=== PATIENT | male | born 1965 | race Caucasian/White ===

== ENCOUNTER 2017-06-08 11:56 | Outpatient (CLI) | payer MEDICARE, MEDICAID ==
--- OUTSIDE RECORDS SUMMARY | 2017-06-08 11:58 | XMS ---
:1965 Author Organization [facility] Care Team Providers Name Role Phone NADINE MALAGON Unavailable Unavailable Encounters Encounter Providers Location Date Indications Data Source(s) Outpatient Attender: NADINE 08/30/2014 FERNANDO MALAGON MD 10:52:00 AM HAM PUMPER - 08/31/2014 01:44:00 PM HAM PUMPER Outpatient Attender: NADINE 08/29/2014 FERNANDO MALAGON MD 09:05:00 AM HAM PUMPER - 08/29/2014 09:05:00 AM HAM PUMPER Insurance Providers Payer name Policy type / Policy ID Covered Covered libertarian's Policy Plan Coverage type libertarian ID relationship to Kiser Information kiser Medicare NOT_[id number] Medicare NOT_[id number] Problems, Conditions, and Diagnoses Code Display Name Description Effective Dates Data Source(s) 414.01 CORONARY ATHEROSCLEROSIS CRNRY ATHRSCL [facility] [place] CORONARY ARTERY VSSL 493.90 ASTHMA UNSPECIFIED ASTHMA NOS SDH 401.9 UNSPECIFIED ESSENTIAL HYPERTENSION NOS SDH HYPERTENSION 296.80 BIPOLAR DISORDER BIPOLAR DISORDER NOS SDH UNSPECIFIED 427.31 ATRIAL FIBRILLATION ATRIAL FIBRILLATION SDH V64.1 SURGICAL OR OTHER NO SDH PROCEDURE NOT CARRIED OUT PROC/CONTRAINDICATION BECAUSE OF CONTRAINDICATION 427.31 ATRIAL FIBRILLATION ATRIAL FIBRILLATION SDH Surgeries/Procedures Procedure Date Indications Data Source(s) CARDIAC MAPPING 08/30/2014 12:00:00 AM [facility] INTRACARDIAC ECHOCARDIO 08/30/2014 12:00:00 AM [facility] SDH EXC/JAMEL HRT LES, ENDOVASC 08/30/2014 12:00:00 AM [facility] CATH BASE INVASV EP TEST 08/30/2014 12:00:00 AM [facility]
[2017-06-08 13:39] LABS: #Lymphocytes 1.4 thou/uL (1.20-3.40); #Monocytes 0.7 thou/uL (0.11-0.59); #Neutrophils 7.8 thou/uL (1.40-6.50); %Basophils 0.3 % (0.0-1.0); %Eosinophils 0.2 % (0.0-10.0); %Lymphocytes 14.2 % (21.0-51.0); %Monocytes 7.2 % (0.0-10.0); Hematocrit 40.9 % (42.0-52.0); Mean Platelet Volume 6.8 fL (7.4-10.4); Red Blood Cell (RBC) Count 4.31 mill/uL (4.70-6.10); White Blood Cell (WBC) Count 9.9 thou/uL (4.8-10.8)
[2017-06-08 13:44] LABS: Prothrombin Time 13.5 SEC (12.0-14.7)
[2017-06-08 13:45] LABS: PTT 30.6 SEC (22.9-36.1)
[2017-06-08 14:12] LABS: Anion Gap 12 mmol/L (10-20); BUN (Urea Nitrogen) 8 mg/dL (8.9-20.6); Calc. Creatinine Clearance 0 mL/min (70-130); Calcium 9.5 mg/dL (7.8-10.44); Carbon Dioxide 29 mmol/L (22-29); Chloride 97 mmol/L (98-107); Estimated GFR-MDRD Greater than 90
--- NOTE | 2017-06-09 09:06 | EKG ---
Test Reason : PREOP Blood Pressure : / mmHG Vent. Rate : 060 BPM Atrial Rate : 060 BPM P-R Int : 180 ms QRS Dur : 090 ms QT Int : 378 ms P-R-T Axes : 067 050 033 degrees QTc Int : 378 ms Normal sinus rhythm Minimal voltage criteria for LVH, may be normal variant Borderline ECG When compared with ECG of 13-DEC-2016 11:25, (Unconfirmed) Left posterior fascicular block is no longer Present Confirmed by LENORA ACE ([id number]) on 06/09/2017 9:06:07 AM Referred By: SOCORRO Confirmed By:LENORA ACE
== END 2017-06-08 11:57 | disposition home or self-care (01) ==
LOC: LABBT 11:56
PROVIDERS: ATTEND Surgery
DX: Z01.812 Encounter for preprocedural laboratory examination (principal); K40.90 Unilateral inguinal hernia, without obstruction or gangrene, not specified as recurrent
CPT/HCPCS: 80048; 85025; 85610; 85730; 93005; 93010

== ENCOUNTER 2017-06-16 09:00 | Day surgery (SDC) | payer MEDICARE, MEDICAID ==
[2017-06-08 12:34] VITALS: BMI 24.0
--- OUTSIDE RECORDS SUMMARY | 2017-06-16 09:03 | XMS ---
:1965 Author Organization [facility] Care Team Providers Name Role Phone NADINE MALAGON Unavailable Unavailable Encounters Encounter Providers Location Date Indications Data Source(s) Outpatient Attender: NADINE 08/30/2014 FERNANDO MALAGON MD 10:52:00 AM PHYSICIAN EXECUTIVE - 08/31/2014 01:44:00 PM PHYSICIAN EXECUTIVE Outpatient Attender: NADINE 08/29/2014 FERNANDO MALAGON MD 09:05:00 AM PHYSICIAN EXECUTIVE - 08/29/2014 09:05:00 AM PHYSICIAN EXECUTIVE Insurance Providers Payer name Policy type / Policy ID Covered Covered green party's Policy Plan Coverage type green party ID relationship to Kiser Information kiser Medicare NOT_[id number] Medicare NOT_VALID_[id number] Problems, Conditions, and Diagnoses Code Display Name Description Effective Dates Data Source(s) 414.01 CORONARY ATHEROSCLEROSIS CRNRY ATHRSCL [facility] [place] CORONARY ARTERY VSSL 493.90 ASTHMA UNSPECIFIED ASTHMA NOS SDH 401.9 UNSPECIFIED ESSENTIAL HYPERTENSION NOS SDH HYPERTENSION 296.80 BIPOLAR DISORDER BIPOLAR DISORDER NOS SDH UNSPECIFIED 427.31 ATRIAL FIBRILLATION ATRIAL FIBRILLATION SDH V64.1 SURGICAL OR OTHER NO SDH PROCEDURE NOT CARRIED OUT PROC/CONTRAINDICATION BECAUSE OF CONTRAINDICATION 427.31 ATRIAL FIBRILLATION ATRIAL FIBRILLATION SDH Surgeries/Procedures Procedure Date Indications Data Source(s) CARDIAC MAPPING 08/30/2014 12:00:00 AM [facility] INTRACARDIAC ECHOCARDIO 08/30/2014 12:00:00 AM [facility] SDH EXC/JAMEL HRT LES, ENDOVASC 08/30/2014 12:00:00 AM [facility] CATH BASE INVASV EP TEST 08/30/2014 12:00:00 AM [facility]
[2017-06-16] MEDS ORDERED: Midazolam HCl 2 mg/2 ml Vial ONE ×2 (10:27→11:21)
[2017-06-16] MEDS ORDERED: Bupivacaine HCl 0.5%/Epinephrine 1:200,000/PF 30 ml Vial ONE ×2 (11:15→11:33)
[2017-06-16] MEDS ORDERED: Bupivacaine PF 0.5% 30 ML VIAL ONE ×2 (11:17→11:19)
[2017-06-16] MEDS ORDERED: Fentanyl 100 MCG/2 ML VIAL ONE ×2 (11:21→13:16)
[2017-06-16] MEDS ORDERED: Levofloxacin 500 mg/D5W 100 ml Premix Bag ONE (11:21)
[2017-06-16] MEDS ORDERED: Lidocaine 2% PF 10 ML AMP (For Epidural Use) ONE (11:51)
[2017-06-16] MEDS ORDERED: Propofol 200 MG/20 ML VIAL ONE (11:51)
[2017-06-16] MEDS ORDERED: Ondansetron HCl/PF 4 MG/2 ML Vial IVP PRN (13:43)
[2017-06-16] MEDS ORDERED: Promethazine HCl 25 MG/ML VIAL IM/IV PRN (13:43)
--- NOTE | 2017-06-16 15:09 | OP ---
DATE OF PROCEDURE: 06/16/2017. PREOPERATIVE DIAGNOSIS: Right inguinal hernia. POSTOPERATIVE DIAGNOSIS: Right inguinal hernia. PROCEDURE: Right inguinal hernia repair with mesh, PHS extended. SURGEON: Martín Vieira M.D. ANESTHESIA: General. ESTIMATED BLOOD LOSS: Minimal. COMPLICATIONS: None. SPECIMEN: None. FINDINGS: Indirect right inguinal hernia. TECHNIQUE: The patient was taken to the operating room and placed supine on the table. After gener al anesthetic was obtained, the abdomen and groins were shaved, prepped and draped in a sterile critical access hospital ion. Oblique incision made above the pubic tubercle in the right lower quadrant. Cautery dissected down through Josephine's to expose the external oblique. External oblique fibers were opened along th e course of the external ring. Contents of the inguinal canal were dissected from backside of the e xternal oblique. The ilioinguinal nerve was segmentally removed high to prevent postoperative pain. Dissection superior medially on the cord showed there to be an indirect hernia sac. High ligation was performed using silk suture. This was inverted back into the preperitoneal space. The preperi toneal space was bluntly dissected through this defect. The PHS extended mesh brought into the ster ile field. The underlay was placed in the preperitoneal space, its fibers laid out flat against the posterior abdominal wall. The overlay was laid in the floor of the inguinal canal. The overlay wa s cut laterally to incorporate the internal ring. The overlay was sewn distally to the pubic tuberc le, medially to the transverse arch, laterally to the shelving edge of inguinal ligament using perma nent braided suture. The two ends of cut mesh were reapproximated at the shelving edge of inguinal ligament to reform the internal ring. The extra mesh was tucked back under the external oblique pro ximally. The wound was irrigated. Local anesthetic was applied. Tunneled catheter for postop pain is threaded from above the incision and left on top of the mesh. External oblique and Josephine's wer e closed using 3-0 Vicryl. Skin was closed using running 4-0 Monocryl and Dermabond. The patient w as en route to recovery in stable condition. All instrument counts, needle counts, and lap counts w ere correct.
--- NOTE | 2017-06-16 15:30 | RAD ---
ABDOMEN 1 VIEW: HISTORY: OR needle count off. COMPARISON: None. FINDINGS: No radiopaque foreign object is seen projecting over the pelvis. Catheter projects over the right h emiabdomen. IMPRESSION: No radiopaque surgical needle is appreciated. POS: [facility]
== END 2017-06-16 14:36 | disposition home or self-care (01) ==
LOC: SDC 09:00
PROVIDERS: ATTEND Surgery
PROC: 0YU50JZ Supplement Right Inguinal Region with Synthetic Substitute, Open Approach (ICD-10-PCS; principal; 2017-06-16)
DX: K40.90 Unilateral inguinal hernia, without obstruction or gangrene, not specified as recurrent (principal); F31.9 Bipolar disorder, unspecified; I10 Essential (primary) hypertension; I48.91 Unspecified atrial fibrillation; K85.20 Alcohol induced acute pancreatitis without necrosis or infection; K52.9 Noninfective gastroenteritis and colitis, unspecified; F14.10 Cocaine abuse, uncomplicated; F17.210 Nicotine dependence, cigarettes, uncomplicated; F20.9 Schizophrenia, unspecified; F10.10 Alcohol abuse, uncomplicated; Z79.82 Long term (current) use of aspirin; Z79.899 Other long term (current) drug therapy; Z88.5 Allergy status to narcotic agent; Z88.0 Allergy status to penicillin; Z91.041 Radiographic dye allergy status
CPT/HCPCS: 74000; 96374; A4306; C1781; J0670; J1956; J2001; J2250; J2704; J3010; S0020

== ENCOUNTER 2017-06-17 19:18 | Emergency (ER) | payer MEDICARE, MEDICAID ==
[2017-06-17 20:34] LABS: #Eosinphils 0.1 thou/uL (0.0-0.7); #Monocytes 0.7 thou/uL (0.11-0.59); #Neutrophils 5.5 thou/uL (1.40-6.50); %Basophils 0.5 % (0.0-1.0); %Eosinophils 1.6 % (0.0-10.0); %Lymphocytes 23.9 % (21.0-51.0); %Monocytes 8.1 % (0.0-10.0); Hematocrit 36.8 % (42.0-52.0); Red Blood Cell (RBC) Count 3.91 mill/uL (4.70-6.10); White Blood Cell (WBC) Count 8.4 thou/uL (4.8-10.8)
[2017-06-17 20:40] LABS: PTT 30.5 SEC (22.9-36.1); Prothrombin Time 13.5 SEC (12.0-14.7)
[2017-06-17 21:01] LABS: ALT (SGPT) 20 U/L (8-55); AST (SGOT) 16 U/L (5-34); Alkaline Phosphatase 79 U/L (40-150); Anion Gap 11 mmol/L (10-20); BUN (Urea Nitrogen) 10 mg/dL (8.9-20.6); Bilirubin, Total 0.4 mg/dL (0.2-1.2); Calc. Creatinine Clearance 0 mL/min (70-130); Calcium 8.8 mg/dL (7.8-10.44); Carbon Dioxide 25 mmol/L (22-29); Chloride 97 mmol/L (98-107); Estimated GFR-MDRD Greater than 90; Globulin 2.9 g/dL (2.4-3.5); Lipase 14 U/L (8-78); Protein, Total 6.7 g/dL (6.0-8.3)
--- NOTE | 2017-06-17 21:06 | ULT ---
ULTRASOUND SOFT TISSUE ABDOMINAL WALL 06/17/17 HISTORY: Postsurgical swelling, evaluate for hematoma. FINDINGS/IMPRESSION: There is a 3.8 x 0.6 x 0.7 cm fluid collection in the abdominal wall at the surgical site. The possi bility of infection cannot be excluded on this exam. POS: [facility]
== END 2017-06-17 22:22 | disposition home or self-care (01) ==
LOC: ERS 19:18
DX: G89.18 Other acute postprocedural pain (principal); R10.30 Lower abdominal pain, unspecified; I48.91 Unspecified atrial fibrillation; I10 Essential (primary) hypertension; F31.9 Bipolar disorder, unspecified; F17.210 Nicotine dependence, cigarettes, uncomplicated
CPT/HCPCS: 36415; 76705; 80053; 83690; 85025; 85610; 85730

== ENCOUNTER 2017-10-03 19:42 | Emergency (ER) | payer MEDICARE, MEDICAID ==
[2017-10-03 20:44] LABS: Bilirubin Negative (Negative); Blood, Urine Negative (Negative); Clarity CLEAR (Clear); Glucose, Urine (Dipstick) Negative (Negative); Leukocyte Negative (Negative); Nitrite Negative (Negative); Protein, Urine (Dipstick) Negative (Neg-Trace); Specific Gravity, Urine 1.007 (1.002-1.036); Urobilinogen 0.2 mg/dL (0.2-1.0)
[2017-10-03 20:52] LABS: #Basophils 0.1 thou/uL (0.0-0.2); #Lymphocytes 1.2 thou/uL (1.20-3.40); #Monocytes 0.8 thou/uL (0.11-0.59); #Neutrophils 12.3 thou/uL (1.40-6.50); %Basophils 0.4 % (0.0-1.0); %Eosinophils 0.1 % (0.0-10.0); %Lymphocytes 8.5 % (21.0-51.0); %Monocytes 5.2 % (0.0-10.0); %Neutrophils 85.8 % (42.0-75.0); Hemoglobin 14.1 g/dL (14.0-18.0); Mean Corpuscular HGB CONC 33.8 g/dL (32.0-36.0); Mean Corpuscular Hemoglobin 31.3 pg (27.0-31.0); Mean Corpuscular Volume 92.8 fl (80.0-94.0); Mean Platelet Volume 6.6 fL (7.4-10.4); Platelet Count 303 thou/uL (130-400); RBC Distribution Width 10.6 % (11.5-14.5); White Blood Cell (WBC) Count 14.3 thou/uL (4.8-10.8)
[2017-10-03 20:53] LABS: Amphetamine Not Detected (NotDetected); Benzodiazepine Screen Detected (NotDetected); Cocaine Metabolite Screen Detected (NotDetected); Medtox Reader # READER 4; Methadone Not Detected (NotDetected); Methamphetamine Not Detected (NotDetected); Opiate Screen Detected (NotDetected); Phencyclidine (PCP) Not Detected (NotDetected); THC/Cannabinoid Screen Not Detected (NotDetected); Tricyclic Screen Not Detected (NotDetected)
[2017-10-03 20:54] LABS: Barbiturates Screen Not Detected (NotDetected); Medtox Control Line Valid? VALID (VALID); Oxycodone Screen Not Detected (NotDetected)
[2017-10-03 21:13] LABS: ALT (SGPT) 32 U/L (8-55); AST (SGOT) 28 U/L (5-34); Acetaminophen Less than 6.0 mcg/mL (10.0-30.0); Albumin 4.6 g/dL (3.5-5.0); Alcohol Less than 10 mg/dL (Less than 10); Alkaline Phosphatase 86 U/L (40-150); Anion Gap 13 mmol/L (10-20); BUN (Urea Nitrogen) 7 mg/dL (8.9-20.6); Bilirubin, Total 0.3 mg/dL (0.2-1.2); CK (CPK) 566 U/L (30-200); Calc. Creatinine Clearance 0 mL/min (70-130); Calcium 9.3 mg/dL (7.8-10.44); Carbon Dioxide 26 mmol/L (22-29); Chloride 97 mmol/L (98-107); Estimated GFR-MDRD 76; Glucose 94 mg/dL (70-105); Potassium 4.2 mmol/L (3.5-5.1); Protein, Total 7.6 g/dL (6.0-8.3); Salicylate Less than 8.0 mg/dL (15.0-30.0); Sodium 132 mmol/L (136-145)
[2017-10-03 21:23] LABS: CKMB 2.3 ng/mL (0-6.6); Troponin I 0.013 ng/mL (< 0.028)
[2017-10-04] MEDS ORDERED: diphenhydrAMINE 50 MG/ML VIAL ONE (01:11)
[2017-10-04] MEDS ORDERED: Famotidine/PF 20 mg/2ml Vial ONE (01:11)
[2017-10-04] MEDS ORDERED: methylPREDNISolone Sod Succ/PF 125 MG/2 ML VIAL ONE (01:11)
--- NOTE | 2017-10-04 09:38 | CT ---
PRELIMINARY REPORT/[facility]/EMERGENCY AFTER HOURS PROCEDURE: EXAM: CT Angiography Neck With Intravenous Contrast CLINICAL HISTORY: 52 years old, male; Injury or trauma; Injury Attempted hanging; Initial encounter; Asphyxiation TECHNIQUE: Axial computed tomographic angiography images of the neck with intravenous contrast using CT angiogra phy protocol. CONTRAST: 100 mL of ISOVUE administered intravenously. COMPARISON: No relevant prior studies available. FINDINGS: VASCULATURE: Right common carotid artery: Unremarkable. No significant stenosis. No dissection or occlusion. Right internal carotid artery: Unremarkable. Extracranial segment is patent with no significant steno sis. No dissection or occlusion. Right external carotid artery: Unremarkable. No occlusion. Right vertebral artery: Unremarkable. No significant stenosis. No dissection or occlusion. Left common carotid artery: Unremarkable. No significant stenosis. No dissection or occlusion. Left internal carotid artery: Unremarkable. Extracranial segment is patent with no significant stenos is. No dissection or occlusion. Left external carotid artery: Unremarkable. No occlusion. Left vertebral artery: Unremarkable. No significant stenosis. No dissection or occlusion. NECK: Bones/joints: No acute fracture. No dislocation. Soft tissues: Unremarkable as visualized. No mass. CAROTID STENOSIS REFERENCE USING NASCET CRITERIA: % ICA stenosis = (1 - narrowest ICA diameter/diameter of distal cervical ICA) x 100. Mild - <50% stenosis. Moderate - 50-69% stenosis. Severe - 70-94% stenosis. Near occlusion - 95-99% stenosis. Occluded - 100% stenosis. IMPRESSION: No definite hemodynamically significant stenosis or arterial dissection Thank you for allowing us to participate in the care of your patient. Dictated and Authenticated by: Brad Osei MD 10/04/2017 2:24 AM Central Time ([place] & [place]) FINAL REPORT CT ANGIOGRAM NECK: Date: 10/04/17 HISTORY: Post-traumatic pain. Suicide attempt, while in half-way. COMPARISON: None. TECHNIQUE: CT angiogram of the neck is performed in the axial plane. Sagittal and coronal three-dimensional refo rmatted images are submitted for interpretation. FINDINGS: This report is in agreement with the preliminary report by Zita. No evidence of carotid stenosis or d issection. Cervical vertebral bodies are patent. POS: [facility]
[2017-10-04] MEDS ORDERED: ISOVUE-370 76%-LOCM 1 ML ONE (13:51)
== END 2017-10-04 03:45 ==
LOC: ERS 19:42
DX: T14.91XA Suicide attempt, initial encounter (principal); F31.9 Bipolar disorder, unspecified; I48.91 Unspecified atrial fibrillation; I10 Essential (primary) hypertension; I49.9 Cardiac arrhythmia, unspecified; F17.210 Nicotine dependence, cigarettes, uncomplicated; Z71.6 Tobacco abuse counseling; Z79.899 Other long term (current) drug therapy
CPT/HCPCS: 36415; 70498; 80053; 80306; 80307; 81003; 82550; 82553; 84443; 84484; 85025; 93005; 96374; 96375; 99406; J1200; J2930; S0028

== ENCOUNTER 2017-10-29 09:08 | Inpatient (IN) | payer MEDICARE, MEDICAID ==
[2017-10-29 10:01] LABS: #Basophils 0.1 thou/uL (0.0-0.2); #Monocytes 0.8 thou/uL (0.11-0.59); #Neutrophils 6.2 thou/uL (1.40-6.50); %Basophils 1.6 % (0.0-1.0); %Eosinophils 0.1 % (0.0-10.0); %Monocytes 9.8 % (0.0-10.0); %Neutrophils 76.6 % (42.0-75.0); Hemoglobin 13.9 g/dL (14.0-18.0); Mean Corpuscular HGB CONC 36.3 g/dL (32.0-36.0); Mean Corpuscular Hemoglobin 31.9 pg (27.0-31.0); Mean Corpuscular Volume 87.9 fl (80.0-94.0); Mean Platelet Volume 6.1 fL (7.4-10.4); Platelet Count 340 thou/uL (130-400); RBC Distribution Width 11.2 % (11.5-14.5); Red Blood Cell (RBC) Count 4.36 mill/uL (4.70-6.10); White Blood Cell (WBC) Count 8.1 thou/uL (4.8-10.8)
--- NOTE | 2017-10-29 10:01 | RAD ---
AP VIEW OF THE CHEST: INDICATION: Chest pain. COMPARISON: Prior study dated 07/19/17. FINDINGS: No focal consolidation is evident. Cardiomediastinal silhouette is within normal limits. No acute o sseous abnormality is demonstrated. IMPRESSION: No acute cardiopulmonary abnormality. POS: [facility]
[2017-10-29] MEDS ORDERED: Lorazepam 2 MG/ML VIAL ONE ×2 (10:04→12:05)
[2017-10-29] MEDS ORDERED: Ketorolac Tromethamine 30 MG/ML VIAL ONE (10:05)
[2017-10-29 10:23] LABS: ALT (SGPT) 21 U/L (8-55); AST (SGOT) 27 U/L (5-34); Acetaminophen Less than 6.0 mcg/mL (10.0-30.0); Albumin 4.2 g/dL (3.5-5.0); Alcohol Less than 10 mg/dL (Less than 10); Alkaline Phosphatase 90 U/L (40-150); Anion Gap 14 mmol/L (10-20); BUN (Urea Nitrogen) 4 mg/dL (8.9-20.6); Bilirubin, Total 1.1 mg/dL (0.2-1.2); CK (CPK) 457 U/L (30-200); Calc. Creatinine Clearance 0 mL/min (70-130); Carbon Dioxide 19 mmol/L (22-29); Chloride 83 mmol/L (98-107); Estimated GFR-MDRD Greater than 90; Globulin 2.5 g/dL (2.4-3.5); Glucose 100 mg/dL (70-105); Lipase 27 U/L (8-78); Potassium 3.6 mmol/L (3.5-5.1); Protein, Total 6.7 g/dL (6.0-8.3); Salicylate Less than 8.0 mg/dL (15.0-30.0)
[2017-10-29 10:25] LABS: Troponin I Less than 0.010 ng/mL (< 0.028)
[2017-10-29 10:27] LABS: Sodium 112 mmol/L (136-145)
[2017-10-29 10:31] LABS: CKMB 11.1 ng/mL (0-6.6)
[2017-10-29 10:35] LABS: Amphetamine Not Detected (NotDetected); Barbiturates Screen Not Detected (NotDetected); Benzodiazepine Screen Not Detected (NotDetected); Cocaine Metabolite Screen Not Detected (NotDetected); Medtox Control Line Valid? VALID (VALID); Medtox Reader # READER 4; Methadone Not Detected (NotDetected); Methamphetamine Not Detected (NotDetected); Opiate Screen Not Detected (NotDetected); Oxycodone Screen Not Detected (NotDetected); Phencyclidine (PCP) Not Detected (NotDetected); THC/Cannabinoid Screen Not Detected (NotDetected); Tricyclic Screen Not Detected (NotDetected)
[2017-10-29] MEDS ORDERED: HYDROcodone/Acetaminophen 5/325 mg Tablet ONE (11:33)
[2017-10-29 12:38] LABS: Anion Gap 13 mmol/L (10-20); BUN (Urea Nitrogen) 4 mg/dL (8.9-20.6); Calc. Creatinine Clearance 0 mL/min (70-130); Calcium 9.1 mg/dL (7.8-10.44); Carbon Dioxide 21 mmol/L (22-29); Chloride 83 mmol/L (98-107); Estimated GFR-MDRD Greater than 90; Glucose 93 mg/dL (70-105); Magnesium 1.5 mg/dL (1.6-2.6); Potassium 3.4 mmol/L (3.5-5.1)
[2017-10-29 12:42] LABS: Sodium 114 mmol/L (136-145)
[2017-10-29 12:48] LABS: Osmolality, Serum 233 mOsm/kg (280-295)
--- NOTE | 2017-10-29 12:49 | CON ---
DATE OF CONSULTATION: 10/29/2017 REASON FOR CONSULTATION: Hypernatremia. HISTORY OF PRESENT ILLNESS: This is a 52-year-old gentleman with a history of alcohol and drug abuse and bipolar disorder who presented to the hospital with chest pain. The patient was noted to have a sodium of 112, I was consulted. The patient is tremulous and has a history of alcohol use. The pat ient denies no headache, nausea, vomiting, or chest pain. PAST MEDICAL HISTORY: Significant for hypertension, history of alcohol abuse, history of AFib with a blation, history of arrhythmia, history of pancreatitis, hypertension and history of drug use. SOCIAL AND FAMILY HISTORY: As noted above, drug and tobacco as well as alcohol. ALLERGIES: Reviewed. HOME MEDICATIONS: List reviewed. HOSPITAL MEDICATIONS: List reviewed. ALLERGIES: Reviewed. REVIEW OF SYSTEMS: Fifteen-point review of systems was performed and was negative except for positiv es noted above. GENERAL: Weakness-. HEAD: Headache-. NECK: No swelling or lumps. NOSE: No epistaxis or discharge. EYES: No diplopia or pain. RESPIRATORY: Dyspnea-. CARDIOVASCULAR: Chest pain- GASTROINTESTINAL: Nausea-. /COMMISSARY STEWARD: Hematuria-. MUSCULOSKELETAL: No joint pain. NEUROPSYCHIATIC SYSTEMS: No suicidal ideation. No ideation. SKIN: Denies any rash or ulcer. CONSTITUTIONAL: No fever or chills. PHYSICAL EXAMINATION: GENERAL: The patient is awake and alert. VITAL SIGNS: Afebrile, pulse 70, breathing at 16 and blood pressure 150/70. HEAD/NECK: Normocephalic. Atraumatic. EYES: EOMI. No deformity. EARS: Clear. No ulcers. NOSE: Intact. No lesions. MOUTH: Clear. No discharge. THROAT: Clear. No exudate. LUNGS: Clear. No crackles. CARDIAC: S1, S2. No rub. ABDOMEN: Benign. BS+. GENITALIA/RECTUM: Roach absent. BACK/EXTREMITIES: Edema 0+. Ulcer-. NEUROLOGICAL: Alert and motor intact. SKIN: Rash-. Bruise-. LYMPHATICS: Edema-. Ulcer-21:59. LABORATORY DATA: Shows a sodium of 112. Serum osmolality is pending. Urine osmolality was 131. ASSESSMENT AND RECOMMENDATIONS: Hypernatremia, most likely because of syndrome of inappropriate anti diuretic hormone secretion. We would recommend 3% saline bolus and hypertonic saline at 30 mL per ho ur. We would recommend checking sodium every 2 hours. We would also recommend checking a magnesium level. Overall, prognosis is extremely poor. The above findings were discussed with the patient and all questions were answered.
[2017-10-29] MEDS ORDERED: Acetaminophen 325 MG TAB PO PRN (13:00)
[2017-10-29] MEDS ORDERED: Temazepam 15 MG CAP PO PRN (13:00)
[2017-10-29] MEDS ORDERED: hydrALAZINE 20 MG/ML VIAL SLOW IVP PRN (13:00)
[2017-10-29] MEDS ORDERED: Loperamide HCl 2 MG CAP PO PRN (13:00)
[2017-10-29] MEDS ORDERED: Chloraseptic Spray 180 ml Bottle PO PRN (13:00)
[2017-10-29] MEDS ORDERED: Mag-Al 1200 mg/1200 mg/30 ML UDCUP PO PRN (13:00)
[2017-10-29] MEDS ORDERED: Diabetic Tussin 200 MG/10 ML UDCUP PO PRN (13:00)
[2017-10-29] MEDS ORDERED: Nitroglycerin 0.4 MG TAB (25 Tab Bottle) SL PRN (13:00)
[2017-10-29] MEDS ORDERED: Labetalol HCl 100 MG/20 ML VIAL SLOW IVP PRN (13:00)
[2017-10-29] MEDS ORDERED: Loratadine 10 MG TAB PO PRN (13:00)
[2017-10-29] MEDS ORDERED: Sodium Chloride 0.65% Nasal 44 ML BOT EA NARE PRN (13:00)
[2017-10-29] MEDS ORDERED: Eucerin (Mineral Oil/Petrolatum,White) 30 gm Jar TOP PRN (13:00)
[2017-10-29] MEDS ORDERED: Ondansetron HCl/PF 4 MG/2 ML Vial IVP PRN (13:00)
[2017-10-29] MEDS ORDERED: Ondansetron ODT 4 MG TAB PO PRN (13:00)
[2017-10-29] MEDS ORDERED: Senokot 8.6 MG TAB PO PRN (13:00)
[2017-10-29] MEDS ORDERED: Artificial Tears 18 DROP/0.9 ML EA EYE PRN (13:00)
[2017-10-29] MEDS ORDERED: cloNIDine 0.1 MG TAB PO PRN (13:00)
[2017-10-29] MEDS ORDERED: Milk Of Magnesia 30 ML UDCUP PO PRN (13:00)
[2017-10-29] MEDS ORDERED: Lorazepam 2 MG/ML VIAL SLOW IVP PRN (13:00)
[2017-10-29] MEDS ORDERED: Magnesium Sulfate 3 GM in Sodium Chloride 0.9% 250 ML 250 ML IVPB SCH (13:15)
--- NOTE | 2017-10-29 13:24 | HP ---
PRIMARY CARE PHYSICIAN: Karishma Hernandez, Nurse Practitioner. REASON FOR ADMISSION: Severe hyponatremia and chest pain. HISTORY OF PRESENT ILLNESS: A 52-year-old male who has a history of underlying anxiety, depression a nd bipolar disorder as well as hypertension who came to the emergency room for complaint of chest isidro n. He describes chest pain on the left side started last night, which is constant, dull aching in na ture, associated with nausea and cough. He also has a left-sided point tenderness and he also report s that whenever he moves his chest, left or right, it hurts, particularly on the left side of the [address]. He denies any fever. He denies any hemoptysis. He denies any shortness of breath. He denies a ny dizziness or syncope. He denies any relation of chest pain with food or activity. His pain inten sity is about 7/10. There was no relief with the pain medication. This patient denies any UTI symptoms. He denies any constipation, but he does report no vomiting, an d diarrhea started 4 days ago, which is on and off, but last night, he had 10 times vomiting and he a lso had diarrhea about 4 times. He denies any unusual food ingestion. He denies any other family me mbers sick with this similar problem. The patient reports that he did not drink alcohol for the last several months. He denies any drinkin g excessive water. He denies any unusual medication. Today in the emergency room, routine blood test showed hyponatremia with sodium of 111. Nephrology w as consulted in the emergency room and they are going to start on hypertonic saline. The patient als o found with rhabdomyolysis. ALLERGIES: PENICILLIN, IODINE and CODEINE SULFATE. CURRENT HOME MEDICATIONS: Aspirin 81 mg p.o. daily, Tegretol 200 mg p.o. t.i.d., Klonopin 1 mg p.o. b.i.d., Dexilant 60 mg p.o. daily, Cardizem-CD 180 mg p.o. daily, Bystolic 5 mg p.o. daily, Zyprexa 2 0 mg p.o. at bedtime, Zoloft 100 mg p.o. daily and Restoril 30 mg p.o. at bedtime. REVIEW OF SYSTEMS: Constitutional: Weight loss or gain, ability to conduct usual activities. Skin: Rash, itching. Eyes: Double vision, pain. ENT/Mouth: Nose bleeding, neck stiffness, pain, tenderness. Cardiovascular: Palpitations, dyspnea on exertion, orthopnea. Respiratory: Shortness of breath, wheezing, cough, hemoptysis, fever or night sweats. Gastrointestinal: Poor appetite, abdominal pain, heartburn, nausea, vomiting, constipation, or diarr hea. Genitourinary: Urgency, frequency, dysuria, nocturia. Musculoskeletal: Pain, swelling. Neurologic/Psychiatric: Anxiety, depression. Allergy/Immunologic: Skin rash, bleeding tendency. Please see my HPI for pertinent positive and negative. All other review of systems reviewed and nega tive except as mentioned in the HPI. PAST MEDICAL HISTORY: Paroxysmal atrial fibrillation, history of pancreatitis, history of hypertensi on, gastroesophageal reflux disease, medication noncompliance, history of polysubstance abuse and tob acco abuse disorder. PAST PSYCHIATRIC HISTORY: Anxiety, depression, schizophrenia and bipolar disorder. PAST SURGICAL HISTORY: Ablation for atrial fibrillation, upper endoscopy, electroconvulsive therapy and hernia repair. SOCIAL HISTORY: The patient is . He smokes about 4 cigarettes on a daily basis. He drinks a lcohol occasionally, but he reports that he did not drink alcohol for the last several months. He constantino s previous history of polysubstance abuse including alcohol, tobacco and other drug abuse. FAMILY HISTORY: There is no significant family history of premature coronary artery disease, stroke or cancer. EMERGENCY ROOM COURSE: The patient is given Ativan 0.5 mg IV, [place] 5 mg, Toradol 30 mg and aspirin 324 mg. PHYSICAL EXAMINATION: VITAL SIGNS: On arrival, blood pressure 172/96, pulse 85, temperature 98.0, saturation 98% on room a ir, respiratory rate 22 and weight 72.5 kilograms. GENERAL: The patient is currently alert and awake, in no obvious acute distress, though patient appe ars anxious, apprehensive, tremulous and hypertensive. HEENT: Head; normocephalic and atraumatic. Eyes: Pupils are round and reactive to light. Extraocu lar muscles intact. Dry mucous membranes. No oral lesions, no pharyngeal erythema, no exudate. NECK: Supple. No JVD, no thyromegaly, no carotid bruit, no jugular venous distention. LUNGS: Clear to auscultation without any rhonchi or rales. CARDIAC: S1 and S2 regular, tachycardia. No murmur, no gallop, no rub. ABDOMEN: Soft, bowel sounds present, nontender and nondistended. No organomegaly, no mass, no supra pubic tenderness. BACK: Unremarkable. No CVA tenderness. EXTREMITIES: Upper extremity; passive movement of all joints are normal. Lower extremities; no ramirez a. Good peripheral pulsation. SKIN: No skin rash, no cellulitis. HEMATOLOGICAL SYSTEM: No lymphadenopathy. PSYCHIATRIC: Anxious affect. NEUROLOGIC: The patient is alert and oriented x3. Cranial nerves II-XII intact. Motor and sensatio n within normal limits. Reflexes symmetrical. Plantar bilateral flexor. The patient is tremulous a nd apprehensive. SIGNIFICANT LABS AND IMAGING DATA: EKG showing normal sinus rhythm without any ischemic changes. Ch est x-ray based on my review, no acute cardiopulmonary process. CBC: WBC 8.1, hemoglobin 13.9 and platelets 340. BMP: Sodium 112, potassium 3.6, chloride 83, carbon dioxide 19, anion gap 14, BUN 4, creatinine 0.67 , glucose 100, calcium 9.0. LFT: AST 27, ALT 21, alkaline phosphatase 90, albumin 4.2, lipase 27, CK 457, CK-MB 11.1, troponin I less than 0.010. Urinalysis: Urine osmolality 138. Urine drug screen negative. Serum drug screen, alcohol level les s than 10. ASSESSMENT, PLAN AND IMPRESSION: 1. Severe hyponatremia. We will check TSH, random cortisol, serum osmolality as a part of hyponatre jasmine workup. Nephrology consulted in the emergency room and Nephrology planning to give him hypertoni c saline. We will monitor BMP frequently. 2. Rhabdomyolysis. The patient will be given IV fluid and will repeat total CK tomorrow. 3. Dehydration. The patient will be given IV fluid and we will monitor labs. 4. Anxiety, depression, bipolar disorder and schizophrenia. We will continue Tegretol, Klonopin, Zo loft and Restoril as per home dosage. 5. Paroxysmal atrial fibrillation. We will continue Cardizem CD 180 mg p.o. daily and aspirin 81 mg p.o. daily. 6. Hypertension. We will continue Bystolic 5 mg p.o. daily. 7. Gastroesophageal reflux disease. We will continue Protonix 40 mg p.o. daily. 8. Chest pain. The patient's chest pain description is completely non-anginal, noncardiac and most likely reproducible pain and that is why I am suspecting costochondritis. We will give him pain medi cation for pain. This patient already had a stress test done last year it was completely normal, so no need of further testing. His CK-MB is elevated, which is a part of total CK. 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 9. Deep venous thrombosis prophylaxis. Lovenox 40 mg subcu daily. 10. Gastrointestinal prophylaxis. The patient is already on Protonix therapy. 11. CODE STATUS: The patient is FULL CODE. The patient's is the surrogate decision maker. Disposition plan based on clinical course. We are expecting patient's stay in hospital more than 2 m idnights. Plan of care discussed with the patient in detail.
[2017-10-29 14:05] LABS: Bacteria/HPF None Seen HPF (None Seen); Hyaline Casts/LPF 0-3 HYALINE CAST LPF (0-3 Hyaline); RBC/HPF 0-3 HPF (0-3); Squamous Epithelial None Seen HPF (0-3); WBC/HPF None Seen HPF (0-3)
[2017-10-29 14:09] LABS: Bilirubin Negative (Negative); Blood, Urine Trace (Negative); Glucose, Urine (Dipstick) Negative (Negative); Leukocyte Negative (Negative); Nitrite Negative (Negative); Protein, Urine (Dipstick) Negative (Neg-Trace); Urobilinogen 0.2 mg/dL (0.2-1.0)
[2017-10-29 14:15] LABS: Clarity CLEAR (Clear)
[2017-10-29] MEDS ORDERED: IN SODIUM CHLORIDE FS SCH (15:00)
[2017-10-29] MEDS ORDERED: ADMIXTURE FEE FS SCH (15:00)
[2017-10-29] MEDS ORDERED: clonazePAM 1 MG TAB ONE (15:08)
[2017-10-29] MEDS ORDERED: clonazePAM 1 MG TAB PO SCH (15:15)
[2017-10-29] MEDS ORDERED: Sodium Chloride 0.9% 1,000 ML IV SCH (16:00)
[2017-10-29 16:04] LABS: CKMB 11.3 ng/mL (0-6.6)
[2017-10-29 16:23] LABS: Sodium 117 mmol/L (136-145)
[2017-10-29] MEDS ORDERED: carBAMazepine 200 MG TAB PO SCH (17:00)
[2017-10-29] MEDS: ADMIXTURE FEE FS SCH ×2 (17:52→17:53)
[2017-10-29] MEDS: IN SODIUM CHLORIDE FS SCH ×2 (17:52→17:53)
[2017-10-29 18:48] LABS: Troponin I Less than 0.010 ng/mL (< 0.028)
[2017-10-29 18:55] LABS: CKMB 11.2 ng/mL (0-6.6); Critical Call CKMBM RESULT DECREASING
[2017-10-29] MEDS: clonazePAM 1 MG TAB PO SCH (19:35)
[2017-10-29 20:34] LABS: Anion Gap 11 mmol/L (10-20); BUN (Urea Nitrogen) 6 mg/dL (8.9-20.6); Calc. Creatinine Clearance 121 mL/min (70-130); Calcium 8.9 mg/dL (7.8-10.44); Carbon Dioxide 23 mmol/L (22-29); Chloride 94 mmol/L (98-107); Estimated GFR-MDRD Greater than 90; Glucose 112 mg/dL (70-105); Potassium 3.7 mmol/L (3.5-5.1); Sodium 124 mmol/L (136-145)
[2017-10-29] MEDS: Mirtazapine 15 MG TAB PO SCH (20:57)
[2017-10-29] MEDS: Zolpidem Tartrate 5 MG TAB PO PRN (20:57)
[2017-10-29] MEDS ORDERED: FLU VACC QS2017-18 36 mo. & older 0.5 ML SYRINGE IM ONE (21:00)
[2017-10-29] MEDS: Dextrose 5% in Water 1,000 ML IV SCH (21:04)
[2017-10-29 23:27] LABS: Anion Gap 11 mmol/L (10-20); BUN (Urea Nitrogen) 7 mg/dL (8.9-20.6); Calc. Creatinine Clearance 115 mL/min (70-130); Calcium 8.9 mg/dL (7.8-10.44); Carbon Dioxide 25 mmol/L (22-29); Chloride 96 mmol/L (98-107); Estimated GFR-MDRD Greater than 90; Glucose 143 mg/dL (70-105); Potassium 3.2 mmol/L (3.5-5.1); Sodium 129 mmol/L (136-145)
[2017-10-29] MEDS ORDERED: Dextrose 5% in Water 250 ML IV SCH (23:59)
[2017-10-30 02:45] LABS: ALT (SGPT) 23 U/L (8-55); AST (SGOT) 29 U/L (5-34); Albumin 4.2 g/dL (3.5-5.0); Alkaline Phosphatase 83 U/L (40-150); Anion Gap 11 mmol/L (10-20); BUN (Urea Nitrogen) 6 mg/dL (8.9-20.6); Bilirubin, Total 0.5 mg/dL (0.2-1.2); CK (CPK) 586 U/L (30-200); Calc. Creatinine Clearance 120 mL/min (70-130); Carbon Dioxide 23 mmol/L (22-29); Cardiac Risk 3.8 (Less than 4.5); Chloride 101 mmol/L (98-107); Cholesterol 166 mg/dl (< 200 Desired); Estimated GFR-MDRD Greater than 90; Globulin 2.4 g/dL (2.4-3.5); Glucose 111 mg/dL (70-105); HDL Cholesterol 44 mg/dL (>60 Neg Risk); LDL Cholesterol, Calculated 110 mg/dL; Potassium 3.6 mmol/L (3.5-5.1); Protein, Total 6.6 g/dL (6.0-8.3); Sodium 131 mmol/L (136-145); Triglycerides 60 mg/dL (Less than 150)
[2017-10-30 02:50] LABS: Lymphocytes 23 % (21-51); MDiff Complete? YES; Mean Corpuscular HGB CONC 35.8 g/dL (32.0-36.0); Mean Corpuscular Hemoglobin 31.8 pg (27.0-31.0); Mean Corpuscular Volume 88.7 fl (80.0-94.0); Monocytes 15 % (0-10); Neutrophil 61 % (42-75); Platelet Count 292 thou/uL (130-400); RBC Distribution Width 11.4 % (11.5-14.5); Reactive Lymphocytes 1 % (0-10); White Blood Cell (WBC) Count 6.3 thou/uL (4.8-10.8)
[2017-10-30] MEDS: Dextrose 5% in Water 1,000 ML IV SCH ×3 (03:22→17:25)
[2017-10-30] MEDS: Enoxaparin Sodium 40 MG/0.4 ML SYRINGE SC SCH (07:52)
[2017-10-30] MEDS: Cyanocobalamin (Vitamin B-12) 1,000 MCG TAB PO SCH (07:52)
[2017-10-30] MEDS: Multivitamin W/ Minerals 1 TAB PO SCH (07:53)
[2017-10-30 07:54] LABS: Sodium 125 mmol/L (136-145)
[2017-10-30] MEDS: clonazePAM 1 MG TAB PO SCH ×2 (07:54→20:54)
[2017-10-30] MEDS: Folic Acid 1 MG TAB PO SCH (07:54)
[2017-10-30] MEDS: Nebivolol HCl 5 MG TAB PO SCH (07:54)
[2017-10-30] MEDS: carBAMazepine 100 mg Chewable Tablet PO SCH ×3 (08:41→20:54)
[2017-10-30] MEDS ORDERED: BREXPIPRAZOLE PO SCH (09:00)
[2017-10-30] MEDS ORDERED: Non-Formulary Item 1 EACH (Nebivolol Hcl [Bystolic] 10 MG) PO SCH (09:00)
[2017-10-30] MEDS ORDERED: carBAMazepine 200 MG TAB PO SCH (09:00)
[2017-10-30] MEDS ORDERED: Nebivolol HCl 5 MG TAB PO SCH (09:00)
--- NOTE | 2017-10-30 09:47 | PDOC.PN ---
- Subjective Encounter Start Date: 10/30/17 Encounter Start Time: 09:00 -: old records requested/rev Patient seen and examined. No new complaints. No overnight events - Objective Resuscitation Status: Resuscitation Status FULL:Full Resuscitation MAR Reviewed: Yes Vital Signs & Weight: Vital Signs (12 hours) Temp Pulse Resp BP Pulse Ox 10/30/17 08:00 97.8 F 90 16 138/80 97 10/30/17 04:00 99.2 F 78 16 105/69 97 10/30/17 00:00 98.2 F 101 H 16 119/71 96 Weight Weight 165 lb I&O: 10/29/17 10/30/17 10/31/17 06:59 06:59 06:59 Intake Total 2620 360 Balance 2620 360 Result Diagrams: 10/30/17 02:06 10/30/17 07:21 Phys Exam - Physical Examination Constitutional: NAD HEENT: PERRLA, moist MMs, sclera anicteric Neck: no JVD, supple Respiratory: no wheezing, no rales, no rhonchi Cardiovascular: RRR, no significant murmur, no rub Gastrointestinal: soft, non-tender, no distention, positive bowel sounds Musculoskeletal: no edema, pulses present Neurological: non-focal, normal sensation, moves all 4 limbs Lymphatic: no nodes Psychiatric: normal affect, A&O x 3 Skin: no rash, normal turgor Dx/Plan (1) Chest pain Code(s): R07.9 - CHEST PAIN, UNSPECIFIED Status: Acute Comment: musculoskeletal pain based on exam (2) Hyponatremia Code(s): E87.1 - HYPO-OSMOLALITY AND HYPONATREMIA Status: Acute Comment: improving (3) Rhabdomyolysis Code(s): M62.82 - RHABDOMYOLYSIS Status: Acute (4) Alcohol abuse Code(s): F10.10 - ALCOHOL ABUSE, UNCOMPLICATED Status: Chronic Comment: now quit (5) Anxiety and depression Code(s): F41.8 - OTHER SPECIFIED ANXIETY DISORDERS Status: Chronic (6) Asthma Code(s): J45.909 - UNSPECIFIED ASTHMA, UNCOMPLICATED Status: Chronic (7) Hypertension Code(s): I10 - ESSENTIAL (PRIMARY) HYPERTENSION Status: Chronic (8) Schizophrenia Code(s): F20.9 - SCHIZOPHRENIA, UNSPECIFIED Status: Chronic - Plan cont current plan of care * hyponatremia managed by nephrology * medication reviewed as below * symptomatic treatment * home medication reconciled * expecting discharge by tomorrow Review of Systems - Review of Systems Constitutional: negative: fever, chills, sweats, weakness, malaise, other ENT: negative: Ear Pain, Ear Discharge, Nose Pain, Nose Discharge, Nose Congestion, Mouth Pain, Mouth Swelling, Throat Pain, Throat Swelling, Other Respiratory: negative: Cough, Dry, Shortness of Breath, Hemoptysis, SOB with Excertion, Pleuritic Pain, Sputum, Wheezing Cardiovascular: negative: chest pain, palpitations, orthopnea, paroxysmal nocturnal dyspnea, edema, light headedness, other Gastrointestinal: negative: Nausea, Vomiting, Abdominal Pain, Diarrhea, Constipation, Melena, Hematochezia, Other Genitourinary: negative: Dysuria, Frequency, Incontinence, Hematuria, Retention , Other Musculoskeletal: negative: Neck Pain, Shoulder Pain, Arm Pain, Back Pain, Hand Pain, Leg Pain, Foot Pain, Other Skin: negative: Rash, Lesions, Jeremy, Bruising, Other - Medications/Allergies Allergies/Adverse Reactions: Allergies Allergy/AdvReac Type Severity Reaction Status Date / Time codeine Allergy Unknown Verified 06/08/17 12:34 iodine Allergy Unknown Verified 06/08/17 12:34 Penicillins Allergy Unknown Verified 06/08/17 12:34 Medications: Current Medications Acetaminophen (Tylenol) 650 mg PO Q4H PRN PRN Reason: Headache/Fever or Pain Al Hydroxide/Mg Hydroxide (Maalox) 30 ml PO Q6H PRN PRN Reason: Heartburn or Indigestion Artificial Tears (Tears Naturale) 0 drop EA EYE PRN PRN PRN Reason: Dry Eyes Aspirin (Aspirin Chewable) 81 mg PO DAILY [facility] Last Admin: 10/30/17 07:53 Dose: 81 mg Carbamazepine (Tegretol) 100 mg PO TID [facility] Last Admin: 10/30/17 08:41 Dose: 100 mg Clonazepam (Klonopin) 1 mg PO BID [facility] Last Admin: 10/30/17 07:54 Dose: 1 mg Clonidine (Catapres) 0.1 mg PO Q4H PRN PRN Reason: Systolic BP > 180 Cyanocobalamin (Vitamin B-12) 1,000 mcg PO DAILY [facility] Last Admin: 10/30/17 07:52 Dose: 1,000 mcg Diltiazem HCl (Cardizem Cd) 180 mg PO DAILY [facility] Last Admin: 10/30/17 07:54 Dose: 180 mg Enoxaparin Sodium (Lovenox) 40 mg SC 0900 [facility] Last Admin: 10/30/17 07:52 Dose: 40 mg Folic Acid (Folvite) 1 mg PO DAILY [facility] Last Admin: 10/30/17 07:54 Dose: 1 mg Guaifenesin (Robitussin Sf) 200 mg PO Q4H PRN PRN Reason: Cough Hydralazine HCl (Apresoline) 10 mg SLOW IVP Q4H PRN PRN Reason: Systolic BP > 180 Dextrose/Water (D5w) 1,000 mls @ 250 mls/hr IV .Q4H [facility] Last Admin: 10/30/17 07:54 Dose: 1,000 mls Iron/Minerals/Multivitamins (Theragran M) 1 tab PO DAILY [facility] Last Admin: 10/30/17 07:53 Dose: 1 tab Labetalol HCl (Normodyne) 20 mg SLOW IVP Q4H PRN PRN Reason: Systolic BP > 180 Loperamide HCl (Imodium) 2 mg PO PRN PRN PRN Reason: Diarrhea/Loose Stools Loratadine (Claritin) 10 mg PO DAILYPRN PRN PRN Reason: Sinus Symptoms Lorazepam (Ativan) 1 mg SLOW IVP Q4H PRN PRN Reason: Anxiety/Agitation Last Admin: 10/29/17 18:01 Dose: 1 mg Magnesium Hydroxide (Milk Of Magnesium) 30 ml PO DAILYPRN PRN PRN Reason: Constipation Mineral Oil/White Petrolatum (Eucerin Cream) 0 gm TOP BIDPRN PRN PRN Reason: Dry Skin Mirtazapine (Remeron) 15 mg PO HS [facility] Last Admin: 10/29/17 20:57 Dose: 15 mg Nebivolol (Bystolic) 10 mg PO DAILY [facility] Last Admin: 10/30/17 07:54 Dose: 10 mg Nitroglycerin (Nitrostat) 0.4 mg SL Q5MIN PRN PRN Reason: Chest Pain Olanzapine (Zyprexa) 20 mg PO HS [facility] Ondansetron HCl (Zofran Odt) 4 mg PO Q6H PRN PRN Reason: Nausea/Vomiting Ondansetron HCl (Zofran) 4 mg IVP Q6H PRN PRN Reason: Nausea/Vomiting Pantoprazole Sodium (Protonix) 40 mg PO DAILY [facility] Last Admin: 10/30/17 07:52 Dose: 40 mg [Rexulti] 2 Tab 0 each PO DAILY [facility] Phenol (Chloraseptic [place] 180 Ml Bot) 0 ml PO PRN PRN PRN Reason: Sore Throat Quetiapine Fumarate (Seroquel) 100 mg PO TID [facility] Last Admin: 10/30/17 07:53 Dose: 100 mg Senna (Senokot) 2 tab PO HSPRN PRN PRN Reason: Constipation Sertraline HCl (Zoloft) 100 mg PO DAILY [facility] Last Admin: 10/30/17 07:53 Dose: 100 mg Sodium Chloride ([place] Nasal [place] 0.65%) 0 ml EA NARE QIDPRN PRN PRN Reason: Nasal Congestion Zolpidem Tartrate (Ambien) 10 mg PO HSPRN PRN PRN Reason: .SLEEP Last Admin: 10/29/17 20:57 Dose: 10 mg
[2017-10-30 10:52] LABS: Anion Gap 13 mmol/L (10-20); BUN (Urea Nitrogen) 5 mg/dL (8.9-20.6); Calc. Creatinine Clearance 118 mL/min (70-130); Calcium 8.8 mg/dL (7.8-10.44); Carbon Dioxide 21 mmol/L (22-29); Chloride 91 mmol/L (98-107); Estimated GFR-MDRD Greater than 90; Glucose 125 mg/dL (70-105); Potassium 3.5 mmol/L (3.5-5.1); Sodium 121 mmol/L (136-145)
--- NOTE | 2017-10-30 15:02 | PRG ---
DATE OF SERVICE: 10/30/2017 SUBJECTIVE: This is a 52-year-old gentleman being seen for hyponatremia. Overnight, the patient was given 3% hypertonic saline for 1 hours with improvement in sodium, but was started on normal saline by another physician and his normal saline was stopped around 9:00 p.m. The patient's sodium at that time had increased to 124, repeat was 129. The patient was started on D5W to lower his sodium to less than 10 mEq for 24 hours. The patient says he feels much better, more energy. Denies any nausea, vomiting or chest pain. PHYSICAL EXAMINATION: GENERAL: Patient is awake, alert. VITAL SIGNS: Afebrile, pulse 90, breathing 16, blood pressure 132/80. GENERAL APPEARANCE AND MENTAL STATUS: Fair. HEAD/NECK: Normocephalic, atraumatic. EYES: EOMI. No deformity. EARS: Clear. No ulcers. NOSE: Intact. No lesions. MOUTH: Clear. No discharge. THROAT: Clear. No exudate. LUNGS: Clear. No crackles. CARDIAC: S1, S2. No rub. ABDOMEN: Benign. BS+. GENITALIA/RECTUM: Roach absent. BACK/EXTREMITIES: Edema 0+ Ulcer-. NEUROLOGICAL: Alert and motor intact. SKIN: Rash- Bruise- LYMPHATICS: Edema- Ulcer-. LABORATORY DATA: This morning shows sodium of 125. ASSESSMENT AND RECOMMENDATIONS: Hyponatremia. The patient's sodium correction had been reversed. We will follow the sodium closely. He has acute hyponatremia and 24 hour change was 10 as he had alerted mentation to begin with. [facility]
[2017-10-30 16:56] LABS: Anion Gap 13 mmol/L (10-20); BUN (Urea Nitrogen) 6 mg/dL (8.9-20.6); Calc. Creatinine Clearance 110 mL/min (70-130); Calcium 9.2 mg/dL (7.8-10.44); Carbon Dioxide 23 mmol/L (22-29); Chloride 93 mmol/L (98-107); Estimated GFR-MDRD Greater than 90; Glucose 106 mg/dL (70-105); Potassium 3.6 mmol/L (3.5-5.1); Sodium 125 mmol/L (136-145)
[2017-10-30] MEDS: Mirtazapine 15 MG TAB PO SCH (20:54)
[2017-10-30] MEDS ORDERED: OLANZAPINE 20 MG PO SCH (21:00)
[2017-10-30] MEDS ORDERED: OLANZapine 5 MG TAB PO SCH (21:00)
[2017-10-30 21:35] LABS: Anion Gap 14 mmol/L (10-20); BUN (Urea Nitrogen) 5 mg/dL (8.9-20.6); Calc. Creatinine Clearance 102 mL/min (70-130); Calcium 9.6 mg/dL (7.8-10.44); Carbon Dioxide 25 mmol/L (22-29); Chloride 95 mmol/L (98-107); Estimated GFR-MDRD 87; Glucose 102 mg/dL (70-105); Potassium 3.5 mmol/L (3.5-5.1); Sodium 130 mmol/L (136-145)
[2017-10-30] MEDS: Zolpidem Tartrate 5 MG TAB PO PRN (21:45)
[2017-10-31] MEDS: Dextrose 5% in Water 1,000 ML IV SCH ×2 (04:24→11:05)
[2017-10-31 06:32] LABS: Anion Gap 12 mmol/L (10-20); BUN (Urea Nitrogen) 4 mg/dL (8.9-20.6); CK (CPK) 412 U/L (30-200); Calc. Creatinine Clearance 102 mL/min (70-130); Calcium 9.3 mg/dL (7.8-10.44); Carbon Dioxide 26 mmol/L (22-29); Chloride 99 mmol/L (98-107); Estimated GFR-MDRD 87; Glucose 113 mg/dL (70-105); Potassium 3.5 mmol/L (3.5-5.1); Sodium 133 mmol/L (136-145)
[2017-10-31] MEDS: clonazePAM 1 MG TAB PO SCH (08:36)
[2017-10-31] MEDS: Cyanocobalamin (Vitamin B-12) 1,000 MCG TAB PO SCH (08:37)
[2017-10-31] MEDS: Multivitamin W/ Minerals 1 TAB PO SCH (08:37)
[2017-10-31] MEDS: carBAMazepine 100 mg Chewable Tablet PO SCH (08:37)
[2017-10-31] MEDS: Enoxaparin Sodium 40 MG/0.4 ML SYRINGE SC SCH (08:38)
[2017-10-31] MEDS: Folic Acid 1 MG TAB PO SCH (08:38)
--- NOTE | 2017-10-31 10:46 | PDOC.PN ---
- Subjective Encounter Start Date: 10/31/17 Encounter Start Time: 08:30 Patient seen and examined. No new complaints. No overnight events - Objective Resuscitation Status: Resuscitation Status FULL:Full Resuscitation MAR Reviewed: Yes Vital Signs & Weight: Vital Signs (12 hours) Temp Pulse Resp BP Pulse Ox 10/31/17 07:45 98.4 F 86 16 100/61 96 10/31/17 07:26 97.6 F 87 22 H 96 Weight Weight 165 lb 13.66 oz I&O: 10/30/17 10/31/17 11/01/17 06:59 06:59 06:59 Intake Total 2620 2430 Balance 2620 2430 Result Diagrams: 10/30/17 02:06 10/31/17 04:36 Phys Exam - Physical Examination Constitutional: NAD HEENT: PERRLA, moist MMs, sclera anicteric Neck: no JVD, supple Respiratory: no wheezing, no rales, no rhonchi Cardiovascular: RRR, no significant murmur, no rub Gastrointestinal: soft, non-tender, no distention, positive bowel sounds Musculoskeletal: no edema, pulses present Neurological: non-focal, normal sensation Psychiatric: normal affect, A&O x 3 Skin: no rash, normal turgor Dx/Plan (1) Chest pain Code(s): R07.9 - CHEST PAIN, UNSPECIFIED Status: Acute Comment: musculoskeletal pain based on exam (2) Hyponatremia Code(s): E87.1 - HYPO-OSMOLALITY AND HYPONATREMIA Status: Acute Comment: improving (3) Rhabdomyolysis Code(s): M62.82 - RHABDOMYOLYSIS Status: Acute (4) Alcohol abuse Code(s): F10.10 - ALCOHOL ABUSE, UNCOMPLICATED Status: Chronic Comment: now quit (5) Anxiety and depression Code(s): F41.8 - OTHER SPECIFIED ANXIETY DISORDERS Status: Chronic (6) Asthma Code(s): J45.909 - UNSPECIFIED ASTHMA, UNCOMPLICATED Status: Chronic (7) Hypertension Code(s): I10 - ESSENTIAL (PRIMARY) HYPERTENSION Status: Chronic (8) Schizophrenia Code(s): F20.9 - SCHIZOPHRENIA, UNSPECIFIED Status: Chronic - Plan cont current plan of care * medication reviewed as below * symptomatic treatment * sodium improved * stable for discharge. Review of Systems - Review of Systems ENT: negative: Ear Pain, Ear Discharge, Nose Pain, Nose Discharge, Nose Congestion, Mouth Pain, Mouth Swelling, Throat Pain, Throat Swelling, Other Respiratory: negative: Cough, Dry, Shortness of Breath, Hemoptysis, SOB with Excertion, Pleuritic Pain, Sputum, Wheezing Cardiovascular: negative: chest pain, palpitations, orthopnea, paroxysmal nocturnal dyspnea, edema, light headedness, other Gastrointestinal: negative: Nausea, Vomiting, Abdominal Pain, Diarrhea, Constipation, Melena, Hematochezia, Other Genitourinary: negative: Dysuria, Frequency, Incontinence, Hematuria, Retention , Other Musculoskeletal: negative: Neck Pain, Shoulder Pain, Arm Pain, Back Pain, Hand Pain, Leg Pain, Foot Pain, Other - Medications/Allergies Allergies/Adverse Reactions: Allergies Allergy/AdvReac Type Severity Reaction Status Date / Time codeine Allergy Unknown Verified 06/08/17 12:34 iodine Allergy Unknown Verified 06/08/17 12:34 Penicillins Allergy Unknown Verified 06/08/17 12:34 Medications: Current Medications Acetaminophen (Tylenol) 650 mg PO Q4H PRN PRN Reason: Headache/Fever or Pain Al Hydroxide/Mg Hydroxide (Maalox) 30 ml PO Q6H PRN PRN Reason: Heartburn or Indigestion Artificial Tears (Tears Naturale) 0 drop EA EYE PRN PRN PRN Reason: Dry Eyes Aspirin (Aspirin Chewable) 81 mg PO DAILY [facility] Last Admin: 10/31/17 08:38 Dose: 81 mg Carbamazepine (Tegretol) 100 mg PO TID [facility] Last Admin: 10/31/17 08:37 Dose: 100 mg Clonazepam (Klonopin) 1 mg PO BID [facility] Last Admin: 10/31/17 08:36 Dose: 1 mg Clonidine (Catapres) 0.1 mg PO Q4H PRN PRN Reason: Systolic BP > 180 Cyanocobalamin (Vitamin B-12) 1,000 mcg PO DAILY [facility] Last Admin: 10/31/17 08:37 Dose: 1,000 mcg Diltiazem HCl (Cardizem Cd) 180 mg PO DAILY [facility] Last Admin: 10/31/17 08:38 Dose: 180 mg Enoxaparin Sodium (Lovenox) 40 mg SC 0900 [facility] Last Admin: 10/31/17 08:38 Dose: 40 mg Folic Acid (Folvite) 1 mg PO DAILY [facility] Last Admin: 10/31/17 08:38 Dose: 1 mg Guaifenesin (Robitussin Sf) 200 mg PO Q4H PRN PRN Reason: Cough Hydralazine HCl (Apresoline) 10 mg SLOW IVP Q4H PRN PRN Reason: Systolic BP > 180 Dextrose/Water (D5w) 1,000 mls @ 150 mls/hr IV .Q6H40M [facility] Last Admin: 10/31/17 04:24 Dose: 1,000 mls Iron/Minerals/Multivitamins (Theragran M) 1 tab PO DAILY [facility] Last Admin: 10/31/17 08:37 Dose: 1 tab Labetalol HCl (Normodyne) 20 mg SLOW IVP Q4H PRN PRN Reason: Systolic BP > 180 Loperamide HCl (Imodium) 2 mg PO PRN PRN PRN Reason: Diarrhea/Loose Stools Loratadine (Claritin) 10 mg PO DAILYPRN PRN PRN Reason: Sinus Symptoms Lorazepam (Ativan) 1 mg SLOW IVP Q4H PRN PRN Reason: Anxiety/Agitation Last Admin: 10/29/17 18:01 Dose: 1 mg Magnesium Hydroxide (Milk Of Magnesium) 30 ml PO DAILYPRN PRN PRN Reason: Constipation Mineral Oil/White Petrolatum (Eucerin Cream) 0 gm TOP BIDPRN PRN PRN Reason: Dry Skin Mirtazapine (Remeron) 15 mg PO [facility] Last Admin: 10/30/17 20:54 Dose: 15 mg Nebivolol (Bystolic) 10 mg PO DAILY [facility] Last Admin: 10/30/17 07:54 Dose: 10 mg Nitroglycerin (Nitrostat) 0.4 mg SL Q5MIN PRN PRN Reason: Chest Pain Olanzapine (Zyprexa) 20 mg PO [facility] Last Admin: 10/30/17 20:54 Dose: 20 mg Ondansetron HCl (Zofran Odt) 4 mg PO Q6H PRN PRN Reason: Nausea/Vomiting Ondansetron HCl (Zofran) 4 mg IVP Q6H PRN PRN Reason: Nausea/Vomiting Pantoprazole Sodium (Protonix) 40 mg PO DAILY [facility] Last Admin: 10/31/17 08:37 Dose: 40 mg [Rexulti] 2 Tab 0 each PO DAILY [facility] Phenol (Chloraseptic [place] 180 Ml Bot) 0 ml PO PRN PRN PRN Reason: Sore Throat Quetiapine Fumarate (Seroquel) 100 mg PO TID [facility] Last Admin: 10/31/17 08:37 Dose: 100 mg Senna (Senokot) 2 tab PO HSPRN PRN PRN Reason: Constipation Sertraline HCl (Zoloft) 100 mg PO DAILY [facility] Last Admin: 10/31/17 08:37 Dose: 100 mg Sodium Chloride ([place] Nasal [place] 0.65%) 0 ml EA NARE QIDPRN PRN PRN Reason: Nasal Congestion Zolpidem Tartrate (Ambien) 10 mg PO HSPRN PRN PRN Reason: .SLEEP Last Admin: 10/30/17 21:45 Dose: 10 mg
[2017-10-31] MEDS: Nebivolol HCl 5 MG TAB PO SCH (11:05)
--- NOTE | 2017-10-31 12:32 | DIS ---
DATE OF ADMISSION: 10/29/2017 DATE OF DISCHARGE: 10/31/2017 PRIMARY CARE PHYSICIAN: JULIANNE Trimble. DISCHARGE DISPOSITION: Home. PRIMARY DISCHARGE DIAGNOSES: 1. Chest pain due to musculoskeletal etiology. 2. Hyponatremia. 3. Rhabdomyolysis. SECONDARY DISCHARGE DIAGNOSES: Schizophrenia, hypertension, asthma, anxiety, depression, and alcohol abuse. PRIMARY PROCEDURE/OPERATION: None. RADIOLOGICAL INVESTIGATION: Chest x-ray normal. SIGNIFICANT LABORATORIES: WBC 6.3, hemoglobin 14.0, platelets 292. Sodium 133, potassium 3.5, BUN 4 , creatinine 0.92, calcium 9.3, CK 412. Urinalysis unremarkable. Urine osmolality 138. Urine drug screen negative. Serum drug screen negative. Stool parasite negative. DISCHARGE MEDICATIONS: The patient will continue all his previous home medications. Aspirin 81 mg p .o. daily, Rexulti 2 tablets p.o. daily, Tegretol 100 mg p.o. t.i.d., Bentyl 20 mg t.i.d. p.r.n., Car dizem-CD 180 mg p.o. daily, Nexium 40 mg p.o. daily, lisinopril 10 mg p.o. daily, Remeron 15 mg p.o. at bedtime, Bystolic 10 mg p.o. daily, Zyprexa 20 mg p.o. at bedtime, Zofran 4 mg q.8 hourly p.r.n., Seroquel 100 mg t.i.d., Zoloft 100 mg p.o. daily, Restoril 30 mg p.o. at bedtime, Ambien 10 mg p.o. a t bedtime p.r.n. CONTRAINDICATIONS: None. CODE STATUS: FULL CODE. INPATIENT CONSULTANTS: Dr. Henao was following while in hospital. TEST RESULTS PENDING ON DISCHARGE: None. ALLERGIES: CODEINE, IODINE, AND PENICILLIN. DISCHARGE PLAN: Post hospital, the patient will follow up with primary care physician. HOSPITAL COURSE: A 52-year-old male, who was admitted by me. Please see my HPI for further details. Patient came to emergency room for chest pain and his chest pain description was musculoskeletal. He was also feeling anxiety and he was found with severe hyponatremia with sodium 111. Dr. Henao was consulted and he started on hypertonic saline. After that the patient had rapid correction of sodium without any complication, but the patient required dextrose solution to reduce rapid and now patient is appropriately corrected his sodium and his anxiety and shakiness completely resolved. He is afeb rile while in hospital. He already has all psychiatric medication prescription from his psychiatrist . At this point, patient is medically stable for discharge. The patient was seen and examined at [facility]. Please see my progress note from today for further details.
[2017-10-31 13:20] VITALS: BMI 25.2
[2017-10-31 13:21] VITALS: BP 113/68; TEMP 98.1
--- NOTE | 2017-10-31 17:53 | PRG ---
DATE OF SERVICE: 10/31/2017 SUBJECTIVE: Patient was seen and examined at bedside and overnight events noted. Patient denies any shortness of breath or chest pain or palpitation. No history of nausea or vomiting or diarrhea or f ever or chills or cramps. OBJECTIVE: GENERAL: This is a well-built male in no apparent distress. VITAL SIGNS: Temperature 98.1, pulse 79, respiratory rate 16 and blood pressure 129/60. HEENT: Atraumatic, normocephalic. Oral mucosa is moist. NECK: Supple. CARDIOVASCULAR: S1, S2 heard. Rate and rhythm regular. RESPIRATORY: Clear to auscultation. GASTROINTESTINAL: Abdomen is soft. MUSCULOSKELETAL: No tenderness. No edema. DERMATOLOGIC: No skin rash. NEUROLOGIC: Alert and awake and oriented x3. No focal neurologic deficits. Moving all the extremiti es. PSYCHIATRIC: Mood and affect normal. LABORATORY DATA: Sodium is 133. ASSESSMENT AND PLAN: 1. Hyponatremia, corrected. 2. Edema, controlled. 3. Hypertension, stable. 4. Sodium level is better.
--- NOTE | 2017-11-04 13:16 | PQF ---
FARIBA CERVANTES JR, SALIM NOORJIBHAI MD [id number] CLINICAL DOCUMENTATION CLARIFICATION FORM: POST DISCHARGE Addendum to original discharge summary date: 10/31/2017 DATE: 11/04/17 ATTN: Dr. Blair Please exercise your independent, professional judgment in responding to the clarification form. Clinical indicators are provided on the bottom of this form for your review Please check appropriate box(s): [ ] Hyponatremia please specify etiology, if known [ x ] Hyponatremia due to SIADH (Syndrome of Inappropriate Secretion of Antidiuretic Hormone) [ ] Other diagnosis (please specify) [ ] Unable to determine In addition, please specify: Present on Admission (POA): [x ] Yes [ ] No [ ] Unable to determine CLINICAL INDICATORS - SIGNS / SYMPTOMS / LABS (Per H&P) Na level 111. Rhabdomyolysis Per nephrology consult: Most likely because of syndrome of inappropriate antidiuretic hormone secretion. RISK FACTORS (per H&P) Dehydration TREATMENTS: (per nephrology consult) IV fluids--Hypertonic saline at 30 mL per hour. Series of electrolyte labs. (This form is maintained as a part of the permanent medical record) 2014 [employer] All Rights Reserved Delia [email or web address] [phone] [email or web address]
--- NOTE | 2017-11-19 18:19 | EKG ---
Test Reason : Blood Pressure : / mmHG Vent. Rate : 087 BPM Atrial Rate : 087 BPM P-R Int : 158 ms QRS Dur : 092 ms QT Int : 374 ms P-R-T Axes : 053 041 067 degrees QTc Int : 450 ms Normal sinus rhythm Normal ECG Confirmed by NAT PATRICK ([id number]), commissioning editor GARY MARTINEZ ([id number]) on 11/19/2017 6:18:34 PM Referred By: Confirmed By:NAT PATRICK
== END 2017-10-31 13:54 | disposition home or self-care (01) | DRG 644 ==
LOC: ERS 09:08 → ERHOLD 12:40 → T4-B 17:43
PROVIDERS: ADMIT Internal Medicine; ATTEND Internal Medicine
DX: E22.2 Syndrome of inappropriate secretion of antidiuretic hormone (principal); M62.82 Rhabdomyolysis; F20.9 Schizophrenia, unspecified; I48.0 Paroxysmal atrial fibrillation; E86.0 Dehydration; F17.210 Nicotine dependence, cigarettes, uncomplicated; F41.9 Anxiety disorder, unspecified; I10 Essential (primary) hypertension; K21.9 Gastro-esophageal reflux disease without esophagitis; F31.9 Bipolar disorder, unspecified; R07.89 Other chest pain; Z88.5 Allergy status to narcotic agent; Z88.0 Allergy status to penicillin; Z88.8 Allergy status to other drugs, medicaments and biological substances; Z79.82 Long term (current) use of aspirin; Z79.899 Other long term (current) drug therapy
CPT/HCPCS: 36415; 71045; 80048; 80053; 80061; 80306; 80307; 81001; 82533; 82550; 82553; 83690; 83735; 83930; 83935; 84443; 84484; 85025; 87328; 87329; 93005; 94760; 96361; 96365; 96366; 96375; 96376; 99214; G0463; J1650; J1885; J2060; J3475; J7050; J7131

== ENCOUNTER 2017-12-25 20:30 | Emergency (ER) | payer MEDICARE, MEDICAID ==
[2017-12-25 21:59] LABS: #Basophils 0.1 thou/uL (0.0-0.2); #Eosinphils 0.1 thou/uL (0.0-0.7); #Monocytes 0.8 thou/uL (0.11-0.59); #Neutrophils 4.3 thou/uL (1.40-6.50); %Basophils 0.9 % (0.0-1.0); %Eosinophils 1.8 % (0.0-10.0); %Lymphocytes 27.2 % (21.0-51.0); %Monocytes 10.7 % (0.0-10.0); %Neutrophils 59.4 % (42.0-75.0); Mean Corpuscular HGB CONC 34.2 g/dL (32.0-36.0); Mean Corpuscular Hemoglobin 30.6 pg (27.0-31.0); Mean Corpuscular Volume 89.6 fl (80.0-94.0); Mean Platelet Volume 5.8 fL (7.4-10.4); Platelet Count 325 thou/uL (130-400); RBC Distribution Width 11.3 % (11.5-14.5); Red Blood Cell (RBC) Count 4.89 mill/uL (4.70-6.10); White Blood Cell (WBC) Count 7.2 thou/uL (4.8-10.8)
[2017-12-25 22:14] LABS: Bilirubin Negative (Negative); Blood, Urine Negative (Negative); Clarity CLEAR (Clear); Glucose, Urine (Dipstick) Negative (Negative); Leukocyte Negative (Negative); Nitrite Negative (Negative); Protein, Urine (Dipstick) Negative (Neg-Trace); Specific Gravity, Urine 1.008 (1.002-1.036); Urobilinogen 0.2 mg/dL (0.2-1.0); pH, Urine 7.5 (5.0-9.0)
[2017-12-25 22:20] LABS: ALT (SGPT) 32 U/L (8-55); AST (SGOT) 21 U/L (5-34); Albumin 4.6 g/dL (3.5-5.0); Alkaline Phosphatase 83 U/L (40-150); Anion Gap 13 mmol/L (10-20); BUN (Urea Nitrogen) 10 mg/dL (8.9-20.6); Bilirubin, Total 0.3 mg/dL (0.2-1.2); Calc. Creatinine Clearance 0 mL/min (70-130); Calcium 9.9 mg/dL (7.8-10.44); Carbon Dioxide 27 mmol/L (22-29); Chloride 99 mmol/L (98-107); Estimated GFR-MDRD 85; Globulin 3.1 g/dL (2.4-3.5); Glucose 93 mg/dL (70-105); Lipase 14 U/L (8-78); Protein, Total 7.7 g/dL (6.0-8.3); Sodium 135 mmol/L (136-145)
[2017-12-26] MEDS ORDERED: methylPREDNISolone Sod Succ/PF 125 MG/2 ML VIAL ONE (00:50)
[2017-12-26] MEDS ORDERED: Promethazine HCl 25 MG/ML VIAL ONE (00:50)
[2017-12-26] MEDS ORDERED: Famotidine 20 MG TAB ONE (00:50)
[2017-12-26] MEDS ORDERED: diphenhydrAMINE 50 MG/ML VIAL ONE (00:50)
[2017-12-26] MEDS ORDERED: Fentanyl 100 MCG/2 ML VIAL ONE (00:50)
[2017-12-26] MEDS ORDERED: Water For Inject, Bacteriostat 30 ML ONE (00:51)
--- NOTE | 2017-12-26 09:05 | CT ---
PRELIMINARY REPORT/[facility]/EMERGENTY AFTER-HOURS PROCEDURE EXAM: CT Abdomen and Pelvis With Intravenous Contrast EXAM DATE/TIME: 12/26/2017 1:30 AM CLINICAL HISTORY: 52 years old, male; Pain; Abdominal pain; Generalized TECHNIQUE: Axial computed tomography images of the abdomen and pelvis with intravenous contrast. Coronal reforma tted images were created and reviewed. CONTRAST: 100 mL of ISOVUE administered intravenously. COMPARISON: No relevant prior studies available. FINDINGS: Lung bases: Unremarkable. No mass. No consolidation. ABDOMEN: Liver: Unremarkable. No mass. Gallbladder and bile ducts: Unremarkable. No calcified stones. No ductal dilation. Pancreas: Unremarkable. No mass. No ductal dilation. Spleen: Unremarkable. No splenomegaly. Adrenals: Unremarkable. No mass. Kidneys and ureters: Unremarkable. No solid mass. No hydronephrosis. Stomach and bowel: No evidence of bowel obstruction. No mucosal thickening. Appendix: Visualized portions of appendix appear normal. PELVIS: Bladder: Unremarkable. No mass. Reproductive: Prostate appears within normal limits. ABDOMEN and PELVIS: Intraperitoneal space: Unremarkable. No free air. No significant fluid collection. Bones/joints: Bilateral pars defects at L5. No acute fracture. No dislocation. Soft tissues: Unremarkable. Vasculature: Unremarkable. No abdominal aortic aneurysm. Lymph nodes: Unremarkable. No enlarged lymph nodes. IMPRESSION: 1. No evidence of bowel obstruction. 2. Bilateral pars defects at L5. Thank you for allowing us to participate in the care of your patient. Dictated and Authenticated by: Tierra Jarquin MD 12/26/2017 2:00 AM Central Time ([place] & [place]) FINAL REPORT CT ABDOMEN AND PELVIS WITH IV CONTRAST: DATE: 12/26/17. TIME: Performed on an emergency basis at 0134 hours. HISTORY: Abdominal pain. FINDINGS: Findings agree with the preliminary report from [facility]. No acute abnormalities are demons trated. Lack of oral contrast limits evaluation of the bowel. POS: OFF
[2017-12-26] MEDS ORDERED: ISOVUE-370 76%-LOCM 1 ML ONE (15:48)
== END 2017-12-26 02:50 | disposition home or self-care (01) ==
LOC: ERS 20:30
DX: R10.31 Right lower quadrant pain (principal); I48.91 Unspecified atrial fibrillation; I10 Essential (primary) hypertension; I49.9 Cardiac arrhythmia, unspecified; F17.210 Nicotine dependence, cigarettes, uncomplicated; F31.9 Bipolar disorder, unspecified; Z71.6 Tobacco abuse counseling
CPT/HCPCS: 36415; 74177; 80053; 81003; 82274; 83690; 85025; 96361; 96374; 96375; 99406; J1200; J2550; J2930; J3010

== ENCOUNTER 2018-01-20 20:58 | Emergency (ER) | payer MEDICARE, MEDICAID ==
[2018-01-20 21:31] LABS: Bilirubin Negative (Negative); Blood, Urine Negative (Negative); Clarity CLEAR (Clear); Glucose, Urine (Dipstick) Negative (Negative); Leukocyte Negative (Negative); Nitrite Negative (Negative); Protein, Urine (Dipstick) Negative (Neg-Trace); Specific Gravity, Urine 1.016 (1.002-1.036); Urobilinogen 0.2 mg/dL (0.2-1.0); pH, Urine 6.5 (5.0-9.0)
[2018-01-20 21:34] LABS: #Eosinphils 0.1 thou/uL (0.0-0.7); #Lymphocytes 1.9 thou/uL (1.20-3.40); #Monocytes 1.1 thou/uL (0.11-0.59); #Neutrophils 9.1 thou/uL (1.40-6.50); %Basophils 0.3 % (0.0-1.0); %Eosinophils 1.1 % (0.0-10.0); %Lymphocytes 15.7 % (21.0-51.0); %Monocytes 8.7 % (0.0-10.0); %Neutrophils 74.3 % (42.0-75.0); Hemoglobin 13.4 g/dL (14.0-18.0); Mean Corpuscular HGB CONC 34.4 g/dL (32.0-36.0); Mean Corpuscular Hemoglobin 30.7 pg (27.0-31.0); Mean Corpuscular Volume 89.2 fl (80.0-94.0); Mean Platelet Volume 5.7 fL (7.4-10.4); Platelet Count 349 thou/uL (130-400); RBC Distribution Width 12.1 % (11.5-14.5); Red Blood Cell (RBC) Count 4.36 mill/uL (4.70-6.10); White Blood Cell (WBC) Count 12.2 thou/uL (4.8-10.8)
[2018-01-20 21:56] LABS: ALT (SGPT) 30 U/L (8-55); AST (SGOT) 21 U/L (5-34); Alkaline Phosphatase 68 U/L (40-150); Anion Gap 11 mmol/L (10-20); BUN (Urea Nitrogen) 10 mg/dL (8.9-20.6); Bilirubin, Total 0.5 mg/dL (0.2-1.2); Calc. Creatinine Clearance 0 mL/min (70-130); Calcium 8.8 mg/dL (7.8-10.44); Carbon Dioxide 25 mmol/L (22-29); Chloride 94 mmol/L (98-107); Estimated GFR-MDRD 88; Globulin 2.7 g/dL (2.4-3.5); Glucose 88 mg/dL (70-105); Lipase 15 U/L (8-78); Protein, Total 6.7 g/dL (6.0-8.3); Sodium 126 mmol/L (136-145)
[2018-01-20] MEDS ORDERED: Sucralfate 1 GM/10 ML UDCUP ONE (22:29)
[2018-01-21] MEDS ORDERED: Morphine 4 MG/ML VIAL ONE ×2 (00:13→01:03)
[2018-01-21] MEDS ORDERED: Ketorolac Tromethamine 30 MG/ML VIAL ONE (01:31)
--- NOTE | 2018-01-21 08:41 | CT ---
PRELIMINARY REPORT/[facility]/EMERGENTY AFTER-HOURS PROCEDURE CT Abdomen and Pelvis With Intravenous Contrast CLINICAL HISTORY: 52 years old, male; Pain; Abdominal pain; Generalized; Patient HX: [id number] reports to ed C/O abdomin al pain. Pt reports abdominal pain x4 days. Pt reports the pain radiates to the back sometimes but mo stly in the front. Pt reports vomiting x3 today. Pt reports red blood in stool x3 days. Pt reports taking aspirin 81 mg for blood thinner. Pt see edilma tanner. TECHNIQUE: Axial computed tomography images of the abdomen and pelvis with intravenous contrast. All CT scans at this facility use one or more dose reduction techniques, viz.: automated exposure control; ma/kV adj ustment per patient size (including targeted exams where dose is matched to indication; i.e. head); o r iterative reconstruction technique. Coronal reformatted images were created and reviewed. COMPARISON: CT Abdomen Pelvis W Con 2017-12-26 01:30 FINDINGS: Lung bases: Normal. No mass. No consolidation. Mediastinum: Small-sized hiatal hernia. ABDOMEN: Liver: Normal. Gallbladder and bile ducts: Normal. Pancreas: Normal. Spleen: Normal. Adrenals: Normal. Kidneys and ureters: Normal. Stomach and bowel: Normal. PELVIS: Appendix: The appendix is normal. Bladder: Normal. Reproductive: Normal as visualized. ABDOMEN and PELVIS: Intraperitoneal space: Normal. No free air. No significant fluid collection. Bones/joints: Bilateral L5 pars defects. No acute fracture. No dislocation. Soft tissues: Normal. Vasculature: Normal. No abdominal aortic aneurysm. Lymph nodes: Phleboliths within the pelvis. Several small lymph nodes in the retroperitoneum, likely reactive IMPRESSION: 1. No acute findings. 2. Non-acute findings are described above. Thank you for allowing us to participate in the care of your patient. Dictated and Authenticated by: Geo Meek MD 01/21/2018 1:09 AM Central Time ([place] & [place]) FINAL REPORT ABDOMEN CT WITHOUT CONTRAST PELVIC CT WITHOUT CONTRAST: HISTORY: Four days of abdominal pain. COMPARISON: 12/26/17. FINDINGS: This report is in agreement with the preliminary report by [facility]. No acute abnormality in the abdomen or pelvis. No significant interval change. Normal caliber appendix is identified. No evidence of o bstructive uropathy. POS: [facility]
== END 2018-01-21 01:55 | disposition home or self-care (01) ==
LOC: ERS 20:58
DX: E87.1 Hypo-osmolality and hyponatremia (principal); I48.91 Unspecified atrial fibrillation; I10 Essential (primary) hypertension; F31.9 Bipolar disorder, unspecified; F17.210 Nicotine dependence, cigarettes, uncomplicated; Z79.899 Other long term (current) drug therapy
CPT/HCPCS: 36415; 74177; 82274; 83605; 83690; 86850; 86900; 86901; 93005; 96361; 96374; 96375; 96376; J1885; J2270

== ENCOUNTER 2018-02-14 13:57 | Outpatient (CLI) | payer MEDICARE, MEDICAID | END 2018-02-14 13:58 | disposition home or self-care (01) | LOC: BICRAD 13:57 | PROVIDERS: ATTEND Internal Medicine Gastroenterology | DX: R10.13 Epigastric pain (principal); R14.0 Abdominal distension (gaseous) | CPT/HCPCS: 74022 ==

== ENCOUNTER 2018-02-16 15:58 | Emergency (ER) | payer MEDICARE, MEDICAID ==
[2018-02-16 16:33] LABS: #Basophils 0.1 thou/uL (0.0-0.2); #Eosinphils 0.1 thou/uL (0.0-0.7); #Lymphocytes 1.5 thou/uL (1.20-3.40); #Monocytes 0.9 thou/uL (0.11-0.59); %Basophils 0.7 % (0.0-1.0); %Eosinophils 1.2 % (0.0-10.0); %Lymphocytes 15.5 % (21.0-51.0); %Monocytes 9.4 % (0.0-10.0); %Neutrophils 73.2 % (42.0-75.0); Hemoglobin 14.6 g/dL (14.0-18.0); Mean Corpuscular HGB CONC 33.6 g/dL (32.0-36.0); Mean Corpuscular Hemoglobin 30.8 pg (27.0-31.0); Mean Corpuscular Volume 91.7 fl (80.0-94.0); Mean Platelet Volume 6.1 fL (7.4-10.4); Platelet Count 353 thou/uL (130-400); RBC Distribution Width 12.4 % (11.5-14.5); Red Blood Cell (RBC) Count 4.74 mill/uL (4.70-6.10); White Blood Cell (WBC) Count 9.6 thou/uL (4.8-10.8)
[2018-02-16 16:50] LABS: ALT (SGPT) 39 U/L (8-55); AST (SGOT) 30 U/L (5-34); Albumin 4.1 g/dL (3.5-5.0); Alkaline Phosphatase 86 U/L (40-150); Anion Gap 15 mmol/L (10-20); BUN (Urea Nitrogen) 13 mg/dL (8.9-20.6); Bilirubin, Total 0.3 mg/dL (0.2-1.2); Calc. Creatinine Clearance 0 mL/min (70-130); Calcium 9.7 mg/dL (7.8-10.44); Carbon Dioxide 21 mmol/L (22-29); Chloride 99 mmol/L (98-107); Estimated GFR-MDRD Greater than 90; Globulin 3.5 g/dL (2.4-3.5); Glucose 103 mg/dL (70-105); Lipase 25 U/L (8-78); Potassium 4.8 mmol/L (3.5-5.1); Protein, Total 7.6 g/dL (6.0-8.3); Sodium 130 mmol/L (136-145)
[2018-02-16 17:29] LABS: Bilirubin Negative (Negative); Blood, Urine Negative (Negative); Clarity CLEAR (Clear); Glucose, Urine (Dipstick) Negative (Negative); Leukocyte Negative (Negative); Nitrite Negative (Negative); Protein, Urine (Dipstick) Negative (Neg-Trace); Specific Gravity, Urine 1.009 (1.002-1.036); Urobilinogen 0.2 mg/dL (0.2-1.0)
[2018-02-16] MEDS ORDERED: Glycopyrrolate 0.2 MG/ML 5 ML SYRINGE SLOW IVP SCH (17:45)
--- NOTE | 2018-02-16 18:46 | CT ---
ABDOMEN CT WITHOUT CONTRAST PELVIC CT WITHOUT CONTRAST 02/16/18 HISTORY: Epigastric abdominal pain. COMPARISON: 01/21/18. TECHNIQUE: Abdomen and pelvic CT are performed without contrast. Coronal reformatted images are submitted for in terpretation. FINDINGS: ABDOMEN CT: The lung bases are clear. Calcified granuloma in the left lower lobe. Normal cardiac silhouette. No s ignificant pericardial fluid. The descending thoracic aorta and abdominal aorta have a normal caliber . No periaortic fat stranding. Limited evaluation of the solid organs due to lack of IV contrast. Grossly, the solid organs have bulmaro ropriate attenuation. Contracted gallbladder. No gastrohepatic, retrocrural or periportal lymphadenopathy. No mesenteric mass, lymphadenopathy, free air or free fluid. Bilaterally, no hydronephrosis, nephroli thiasis or perinephric fat stranding. Bilateral ureters are unremarkable. Limited evaluation of the alimentary canal due to lack of oral contrast. No evidence of small bowel o bstruction. Ileocecal junction is normal. Normal caliber appendix. Fecal material in a nondistended, nondilated colon. Diverticulosis, without evidence of diverticulitis. PELVIC CT: No mass, lymphadenopathy, free air or free fluid. Mild mucosal prominence of the urinary bladder is n onspecific. Correlate clinically for cystitis. No lytic or blastic lesion in the osseous structures. IMPRESSION: 1. No evidence of obstructive uropathy. 2. Normal caliber appendix. 3. No acute abnormality in the abdomen or pelvis. 4. No significant interval change. POS: [facility]
== END 2018-02-16 18:58 | disposition home or self-care (01) ==
LOC: ERS 15:58
DX: R10.13 Epigastric pain (principal); I48.91 Unspecified atrial fibrillation; F17.210 Nicotine dependence, cigarettes, uncomplicated; I10 Essential (primary) hypertension; Z79.82 Long term (current) use of aspirin; Z79.899 Other long term (current) drug therapy; Z71.6 Tobacco abuse counseling
CPT/HCPCS: 36415; 74176; 80053; 81003; 82550; 83690; 85025; 96374; 96375; 99406; J2270

== ENCOUNTER 2018-06-09 08:45 | Inpatient (IN) | payer MEDICARE, MEDICAID ==
[2018-06-09 09:28] VITALS: BMI 26.9
[2018-06-12] MEDS ORDERED: Thrombin 5000 UNITS/5 ML VIAL ONE (06:24)
[2018-06-12] MEDS ORDERED: Sodium Chloride 0.9% 10 ML ONE (06:24)
[2018-06-12] MEDS ORDERED: Levofloxacin 500 mg/D5W 100 ml Premix Bag ONE (06:27)
[2018-06-12] MEDS ORDERED: Clindamycin/D5W 900 mg/50 ml Premix Bag ONE (06:27)
[2018-06-12] MEDS ORDERED: Fentanyl 100 MCG/2 ML VIAL ONE ×2 (07:28→09:51)
[2018-06-12] MEDS ORDERED: Midazolam HCl 2 mg/2 ml Vial ONE (07:28)
[2018-06-12 07:29] LABS: Anion Gap 11 mmol/L (10-20); BUN (Urea Nitrogen) 19 mg/dL (8.9-20.6); Calc. Creatinine Clearance 83 mL/min (70-130); Calcium 9.1 mg/dL (7.8-10.44); Carbon Dioxide 26 mmol/L (22-29); Chloride 102 mmol/L (98-107); Estimated GFR-MDRD 66; Glucose 116 mg/dL (70-105); Potassium 3.9 mmol/L (3.5-5.1); Sodium 135 mmol/L (136-145)
--- NOTE | 2018-06-12 08:42 | OP ---
DATE OF PROCEDURE: 06/12/2018 SURGEON: Celestino Meyer M.D. SHUTTLE OPERATOR: Florin Lemons PA-C PROCEDURE: L5-S1 laminectomy, posterolateral arthrodesis, pedicle screw instrumentation L5-S1 bilate rally. Demineralized bone matrix, local morselized autograft. PROCEDURE IN DETAIL: The patient was brought into the operating room, intubated. He was rolled in t he prone position on gel-filled chest rolls. Incision made exposing L5 and S1 bilaterally and our le etelvina was confirmed by x-ray. We performed modest bilateral L5 laminectomies. We then placed pedicle screws at L5 and S1 bilaterally using lateral fluoroscopic guidance. A derick was secured between the s crews, connected by nuts which were final tightened. The wound was extensively irrigated, immaculate hemostasis was secured. A combination of demineralized bone matrix, local morselized autograft, lat er laminar posterolateral surfaces for arthrodesis. Vancomycin powder was applied and the wound was then closed in anatomic layers.
[2018-06-12] MEDS ORDERED: HYDROmorphone 2 MG/ML VIAL ONE (09:02)
[2018-06-12] MEDS ORDERED: Ondansetron HCl/PF 4 MG/2 ML Vial ONE (12:20)
[2018-06-12] MEDS ORDERED: PROPOFOL 200 MG/20 ML VIAL ONE (12:20)
[2018-06-12] MEDS ORDERED: Glycopyrrolate 0.2 MG/ML 5 ML SYRINGE ONE (12:20)
[2018-06-12] MEDS ORDERED: Ketorolac Tromethamine 30 MG/ML VIAL ONE (12:20)
[2018-06-12] MEDS ORDERED: ePHEDrine/0.9% NaCl/PF SYRINGE 50 mg/10 ml ONE (12:20)
[2018-06-12] MEDS ORDERED: Lidocaine 1% PF 5 ML VIAL ONE (12:20)
--- NOTE | 2018-06-13 10:57 | DIS ---
HOSPITAL COURSE: The patient is a 52-year-old male status post L5-S1 decompression and fus ion. Following his surgery the patient's pain was well controlled with p.o. medications, he was tole rating regular diet, and voiding appropriately. He was ambulatory easily throughout day stay. I dis cussed home care precautions and will plan to follow up with the patient in approximately 2 weeks. H e was provided with scripts for hydrocodone, muscle relaxer an antibiotic. Please reach out to Neuro surgery for additional questions or concerns.
== END 2018-06-12 11:05 | disposition home or self-care (01) | DRG 460 ==
LOC: SURG A 06-12 06:00
PROVIDERS: ADMIT Neurological Surgery; ATTEND Neurological Surgery
PROC: 0SG3071 Fusion of Lumbosacral Joint with Autologous Tissue Substitute, Posterior Approach, Posterior Column, Open Approach (ICD-10-PCS; principal; 2018-06-12)
DX: M43.17 Spondylolisthesis, lumbosacral region (principal); F31.9 Bipolar disorder, unspecified; I10 Essential (primary) hypertension; I48.91 Unspecified atrial fibrillation; J45.909 Unspecified asthma, uncomplicated; F17.210 Nicotine dependence, cigarettes, uncomplicated; Z88.0 Allergy status to penicillin
CPT/HCPCS: 36415; 76001; 80048; 85027; 93005; 93010; 96374; A4216; C1713; C1768; J1170; J1885; J1956; J2001; J2250; J2405; J2704; J3010; J3370; J3490

== ENCOUNTER 2018-06-09 08:51 | Outpatient (CLI) | payer MEDICARE, MEDICAID ==
[2018-06-09 11:56] LABS: Hemoglobin 14.7 g/dL (14.0-18.0); Mean Corpuscular HGB CONC 33.9 g/dL (32.0-36.0); Mean Corpuscular Hemoglobin 29.9 pg (27.0-31.0); Mean Corpuscular Volume 88.2 fL (78.0-98.0); Mean Platelet Volume 6.9 fL (7.4-10.4); Platelet Count 309 thou/uL (130-400); Red Blood Cell (RBC) Count 4.91 mill/uL (4.70-6.10); White Blood Cell (WBC) Count 4.8 thou/uL (4.8-10.8)
[2018-06-09 12:21] LABS: Anion Gap 12 mmol/L (10-20); BUN (Urea Nitrogen) 9 mg/dL (8.9-20.6); Calc. Creatinine Clearance 0 mL/min (70-130); Carbon Dioxide 26 mmol/L (22-29); Chloride 90 mmol/L (98-107); Estimated GFR-MDRD Greater than 90; Glucose 97 mg/dL (70-105); Potassium 4.4 mmol/L (3.5-5.1); Sodium 124 mmol/L (136-145)
--- NOTE | 2018-06-09 15:30 | EKG ---
Test Reason : Blood Pressure : / mmHG Vent. Rate : 067 BPM Atrial Rate : 067 BPM P-R Int : 182 ms QRS Dur : 090 ms QT Int : 372 ms P-R-T Axes : 073 070 061 degrees QTc Int : 393 ms Normal sinus rhythm RSR' or QR pattern in V1 suggests right ventricular conduction delay ST elevation, consider early repolarization Borderline ECG When compared with ECG of 20-JAN-2018 22:57, No significant change was found Confirmed by PEDRITO KINGSLEY, STorie ([id number]) on 06/09/2018 3:30:03 PM Referred By: SAV Confirmed By:DR. Farshad MAJOR MD
== END 2018-06-09 08:52 | disposition home or self-care (01) ==
LOC: LABBT 08:51
PROVIDERS: ATTEND Neurological Surgery
DX: Z01.818 Encounter for other preprocedural examination (principal); M43.16 Spondylolisthesis, lumbar region
CPT/HCPCS: 80048; 85027; 93005; 93010

== ENCOUNTER 2018-06-27 15:22 | Outpatient (CLI) | payer MEDICARE, MEDICAID ==
--- NOTE | 2018-06-27 16:49 | RAD ---
TWO VIEWS CHEST: DATE: 06/27/2018. PROVIDED CLINICAL HISTORY: Followup surgery. FINDINGS: Comparison 05/31/2018. Interval placement of bilateral pedicle screws and vertical interconnecting ro ds spanning L5-S1. No evidence for hardware loosening or migration. Lumbar alignment is unchanged. Vertebral body heights appear preserved. Intervertebral disk space heights appear preserved. Pedic les appear intact. IMPRESSION: Interval postoperative change. POS: [facility]
== END 2018-06-27 15:23 | disposition home or self-care (01) ==
LOC: TBSIIMAG 15:22
PROVIDERS: ATTEND Neurological Surgery
DX: M54.9 Dorsalgia, unspecified (principal); Z98.890 Other specified postprocedural states
CPT/HCPCS: 36415; 72100; 80069; 80076; 81003; 82533; 82570; 83930; 83935; 84156; 84443; 85027; 85652

== ENCOUNTER 2018-08-08 14:04 | Outpatient (CLI) | payer MEDICARE, MEDICAID ==
--- NOTE | 2018-08-08 18:28 | RAD ---
LUMBAR SPINE 3 VIEWS: Date: 08/08/18 HISTORY: M54.5, low back pain. COMPARISON: Radiograph dated 06/27/18. FINDINGS: Similar appearance to posterior spinal fusion hardware at L5-S1. No progressive listhesis. No hardwar e fracture. No new acute superimposed fracture or malalignment. Mild degenerative disc space height loss at L4-5 with 1.0 mm retrolisthesis. IMPRESSION: Unchanged postoperative appearance. POS: [facility]
== END 2018-08-08 14:05 | disposition home or self-care (01) ==
LOC: TBSIIMAG 14:04
PROVIDERS: ATTEND Neurological Surgery
DX: M54.5 Low back pain (principal); Z98.1 Arthrodesis status
CPT/HCPCS: 72100

== ENCOUNTER 2018-11-09 12:38 | Outpatient (CLI) | payer MEDICARE, MEDICAID ==
--- NOTE | 2018-11-09 13:48 | RAD ---
CERVICAL SPINE 4 VIEWS: Date: 11/09/18 INDICATION: Spondylosis. FINDINGS: The cervicothoracic junction is not well seen on the direct lateral projections. No definite abnormal translational motion is noted. The cervicothoracic junction appears within normal limits on the swim val's lateral projection. There is mild disc degenerative disease at C4-5, C5-6, and C6-7 with mild m ultilevel facet osteoarthritic change. Prevertebral soft tissues are within normal limits. IMPRESSION: No abnormal translational motion. Mild cervical spondylosis. POS: [facility]
--- NOTE | 2018-11-09 14:53 | MRI ---
MRI CERVICAL SPINE WITHOUT CONTRAST: History: Left shoulder and neck pain for about one month. Technique: Multiplanar, multisequence noncontrast enhanced MRI images of the cervical spine obtained. FINDINGS: The spinal cord is unremarkable with no evidence of masses or lesions. C1-2, C2-3, C3-4: Unremarkable. C4-5: There is a moderate sized central disc protrusion measuring 8 x 4 mm compressing the thecal sac and mildly deforming the anterior aspect of the spinal cord at C4-5. Neural foramen are patent. C5-6: Unremarkable. C6-7: Unremarkable. C7-T1: Unremarkable. IMPRESSION: Moderate central C4-5 disc protrusion compressing the thecal sac and deforming the anterior aspect of the C4-5 spinal cord. POS: [facility]
== END 2018-11-09 12:39 | disposition home or self-care (01) ==
LOC: TBSIIMAG 12:38
PROVIDERS: ATTEND Neurological Surgery
DX: M47.12 Other spondylosis with myelopathy, cervical region (principal); M50.221 Other cervical disc displacement at C4-C5 level
CPT/HCPCS: 72040; 72141

== ENCOUNTER 2018-12-06 04:42 | Outpatient (CLI) | payer MEDICARE, MEDICAID ==
[2018-12-06 11:44] LABS: Hemoglobin 13.5 g/dL (14.0-18.0); Mean Corpuscular HGB CONC 33.7 g/dL (32.0-36.0); Platelet Count 216 thou/uL (130-400); RBC Distribution Width 11.4 % (11.5-14.5); Red Blood Cell (RBC) Count 4.51 mill/uL (4.70-6.10); White Blood Cell (WBC) Count 8.5 thou/uL (4.8-10.8)
[2018-12-06 12:06] LABS: Anion Gap 15 mmol/L (10-20); BUN (Urea Nitrogen) 15 mg/dL (8.4-25.7); Calc. Creatinine Clearance 0 mL/min (70-130); Calcium 9.2 mg/dL (7.8-10.44); Carbon Dioxide 22 mmol/L (22-29); Chloride 107 mmol/L (98-107); Estimated GFR-MDRD 66; Glucose 125 mg/dL (70-105); Potassium 3.9 mmol/L (3.5-5.1); Sodium 140 mmol/L (136-145)
== END 2018-12-06 04:43 | disposition home or self-care (01) ==
LOC: LABBT 04:42
PROVIDERS: ATTEND Neurological Surgery
DX: Z01.818 Encounter for other preprocedural examination (principal); M47.12 Other spondylosis with myelopathy, cervical region
CPT/HCPCS: 80048; 85027; 93005; 93010

== ENCOUNTER 2018-12-11 07:44 | Day surgery (SDC) | payer MEDICARE, MEDICAID ==
[2018-12-06 10:05] VITALS: BMI 28.0
[2018-12-11] MEDS ORDERED: Levofloxacin 500 mg/D5W 100 ml Premix Bag ONE (09:19)
[2018-12-11] MEDS ORDERED: Clindamycin/D5W 900 mg/50 ml Premix Bag ONE (09:19)
[2018-12-11] MEDS ORDERED: Sodium Chloride 0.9% 10 ML ONE (11:20)
[2018-12-11] MEDS ORDERED: Ketamine 50 MG/ML (10ML VIAL) ONE (11:57)
[2018-12-11] MEDS ORDERED: Fentanyl 100 MCG/2 ML VIAL ONE ×3 (11:57→13:45)
[2018-12-11] MEDS ORDERED: Morphine 10 MG/ML VIAL ONE (12:28)
[2018-12-11] MEDS ORDERED: SUGAMMADEX SODIUM 500 MG/5 ML VIAL ONE (12:59)
--- NOTE | 2018-12-11 13:06 | OP ---
DATE OF PROCEDURE: 12/11/2018 RECORD SYSTEMS ANALYST: Frank Lemons PA-C PROCEDURES PERFORMED: Anterior cervical diskectomy C4-C5, interbody arthrodesis, intervertebral biomechanical device, local morselized autograft, demineralized bone matrix, anterior titanium instrumentation C4-C5. DESCRIPTION OF PROCEDURE: The patient was brought to the operating room and intubated. He was positioned supine with head in modest extension on a gel-filled donut. An incision was made in the right precervical area and dissected medial to the sternocleidomastoid muscle and identified the anterior cervical spinal and the level was confirmed by x-ray. We debrided the anterior osteophytes. We placed distraction across the disk space and dissected beneath the posterior longitudinal ligament, identifying the herniated disk that was removed and a complete decompression at the level of the dura was achieved. The bony endplates were then decorticated for the purpose of arthrodesis and an appropriate-sized intervertebral biomechanical PEEK device was brought in the field. It was filled with demineralized bone matrix and local morselized autograft and tapped in placed securely at C4-C5. Next, an anterior plate was brought into the field and secured to C4 and C5 using two 14-mm screws at each level. The wound was then extensively irrigated and maximum hemostasis was secured and the wound was closed in anatomic layers. Job ID: [id number]
[2018-12-11] MEDS ORDERED: HYDROmorphone 2 MG/ML VIAL ONE (14:03)
== END 2018-12-11 15:21 | disposition home or self-care (01) ==
LOC: SDC 07:44
PROVIDERS: ATTEND Neurological Surgery
PROC: 0RG10A0 Fusion of Cervical Vertebral Joint with Interbody Fusion Device, Anterior Approach, Anterior Column, Open Approach (ICD-10-PCS; principal; 2018-12-11)
PROC: 0RT30ZZ Resection of Cervical Vertebral Disc, Open Approach (ICD-10-PCS; 2018-12-11)
DX: M50.021 Cervical disc disorder at C4-C5 level with myelopathy (principal); M48.02 Spinal stenosis, cervical region; I10 Essential (primary) hypertension; I48.91 Unspecified atrial fibrillation; F10.10 Alcohol abuse, uncomplicated; F17.210 Nicotine dependence, cigarettes, uncomplicated; F31.9 Bipolar disorder, unspecified; Z79.899 Other long term (current) drug therapy; Z88.0 Allergy status to penicillin; Z88.5 Allergy status to narcotic agent; Z91.041 Radiographic dye allergy status; Z98.1 Arthrodesis status
CPT/HCPCS: 76000; C1713; C1776; J0131; J1170; J1956; J2270; J3010; J3490

== ENCOUNTER 2018-12-26 09:46 | Outpatient (CLI) | payer MEDICARE, MEDICAID ==
--- NOTE | 2018-12-26 11:21 | RAD ---
CERVICAL SPINE SERIES THREE VIEWS: History: Neck pain. Patient status post-surgery December 11, 2018. Comparison: 11-09-18 FINDINGS: Since that prior exam the patient has undergone an anterior cervical fusion with placement of a plate and screws at the C4-5 level. Markers of the disc implant are within the confines of the disc level. There is disc narrowing at C5-6. There is still some mild prevertebral soft tissue swelling which co uld still be related to the fairly recent surgery. IMPRESSION: Post-operative changes of the spine as described above. POS: [facility]
== END 2018-12-26 09:47 | disposition home or self-care (01) ==
LOC: TBSIIMAG 09:46
PROVIDERS: ATTEND Neurological Surgery
DX: M47.12 Other spondylosis with myelopathy, cervical region (principal); Z98.890 Other specified postprocedural states
CPT/HCPCS: 72040

== ENCOUNTER 2019-12-01 04:44 | Emergency (ER) | payer MEDICARE, MEDICAID ==
[2019-12-01 05:18] LABS: #Basophils 0.1 thou/uL (0.0-0.2); #Eosinphils 0.2 thou/uL (0.0-0.7); #Lymphocytes 2.1 thou/uL (1.20-3.40); #Monocytes 0.7 thou/uL (0.11-0.59); #Neutrophils 4.2 thou/uL (1.40-6.50); %Basophils 1.2 % (0.0-1.0); %Eosinophils 2.7 % (0.0-10.0); %Lymphocytes 29.2 % (21.0-51.0); %Monocytes 10.1 % (0.0-10.0); %Neutrophils 56.9 % (42.0-75.0); Hemoglobin 15.4 g/dL (14.0-18.0); Mean Corpuscular HGB CONC 33.7 g/dL (32.0-36.0); Mean Corpuscular Hemoglobin 30.6 pg (27.0-31.0); Mean Platelet Volume 7.5 fL (7.4-10.4); Platelet Count 233 thou/uL (130-400); RBC Distribution Width 11.4 % (11.5-14.5); Red Blood Cell (RBC) Count 5.03 mill/uL (4.70-6.10); White Blood Cell (WBC) Count 7.3 thou/uL (4.8-10.8)
[2019-12-01] MEDS ORDERED: Aspirin Chewable 81 MG TAB ONE (05:31)
[2019-12-01 05:41] LABS: ALT (SGPT) 32 U/L (8-55); AST (SGOT) 41 U/L (5-34); Albumin 4.6 g/dL (3.5-5.0); Alkaline Phosphatase 70 U/L (40-110); Anion Gap 14 mmol/L (10-20); BUN (Urea Nitrogen) 14 mg/dL (8.4-25.7); Bilirubin, Total 1.1 mg/dL (0.2-1.2); CK (CPK) 168 U/L (30-200); Calc. Creatinine Clearance 0 mL/min (70-130); Calcium 9.2 mg/dL (7.8-10.44); Carbon Dioxide 24 mmol/L (22-29); Chloride 106 mmol/L (98-107); Estimated GFR-MDRD 80; Globulin 2.9 g/dL (2.4-3.5); Glucose 96 mg/dL (70-105); Lipase 42 U/L (8-78); Potassium 3.8 mmol/L (3.5-5.1); Protein, Total 7.5 g/dL (6.0-8.3); Sodium 140 mmol/L (136-145)
--- NOTE | 2019-12-01 08:07 | RAD ---
Exam: Chest one view HISTORY:Chest pain. Left arm and leg numbness. Comparison: 10/29/2017 FINDINGS: Cardiac silhouette: Normal Aorta: Unremarkable Pulmonary vessels: Normal Costophrenic angles: Clear LUNGS: No masses or consolidation. Pneumothorax: None Osseous abnormalities: None IMPRESSION: No acute cardiopulmonary process.
[2019-12-01] MEDS ORDERED: Mag-Al 1200 mg/1200 mg/30 ML UDCUP ONE (08:11)
[2019-12-01] MEDS ORDERED: Lidocaine Viscous Sol 2% 15 ml UD Cup ONE (08:11)
== END 2019-12-01 08:45 | disposition home or self-care (01) ==
LOC: ERS 04:44
DX: R07.89 Other chest pain (principal); I48.91 Unspecified atrial fibrillation; I10 Essential (primary) hypertension; F31.9 Bipolar disorder, unspecified; F17.210 Nicotine dependence, cigarettes, uncomplicated; Z79.899 Other long term (current) drug therapy
CPT/HCPCS: 36415; 71045; 80053; 82550; 83690; 84484; 85025; 93005

== ENCOUNTER 2019-12-26 12:30 | Emergency (ER) | payer MEDICARE, MEDICAID ==
[2019-12-26 13:14] LABS: Bilirubin Negative (Negative); Blood, Urine Negative (Negative); Clarity Clear (Clear); Glucose, Urine (Dipstick) Normal (Negative); Leukocyte Negative Leu/uL (Negative); Nitrite Negative (Negative); Protein, Urine (Dipstick) Negative (Neg-Trace); Urobilinogen Normal mg/dL (Less than 2)
[2019-12-26 13:26] LABS: #Monocytes 0.4 thou/uL (0.11-0.59); #Neutrophils 4.7 thou/uL (1.40-6.50); %Basophils 0.6 % (0.0-1.0); %Eosinophils 0.5 % (0.0-10.0); %Lymphocytes 15.6 % (21.0-51.0); %Monocytes 6.7 % (0.0-10.0); %Neutrophils 76.5 % (42.0-75.0); Hemoglobin 15.1 g/dL (14.0-18.0); Mean Corpuscular HGB CONC 35.2 g/dL (32.0-36.0); Mean Corpuscular Hemoglobin 32.3 pg (27.0-31.0); Mean Platelet Volume 6.8 fL (7.4-10.4); Platelet Count 203 thou/uL (130-400); RBC Distribution Width 11.5 % (11.5-14.5); Red Blood Cell (RBC) Count 4.66 mill/uL (4.70-6.10); White Blood Cell (WBC) Count 6.2 thou/uL (4.8-10.8)
[2019-12-26] MEDS ORDERED: Pantoprazole 40 MG VIAL ONE (13:32)
[2019-12-26] MEDS ORDERED: Morphine 4 MG/ML VIAL ONE (13:32)
[2019-12-26] MEDS ORDERED: Ondansetron PF 4 MG/2 ML Vial ONE (13:32)
[2019-12-26 13:55] LABS: ALT (SGPT) 118 U/L (8-55); AST (SGOT) 287 U/L (5-34); Albumin 3.7 g/dL (3.5-5.0); Alkaline Phosphatase 92 U/L (40-110); Anion Gap 15 mmol/L (10-20); BUN (Urea Nitrogen) 11 mg/dL (8.4-25.7); Bilirubin, Total 0.8 mg/dL (0.2-1.2); Calc. Creatinine Clearance 0 mL/min (70-130); Calcium 8.4 mg/dL (7.8-10.44); Carbon Dioxide 24 mmol/L (22-29); Chloride 104 mmol/L (98-107); Estimated GFR-MDRD 80; Globulin 3.9 g/dL (2.4-3.5); Glucose 85 mg/dL (70-105); Lipase 136 U/L (8-78); Potassium 4.4 mmol/L (3.5-5.1); Protein, Total 7.6 g/dL (6.0-8.3); Sodium 139 mmol/L (136-145)
--- NOTE | 2019-12-26 14:54 | CT ---
CT ABDOMEN AND PELVIS WITHOUT IV CONTRAST: DATE: 12/26/2019. PROVIDED CLINICAL HISTORY: Rectal bleeding. FINDINGS: The visualized lung bases are free of significant opacity. Calcified granuloma in the left lung base . Fatty infiltration of the liver is demonstrated. The solid abdominal organs are suboptimally evaluat ed in the absence of IV contrast material. There is subtle stranding of the fat about the uncinate p rocess of the pancreas. The solid abdominal organs demonstrate an otherwise unremarkable unenhanced CT appearance. There is no bowel dilatation, additional inflammatory fat stranding, free fluid or free air apparent. The osseous structures demonstrate no concerning lytic or blastic lesions. Postoperative changes are seen involving the lumbar spine. IMPRESSION: 1. Fat stranding changes about the uncinate process in the pancreas, which may reflect pancreatitis. 2. Fatty infiltration of the liver. POS: [facility]
== END 2019-12-26 15:05 | disposition home or self-care (01) ==
LOC: ERS 12:30
DX: K85.90 Acute pancreatitis without necrosis or infection, unspecified (principal); I48.91 Unspecified atrial fibrillation; I10 Essential (primary) hypertension; F17.210 Nicotine dependence, cigarettes, uncomplicated; Z79.899 Other long term (current) drug therapy
CPT/HCPCS: 74176; 80053; 81003; 82274; 83690; 85025; 96374; 96375; 99284; C9113; J2270; J2405

== ENCOUNTER 2020-01-16 17:30 | Inpatient (IN) | payer MEDICARE, MEDICAID ==
[~2020-01-16 17:30] MED LIST: Heparin 1,000 UNITS/ML VIAL ONE
[2020-01-16] MEDS ORDERED: Ondansetron PF 4 MG/2 ML Vial ONE (18:04)
[2020-01-16] MEDS ORDERED: Morphine 4 MG/ML VIAL ONE ×2 (18:04→19:09)
[2020-01-16 18:09] LABS: Hemoglobin 18.3 g/dL (14.0-18.0); Mean Corpuscular Hemoglobin 31.9 pg (27.0-31.0); Mean Corpuscular Volume 96.5 fL (78.0-98.0); Mean Platelet Volume 7.6 fL (7.4-10.4); Platelet Count 179 thou/uL (130-400); RBC Distribution Width 12.6 % (11.5-14.5); Red Blood Cell (RBC) Count 5.73 mill/uL (4.70-6.10); White Blood Cell (WBC) Count 15.5 thou/uL (4.8-10.8)
[2020-01-16 18:27] LABS: Band 31 % (5-11); Lymphocytes 2 % (21-51); MDiff Complete? YES; Metamyelocyte 4 % (0-0); Monocytes 4 % (0-10); Neutrophil 59 % (42-75); Platelet Morphology Comment Appears Adequate; RBC Morphology Normal
[2020-01-16 18:29] LABS: ALT (SGPT) 198 U/L (8-55); AST (SGOT) 521 U/L (5-34); Albumin 3.1 g/dL (3.5-5.0); Alkaline Phosphatase 117 U/L (40-110); Anion Gap 19 mmol/L (10-20); BUN (Urea Nitrogen) 19 mg/dL (8.4-25.7); Bilirubin, Total 3.9 mg/dL (0.2-1.2); Calc. Creatinine Clearance 0 mL/min (70-130); Calcium 6.9 mg/dL (7.8-10.44); Carbon Dioxide 18 mmol/L (22-29); Chloride 94 mmol/L (98-107); Estimated GFR-MDRD 35; Globulin 3.5 g/dL (2.4-3.5); Glucose 172 mg/dL (70-105); Potassium 4.2 mmol/L (3.5-5.1); Protein, Total 6.6 g/dL (6.0-8.3); Sodium 127 mmol/L (136-145)
[2020-01-16 18:42] LABS: Lipase 1575 U/L (8-78)
[2020-01-16 18:48] LABS: Bacteria/HPF None Seen HPF (None Seen); Bilirubin Negative (Negative); Blood, Urine Trace (Negative); Clarity Turbid (Clear); Glucose, Urine (Dipstick) Normal (Negative); Leukocyte Negative Leu/uL (Negative); Nitrite Negative (Negative); Protein, Urine (Dipstick) 50 mg/dL (Neg-Trace); RBC/HPF None Seen HPF (0-3); Squamous Epithelial 0-3 HPF (0-3); WBC/HPF None Seen HPF (0-3)
[2020-01-16 19:24] LABS: INR-International Normal Ratio 1.1; Prothrombin Time 13.9 sec (12.0-14.7)
--- NOTE | 2020-01-16 19:25 | CT ---
CT ABDOMEN AND PELVIS WITHOUT CONTRAST: 01/16/20 HISTORY: Diffuse abdominal pain. Vomiting. COMPARISON: CT abdomen and pelvis 12/26/2019. FINDINGS: There are calcified infrahilar lymph nodes bilaterally. No significant pericardial fluid. Diffuse hep atic steatosis. Extensive inflammatory stranding around the pancreatic head and uncinate process with inflammatory fluid throughout the anterior perirenal space extending into the omentum. There is fluid surrounding the spleen. Secondary inflammatory changes of the duodenum. The appendix is not well seen due to the extensive fluid within the pericolic gutter on the right. No hydroureteronephrosis. No acute osseous abnormality. Bilateral pars interarticularis defect at L5 with posterior spinal fusi on hardware at L5-S1. IMPRESSION: 1. Relatively high grade acute pancreatitis. Evaluation for necrosis is limited without intraven ous contrast. 2. Diffuse hepatic steatosis. 3. Small fat and fluid containing posterior diaphragmatic and paraesophageal hernia. POS: [facility]
[2020-01-16] MEDS ORDERED: Morphine 4 MG/ML VIAL SLOW IVP PRN (19:34)
[2020-01-16] MEDS ORDERED: Ondansetron ODT 4 MG TAB SL PRN (19:34)
[2020-01-16] MEDS ORDERED: Morphine 2 MG/ML SYRINGE SLOW IVP PRN (19:34)
[2020-01-16] MEDS ORDERED: Ondansetron PF 4 MG/2 ML Vial IVP PRN ×2 (19:34→21:04)
[2020-01-16] MEDS ORDERED: Acetaminophen 325 MG TAB PO PRN (19:34)
--- NOTE | 2020-01-16 19:35 | PDOC.HHP ---
Hospitalist HPI - History of Present Illness Abd pain History of Present Illness: Patient is a 54 year old male with PMH recurrent pancreatitis who presented to ED for abdominal pain, was recently discharged from here after being treated for pancreatitis, was doing well at home, however relapsed and reports he drank 2 beers last night, developed abdominal pain and presented to ED, reports nausea /vomiting, no blood or melena per mouth or anus. In ED, lab abnormalities noted , hyponatremia, leukocytosis, elevated LFTs, elevated lipase, amongst many others, sugar elevated. Vital signs significant for tachycardia. Lactic acid 4.2. Patient recieved IVF and pain medication with improvement in symptoms. Patient to be admitted for recurrent acute pancreatitis secondary to continued alcohol usage. ED Course: VITAL SIGNS TueJanuary 16, 2020 18:00 Oden RN, Daniel Pulse: 106 Resp: 22 Temp: 98 (Oral) Pain: 10 O2 sat: 95 on (Room Air) Time: 01/16/2020 18:00. Hospitalist ROS - Review of Systems Constitutional: denies: fever, chills, sweats, weakness, malaise, other Eyes: denies: pain, vision change, conjunctivae inflammation, eyelid inflammation, redness, other ENT: denies: ear pain, ear discharge, nose pain, nose discharge, nose congestion , mouth pain, mouth swelling, throat pain, throat swelling, other Respiratory: denies: cough, dry, shortness of breath, hemoptysis, SOB with excertion, pleuritic pain, sputum, wheezing, other Cardiovascular: denies: chest pain, palpitations, orthopnea, paroxysmal noc. dyspnea, edema, light headedness, other Gastrointestinal: reports: nausea, vomiting, abdominal pain. denies: diarrhea, constipation, melena, hematochezia, other Genitourinary: denies: dysuria, frequency, incontinence, hematuria, retention, other Musculoskeletal: denies: neck pain, shoulder pain, arm pain, back pain, hand pain, leg pain, foot pain, other Skin: denies: rash, lesions, chloé, bruising, other Neurological: denies: weakness, numbness, incoordination, change in speech, confusion, seizures, other All other systems reviewed; all pertinent +/- noted in HPI/Subj Hospitalist History - Past Medical History Other Medical History: afib pancreatitis HTN bipolar disorder - Past Surgical History Other Surgical History: hernia repair ablation back/neck spinal surgery - Family History Family History: reports: no pertinent history - Social History Smoking Status: Current every day smoker Alcohol: reports: None Drugs: reports: none Other Social History: previous cocaine use - Exam General Appearance: NAD, awake alert Eye: PERRL, anicteric sclera ENT: normocephalic atraumatic, no oropharyngeal lesions, moist mucosa Neck: supple, symmetric, no JVD, no thyromegaly, no lymphadenopathy, no carotid bruit Heart: RRR, no murmur, no gallops, no rubs, normal peripheral pulses Respiratory: CTAB, no wheezes, no rales, no ronchi, normal chest expansion, no tachypnea, normal percussion Gastrointestinal: soft, non-distended, normal bowel sounds, no palpable masses, no hepatomegaly, no splenomegaly, no bruit Gastrointestinal - other findings: diffuse tenderness to light palpation most over the epigastric area. Extremities: no cyanosis, no clubbing, no edema Skin: normal turgor, no lesions, no rashes Neurological: cranial nerve grossly intact, normal sensation to touch, no weakness, no focal deficits, no new deficit Musculoskeletal: normal tone, normal strength, no muscle wasting Psychiatric: normal affect, normal behavior, A&O x 3 Hospitalist Results - Labs Result Diagrams: 01/16/20 17:56 01/16/20 17:56 Lab results: WBC 15.5 thou/uL (4.8-10.8) H 01/16/20 17:56 Hgb 18.3 g/dL (14.0-18.0) H 01/16/20 17:56 Hct 55.3 % (42.0-52.0) H 01/16/20 17:56 MCV 96.5 fL (78.0-98.0) 01/16/20 17:56 Plt Count 179 thou/uL (130-400) 01/16/20 17:56 Band Neuts % (Manual) 31 % (5-11) H 01/16/20 17:56 Sodium 127 mmol/L (136-145) L 01/16/20 17:56 Potassium 4.2 mmol/L (3.5-5.1) 01/16/20 17:56 Chloride 94 mmol/L (98-107) L 01/16/20 17:56 Carbon Dioxide 18 mmol/L (22-29) L 01/16/20 17:56 BUN 19 mg/dL (8.4-25.7) 01/16/20 17:56 Creatinine 2.03 mg/dL (0.7-1.3) H 01/16/20 17:56 Glucose 172 mg/dL (70-105) H 01/16/20 17:56 Lactic Acid 4.2 mmol/L (0.5-2.2) H* 01/16/20 17:56 Calcium 6.9 mg/dL (7.8-10.44) L 01/16/20 17:56 Total Bilirubin 3.9 mg/dL (0.2-1.2) H 01/16/20 17:56 AST 521 U/L (5-34) H 01/16/20 17:56 ALT 198 U/L (8-55) H 01/16/20 17:56 Alkaline Phosphatase 117 U/L (40-110) H 01/16/20 17:56 Serum Total Protein 6.6 g/dL (6.0-8.3) 01/16/20 17:56 Albumin 3.1 g/dL (3.5-5.0) L 01/16/20 17:56 Lipase 1575 U/L (8-78) H 01/16/20 17:56 Urine Ketones 10 mg/dL (Negative) A 01/16/20 18:26 Urine Blood Trace (Negative) A 01/16/20 18:26 Urine Nitrite Negative (Negative) 01/16/20 18:26 Ur Leukocyte Esterase Negative Jed/uL (Negative) 01/16/20 18:26 Urine RBC None Seen HPF (0-3) 01/16/20 18:26 Urine WBC None Seen HPF (0-3) 01/16/20 18:26 Ur Squamous Epith Cells 0-3 HPF (0-3) 01/16/20 18:26 Urine Bacteria None Seen HPF (None Seen) 01/16/20 18:26 Hospitalist H&P A/P - Plan Plan: Patient is a 54 year old male with PMH pancreatitis, alcohol abuse, afib admitted for: # recurrent alcoholic pancreatitis - admit to telemetry - npo - ivf - alcohol cessation counselling provided 7 minutes - PRN pain and nausea medications - monitor for withdrawal symptoms # bipolar disorder - resume home meds # history of afib - monitor on telemetry # elevated lactic acid secondary to pancreatitis # hyponatremia # metabolic acidosis # ROHAN # elevated LFTs # hypocalcemia - presume all above electrolyte/chemistry abnormalities due to pancreatitis, aggressive hydration and trend labs in AM # hyperglycemia - A1C, SSI
[2020-01-16] MEDS: Sodium Chloride 0.9% 1,000 ML IV SCH ×2 (20:56→23:45)
[2020-01-16] MEDS ORDERED: Promethazine HCl 12.5 MG in Sodium Chloride 0.9% 50 ML IVPB PRN (21:04)
[2020-01-16] MEDS ORDERED: Labetalol HCl 100 MG/20 ML VIAL SLOW IVP PRN (21:04)
[2020-01-16] MEDS ORDERED: hydrALAZINE 20 MG/ML VIAL SLOW IVP PRN (21:04)
[2020-01-16] MEDS ORDERED: cloNIDine 0.1 MG TAB PO PRN (21:04)
[2020-01-16] MEDS ORDERED: Bisacodyl 5 MG TAB PO PRN (21:05)
[2020-01-16] MEDS ORDERED: HumaLOG 300 UNITS/3 ML VIAL SC PRN (21:18)
[2020-01-16] MEDS ORDERED: Dextrose 50% Abboject 50 ML SYRINGE SLOW IVP PRN (21:18)
[2020-01-16] MEDS ORDERED: Dextrose 5% in Water 1,000 ML IV PRN (21:18)
[2020-01-16] MEDS: Morphine 2 MG/ML SYRINGE SLOW IVP PRN (22:57)
[2020-01-17] MEDS: Sodium Chloride 0.9% 1,000 ML IV SCH ×6 (02:47→22:58)
[2020-01-17] MEDS: Morphine 2 MG/ML SYRINGE SLOW IVP PRN ×6 (02:48→22:44)
[2020-01-17 06:05] LABS: Hemoglobin A1c 4.7 % (4.0-6.0)
[2020-01-17 06:23] LABS: ALT (SGPT) 123 U/L (8-55); AST (SGOT) 325 U/L (5-34); Albumin 2.4 g/dL (3.5-5.0); Alkaline Phosphatase 78 U/L (40-110); Anion Gap 10 mmol/L (10-20); BUN (Urea Nitrogen) 13 mg/dL (8.4-25.7); Bilirubin, Direct 1.9 mg/dL (0.1-0.3); Calc. Creatinine Clearance 118 mL/min (70-130); Calcium 5.5 mg/dL (7.8-10.44); Carbon Dioxide 20 mmol/L (22-29); Chloride 105 mmol/L (98-107); Estimated GFR-MDRD Greater than 90; Glucose 111 mg/dL (70-105); Magnesium 1.3 mg/dL (1.6-2.6); Potassium 4.1 mmol/L (3.5-5.1); Sodium 131 mmol/L (136-145)
[2020-01-17 06:24] LABS: Band 40 % (5-11); Hemoglobin 14.2 g/dL (14.0-18.0); Lymphocytes 7 % (21-51); MDiff Complete? YES; Mean Corpuscular HGB CONC 32.6 g/dL (32.0-36.0); Mean Corpuscular Hemoglobin 31.7 pg (27.0-31.0); Mean Corpuscular Volume 97.5 fL (78.0-98.0); Monocytes 4 % (0-10); Neutrophil 49 % (42-75); Platelet Count 119 thou/uL (130-400); Platelet Morphology Comment Appears Decreased; RBC Distribution Width 12.6 % (11.5-14.5); Red Blood Cell (RBC) Count 4.47 mill/uL (4.70-6.10)
[2020-01-17 06:59] LABS: Anion Gap 9 mmol/L (10-20); BUN (Urea Nitrogen) 12 mg/dL (8.4-25.7); Calc. Creatinine Clearance 127 mL/min (70-130); Carbon Dioxide 19 mmol/L (22-29); Chloride 106 mmol/L (98-107); Estimated GFR-MDRD Greater than 90; Glucose 104 mg/dL (70-105); Potassium 4.1 mmol/L (3.5-5.1); Sodium 130 mmol/L (136-145)
[2020-01-17 07:06] LABS: Calcium 5.4 mg/dL (7.8-10.44)
[2020-01-17] MEDS ORDERED: Calcium Gluc 4.6 MEQ/10 ML (100 MG/ML) SLOW IVP SCH (08:30)
[2020-01-17] MEDS: Enoxaparin Sodium 40 MG/0.4 ML SYRINGE SC SCH (09:40)
[2020-01-17] MEDS: Senokot S 8.6-50 MG TAB PO PRN (10:06)
[2020-01-17] MEDS ORDERED: Magnesium 2 GM/50 ML 3 GM in Premix Bag 1 BAG IVPB SCH (10:15)
[2020-01-17] MEDS ORDERED: Magnesium Sulfate 3 GM, Admixture Fee 1 EACH in Sodium Chloride 0.9% 100 ML IVPB SCH (10:30)
[2020-01-17 12:36] LABS: ALT (SGPT) 115 U/L (8-55); AST (SGOT) 297 U/L (5-34); Albumin 2.4 g/dL (3.5-5.0); Alkaline Phosphatase 77 U/L (40-110); Anion Gap 10 mmol/L (10-20); BUN (Urea Nitrogen) 11 mg/dL (8.4-25.7); Bilirubin, Total 3.5 mg/dL (0.2-1.2); Calc. Creatinine Clearance 132 mL/min (70-130); Carbon Dioxide 20 mmol/L (22-29); Chloride 106 mmol/L (98-107); Estimated GFR-MDRD Greater than 90; Globulin 2.6 g/dL (2.4-3.5); Glucose 106 mg/dL (70-105); Potassium 3.9 mmol/L (3.5-5.1); Sodium 132 mmol/L (136-145)
[2020-01-17 12:40] LABS: Calcium 5.8 mg/dL (7.8-10.44)
--- NOTE | 2020-01-17 12:49 | PDOC.HOSPP ---
- Subjective Encounter Date: 01/17/20 Encounter Time: 10:50 Subjective: pt feels quite uncomfortble as abdomen gets distended shortly after voiding? no nusea, wants to eat. - Objective Vital Signs & Weight: Vital Signs (12 hours) Temp Pulse Resp BP Pulse Ox 01/17/20 11:55 99.1 F 99 18 117/81 95 01/17/20 08:30 98.6 F 100 18 123/82 91 L 01/17/20 08:00 94 L 01/17/20 04:31 98.4 F 95 20 122/81 92 L Weight Weight 181 lb I&O: 01/16/20 01/17/20 01/18/20 06:59 06:59 06:59 Intake Total 2250 Balance 2250 Result Diagrams: 01/17/20 05:25 01/17/20 11:57 Additional Labs: Accuchecks 01/17/20 01/17/20 12:01 00:32 POC Glucose 105 135 H Hospitalist ROS - Medication Medications: Active Medications Generic Name Dose Route Start Last Admin Trade Name Freq PRN Reason Stop Dose Admin Enoxaparin Sodium 40 mg 01/17/20 09:00 01/17/20 09:40 Lovenox SC 40 mg 0900 JOSETTE Administration Sodium Chloride 1,000 mls @ 250 mls/hr 01/16/20 19:45 01/17/20 09:41 Normal Saline 0.9% IV 1,000 mls .Q4H JOSETTE Administration Magnesium Sulfate 3 gm/ 106 mls @ 106 mls/hr 01/17/20 10:30 01/17/20 11:19 Miscellaneous Medication 1 IVPB 01/17/20 14:00 106 mls each/ Sodium Chloride NOW JOSETTE Administration Morphine Sulfate 3 mg 01/16/20 21:04 01/17/20 10:00 Morphine SLOW IVP 3 mg Q4H PRN Administration severe pain 4-10 Pantoprazole Sodium 40 mg 01/17/20 09:00 01/17/20 09:39 Protonix PO 40 mg DAILY JOSETTE Administration Senna/Docusate Sodium 2 tab 01/16/20 21:05 01/17/20 10:06 Senokot S PO 2 tab BID PRN Administration Constipation - Exam General Appearance: awake alert Eye: PERRL ENT: normocephalic atraumatic Neck: supple Heart: RRR, murmur present Respiratory: CTAB, normal chest expansion Gastrointestinal: soft, no guarding, tender to palpation, distended, diminished bowl sounds Neurological: no focal deficits Hosp A/P - Plan # recurrent alcoholic pancreatitis - admit to telemetry - npo - ivf - alcohol cessation counselling provided 7 minutes - PRN pain and nausea medications - monitor for withdrawal symptoms # bipolar disorder - resume home meds # history of afib - monitor on telemetry # elevated lactic acid secondary to pancreatitis # hyponatremia # metabolic acidosis # ROHAN transaminitis # hypocalcemia --replacing the lytes - with hypocalcemia, i am also concerned about more than inflammation in the pancreas - will get CT -stat -restart the home meds as appropriate can start CLD pm, as pt feels hungry and no nausea
[2020-01-17] MEDS: Calcium Carbonate 600 MG + Vit D TAB PO SCH (16:10)
[2020-01-17] MEDS ORDERED: Diazepam 5 MG TAB PO SCH ×2 (16:30→22:45)
[2020-01-17] MEDS ORDERED: predniSONE 50 MG TAB PO SCH (20:00)
[2020-01-17] MEDS: Methocarbamol 500 MG TAB PO SCH (20:49)
[2020-01-17] MEDS: predniSONE 50 MG TAB PO SCH (20:49)
[2020-01-17] MEDS ORDERED: OLANZapine ODT 5 MG TAB PO SCH (21:00)
[2020-01-17] MEDS ORDERED: Mirtazapine 15 MG Soltab PO SCH (21:00)
[2020-01-17] MEDS ORDERED: Lorazepam 2 MG/ML VIAL SLOW IVP PRN (22:04)
[2020-01-18] MEDS: predniSONE 50 MG TAB PO SCH ×2 (02:11→08:33)
[2020-01-18] MEDS: Morphine 2 MG/ML SYRINGE SLOW IVP PRN ×2 (02:11→10:58)
[2020-01-18] MEDS: Sodium Chloride 0.9% 1,000 ML IV SCH ×3 (03:03→14:40)
[2020-01-18 06:17] LABS: ALT (SGPT) 94 U/L (8-55); AST (SGOT) 251 U/L (5-34); Albumin 2.5 g/dL (3.5-5.0); Alkaline Phosphatase 62 U/L (40-110); Anion Gap 13 mmol/L (10-20); BUN (Urea Nitrogen) 11 mg/dL (8.4-25.7); Bilirubin, Direct 2.2 mg/dL (0.1-0.3); Bilirubin, Total 3.7 mg/dL (0.2-1.2); Calc. Creatinine Clearance 136 mL/min (70-130); Carbon Dioxide 19 mmol/L (22-29); Chloride 105 mmol/L (98-107); Estimated GFR-MDRD Greater than 90; Glucose 113 mg/dL (70-105); Lipase 375 U/L (8-78); Magnesium 1.8 mg/dL (1.6-2.6); Protein, Total 5.2 g/dL (6.0-8.3); Sodium 133 mmol/L (136-145)
[2020-01-18 06:22] LABS: Calcium 5.6 mg/dL (7.8-10.44)
[2020-01-18 07:09] LABS: Hemoglobin 11.2 g/dL (14.0-18.0); Mean Corpuscular Hemoglobin 32.6 pg (27.0-31.0); Mean Corpuscular Volume 98.8 fL (78.0-98.0); Mean Platelet Volume 8.3 fL (7.4-10.4); Platelet Count 93 thou/uL (130-400); RBC Distribution Width 12.8 % (11.5-14.5); Red Blood Cell (RBC) Count 3.43 mill/uL (4.70-6.10); White Blood Cell (WBC) Count 6.6 thou/uL (4.8-10.8)
[2020-01-18] MEDS ORDERED: Calcium Gluc 4.6 MEQ/10 ML (100 MG/ML) SLOW IVP SCH ×2 (07:30→16:00)
[2020-01-18] MEDS ORDERED: diphenhydrAMINE 50 MG CAP PO SCH (08:00)
[2020-01-18] MEDS: Enoxaparin Sodium 40 MG/0.4 ML SYRINGE SC SCH (08:33)
[2020-01-18] MEDS: Calcium Carbonate 600 MG + Vit D TAB PO SCH (08:33)
[2020-01-18] MEDS: Methocarbamol 500 MG TAB PO SCH (08:34)
[2020-01-18] MEDS ORDERED: Nebivolol HCl 5 MG TAB PO SCH (09:00)
[2020-01-18] MEDS ORDERED: Magnesium Oxide 400 MG TAB PO SCH (09:00)
[2020-01-18] MEDS ORDERED: Diazepam 5 MG TAB PO SCH ×2 (09:00→15:00)
[2020-01-18 09:23] LABS: Band 57 % (5-11); Lymphocytes 2 % (21-51); MDiff Complete? YES; Metamyelocyte 1 % (0-0); Monocytes 3 % (0-10); Neutrophil 36 % (42-75); Platelet Morphology Comment Appears Decreased; Polychromasia SLIGHT = 2-3 cells (100X) (0-2/hpf); Reactive Lymphocytes 1 % (0-10)
[2020-01-18] MEDS ORDERED: Iopamidol-370 76% 500 ML 1 ML ONE (09:42)
--- NOTE | 2020-01-18 10:04 | CT ---
CT ABDOMEN WITH AND WITHOUT IV CONTRAST 01/18/2020 CLINICAL INFORMATION: Alcoholic pancreatitis. COMPARISON: 01/16/2020 Technique: Multiple contiguous axial CT images are obtained through the abdomen and pelvis with IV contrast. Cor onal reformatted images are provided. FINDINGS: Lower Chest: Interval increase in bilateral pleural effusions with small to moderate-sized bilateral pleural effusions with associated bibasilar areas of consolidation likely related to passive atelectasis. Calcified left infrahilar lymph nodes are seen. Small fat and fluid containing posterior diaphragmatic and paraesophageal hernia is again seen. Vessels: Abdominal aorta is normal in caliber without evidence of an aortic dissection. No pseudoaneu rysm is visualized. Abdomen: Portal vein:Patent Gallbladder: Within normal limits for CT imaging. Liver: Diminished attenuation likely attributable to diffuse fatty infiltration. Spleen: within normal limits. Pancreas: Again noted is extensive inflammatory stranding and fluid in a peripancreatic location with fluid seen in each paracolic gutter and adjacent to the stomach. While fluid adjacent to the stomach is more loculated, a defined wall is not present. The pancreas does demonstrate overall homog eneous enhancement without definite area of abnormal enhancement seen. Fluid also is seen in the visualized upper pelvis. Adrenals: within normal limits. Kidneys: A subcentimeter too small to characterize hypodense lesion is seen in the superior pole left kidney with a much smaller subcentimeter too small to characterize hypodense lesion in the superior pole right kidney. Bowel: There are dilated loops of small bowel greatest in the left aspect of the abdomen. A definite transition point is not visualized on provided images. These findings may be secondary to ileus related to the adjacent inflammatory changes. Appendix: Not well seen. Peritoneum/retroperitoneum: As noted above, there is extensive peripancreatic inflammatory stranding and fluid with fluid in each paracolic gutter and extending into the pelvis. Abdominal Wall: Small fat-containing umbilical hernia is present. Subcutaneous edema is seen about th e abdomen predominantly laterally. Bones: Mild degenerative changes are seen in the spine. Postoperative changes related to posterior fu yaz at the L5-S1 level is seen. Slight retrolisthesis of L4 on L5 is noted with trace anterolisthesis of L5 on S1. IMPRESSION: 1. High-grade pancreatitis with extensive peripancreatic inflammatory changes and fluid in the abdome n. Nonencapsulated peripancreatic fluid collection is seen with this collection extending along the inferior aspect greater curvature of the stomach and inferiorly. 2. Diffuse fatty infiltration liver. 3. Increase in bilateral pleural effusions with small to moderate-sized bilateral pleural effusions a nd associated bibasilar areas of consolidation likely attributable to passive atelectasis. 4. Dilated loops of small bowel with fluid and gas which is probably attributable to ileus.
[2020-01-18] MEDS ORDERED: Lorazepam 1 MG TAB PO PRN (11:25)
[2020-01-18] MEDS ORDERED: Labetalol HCl 100 MG/20 ML VIAL SLOW IVP PRN (11:25)
[2020-01-18] MEDS ORDERED: BEER 1 CAN PO SCH (12:00)
--- NOTE | 2020-01-18 13:01 | PDOC.HOSPP ---
- Subjective Encounter Date: 01/18/20 Encounter Time: 10:40 Subjective: pt agitated but oriented, talked to his . Ct reviewed, ileus, abd distended , tight, poss. pancreatic pseudocyst. GIc /s placed. pt actively going through withdrawl. - Objective Vital Signs & Weight: Vital Signs (12 hours) Temp Pulse Resp BP BP Pulse Ox 01/18/20 08:32 117 H 118/81 01/18/20 07:52 99.1 F 117 H 18 118/81 90 L 01/18/20 04:54 124 H 24 H 92 L Weight Admit Weight 181 lb Weight 181 lb I&O: 01/17/20 01/18/20 01/19/20 06:59 06:59 06:59 Intake Total 2250 3000 Balance 2250 3000 Result Diagrams: 01/18/20 05:37 01/18/20 05:37 Additional Labs: Accuchecks 01/18/20 01/18/20 01/17/20 11:17 03:58 20:02 POC Glucose 105 112 H 127 H 01/17/20 15:28 POC Glucose 135 H Hospitalist ROS - Medication Medications: Active Medications Generic Name Dose Route Start Last Admin Trade Name Freq PRN Reason Stop Dose Admin Albuterol/Ipratropium 3 ml 01/16/20 21:04 01/18/20 04:54 Duoneb NEB 3 ml [id number] PRN Administration SOB &/or Wheezing Calcium/Vitamin D 1 tab 01/17/20 17:00 01/18/20 08:33 Caltrate 600 + Vit D PO 1 tab BID-WM JOSETTE Administration Diltiazem HCl 120 mg 01/18/20 09:00 01/18/20 08:32 Cardizem Cd PO 120 mg QAM JOSETTE Administration Enoxaparin Sodium 40 mg 01/17/20 09:00 01/18/20 08:33 Lovenox SC 40 mg 0900 JOSETTE Administration Sodium Chloride 1,000 mls @ 250 mls/hr 01/16/20 19:45 01/18/20 11:46 Normal Saline 0.9% IV 1,000 mls .Q4H JOSETTE Administration Lorazepam 2 mg 01/18/20 11:25 01/18/20 11:45 Ativan PO 2 mg Q3H PRN Administration Anx/Agitation/Hallucinations Magnesium Oxide 400 mg 01/18/20 09:00 01/18/20 08:30 Magnesium Oxide PO 400 mg DAILY JOSETTE Administration Methocarbamol 750 mg 01/17/20 21:00 01/18/20 08:34 Robaxin PO 750 mg BID JOSETTE Administration Mirtazapine 15 mg 01/17/20 21:00 01/17/20 20:48 Remeron Soltab PO 15 mg HS JOSETTE Administration Morphine Sulfate 3 mg 01/16/20 21:04 01/18/20 10:58 Morphine SLOW IVP 3 mg Q4H PRN Administration severe pain 4-10 Nebivolol 20 mg 01/18/20 09:00 01/18/20 08:30 Bystolic PO 20 mg DAILY JOSETTE Administration Olanzapine 15 mg 01/17/20 21:00 01/17/20 20:46 Zyprexa Zydis PO 15 mg HS JOSETTE Administration Pantoprazole Sodium 40 mg 01/17/20 09:00 01/18/20 08:31 Protonix PO Not Given DAILY JOSETTE Pantoprazole Sodium 40 mg 01/18/20 09:00 01/18/20 08:31 Protonix PO 40 mg QAM JOSETTE Administration Senna/Docusate Sodium 2 tab 01/16/20 21:05 01/17/20 10:06 Senokot S PO 2 tab BID PRN Administration Constipation - Exam General Appearance: NAD, awake alert Eye: PERRL ENT: normocephalic atraumatic Neck: supple Heart: RRR Respiratory: CTAB, normal chest expansion Gastrointestinal: soft, normal bowel sounds, no palpable masses, no splenomegaly Neurological: no focal deficits Psychiatric: A&O x 3 Hosp A/P - Plan # recurrent alcoholic pancreatitis - admit to telemetry - npo - ivf - alcohol cessation counselling provided 7 minutes - PRN pain and nausea medications - monitor for withdrawal symptoms # bipolar disorder - resume home meds # history of afib # elevated lactic acid secondary to pancreatitis # hyponatremia # metabolic acidosis # ROHAN transaminitis # hypocalcemia --replacing the lytes - with hypocalcemia, i am also concerned about more than inflammation in the pancreas - will get CT -stat------> may be pseudocyst - GI cs placed. Ilues c/w exam and Ct finding -attempt to place NGT done but pt pulled off. -restart the home meds as appropriate Alcohol abuse Alcohol withdrawl, - on CIWA and scheduled valium can start CLD pm, as pt feels hungry and no nausea
[2020-01-18] MEDS ORDERED: Propofol 1,000 MG/100 ML VIAL IV ONE (14:21)
[2020-01-18] MEDS ORDERED: Rocuronium Bromide 10 MG/ML (10ML VIAL) ONE (14:35)
[2020-01-18] MEDS ORDERED: Ventilator Sedation Protocol 1 EACH FS ONE (15:22)
[2020-01-18] MEDS ORDERED: CCU Electrolyte Replacement 1 EACH FS ONE (15:22)
[2020-01-18 15:28] LABS: Base Excess (BEa) -5.2 mEq/L (-2.0 to +3.0); CO2 Tension 43.5 mmHg (35.0-45.0); Calcium, Ionized 0.93 mmol/L (1.12-1.30); Carboxyhemoglobin (COHb) 2.2 gm% (0.0-3.0); Hemoglobin (Hb) 10.9 g/dL (14.0-18.0); O2 Tension (PaO2), arterial 70.6 mmHg (80.0-100.0); Potassium - ABG Lab 4.08 mmol/L (3.70-5.30)
[2020-01-18 15:33] LABS: ALV-art Gradient 231.525 (0-20); Puncture Site LR
[2020-01-18] MEDS ORDERED: Potassium Phosphate 12 MMOL in Sodium Chloride 0.9% 250 ML 250 ML IV PRN (15:53)
[2020-01-18] MEDS ORDERED: Potassium Chloride 20 MEQ TAB PO PRN (15:53)
[2020-01-18] MEDS ORDERED: Magnesium 2 GM/50 ML 2 GM in Premix Bag 1 BAG IVPB PRN (15:53)
[2020-01-18] MEDS ORDERED: Potassium Phosphate 15 MMOL in Sodium Chloride 0.9% 250 ML 250 ML IV PRN (15:53)
[2020-01-18] MEDS ORDERED: PHOS-NAK 1 PKT PACK PO PRN ×2 (15:53)
[2020-01-18] MEDS ORDERED: CCU ELECTROLYTE REPLACEMENT PROTOCOL FS PRN (15:53)
[2020-01-18] MEDS ORDERED: Potassium Chloride 40 MEQ in Sodium Chloride 0.9% 250 ML 250 ML IVPB PRN (15:53)
[2020-01-18] MEDS ORDERED: Magnesium Oxide 400 MG TAB PO PRN ×2 (15:53)
[2020-01-18] MEDS ORDERED: Fentanyl BOLUS 250 ML IVPB PRN (15:54)
[2020-01-18] MEDS ORDERED: Propofol BOLUS 1,000 MG/100 ML VIAL IV PRN (15:54)
[2020-01-18] MEDS ORDERED: DISCONTINUE PREVIOUS NARCOTIC PAIN MEDICATIONS AND BENZODIAZEPINES FS SCH (15:54)
[2020-01-18] MEDS ORDERED: fentaNYL Citrate/PF 2,000 MCG in Sodium Chloride 0.9% 60 ML IV SCH (15:54)
[2020-01-18] MEDS ORDERED: Succinylcholine Chloride 200 MG/10 ML VIAL IVP SCH (16:00)
--- NOTE | 2020-01-18 16:22 | RAD ---
PORTABLE CHEST: 01/18/20 PROVIDED CLINICAL HISTORY: Respiratory insufficiency. FINDINGS: Comparison is made with the study dated 12/01/19. Cardiac and mediastinal silhouette is within normal limits. Endotracheal tube is noted, the tip of wh ich projects just caudal to the thoracic inlet. Enteric catheter is present, the tip of which overlie s the left upper quadrant. Right subclavian central line is demonstrated, tip of which projects over the caudal aspects of right atrium. Multiple wires overlie the left upper chest, limiting evaluation. No definite evidence for pneumothorax. Consolidation is seen in the left perihilar and left upper camila ng zone regions. There is no evidence for pleural fluid. The supine mature of the examination limits sensitivity for defection of pleural fluid or pneumothorax. IMPRESSION: 1. Support apparatus as described. 2. Left lung opacities may reflect pneumonia. Follow-up is recommended. POS: KATRIN
[2020-01-18] MEDS: Meropenem 2 GM in Sodium Chloride 0.9% 100 ML IVPB SCH (16:41)
[2020-01-18] MEDS: Rocuronium Bromide 10 MG/ML (10ML VIAL) IVP PRN ×2 (17:04→20:20)
[2020-01-18] MEDS: Lorazepam 2 MG/ML VIAL SLOW IVP PRN ×2 (17:04→20:20)
[2020-01-18] MEDS: Multivitamins, Adult 10 ML, Folic Acid 1 MG, Thiamine HCl 100 MG in Dextrose 5 %-0.45 %... IV SCH (17:18)
--- NOTE | 2020-01-18 17:26 | OP ---
DATE OF PROCEDURE: 01/18/2020 PROCEDURE: Central line placement. PREOPERATIVE DIAGNOSIS: Poor IV access. POSTOPERATIVE DIAGNOSIS: Successful right subclavian central line placement. ANESTHESIA: 1% lidocaine without epinephrine. DESCRIPTION OF PROCEDURE: Thi was done on an emergent basis. The patient had poor IV access and needed deep IV sedation for DTs. The patient was first placed in Trendelenburg position. The right subclavian area was cleansed with chlorhexidine and draped sterilely. Local anesthetic was applied to the entry site. Using modified Seldinger technique, a triple-lumen catheter was placed in the right subclavian vein on the first attempt. Three ports flushed venous blood. X-ray confirmed proper placement. Job ID: [id number]
--- NOTE | 2020-01-18 17:32 | CON ---
DATE OF CONSULTATION: 01/18/2020 CONSULTING PHYSICIAN: Maddy Tierney. REASON FOR CONSULTATION: DTs. HISTORY OF PRESENT ILLNESS: This is a 54-year-old who was admitted to the hospital by the hospitalist group on 01/16/2020 with complaint of abdominal pain that is thought secondary to pancreatitis. He is an alcoholic, who has been binge drinking at home. He was initially admitted to the medical floor. Today, he was noted to have DT activity, which was not manageable with routine medications and he was transferred to the ICU for further therapy. I had to intubate him and place him on mechanical ventilation because of combativeness. PAST MEDICAL HISTORY: 1. Alcohol abuse. 2. Pancreatitis. 3. Atrial fibrillation. 4. Hypertension. 5. Bipolar disorder. PAST SURGICAL HISTORY: 1. Hernia repair. 2. Cardiac ablation. 3. Back and neck surgery. FAMILY MEDICAL HISTORY: Unremarkable. SOCIAL HISTORY: Apparently smokes. He abuse crystal meth in the past. He abused crack cocaine in the past. Drinks copious amounts of alcohol every day. REVIEW OF SYSTEMS: Cannot be obtained as the patient is currently on mechanical ventilation. PHYSICAL EXAMINATION: VITAL SIGNS: Heart rate 115, O2 saturation in the low 90s, respiratory rate 16, and blood pressure 128/86. GENERAL: This is an obese male, who is 5 feet and 6 inches and weighs well over 200 pounds. HEENT: He has poor dentition, particularly on the lower mandibular region. His sclera show icteric changes. Pupils are reactive. NECK: No adenopathy or JVD. LUNGS: Coarse breath sounds. CARDIOVASCULAR: S1 and S2. Tachycardic. ABDOMEN: Distended, tympanic. EXTREMITIES: No clubbing, cyanosis, or edema. LABORATORY DATA: Sodium 133, potassium 4, chloride 105, CO2 of 19, BUN 11, creatinine 0.7, glucose 111, calcium 5.6, total bilirubin 3.7, AST 251, ALT 94, albumin 2.5, and lipase 375. White blood cell count 6.6, hematocrit 33.9, and platelet count 93. INR is 1.1. IMAGING DATA: His chest x-ray shows a right upper lobe infiltrate. Central line in good position. ET tube in good position. An abdominal CT obtained earlier today showed high-grade pancreatitis with extensive inflammatory changes, fatty liver, bilateral pleural effusions, dilated loops of small bowel that were likely secondary to an ileus. ASSESSMENT: 1. Delirium tremens/severe alcohol withdrawal symptoms, not manageable by routine medications. 2. Pancreatitis. 3. Alcoholic hepatitis. 4. Possible aspiration pneumonitis. 5. Protein-calorie malnutrition. 6. Ileus. PLAN: 1. I have intubated the patient and placed on mechanical ventilation. The purpose of intubation was so that we give the patient deep sedation that it would not be manageable without an airway. 2. Start empiric antibiotics for pancreatitis and possible aspiration pneumonia. 3. Manage DTs with propofol. 4. Central line has been placed because of lack of adequate IV access in the right subclavian - see separate operative report. 5. I spoke with the patient's and mother on the phone and updated them on the patient's hospital situation and they understand. Job ID: [id number]
[2020-01-18] MEDS: Propofol 1,000 MG/100 ML VIAL IV PRN (22:04)
--- NOTE | 2020-01-18 23:57 | CON ---
DATE OF CONSULTATION: REASON FOR CONSULTATION: Pancreatitis. HISTORY OF PRESENT ILLNESS: Mr. Haq is a 54-year-old who came to the emergency room on 01/15 with abdominal pain for 2 days' duration with vomiting. He was found to have pancreatitis. Apparently been seen recently, he was still drinking some beers, he drank a couple before coming in. Initially, he was tachycardic with a pulse of 101. He had no fever. He had multiple electrolyte abnormalities. He had a CAT scan that revealed significant pancreatitis, though initial CT scan had no IV contrast, so there could be no comment made on necrosis. He had quite a bit of intraperitoneal fat edema and anasarca. White count of 15, hemoglobin of 18 on admission, platelets 179. He had 31% bands. With hydration, his hemoglobin came down to 14 on the and 11 today. His platelets have dropped to 93,000. He has 57% bands now. He did have cultures drawn, was empirically started on antibiotics. Ultimately, today he developed DTs and combativeness and with large pleural effusions, respiratory embarrassment, was intubated and placed on propofol. He had a pH of 7.3 this afternoon at 1500. Other significant labs notable for calcium level of 5.5, 5.8 at 05:07 yesterday, 5.6 today. Phosphorus has not been checked. AST and ALT were 300 and 120, bilirubin was 3, albumin was 2.4, protein was 5. Here, he has been started on banana bag and antibiotics, IV fluids. PAST MEDICAL HISTORY: Alcoholism, bipolar disorder, prior pancreatitis, hypertension, reflux, depression, anxiety. PAST SURGICAL HISTORY: Ablation for atrial fibrillation, previous upper endoscopies, ECT therapy, recent anterior cervical disk fusion. In 2015, he had a bleeding Dieulafoy lesion in the distal esophagus, this was cauterized and right inguinal hernia repair in 06/2017, L5-S1 laminectomy as well. FAMILY HISTORY: Unremarkable. SOCIAL HISTORY: Drinks copious amounts of alcohol. Currently smokes. Has history of meth and cocaine use in the past. No drug screen was obtained this admission. REVIEW OF SYSTEMS: Unable to be obtained as he is mechanically ventilated and sedated. ALLERGIES: CODEINE, IODINE, PENICILLIN, ONION. MEDICATIONS: DuoNeb, bisacodyl, replacement protocol, electrolytes, Lovenox, fentanyl p.r.n., Humalog sliding scale, Ativan p.r.n., meropenem 2 g q.8 hours, banana bag daily. PHYSICAL EXAMINATION: VITAL SIGNS: Pulse 100, respirations 22, O2 saturation 99, blood pressure 107/72, temperature 100. GENERAL: He is intubated and sedated. LUNGS: Clear. HEART: Tachycardia to sinus rhythm. ABDOMEN: Protuberant. There is no umbilical excoriation or ulceration or bruising. There is no flank bruising. Bowel sounds are scant, but positive. Inguinal area reveals no evidence of hernias. EXTREMITIES: Reveal no clubbing, cyanosis, or edema. Pulses are palpable in the dorsalis pedis and femoral areas. LABORATORY DATA: Lipase today is 375, it was 1575 on the and on 12/25, it was 136. Tox screen on admission, not done. Alcohol on admission, not done. Urinalysis, ketones positive on admission. INR on 01/15 was 1.1. Previous hepatitis A, B, and C negative in 2017. Review of his CAT scan done today shows perfusion of the pancreas. No overt necrosis. There is severe pancreatitis. There is no evidence of pseudocyst. There is just a large phlegmon present, quite a bit of inflammatory stranding and fluid in the peripancreatic location as well as the pericolic gutters bilaterally and adjacent to the stomach. There is homogeneous enhancement without evidence of abnormal enhancement to suggest necrosis. Diffuse fatty liver as well. Some mild ileus present with dilated loops of small bowel, fluid, gas. ASSESSMENT: 1. Severe pancreatitis, likely related to alcohol. 2. Fatty liver, likely a component of alcoholic hepatitis. No signs of biliary obstruction. 3. DTs and respiratory failure requiring intubation and sedation with propofol. 4. Multiple nutritional abnormalities, including low magnesium and phosphorus has not been checked, will need to be. 5. No signs of pancreatic necrosis or abscess. 6. Hypocalcemia, likely related to saponification of fat, an indicator of severe pancreatitis. 7. Evidence for adequate resuscitation with good urine output. Creatinine has dropped from 2 on admission to 0.7 now and hemoglobin has moved from 18 down to 11.2. RECOMMENDATIONS: 1. Continue ulcer prophylaxis. The patient will need to be started on TPN in a couple of days. Right now, we can hold off. We need to check his electrolytes and replace it every day. Once he become more stable, we can move towards TPN. 2. We could try tube feeding in a few days, but that is probably not going to work in light of the ileus and the severe pancreatitis. 3. There is no role for antibiotics at this time unless cultures become positive for blood or other source. As he has no signs of pancreatic necrosis or abscess, there has been no role for antibiotics in acute severe pancreatitis and in fact there is a contraindication flaked out for infection later dates with fungal infections and resistant organisms. We would go ahead and stop the antibiotics unless we are treating a specific infection. 4. Watch for any signs of compartment syndrome. We will follow along with you. Job ID: [id number]
[2020-01-19] MEDS: Meropenem 2 GM in Sodium Chloride 0.9% 100 ML IVPB SCH ×4 (00:35→23:47)
[2020-01-19] MEDS: Propofol 1,000 MG/100 ML VIAL IV PRN ×5 (01:04→22:16)
[2020-01-19] MEDS: Sodium Chloride 0.9% 1,000 ML IV SCH ×3 (01:04→11:08)
[2020-01-19] MEDS: Rocuronium Bromide 10 MG/ML (10ML VIAL) IVP PRN ×4 (02:07→22:55)
[2020-01-19] MEDS: Lorazepam 2 MG/ML VIAL SLOW IVP PRN ×4 (02:08→22:19)
[2020-01-19 04:22] LABS: #Lymphocytes 0.8 thou/uL (1.20-3.40); #Monocytes 0.8 thou/uL (0.11-0.59); #Neutrophils 4.6 thou/uL (1.40-6.50); %Basophils 0.3 % (0.0-1.0); %Eosinophils 0.1 % (0.0-10.0); %Lymphocytes 12.5 % (21.0-51.0); %Monocytes 12.4 % (0.0-10.0); %Neutrophils 74.7 % (42.0-75.0); Hemoglobin 9.1 g/dL (14.0-18.0); Mean Corpuscular HGB CONC 33.2 g/dL (32.0-36.0); Mean Corpuscular Hemoglobin 32.8 pg (27.0-31.0); Mean Corpuscular Volume 98.9 fL (78.0-98.0); Mean Platelet Volume 8.1 fL (7.4-10.4); Platelet Count 93 thou/uL (130-400); Red Blood Cell (RBC) Count 2.79 mill/uL (4.70-6.10); White Blood Cell (WBC) Count 6.2 thou/uL (4.8-10.8)
[2020-01-19 04:23] LABS: INR-International Normal Ratio 1.1; PTT 32.5 SEC (22.9-36.1); Prothrombin Time 14.6 sec (12.0-14.7)
[2020-01-19 04:47] LABS: Phosphorus Less than 1.0 mg/dL (2.3-4.7)
[2020-01-19 04:49] LABS: ALT (SGPT) 80 U/L (8-55); AST (SGOT) 218 U/L (5-34); Albumin 2.2 g/dL (3.5-5.0); Alkaline Phosphatase 52 U/L (40-110); Anion Gap 10 mmol/L (10-20); BUN (Urea Nitrogen) 8 mg/dL (8.4-25.7); Bilirubin, Direct 3.3 mg/dL (0.1-0.3); Bilirubin, Total 4.6 mg/dL (0.2-1.2); Calc. Creatinine Clearance 166 mL/min (70-130); Calcium 6.5 mg/dL (7.8-10.44); Carbon Dioxide 24 mmol/L (22-29); Chloride 103 mmol/L (98-107); Estimated GFR-MDRD Greater than 90; Glucose 107 mg/dL (70-105); Lipase 127 U/L (8-78); Magnesium 2.2 mg/dL (1.6-2.6); Potassium 3.6 mmol/L (3.5-5.1); Protein, Total 4.8 g/dL (6.0-8.3); Sodium 133 mmol/L (136-145)
[2020-01-19 06:57] LABS: Actual Bicarbonate (HCO3a) 21.6 mEq/L (22-28); Base Excess (BEa) 0.1 mEq/L (-2.0 to +3.0); Calcium, Ionized 0.96 mmol/L (1.12-1.30); Carboxyhemoglobin (COHb) 1.9 gm% (0.0-3.0); Hemoglobin (Hb) 9.5 g/dL (14.0-18.0); O2 Tension (PaO2), arterial 86.2 mmHg (80.0-100.0); Potassium - ABG Lab 3.63 mmol/L (3.70-5.30)
[2020-01-19 07:31] LABS: Puncture Site RRAD; pH, Arterial 7.56 (7.35-7.45)
--- NOTE | 2020-01-19 08:12 | RAD ---
EXAM: Portable chest PROVIDED CLINICAL HISTORY: Respiratory insufficiency COMPARISON: 01/18/2020 FINDINGS: Interval improvement in left upper lung zone parenchymal opacity. Additional significant interval juanis nge with respect to the prior examination is not apparent. IMPRESSION: As above.
[2020-01-19] MEDS ORDERED: Potassium Phosphate 20 MMOL in Sodium Chloride 0.9% 250 ML 250 ML IV SCH (08:15)
[2020-01-19] MEDS: Pantoprazole 40 MG VIAL IVP SCH (08:30)
[2020-01-19] MEDS: Enoxaparin Sodium 40 MG/0.4 ML SYRINGE SC SCH (08:31)
--- NOTE | 2020-01-19 09:48 | PRG ---
DATE OF SERVICE: 01/19/2020 TIME SPENT: 35 minutes of critical care time. SUBJECTIVE: The patient remains intubated, on mechanical ventilation. He is requiring high amounts of sedatives for his alcohol withdrawal. OBJECTIVE: VITAL SIGNS: His temperature is 100.1, pulse 117, blood pressure 91/67, O2 saturation 97%. 24-hour intake is 2034, output 1650. HEENT: Unremarkable. NECK: No adenopathy or JVD. LUNGS: Coarse breath sounds. CARDIAC: S1 and S2, regular. ABDOMEN: Soft and nontender. EXTREMITIES: Tremulous. LABORATORY DATA: PH 7.56, pCO2 of 25, pO2 of 86, on SIMV rate 22, tidal volume 500, PEEP 8, pressure support 10, FiO2 of 40%. White blood cell count 6.2, hematocrit 27.6, and platelet count 93. Sodium 133, potassium 3.6, chloride 103, CO2 of 24, BUN 8, creatinine 0.6, glucose 107, phosphorus was less than 1, magnesium 2.2, total bilirubin 4.6, AST 218, ALT 80, lipase 127. DIAGNOSTIC DATA: Chest x-ray shows ET tube in good position. Right upper lobe infiltrate versus density. ASSESSMENT: 1. Acute respiratory failure, requiring mechanical ventilation. 2. Delirium tremens. 3. Alcoholic hepatitis. 4. Pancreatitis. 5. Hypophosphatemia/alcoholic refeeding syndrome. 6. Protein-calorie malnutrition. 7. Ileus. 8. Right upper lobe density. PLAN: 1. The patient will remain on mechanical ventilation. Settings have been adjusted. 2. Add Versed for control of DTs. 3. Start tube feeds if okay with Dr. Larson. 4. Supplement electrolytes. 5. We will need a CT scan in the future to further workup the right upper lobe density. Job ID: [id number]
[2020-01-19] MEDS ORDERED: Calcium Gluconate 4.6 MEQ in Sodium Chloride 0.9% 100 ML IVPB SCH (10:27)
[2020-01-19] MEDS ORDERED: Ibuprofen 600 MG TAB PER TUBE PRN (10:42)
[2020-01-19] MEDS: SODIUM CHLORIDE IVPB SCH (11:19)
[2020-01-19] MEDS: MIDAZOLAM HCL IVPB SCH (11:19)
[2020-01-19] MEDS: ADMIXTURE FEE IVPB SCH (11:19)
[2020-01-19] MEDS: Ibuprofen 100 MG/5 ML UDCUP PER TUBE PRN ×2 (11:34→17:38)
[2020-01-19 14:20] LABS: Anion Gap 11 mmol/L (10-20); BUN (Urea Nitrogen) 8 mg/dL (8.4-25.7); Calc. Creatinine Clearance 154 mL/min (70-130); Calcium 6.9 mg/dL (7.8-10.44); Carbon Dioxide 23 mmol/L (22-29); Chloride 105 mmol/L (98-107); Estimated GFR-MDRD Greater than 90; Glucose 79 mg/dL (70-105); Magnesium 2.3 mg/dL (1.6-2.6); Phosphorus 1.4 mg/dL (2.3-4.7); Potassium 3.9 mmol/L (3.5-5.1); Sodium 135 mmol/L (136-145)
--- NOTE | 2020-01-19 14:47 | PDOC.HOSPP ---
- Subjective Subjective: The patient is intubated. He is agitated and thrashing around. He was started on versed drip this am by nursing staff - Objective Vital Signs & Weight: Vital Signs (12 hours) Temp Pulse Resp Pulse Ox 01/19/20 12:00 101.5 F H 01/19/20 11:00 102.7 F H 01/19/20 10:38 121 H 14 95 01/19/20 10:00 102.4 F H 12 01/19/20 08:00 101.4 F H 36 H 97 01/19/20 07:28 120 H 01/19/20 07:27 123 H 37 H 100 01/19/20 05:47 22 H 01/19/20 05:45 100.1 F H 01/19/20 04:00 22 H 01/19/20 03:06 110 H 22 H 99 01/19/20 03:04 108 H Weight Admit Weight 181 lb Weight 197 lb 8.547 oz Most Recent Monitor Data Heart Rate from ECG 107 NIBP 90/59 NIBP BP-Mean 69 Respiration from ECG 27 SpO2 98 I&O: 01/18/20 01/19/20 01/20/20 06:59 06:59 06:59 Intake Total 3000 2035.8 100 Output Total 1650 565 Balance 3000 385.8 -465 Result Diagrams: 01/19/20 03:30 01/19/20 13:41 Additional Labs: Accuchecks 01/19/20 01/18/20 01/18/20 10:12 22:27 15:33 POC Glucose 88 124 H 87 Hospitalist ROS - Review of Systems ROS unobtainable: due to mental status - Medication Medications: Active Medications Generic Name Dose Route Start Last Admin Trade Name Freq PRN Reason Stop Dose Admin Albuterol/Ipratropium 3 ml 01/18/20 18:30 01/19/20 10:38 Duoneb NEB 3 ml [id number] JOSETTE Administration Enoxaparin Sodium 40 mg 01/17/20 09:00 01/19/20 08:31 Lovenox SC 40 mg 0900 JOSETTE Administration Multivitamins 10 ml/ Folic 1,011.2 mls @ 100 mls/hr 01/18/20 16:00 01/18/20 17:18 Acid 1 mg/ Thiamine HCl 100 mg IV 1,011.2 mls / Dextrose/Sodium Chloride Q24HR JOSETTE Administration Sodium Chloride 1,000 mls @ 100 mls/hr 01/18/20 15:30 01/19/20 08:34 Normal Saline 0.9% IV 1,000 mls .Q10H JOSETTE Administration Meropenem 2 gm/ Sodium 100 mls @ 200 mls/hr 01/18/20 16:00 01/19/20 08:40 Chloride IVPB 100 mls 0800,1600,2359 JOSETTE Administration Midazolam HCl 100 mg/ 100 mls @ 0 mls/hr 01/19/20 09:15 01/19/20 11:19 Miscellaneous Medication 1 IVPB 100 mls each/ Sodium Chloride INF JOSETTE Administration Protocol Titrate Ibuprofen 400 mg 01/19/20 10:48 01/19/20 11:34 Motrin PER TUBE 400 mg Q6H PRN Administration TEMP > 101 Lorazepam 2 mg 01/18/20 15:54 01/19/20 08:27 Ativan SLOW IVP 02/17/20 15:54 2 mg Q1H PRN Administration Breakthrough agitation Miscellaneous Medication 2 pkt 01/18/20 15:53 01/19/20 05:07 Phos-Nak PO 2 pkt TIDPRN PRN Administration FOR PHOS LEVEL 0.5 - 1.0 Pantoprazole Sodium 40 mg 01/19/20 09:00 01/19/20 08:30 Protonix IVP 40 mg DAILY JOSETTE Administration Propofol 1,000 mg 01/18/20 15:54 01/19/20 12:30 Diprivan IV 02/17/20 15:54 1,000 mg INF PRN Administration TO ACHIEVE GOAL RASS Protocol Rocuronium [place] 70 mg 01/18/20 15:22 01/19/20 09:09 Zemuron IVP 70 mg Q30MIN PRN Administration Sedation Senna/Docusate Sodium 2 tab 01/16/20 21:05 01/17/20 10:06 Senokot S PO 2 tab BID PRN Administration Constipation - Exam General Appearance: NAD General - other findings: intubated, sedated but agitated Eye: PERRL, anicteric sclera ENT: normocephalic atraumatic, no oropharyngeal lesions Neck: no JVD Heart: RRR, no murmur, no gallops, no rubs Respiratory: CTAB, no wheezes, no rales, no ronchi Gastrointestinal: soft, distended Gastrointestinal - other findings: firm to palpation Extremities: no cyanosis, no clubbing, no edema Skin: normal turgor, no lesions, no rashes Hosp A/P - Plan Chest Xray 01/17: lung opacities may reflect pneumonia CT abdomen 01/15: high grade acute pancreatitis. Diffuse hepatic steatosis. Diaphragmatic and paraesophageal hernia CT abdomen 01/17: high grade pancreatitis with extensive peripancreatic inflammatory changes and fluid in the abdomen with nonencapsulated peripancreatic fluid collection extending along inferior aspect greater curvature of the stomach and inferiorly. Diffuse fatty liver. Increase in bilateral pleural effusions with small to moderate size bilateral pleural effusions and associated bibsilar areas of consolidatio. Dilated loops of small bowel with fluid and gas likely from ileus This is 54 year old male who presented with pancreatitis and was intubated overnight due to agitation #Severe alcohol withdrawal #Acute metabolic encephalopathy requiring intubation #Acute pancreatitis #Ileus #Fatty liver - CT abdomen on admission showing high grade pancreatitis. Repeat CT adomen 01/17 shows high grade pancreatitis with peripancreatic fluid collection. Continue meropenem - continue NPO status - switch fluids to D5NS - continue propofol for sedation, versed added today #Aspiration pneumonia - continue IV meropenem. Chest X ray 01/17 showed LLL infiltrate #Hyponatremia - sodium 135. Continue IV fluids #Hypophosphatemia - phosphate improved to 1.4. Continue electrolyte replacement as needed #Hypocalcemia - calcium corrected 7, given 1 gram calcium gluconate Code status: full code
[2020-01-19] MEDS: Potassium Phosphate 9 MMOL in Sodium Chloride 0.9% 100 ML IVPB PRN (15:07)
[2020-01-19] MEDS: Multivitamins, Adult 10 ML, Folic Acid 1 MG, Thiamine HCl 100 MG in Dextrose 5 %-0.45 %... IV SCH (17:33)
[2020-01-19] MEDS: Dextrose 5 % And 0.9 % NaCl 1,000 ML IV SCH (18:06)
[2020-01-20] MEDS: Lorazepam 2 MG/ML VIAL SLOW IVP PRN ×5 (00:49→19:52)
[2020-01-20] MEDS: Dextrose 5 % And 0.9 % NaCl 1,000 ML IV SCH ×2 (00:50→16:17)
[2020-01-20] MEDS: Morphine 2 MG/ML SYRINGE SLOW IVP PRN ×6 (01:06→23:43)
[2020-01-20] MEDS: Propofol 1,000 MG/100 ML VIAL IV PRN ×3 (02:26→21:00)
[2020-01-20] MEDS: Rocuronium Bromide 10 MG/ML (10ML VIAL) IVP PRN (03:01)
[2020-01-20 05:40] LABS: Magnesium 2.4 mg/dL (1.6-2.6)
[2020-01-20] MEDS: Ibuprofen 100 MG/5 ML UDCUP PER TUBE PRN ×2 (05:55→23:50)
[2020-01-20 06:06] LABS: Hemoglobin 9.7 g/dL (14.0-18.0); Mean Corpuscular HGB CONC 32.9 g/dL (32.0-36.0); Mean Corpuscular Hemoglobin 33.1 pg (27.0-31.0); Platelet Count 88 thou/uL (130-400); RBC Distribution Width 13.4 % (11.5-14.5); Red Blood Cell (RBC) Count 2.93 mill/uL (4.70-6.10); White Blood Cell (WBC) Count 5.1 thou/uL (4.8-10.8)
[2020-01-20 06:51] LABS: Band 37 % (5-11); Lymphocytes 8 % (21-51); MDiff Complete? YES; Metamyelocyte 3 % (0-0); Monocytes 11 % (0-10); Myelocyte 3 % (0-0); Neutrophil 38 % (42-75); Nucleated RBC 2 % (0); Platelet Morphology Comment Appears Decreased
[2020-01-20 07:16] LABS: Actual Bicarbonate (HCO3a) 23.4 mEq/L (22-28); Base Excess (BEa) 0.4 mEq/L (-2.0 to +3.0); CO2 Tension 31.9 mmHg (35.0-45.0); Calcium, Ionized 1.04 mmol/L (1.12-1.30); Carboxyhemoglobin (COHb) 1.6 gm% (0.0-3.0); O2 Tension (PaO2), arterial 118.3 mmHg (80.0-100.0); Potassium - ABG Lab 3.52 mmol/L (3.70-5.30); pH, Arterial 7.48 (7.35-7.45)
--- NOTE | 2020-01-20 07:33 | PRG ---
DATE OF SERVICE: 01/19/2020 SUBJECTIVE: Mr. Haq remains intubated and sedated. MEDICATIONS: Albuterol, bisacodyl, calcium gluconate, fentanyl p.r.n., Lovenox subcutaneously daily, insulin sliding scale as needed, ibuprofen p.r.n. per Pulmonary Critical Care, Ativan p.r.n., magnesium, electrolyte replacement protocol, IV meropenem, Ativan, morphine p.r.n., normal saline at 100, Protonix 40 IV daily, K-Phos p.r.n., Neutra-Phos p.r.n. for electrolyte replacement, propofol drip, Rocuronium. OBJECTIVE: VITAL SIGNS: Pulse 120, temperature 102.4, blood pressure 126/85. In's and out's; 2034 in, 1650 out. Urine output 1450 yesterday. Gastric drainage 500, coffee-ground like material. Weight 197, was 181 on admission. GENERAL: The patient is intubated and sedated. NG tube aspirate looks like coffee-ground material. There is not much. There is no evidence of acute blood there. He has OG tube in place. ET tube in place. LUNGS: Clear. ABDOMEN: Has actually scant bowel sounds. There is no rebound. There is no tenderness. Abdomen is somewhat protuberant and firm, but not rigid. There is no palpable hepatosplenomegaly. SKIN: Without erosions, bruising, or hematomas. EXTREMITIES: Revealed no clubbing, cyanosis, or edema. LABORATORY DATA: White count 6.2, hemoglobin 9.1, platelet count 93,000, 74% segs, bands not noted today, 57% yesterday. PH 7.56, bicarb 21, O2 of 86. Sodium 133, potassium 3.6, BUN and creatinine are 8 and 0.66, calcium 6.5 this has been replaced, bilirubin 4.6; up from 3.7, AST 218, down from 325 on admission; ALT 80, down from 198 on admission; alkaline phosphatase 52; phosphorus less than 1 and replaced; protein 4.8; direct bilirubin 3.3; albumin 2.2; lipase down to 127. ASSESSMENT: 1. Severe pancreatitis, alcohol related. Previous triglyceride levels normal, not replaced. 2. Alcoholic hepatitis, stable. 3. Delirium tremens. 4. Multiple electrolyte abnormalities with hypophosphatemia and hypocalcemia related to probably refeeding alcoholism, malnutrition, and pancreatitis. 5. Ileus. 6. Likely pulmonary aspiration. 7. Fever. PLAN: Agree with continuing antibiotics in light of development of fever and aspiration. The patient will remain on the ventilator. Dr. Alvarado has added Versed for help controlling his DTs in addition to the propofol. Would wait 1 more day before starting tube feeds. I am not sure he would tolerate those right now. The nurses noted with his DTs, he has been retching. Until we get that under a little bit better control, we probably do not need to restart tube feeds. If he does not tolerate tube feeds when we do, which hopefully will be tomorrow, then we would have to think about endoscopically placing a Dobhoff in the duodenum or starting TPN. Job ID: [id number]
[2020-01-20 07:35] LABS: ALV-art Gradient 127.025 (0-20); Puncture Site RRAD
[2020-01-20] MEDS: Meropenem 2 GM in Sodium Chloride 0.9% 100 ML IVPB SCH ×3 (08:23→23:43)
[2020-01-20 09:01] LABS: ALT (SGPT) 82 U/L (8-55); AST (SGOT) 198 U/L (5-34); Alkaline Phosphatase 51 U/L (40-110); Anion Gap 9 mmol/L (10-20); BUN (Urea Nitrogen) 7 mg/dL (8.4-25.7); Bilirubin, Total 4.3 mg/dL (0.2-1.2); Calc. Creatinine Clearance 174 mL/min (70-130); Carbon Dioxide 27 mmol/L (22-29); Chloride 105 mmol/L (98-107); Estimated GFR-MDRD Greater than 90; Globulin 2.8 g/dL (2.4-3.5); Glucose 120 mg/dL (70-105); Potassium 3.6 mmol/L (3.5-5.1); Protein, Total 4.8 g/dL (6.0-8.3); Sodium 137 mmol/L (136-145)
[2020-01-20] MEDS: Pantoprazole 40 MG VIAL IVP SCH (09:01)
[2020-01-20] MEDS: Enoxaparin Sodium 40 MG/0.4 ML SYRINGE SC SCH (09:01)
[2020-01-20 09:04] LABS: Phosphorus 1.3 mg/dL (2.3-4.7)
--- NOTE | 2020-01-20 09:12 | PRG ---
DATE OF SERVICE: 01/20/2020 TIME SPENT: 35 minutes critical care time. SUBJECTIVE: The patient remains intubated on mechanical ventilation. They did have to give him one dose of paralytics this morning. He is now on a Versed drip. OBJECTIVE: VITAL SIGNS: Temperature 98.7 with a T-max of 101.2, pulse 105, blood pressure 95/60. 24-hour intake 3210, output 2275. HEENT: Unremarkable. NECK: No adenopathy or JVD. LUNGS: Clear breath sounds. CARDIAC: S1, S2. Regular. ABDOMEN: Distended. Hypoactive bowel sounds. EXTREMITIES: No clubbing, cyanosis, or edema. LABORATORY DATA: Chemistry is pending. His lipase level is down to 117. PH 7.48, pCO2 of 31, pO2 of 118 on SIMV rate 12, tidal volume 500, PEEP of 8, pressure support 10, and FiO2 of 40%. White blood cell count 5.1, hematocrit 29.4, and platelet count 88. IMAGING STUDIES: Chest x-ray shows some improvement in the right upper lobe infiltrate. ASSESSMENT: 1. Acute respiratory failure requiring mechanical ventilation. 2. Delirium tremens. 3. Alcoholic hepatitis. 4. Pancreatitis. 5. Alcoholic refeeding syndrome. 6. Protein-calorie malnutrition. 7. Ileus. 8. Right upper lobe density, which is probably pneumonia. PLAN: 1. Continue antibiotics. 2. Not weanable at this time. 3. Starting low-dose tube feeds. 4. Monitor electrolytes. 5. We anticipate him being intubated for quite some time. Job ID: [id number]
--- NOTE | 2020-01-20 09:34 | RAD ---
PORTABLE CHEST: DATE: 01/20/2020. PROVIDED CLINICAL HISTORY: Pneumonia. FINDINGS: Comparison 01/19/2020. Significant interval change with respect to the prior examination is not appare nt. IMPRESSION: As above. POS: KATRIN
[2020-01-20] MEDS ORDERED: Potassium Phosphate 20 MMOL in Sodium Chloride 0.9% 250 ML 250 ML IVPB SCH (10:15)
[2020-01-20] MEDS: ADMIXTURE FEE IVPB SCH (14:23)
[2020-01-20] MEDS: SODIUM CHLORIDE IVPB SCH (14:23)
[2020-01-20] MEDS: MIDAZOLAM HCL IVPB SCH (14:23)
--- NOTE | 2020-01-20 15:00 | PDOC.HOSPP ---
- Subjective Encounter Date: 01/20/20 Encounter Time: 11:30 Subjective: THe patient appears to be more calm. He is on propofol and versed drip. He is being started on tube feeds today - Objective Vital Signs & Weight: Vital Signs (12 hours) Temp Pulse Resp BP Pulse Ox 01/20/20 14:57 103 H 01/20/20 14:00 20 01/20/20 12:00 17 01/20/20 11:00 99.5 F 01/20/20 10:45 104 H 01/20/20 10:44 103 H 20 99 01/20/20 10:00 33 H 01/20/20 09:11 94/64 01/20/20 08:00 98.7 F 24 H 01/20/20 07:36 104 H 01/20/20 07:34 100 18 97 01/20/20 06:00 24 H 01/20/20 04:00 101.2 F H 12 01/20/20 03:12 120 H 12 99 01/20/20 03:09 116 H Weight Admit Weight 181 lb Weight 197 lb 8.547 oz Most Recent Monitor Data Heart Rate from ECG 102 NIBP 96/63 NIBP BP-Mean 74 Respiration from ECG 20 SpO2 100 I&O: 01/19/20 01/20/20 01/21/20 06:59 06:59 06:59 Intake Total 2035.8 3210 Output Total 1650 2275 325 Balance 385.8 935 -325 Result Diagrams: 01/20/20 04:00 01/20/20 08:22 Additional Labs: Accuchecks 01/20/20 01/20/20 01/19/20 11:41 04:21 23:04 POC Glucose 122 H 122 H 111 H 01/19/20 16:13 POC Glucose 81 Hospitalist ROS - Review of Systems ROS unobtainable: due to mental status - Medication Medications: Active Medications Generic Name Dose Route Start Last Admin Trade Name Freq PRN Reason Stop Dose Admin Albuterol/Ipratropium 3 ml 01/18/20 18:30 01/20/20 10:44 Duoneb NEB 3 ml [id number] JOSETTE Administration Enoxaparin Sodium 40 mg 01/17/20 09:00 01/20/20 09:01 Lovenox SC 40 mg 0900 JOSETTE Administration Multivitamins 10 ml/ Folic 1,011.2 mls @ 100 mls/hr 01/18/20 16:00 01/19/20 17:33 Acid 1 mg/ Thiamine HCl 100 mg IV 1,011.2 mls / Dextrose/Sodium Chloride Q24HR JOSETTE Administration Meropenem 2 gm/ Sodium 100 mls @ 200 mls/hr 01/18/20 16:00 01/20/20 08:23 Chloride IVPB 100 mls 0800,1600,2359 JOSETTE Administration Potassium Phosphate 9 mmol/ 103 mls @ 25.75 mls/hr 01/18/20 15:53 01/19/20 15 :07 Sodium Chloride IVPB 103 mls ASDIR PRN Administration Phosphate 1.0-1.8 Midazolam HCl 100 mg/ 100 mls @ 0 mls/hr 01/19/20 09:15 01/20/20 14:23 Miscellaneous Medication 1 IVPB 100 mls each/ Sodium Chloride INF JOSETTE Administration Protocol Titrate Dextrose/Sodium Chloride 1,000 mls @ 100 mls/hr 01/19/20 15:00 01/20/20 00:50 D5 0.9% Ns IV 1,000 mls .Q10H JOSETTE Administration Potassium Phosphate 20 mmol/ 256.6667 mls @ 62.5 mls/hr 01/20/20 10:15 10:41 Sodium Chloride IVPB 01/20/20 15:00 256.6667 mls NOW JOSETTE Administration Ibuprofen 400 mg 01/19/20 10:48 01/20/20 05:55 Motrin PER TUBE 400 mg Q6H PRN Administration TEMP > 101 Lorazepam 2 mg 01/18/20 15:54 01/20/20 10:00 Ativan SLOW IVP 02/17/20 15:54 2 mg Q1H PRN Administration Breakthrough agitation Miscellaneous Medication 2 pkt 01/18/20 15:53 01/19/20 05:07 Phos-Nak PO 2 pkt TIDPRN PRN Administration FOR PHOS LEVEL 0.5 - 1.0 Morphine Sulfate 2 mg 01/18/20 15:54 01/20/20 12:28 Morphine SLOW IVP 02/17/20 15:54 2 mg Q1H PRN Administration BREAKTHROUGH PAIN/Agitation Pantoprazole Sodium 40 mg 01/19/20 09:00 01/20/20 09:01 Protonix IVP 40 mg DAILY JOSETTE Administration Propofol 1,000 mg 01/18/20 15:54 01/20/20 02:26 Diprivan IV 02/17/20 15:54 1,000 mg INF PRN Administration TO ACHIEVE GOAL RASS Protocol Senna/Docusate Sodium 2 tab 01/16/20 21:05 01/17/20 10:06 Senokot S PO 2 tab BID PRN Administration Constipation Sodium Chloride 10 ml 01/19/20 21:00 01/20/20 09:01 Flush - Normal Saline IVF 10 ml Q12HR JOSETTE Administration - Exam General Appearance: NAD, awake alert General - other findings: intubated Eye: PERRL, anicteric sclera ENT: normocephalic atraumatic, no oropharyngeal lesions Neck: no JVD Heart: RRR, no murmur, no gallops, no rubs Respiratory: CTAB, no wheezes, no rales, no ronchi Gastrointestinal: soft, normal bowel sounds Gastrointestinal - other findings: distended and firm to palpation. Extremities: no cyanosis, no clubbing, no edema Skin: normal turgor, no lesions, no rashes Neurological: cranial nerve grossly intact, normal sensation to touch, no focal deficits, no new deficit Musculoskeletal: normal tone, normal strength, no muscle wasting Hosp A/P - Plan Chest Xray 01/17: lung opacities may reflect pneumonia CT abdomen 01/15: high grade acute pancreatitis. Diffuse hepatic steatosis. Diaphragmatic and paraesophageal hernia CT abdomen 01/17: high grade pancreatitis with extensive peripancreatic inflammatory changes and fluid in the abdomen with nonencapsulated peripancreatic fluid collection extending along inferior aspect greater curvature of the stomach and inferiorly. Diffuse fatty liver. Increase in bilateral pleural effusions with small to moderate size bilateral pleural effusions and associated bibsilar areas of consolidatio. Dilated loops of small bowel with fluid and gas likely from ileus This is 54 year old male who presented with pancreatitis and was intubated overnight due to agitation #Severe alcohol withdrawal #Acute metabolic encephalopathy requiring intubation #Acute pancreatitis #Ileus #Fatty liver - CT abdomen on admission showing high grade pancreatitis. Repeat CT adomen 01/17 shows high grade pancreatitis with peripancreatic fluid collection. Continue meropenem -plan to start tube feeds today - continue D5NS - he is not weanable from the ventilator - will add IV thiamine and folic acid #Aspiration pneumonia - continue IV meropenem. Chest X ray 01/17 showed LLL infiltrate #Hypophosphatemia - phosphate 1.3. Will repeat phos in the afternoon #Hypocalcemia - calcium corrected 7, given 1 gram calcium gluconate #Hyponatremia - resolved Dispo: pending improvement from weaning of ventilator Code status: full code
[2020-01-20] MEDS: Multivitamins, Adult 10 ML, Folic Acid 1 MG, Thiamine HCl 100 MG in Dextrose 5 %-0.45 %... IV SCH (16:16)
[2020-01-20 19:01] LABS: Phosphorus 1.1 mg/dL (2.3-4.7)
[2020-01-20] MEDS: Senokot S 8.6-50 MG TAB PO PRN (19:52)
[2020-01-20] MEDS ORDERED: Potassium Phosphate 30 MMOL in Sodium Chloride 0.9% 500 ML IVPB SCH (20:45)
[2020-01-21] MEDS: Dextrose 5 % And 0.9 % NaCl 1,000 ML IV SCH (03:54)
[2020-01-21] MEDS: Propofol 1,000 MG/100 ML VIAL IV PRN ×2 (03:55→10:33)
[2020-01-21 04:45] LABS: ALT (SGPT) 70 U/L (8-55); AST (SGOT) 161 U/L (5-34); Albumin 1.9 g/dL (3.5-5.0); Alkaline Phosphatase 48 U/L (40-110); Anion Gap 9 mmol/L (10-20); BUN (Urea Nitrogen) 7 mg/dL (8.4-25.7); Bilirubin, Total 3.3 mg/dL (0.2-1.2); Calc. Creatinine Clearance 192 mL/min (70-130); Calcium 6.9 mg/dL (7.8-10.44); Carbon Dioxide 25 mmol/L (22-29); Chloride 105 mmol/L (98-107); Estimated GFR-MDRD Greater than 90; Globulin 2.6 g/dL (2.4-3.5); Glucose 108 mg/dL (70-105); Lipase 120 U/L (8-78); Phosphorus 1.9 mg/dL (2.3-4.7); Potassium 3.8 mmol/L (3.5-5.1); Protein, Total 4.5 g/dL (6.0-8.3); Sodium 135 mmol/L (136-145)
[2020-01-21 07:16] LABS: Actual Bicarbonate (HCO3a) 23.9 mEq/L (22-28); Base Excess (BEa) -0.1 mEq/L (-2.0 to +3.0); CO2 Tension 35.6 mmHg (35.0-45.0); Calcium, Ionized 1.07 mmol/L (1.12-1.30); Carboxyhemoglobin (COHb) 1.9 gm% (0.0-3.0); Hemoglobin (Hb) 8.5 g/dL (14.0-18.0); O2 Tension (PaO2), arterial 89.8 mmHg (80.0-100.0); Potassium - ABG Lab 3.68 mmol/L (3.70-5.30); Puncture Site LR; pH, Arterial 7.44 (7.35-7.45)
--- NOTE | 2020-01-21 07:52 | RAD ---
EXAM: CHEST ONE VIEW HISTORY: Pneumonia COMPARISON: 07/01/2020 FINDINGS: Endotracheal tube, nasogastric tube, and right subclavian central venous catheter are unchanged in po sition. Interstitial and patchy parenchymal opacities are seen within the perihilar locations and upper lung zones bilaterally with greater patchy opacity seen within the right upper lung zone. Findi ngs may be related to bilateral pneumonia versus asymmetric pulmonary edema. There is suggestion of a small left pleural effusion. Evidence of anterior cervical fusion is seen. No other interval change . IMPRESSION: 1. Bilateral interstitial and parenchymal airspace opacities within the perihilar regions and upper l [place] zones greater on the right which may be related to the bilateral pneumonia and possibly atypical pneumonia. Asymmetric pulmonary edema is a possibility. 2. Small left pleural effusion. 3. Lines and tubes stable in position.
--- NOTE | 2020-01-21 07:54 | PRG ---
DATE OF SERVICE: 01/20/2020 SUBJECTIVE: Mr. Haq remains intubated. His NG tube was replaced yesterday and he has not really thrown up around that anymore. OBJECTIVE: VITAL SIGNS: T-max 102.7. T-current 101.2 at 4:00 a.m., 97.7 at 10:00 a.m. Pulse is 104, blood pressure 91/73. In's and out's, 3210 in yesterday and 2275 out. Urine output was 1325 yesterday, 950 today. He has really had minimal to none out today thus far. GENERAL: He is intubated. LUNGS: Clear. HEART: Rate is diminished. ABDOMEN: Protuberant, but soft. There is no rebound or guarding. There is some bruising right by the umbilicus. It looks like he probably already got a Lovenox shot. There is no evidence of Mcguire Luu sign. EXTREMITIES: No clubbing, cyanosis, or edema. MEDICATIONS: Reviewed. LABORATORY STUDIES: White count 5.1, hemoglobin 9.7, MCV 101, platelet count 88,000, neutrophils 38, bands 37. Sodium 137; potassium 3.6; BUN and creatinine are 7 and 0.6; calcium 7, slowly improving; phosphorus 1.3, improved from yesterday, replaced. Bilirubin 4.3 down from 4.6; AST 198 down from 219; ALT 82, same; protein 4.8, albumin 2, lipase 117. ASSESSMENT: 1. Alcoholic pancreatitis, severe. Lipase is dropping. He has significant inflammation of the pancreas and has high risk for sequela such as pseudocyst formation or infection. There was no evidence of necrosis on his admission CAT scan, will have to see how that proceeds. 2. Alcoholic hepatitis. 3. Fever possibly from his pancreatitis or aspiration pneumonia as he has infiltrate on chest x-ray. 4. Respiratory failure. 5. DTs, improving. 6. Hypophosphatemia, replaced. 7. Malnutrition, high risk for refeeding syndrome. 8. Possible ileus, although NG output has gone down. PLAN: 1. Continue antibiotics. 2. Start low-dose tube feeds. 3. Monitor and replace electrolytes as needed. Job ID: [id number]
[2020-01-21] MEDS: Meropenem 2 GM in Sodium Chloride 0.9% 100 ML IVPB SCH ×3 (09:30→23:46)
[2020-01-21] MEDS: Enoxaparin Sodium 40 MG/0.4 ML SYRINGE SC SCH (09:33)
[2020-01-21] MEDS: Pantoprazole 40 MG VIAL IVP SCH (09:34)
[2020-01-21] MEDS: Morphine 2 MG/ML SYRINGE SLOW IVP PRN ×2 (09:37→10:37)
--- NOTE | 2020-01-21 09:51 | PRG ---
DATE OF SERVICE: 01/21/2020 TIME SPENT: 35 minutes of critical care time. SUBJECTIVE: Mr. Haq remains intubated on mechanical ventilation. When sedation is lightened, he becomes extremely agitated. PHYSICAL EXAMINATION: VITAL SIGNS: Temperature 99, pulse 97, blood pressure 99/67, and O2 saturation 100%. 24-hour intake 4047, output 1335. HEENT: Unremarkable. NECK: No adenopathy or JVD. LUNGS: Coarse breath sounds. CARDIAC: S1 and S2. Slightly tachycardic. ABDOMEN: Soft, slightly distended. EXTREMITIES: Generalized trace edema throughout. LABORATORY DATA: Sodium 135, potassium 3.8, chloride 105, CO2 of 25, BUN 7, creatinine 0.5, glucose 108, phosphorus 1.9, total bilirubin 3.3, AST 161, ALT 70, and lipase 120. PH of 7.44, pCO2 of 35, PO2 of 89 on SIMV rate of 8, tidal volume 500, PEEP 5, pressure support 10, and FiO2 of 40%. White blood cell count 5.1, hematocrit 29.4, and platelet count 88. IMAGING DATA: X-ray shows vascular congestion. ASSESSMENT: 1. Pancreatitis. 2. Alcoholic hepatitis. 3. Acute respiratory failure, requiring mechanical ventilation. 4. Delirium tremens. 5. Alcoholic refeeding syndrome. 6. Protein-calorie malnutrition. 7. Pneumonia. PLAN: The patient is not weanable yet. I will go ahead and add Precedex to his sedative medication. We will continue meropenem for antibiotic coverage. We need to start trying to limit his fluid intake because he is becoming overtly fluid overloaded. He is getting enough with the sedation, antibiotics etc. to cover his fluid requirements. We will follow. Job ID: [id number]
[2020-01-21] MEDS: THIAMINE HCL IVPB SCH (09:53)
[2020-01-21] MEDS: SODIUM CHLORIDE 0.9% IVPB SCH (09:53)
[2020-01-21] MEDS: FOLIC ACID IVPB SCH (09:53)
--- NOTE | 2020-01-21 12:40 | PRG ---
DATE OF SERVICE: 01/21/2020 SUBJECTIVE: Mr. Haq remains intubated and sedated. He has tube feeds held for residual 400. Pulse 106, T-max 102.1, and blood pressure 94/66. Medications, continues on DuoNebs, dexmedetomidine for DTs, Lovenox subcu, fentanyl, propofol, p.r.n. Motrin rectally, insulin sliding scale, Ativan p.r.n., electrolyte replacement protocol, meropenem, midazolam p.r.n., Protonix 40 IV daily, and banana bag daily. In's and out's 3210 and 2275. Urine output 1325. Gastric drainage 950. OBJECTIVE: GENERAL: He is intubated and sedated at rest. LUNGS: Clear. ABDOMEN: Protuberant, but soft. There is no bowel sounds. LABORATORY DATA: Sodium 135, potassium 3.8, BUN and creatinine of 7 and 0.75, phosphorus 1.9, calcium 6.9, bilirubin 3.3 down from 4.6 at the highest, AST 161, ALT 70 down from 500 and 190 on admission. Lipase 120. Microbiology, none. ASSESSMENT: 1. Severe pancreatitis, no evidence of necrosis on admission CT. 2. Alcoholic hepatitis and pancreatitis. 3. Acute respiratory failure requiring mechanical ventilation. 4. DTs. 5. Protein calorie malnutrition. 6. Pneumonia. RECOMMENDATION: 1. I agree with continuing antibiotics. 2. Noted Dr. Alvarado's decrease IV fluids. He is getting some fluid overload component. I think that is reasonable, his renal function is stable. 3. Acute pancreatitis seems to be improving. If he is not tolerating tube feeds, tomorrow we will set up for endoscopy with attempted placement of Dobbhoff tube into the duodenum. If it does not work, try to do that today. Job ID: [id number]
[2020-01-21] MEDS ORDERED: Metoclopramide HCl 10 MG/2 ML VIAL IVP SCH ×2 (13:00→14:45)
[2020-01-21] MEDS: SODIUM CHLORIDE IVPB SCH (13:11)
[2020-01-21] MEDS: ADMIXTURE FEE IVPB SCH (13:11)
[2020-01-21] MEDS: MIDAZOLAM HCL IVPB SCH (13:11)
--- NOTE | 2020-01-21 14:08 | PDOC.HOSPP ---
- Subjective Encounter Date: 01/21/20 Encounter Time: 11:30 Subjective: The patient is still intubated and sedated. IV fluids discontinued due to some pulmonary edema Tube feeds on hold due to residuals - Objective Vital Signs & Weight: Vital Signs (12 hours) Temp Pulse Resp BP 01/21/20 12:44 99 87/67 L 01/21/20 10:40 106 H 91/66 01/21/20 07:31 101 H 93/69 01/21/20 06:00 22 H 01/21/20 04:00 99 F 16 01/21/20 02:51 100 01/21/20 02:49 97 14 Weight Admit Weight 181 lb Weight 197 lb 8.547 oz Most Recent Monitor Data Heart Rate from ECG 104 NIBP 94/66 NIBP BP-Mean 75 Respiration from ECG 24 SpO2 100 I&O: 01/20/20 01/21/20 01/22/20 06:59 06:59 06:59 Intake Total 3210 4047.9 Output Total 2275 1335 Balance 935 2712.9 Result Diagrams: 01/20/20 04:00 01/21/20 04:05 Additional Labs: Accuchecks 01/21/20 01/21/20 01/20/20 13:43 04:05 22:20 POC Glucose 101 120 H 109 01/20/20 17:00 POC Glucose 111 H Hospitalist ROS - Review of Systems ROS unobtainable: due to endotracheal tube - Medication Medications: Active Medications Generic Name Dose Route Start Last Admin Trade Name Freq PRN Reason Stop Dose Admin Albuterol/Ipratropium 3 ml 01/18/20 18:30 01/21/20 10:36 Duoneb NEB 3 ml [id number] JOSETTE Administration Enoxaparin Sodium 40 mg 01/17/20 09:00 01/21/20 09:33 Lovenox SC 40 mg 0900 JOSETTE Administration Meropenem 2 gm/ Sodium 100 mls @ 200 mls/hr 01/18/20 16:00 01/21/20 09:30 Chloride IVPB 100 mls 0800,1600,2359 JOSETTE Administration Potassium Phosphate 9 mmol/ 103 mls @ 25.75 mls/hr 01/18/20 15:53 01/19/20 15 :07 Sodium Chloride IVPB 103 mls ASDIR PRN Administration Phosphate 1.0-1.8 Midazolam HCl 100 mg/ 100 mls @ 0 mls/hr 01/19/20 09:15 01/21/20 13:11 Miscellaneous Medication 1 IVPB 100 mls each/ Sodium Chloride INF JOSETTE Administration Protocol Titrate Thiamine HCl 100 mg/ Folic 51.08 mls @ 100.157 mls/hr 01/21/20 09:00 09:53 Acid 0.4 mg/ Sodium Chloride IVPB 51.08 mls DAILY JOSETTE Administration Dexmedetomidine HCl 200 mcg/ 50 mls @ 0 mls/hr 01/21/20 09:00 01/21/20 10:00 Sodium Chloride IVPB 50 mls INF JOSETTE Administration Protocol Per Protocol Ibuprofen 400 mg 01/19/20 10:48 01/20/20 23:50 Motrin PER TUBE 400 mg Q6H PRN Administration TEMP > 101 Lorazepam 2 mg 01/18/20 15:54 01/20/20 19:52 Ativan SLOW IVP 02/17/20 15:54 2 mg Q1H PRN Administration Breakthrough agitation Metoclopramide HCl 20 mg 01/21/20 13:00 01/21/20 13:52 Reglan IVP 01/21/20 15:00 20 mg NOW JOSETTE Administration Miscellaneous Medication 1 pkt 01/18/20 15:53 01/20/20 19:52 Phos-Nak PO 1 pkt TIDPRN PRN Administration FOR PHOS LEVEL 1.0 - 1.8 Miscellaneous Medication 2 pkt 01/18/20 15:53 01/19/20 05:07 Phos-Nak PO 2 pkt TIDPRN PRN Administration FOR PHOS LEVEL 0.5 - 1.0 Morphine Sulfate 2 mg 01/18/20 15:54 01/21/20 10:37 Morphine SLOW IVP 02/17/20 15:54 2 mg Q1H PRN Administration BREAKTHROUGH PAIN/Agitation Pantoprazole Sodium 40 mg 01/19/20 09:00 01/21/20 09:34 Protonix IVP 40 mg DAILY JOSETTE Administration Propofol 1,000 mg 01/18/20 15:54 01/21/20 10:33 Diprivan IV 02/17/20 15:54 1,000 mg INF PRN Administration TO ACHIEVE GOAL RASS Protocol Senna/Docusate Sodium 2 tab 01/16/20 21:05 01/20/20 19:52 Senokot S PO 2 tab BID PRN Administration Constipation Sodium Chloride 10 ml 01/19/20 21:00 01/21/20 09:53 Flush - Normal Saline IVF 10 ml Q12HR JOSETTE Administration - Exam General Appearance: NAD General - other findings: sedated. Intubated Eye: PERRL, anicteric sclera ENT: normocephalic atraumatic, no oropharyngeal lesions Neck: no JVD Heart: RRR, no murmur, no gallops, no rubs Respiratory: CTAB, no wheezes, no rales, no ronchi Gastrointestinal: soft, non-tender, normal bowel sounds Gastrointestinal - other findings: abdominal distension Extremities: no cyanosis, no clubbing, no edema Skin: normal turgor, no lesions, no rashes Neurological: cranial nerve grossly intact, normal sensation to touch, no focal deficits, no new deficit Musculoskeletal: normal tone, normal strength, no muscle wasting Hosp A/P - Plan Chest Xray 01/17: lung opacities may reflect pneumonia CT abdomen 01/15: high grade acute pancreatitis. Diffuse hepatic steatosis. Diaphragmatic and paraesophageal hernia CT abdomen 01/17: high grade pancreatitis with extensive peripancreatic inflammatory changes and fluid in the abdomen with nonencapsulated peripancreatic fluid collection extending along inferior aspect greater curvature of the stomach and inferiorly. Diffuse fatty liver. Increase in bilateral pleural effusions with small to moderate size bilateral pleural effusions and associated bibsilar areas of consolidation. Dilated loops of small bowel with fluid and gas likely from ileus Chest X ray 07/01: bilateral interstitial and parenchymal airspace opacity within perihilar and upper long zone on the right due to bilateral pneumonia and atypical pneumonia. Left pleural effusion This is 54 year old male who presented with pancreatitis and was intubated overnight due to agitation #Severe alcohol withdrawal #Acute metabolic encephalopathy requiring intubation #Acute pancreatitis #Ileus #Fatty liver - CT abdomen on admission showing high grade pancreatitis. Repeat CT adomen 01/17 shows high grade pancreatitis with peripancreatic fluid collection. Continue meropenem - Xray shows pneumonia vs edema. Consider adding vanc if febrile. IV fluids discontinued - tube feeds were held due to residuals. GI will consider endoscopy if does not tolerate tube feeds - he is not weanable from the ventilator -continue thiamine and folic acid #Aspiration pneumonia - continue IV meropenem. Chest X ray 01/17 showed LLL infiltrate #Hypophosphatemia - phos 1.9. Continue phos packet prn #Hypocalcemia - calcium corrected 7, given 1 gram calcium gluconate #Hyponatremia - resolved Dispo: pending improvement from weaning of ventilator Code status: full code
--- NOTE | 2020-01-21 14:16 | RAD ---
EXAM: XR Abdomen 1 View/KUB PROVIDED CLINICAL HISTORY: Dobbhoff feeding tube placement COMPARISON: None FINDINGS: Nasogastric tube is noted in place with tip overlying expected location of the proximal body of the s tomach. Dobbhoff feeding tube is also noted in place with tip overlying the expected location of the pylorus of the stomach. There is partial visualization of a central venous catheter overlying the region of the right atrium. Gaseous distention of loops of small and large bowel are present in the visualized upper abdomen. IMPRESSION: 1. Dobbhoff feeding tube noted in place with tip overlying the expected location of the pylorus of th e stomach. 2. Nasogastric tube noted in place with tip overlying expected location of proximal body of the stoma ch.
[2020-01-21] MEDS: Ibuprofen 100 MG/5 ML UDCUP PER TUBE PRN (19:55)
[2020-01-22 05:02] LABS: ALT (SGPT) 72 U/L (8-55); AST (SGOT) 131 U/L (5-34); Alkaline Phosphatase 62 U/L (40-110); Anion Gap 11 mmol/L (10-20); BUN (Urea Nitrogen) 10 mg/dL (8.4-25.7); Bilirubin, Total 3.5 mg/dL (0.2-1.2); Calc. Creatinine Clearance 203 mL/min (70-130); Calcium 7.6 mg/dL (7.8-10.44); Carbon Dioxide 25 mmol/L (22-29); Chloride 103 mmol/L (98-107); Estimated GFR-MDRD Greater than 90; Globulin 3.3 g/dL (2.4-3.5); Glucose 88 mg/dL (70-105); Lipase 90 U/L (8-78); Magnesium 2.2 mg/dL (1.6-2.6); Potassium 4.3 mmol/L (3.5-5.1); Protein, Total 5.3 g/dL (6.0-8.3); Sodium 135 mmol/L (136-145)
[2020-01-22 05:12] LABS: Phosphorus 1.9 mg/dL (2.3-4.7)
[2020-01-22 07:23] LABS: Actual Bicarbonate (HCO3a) 23.5 mEq/L (22-28); Base Excess (BEa) 0.3 mEq/L (-2.0 to +3.0); CO2 Tension 32.5 mmHg (35.0-45.0); Calcium, Ionized 1.11 mmol/L (1.12-1.30); Carboxyhemoglobin (COHb) 1.7 gm% (0.0-3.0); Hemoglobin (Hb) 9.1 g/dL (14.0-18.0); Potassium - ABG Lab 4.31 mmol/L (3.70-5.30); pH, Arterial 7.48 (7.35-7.45)
[2020-01-22 07:27] LABS: ALV-art Gradient 140.575 (0-20); Puncture Site RR
--- NOTE | 2020-01-22 08:04 | RAD ---
EXAM: CHEST ONE VIEW HISTORY: Pneumonia COMPARISON: 01/21/2020 FINDINGS: Endotracheal tube, nasogastric tube, right subclavian central venous catheter remain in place and unc hanged in position. There has been interval placement of a Dobbhoff feeding tube which courses into the upper abdomen. Cardiac silhouette is magnified by projection but stable in size. There has been i nterval improvement in the patchy parenchymal airspace opacity in the right upper lung zone. Persistent bilateral perihilar interstitial densities are again seen predominantly in each upper lobe . Blunting of the left lateral costophrenic angle is present which may represent small left pleural effusion. No other interval change. IMPRESSION: 1. Bilateral interstitial and mild patchy opacities in a perihilar location and predominantly in the upper lobes and medial left lung base. Findings again may be related to bilateral pneumonia. Atypical pneumonia is a possibility. There has been improvement in aeration in the region of the righ t lung apex/right upper lung zone. 2. Lines and tubes in position as described above. 3. Small left pleural effusion.
--- NOTE | 2020-01-22 08:10 | PRG ---
DATE OF SERVICE: 01/22/2020 TIME SPENT: 35 minutes of critical care time. SUBJECTIVE: The patient remains intubated on mechanical ventilation. Heavily sedated on Precedex and Versed. OBJECTIVE: VITAL SIGNS: His temperature is 99.8, he had a T-max of 102.7 yesterday, his pulse 103, blood pressure 113/69, 24-hour intake , weight 198 pounds. Admission weight 181 pounds. HEENT: Unremarkable. NECK: No adenopathy or JVD. LUNGS: Clear breath sounds anteriorly. CARDIAC: S1 and S2. Slightly tachycardic. ABDOMEN: Obese, soft, and tympanic. EXTREMITIES: Edematous. LABORATORY DATA: Sodium 135, potassium 4.3, chloride 103, CO2 of 25, BUN 10, creatinine 0.5, glucose 88, calcium 7.6, phosphorus 1.9, total bilirubin 3.5, lipase 90. PH of 7.48, pCO2 32, PO2 104 on SIMV rate of 8, tidal volume 500, PEEP 5, pressure support 10, FiO2 of 40%. His x-ray shows pulmonary edema, ET tube in good place, bilateral effusions. ASSESSMENT: 1. Pancreatitis with overt fluid overload compared to admission. 2. Fever, probably secondary to pancreatitis-of note, patient is on meropenem. 3. Alcoholic hepatitis. 4. Delirium tremens. 5. Alcoholic refeeding syndrome. 6. Protein-calorie malnutrition. 7. Aspiration pneumonia. PLAN: 1. I will go ahead and re-culture the patient since he had a high spiking fever last night. 2. Try to ease back on the Versed and use the Precedex for sedation. I would like to see him more awake and cooperative. 3. Start low-dose Lasix to see if we can get off some of the excess fluid weight. 4. We will follow. Job ID: [id number]
[2020-01-22] MEDS: Enoxaparin Sodium 40 MG/0.4 ML SYRINGE SC SCH (08:18)
[2020-01-22] MEDS: Furosemide 40 MG/4 ML VIAL SLOW IVP SCH (08:18)
[2020-01-22] MEDS: Pantoprazole 40 MG VIAL IVP SCH (08:19)
[2020-01-22] MEDS: Meropenem 2 GM in Sodium Chloride 0.9% 100 ML IVPB SCH ×2 (08:42→16:10)
--- NOTE | 2020-01-22 09:16 | PRG ---
DATE OF SERVICE: 01/22/2020 SUBJECTIVE: Mr. Haq remains on sedation, but it is being weaned down. He spiked a fever overnight to 102. He remains on meropenem. Tube feeds have been going in overnight through Dobbhoff tube at 15 mL/h, seems to be tolerating this well. No emesis. No return from the orogastric tube. No stool output. OBJECTIVE: VITAL SIGNS: Pulse 106, blood pressure 110/74, and 98% oxygen saturation on ventilator. GENERAL: Critically ill, sedated, and ventilated. HEART: Regular. Tachycardia. LUNGS: Bibasilar crackles. ABDOMEN: Moderate distention. Tympanitic to percussion. Bowel sounds are present, but hypoactive throughout. EXTREMITIES: 1+ bilateral lower extremity edema. LABORATORY STUDIES: WBC 5.1, hemoglobin 9.7, and platelets 88. INR 1.1. Sodium 137, potassium 3.6, BUN 10, creatinine 0.54, phosphorus 1.9, total bilirubin 3.5, alkaline phosphatase 62, AST stable at 131, ALT stable at 72, albumin 2.0, and lipase down to 90. ASSESSMENT AND PLAN: 1. Severe acute alcoholic pancreatitis. 2. Alcoholic hepatitis. Lipase is improving. The patient still has inflammatory type picture with spiking fevers. Agree with continuing antibiotics. The patient is currently on meropenem. He seems to be tolerating Dobbhoff tube feeds, but would continue these only at a low rate for now 15 mL/h. Orogastric tube is in, to check residuals. 3. Ileus. Abdomen remains distended with hypoactive bowel sounds. However, he is tolerating tube feeds. GI will continue to follow. Please call with questions or concerns. Job ID: [id number]
[2020-01-22] MEDS: MIDAZOLAM HCL IVPB SCH (09:59)
[2020-01-22] MEDS: ADMIXTURE FEE IVPB SCH (09:59)
[2020-01-22] MEDS: SODIUM CHLORIDE IVPB SCH (09:59)
[2020-01-22] MEDS: SODIUM CHLORIDE 0.9% IVPB SCH (10:21)
[2020-01-22] MEDS: FOLIC ACID IVPB SCH (10:21)
[2020-01-22] MEDS: THIAMINE HCL IVPB SCH (10:21)
--- NOTE | 2020-01-22 10:40 | PDOC.HOSPP ---
- Subjective Encounter Date: 01/22/20 Encounter Time: 13:30 Subjective: The patient is still intubated. He vomited his tube feeds this morning so tube feeds were held. Patient is still on versed drip, difficulty weaning from the ventilator Patient is spiking fevers He did get some lasix today - Objective Vital Signs & Weight: Vital Signs (12 hours) Temp Pulse Resp BP 01/22/20 07:27 106 H 113/69 01/22/20 06:00 31 H 01/22/20 04:00 99.8 F H 25 H 01/22/20 02:39 99 97/71 01/22/20 02:00 28 H 01/22/20 00:00 100.9 F H 27 H Weight Admit Weight 181 lb Weight 198 lb 12.8 oz Most Recent Monitor Data Heart Rate from ECG 114 NIBP 110/74 NIBP BP-Mean 86 Respiration from ECG 30 SpO2 98 I&O: 01/21/20 01/22/20 01/23/20 06:59 06:59 06:59 Intake Total 4047.9 908.1 Output Total 1335 1770 Balance 2712.9 -861.9 Result Diagrams: 01/20/20 04:00 01/22/20 03:55 Additional Labs: Accuchecks 01/22/20 01/21/20 01/21/20 00:24 18:13 13:43 POC Glucose 85 97 101 01/21/20 04:05 POC Glucose 120 H Hospitalist ROS - Review of Systems ROS unobtainable: due to mental status Constitutional: reports: fever - Medication Medications: Active Medications Generic Name Dose Route Start Last Admin Trade Name Alexa PRN Reason Stop Dose Admin Albuterol/Ipratropium 3 ml 01/18/20 18:30 01/22/20 07:29 Duoneb NEB 3 ml [id number] JOSETTE Administration Enoxaparin Sodium 40 mg 01/17/20 09:00 01/22/20 08:18 Lovenox SC 40 mg 0900 JOSETTE Administration Furosemide 40 mg 01/22/20 09:00 01/22/20 08:18 Lasix SLOW IVP 40 mg DAILY JOSETTE Administration Meropenem 2 gm/ Sodium 100 mls @ 200 mls/hr 01/18/20 16:00 01/22/20 08:42 Chloride IVPB 100 mls 0800,1600,2359 JOSETTE Administration Potassium Phosphate 9 mmol/ 103 mls @ 25.75 mls/hr 01/18/20 15:53 01/19/20 15 :07 Sodium Chloride IVPB 103 mls ASDIR PRN Administration Phosphate 1.0-1.8 Midazolam HCl 100 mg/ 100 mls @ 0 mls/hr 01/19/20 09:15 01/22/20 09:59 Miscellaneous Medication 1 IVPB 100 mls each/ Sodium Chloride INF JOSETTE Administration Protocol Titrate Thiamine HCl 100 mg/ Folic 51.08 mls @ 100.157 mls/hr 01/21/20 09:00 10:21 Acid 0.4 mg/ Sodium Chloride IVPB 51.08 mls DAILY JOSETTE Administration Ibuprofen 400 mg 01/19/20 10:48 01/21/20 19:55 Motrin PER TUBE 400 mg Q6H PRN Administration TEMP > 101 Lorazepam 2 mg 01/18/20 15:54 01/20/20 19:52 Ativan SLOW IVP 02/17/20 15:54 2 mg Q1H PRN Administration Breakthrough agitation Miscellaneous Medication 1 pkt 01/18/20 15:53 01/20/20 19:52 Phos-Nak PO 1 pkt TIDPRN PRN Administration FOR PHOS LEVEL 1.0 - 1.8 Miscellaneous Medication 2 pkt 01/18/20 15:53 01/19/20 05:07 Phos-Nak PO 2 pkt TIDPRN PRN Administration FOR PHOS LEVEL 0.5 - 1.0 Morphine Sulfate 2 mg 01/18/20 15:54 01/21/20 10:37 Morphine SLOW IVP 02/17/20 15:54 2 mg Q1H PRN Administration BREAKTHROUGH PAIN/Agitation Pantoprazole Sodium 40 mg 01/19/20 09:00 01/22/20 08:19 Protonix IVP 40 mg DAILY JOSETTE Administration Propofol 1,000 mg 01/18/20 15:54 01/21/20 10:33 Diprivan IV 02/17/20 15:54 1,000 mg INF PRN Administration TO ACHIEVE GOAL RASS Protocol Senna/Docusate Sodium 2 tab 01/16/20 21:05 01/20/20 19:52 Senokot S PO 2 tab BID PRN Administration Constipation Sodium Chloride 10 ml 01/19/20 21:00 01/22/20 09:52 Flush - Normal Saline IVF 10 ml Q12HR JOSETTE Administration - Exam General Appearance: NAD, awake alert General - other findings: sedated Eye: PERRL, anicteric sclera ENT: normocephalic atraumatic, no oropharyngeal lesions Neck: supple, no JVD Heart: RRR, no murmur, no gallops, no rubs Respiratory: CTAB, no wheezes, no rales, no ronchi Gastrointestinal: diminished bowl sounds Gastrointestinal - other findings: distended, firm to palpation. Extremities: 2+ LE edema Skin: normal turgor, no lesions, no rashes Hosp A/P - Plan Chest Xray 01/17: lung opacities may reflect pneumonia CT abdomen 01/15: high grade acute pancreatitis. Diffuse hepatic steatosis. Diaphragmatic and paraesophageal hernia CT abdomen 01/17: high grade pancreatitis with extensive peripancreatic inflammatory changes and fluid in the abdomen with nonencapsulated peripancreatic fluid collection extending along inferior aspect greater curvature of the stomach and inferiorly. Diffuse fatty liver. Increase in bilateral pleural effusions with small to moderate size bilateral pleural effusions and associated bibsilar areas of consolidation. Dilated loops of small bowel with fluid and gas likely from ileus Chest X ray 01/20: bilateral interstitial and parenchymal airspace opacity within perihilar and upper long zone on the right due to bilateral pneumonia and atypical pneumonia. Left pleural effusion Chest X ray 01/21: bilateral patchy infiltrates, possible pneumonia vs pleural effusion This is 54 year old male who presented with pancreatitis and was intubated overnight due to agitation #Severe alcohol withdrawal #Acute metabolic encephalopathy requiring intubation #Acute pancreatitis #Ileus #Fatty liver - CT abdomen on admission showing high grade pancreatitis. Repeat CT abdomen 01/17 shows high grade pancreatitis with peripancreatic fluid collection. Continue meropenem. Added vancomycin 01/21 due to persistent fever - started lasix 40 mg IV daily - tube feeds were held due to residuals. GI will consider endoscopy if does not tolerate tube feeds - he is not weanable from the ventilator -continue thiamine and folic acid #Aspiration pneumonia - continue IV meropenem. Chest X ray showing possible bilateral infiltrates - added vancomycin today #Hypophosphatemia - phos 1.9. Continue phos packet prn #Hypocalcemia - calcium supplementation prn #Hyponatremia - resolved Dispo: pending improvement from weaning of ventilator Code status: full code
[2020-01-22] MEDS ORDERED: PHARMACY TO DOSE VANCOMYCIN IVPB PRN (11:22)
[2020-01-22] MEDS: Vancomycin HCl 1.75 GM in Sodium Chloride 0.9% 500 ML IVPB SCH ×2 (12:24→22:00)
[2020-01-22] MEDS: Ibuprofen 100 MG/5 ML UDCUP PER TUBE PRN (16:20)
[2020-01-23] MEDS: Meropenem 2 GM in Sodium Chloride 0.9% 100 ML IVPB SCH ×4 (00:27→23:02)
[2020-01-23 04:18] LABS: #Lymphocytes 0.7 thou/uL (1.20-3.40); #Monocytes 1.3 thou/uL (0.11-0.59); #Neutrophils 13.3 thou/uL (1.40-6.50); %Basophils 0.1 % (0.0-1.0); %Eosinophils 0.3 % (0.0-10.0); %Lymphocytes 4.4 % (21.0-51.0); %Monocytes 8.2 % (0.0-10.0); Hemoglobin 8.2 g/dL (14.0-18.0); Mean Corpuscular HGB CONC 32.4 g/dL (32.0-36.0); Mean Corpuscular Hemoglobin 32.4 pg (27.0-31.0); Mean Platelet Volume 8.3 fL (7.4-10.4); Platelet Count 233 thou/uL (130-400); RBC Distribution Width 13.1 % (11.5-14.5); Red Blood Cell (RBC) Count 2.52 mill/uL (4.70-6.10); White Blood Cell (WBC) Count 15.3 thou/uL (4.8-10.8)
[2020-01-23 04:41] LABS: ALT (SGPT) 82 U/L (8-55); AST (SGOT) 172 U/L (5-34); Albumin 2.2 g/dL (3.5-5.0); Alkaline Phosphatase 70 U/L (40-110); Anion Gap 12 mmol/L (10-20); BUN (Urea Nitrogen) 15 mg/dL (8.4-25.7); Bilirubin, Total 3.7 mg/dL (0.2-1.2); Calc. Creatinine Clearance 199 mL/min (70-130); Calcium 8.1 mg/dL (7.8-10.44); Carbon Dioxide 25 mmol/L (22-29); Chloride 103 mmol/L (98-107); Estimated GFR-MDRD Greater than 90; Globulin 3.4 g/dL (2.4-3.5); Glucose 92 mg/dL (70-105); Lipase 77 U/L (8-78); Magnesium 2.3 mg/dL (1.6-2.6); Potassium 4.1 mmol/L (3.5-5.1); Protein, Total 5.6 g/dL (6.0-8.3); Sodium 136 mmol/L (136-145)
[2020-01-23 04:43] LABS: Phosphorus 1.9 mg/dL (2.3-4.7)
[2020-01-23 07:36] LABS: Actual Bicarbonate (HCO3a) 19.7 mEq/L (22-28); Base Excess (BEa) -2.9 mEq/L (-2.0 to +3.0); CO2 Tension 26.6 mmHg (35.0-45.0); Calcium, Ionized 1.12 mmol/L (1.12-1.30); Carboxyhemoglobin (COHb) 1.3 gm% (0.0-3.0); Hemoglobin (Hb) 9.3 g/dL (14.0-18.0); O2 Tension (PaO2), arterial 100.7 mmHg (80.0-100.0); Potassium - ABG Lab 4.13 mmol/L (3.70-5.30); pH, Arterial 7.49 (7.35-7.45)
[2020-01-23 07:37] LABS: Puncture Site LBA
--- NOTE | 2020-01-23 08:03 | RAD ---
EXAM: CHEST ONE VIEW HISTORY: Pneumonia COMPARISON: 01/22/2020 FINDINGS: Endotracheal tube, nasogastric tube, Dobbhoff feeding tube, and right subclavian central venous heather ter remain in place. Cardiac silhouette is magnified by projection and patient rotation. Greater increased density is present at the left lung base which may be related to increasing left pleural ef fusion and atelectasis. Artifact overlies the left upper lung zone, but interstitial densities within the lungs bilaterally predominantly seen in the upper lobes on prior studies do appear improve d. This exam is obtained in a shallow depth of inspiration accentuating the bronchovascular markings. No other interval change. IMPRESSION: 1. Increasing left pleural effusion and atelectasis. 2. Interstitial densities within the upper lung zones bilaterally do appear improved. Continued follo w-up is recommended.
--- NOTE | 2020-01-23 08:21 | PRG ---
DATE OF SERVICE: 01/23/2020 35 minutes critical care time. SUBJECTIVE: This patient remains intubated on mechanical ventilation. He is off the Versed drip, currently on Precedex, very poorly responsive. OBJECTIVE: VITAL SIGNS: Temperature 99.6, pulse 114, blood pressure 109/73, O2 saturation 99%. Intake for 24 hours 1949, output 3462. HEENT: Unremarkable. NECK: No JVD. LUNGS: Clear anteriorly. CARDIOVASCULAR: S1, S2. Slightly tachycardic. ABDOMEN: Distended, tympanic. EXTREMITIES: Trace edema. LABORATORY DATA: PH 7.49, pCO2 of 26, pO2 of 100, SIMV rate 8, tidal volume 500, PEEP 5, pressure support 10, FiO2 40%. Sodium 136, potassium 4.1, chloride 103, CO2 of 25, BUN 15, creatinine 0.5, glucose 92, phosphorus 1.9. Total bilirubin 3.7, AST 172, ALT 82, lipase 77. White blood cell count 15.3, hematocrit 25.2, and platelet count 233. ASSESSMENT: 1. Alcoholic pancreatitis. 2. Alcoholic hepatitis. 3. Acute respiratory failure requiring mechanical ventilation. 4. Ileus. 5. Improved thrombocytopenia. PLAN: We will hold Precedex and see if he will wake up until he may be getting an EGD today. He continues on antibiotics for fever, although at this point, we have not seen any positive culture results. In terms of encephalopathy, I think it will take some time for him to wake up as Versnikky can hang around the system for many days. His distended abdomen may end up being a return to weaning. We will just have to see about that. Job ID: [id number]
[2020-01-23] MEDS ORDERED: Rocuronium Bromide 50 MG/5 ML VIAL IVP SCH (10:15)
[2020-01-23] MEDS: Furosemide 40 MG/4 ML VIAL SLOW IVP SCH (10:57)
[2020-01-23] MEDS: Pantoprazole 40 MG VIAL IVP SCH (10:57)
[2020-01-23] MEDS: Enoxaparin Sodium 40 MG/0.4 ML SYRINGE SC SCH (10:57)
[2020-01-23] MEDS: THIAMINE HCL IVPB SCH (10:58)
[2020-01-23] MEDS: SODIUM CHLORIDE 0.9% IVPB SCH (10:58)
[2020-01-23] MEDS: FOLIC ACID IVPB SCH (10:58)
[2020-01-23] MEDS: Vancomycin HCl 1.75 GM in Sodium Chloride 0.9% 500 ML IVPB SCH (10:59)
--- NOTE | 2020-01-23 11:32 | OP ---
DATE OF PROCEDURE: 01/23/2020 PROCEDURE PERFORMED: Esophagogastroduodenoscopy with endoscopically assisted Dobhoff tube placement. INDICATIONS FOR PROCEDURE: Severe pancreatitis, moderate protein-calorie malnutrition with increased residual from prepyloric tube feeds. DESCRIPTION OF PROCEDURE: After the risks and benefits of the procedure were explained to the patient's surrogate including risks of bleeding, infection, perforation, reactions to anesthesia, aspiration and/or pain, informed consent was obtained. The patient was already in the ICU and intubated. Rocuronium was then used as a paralytic agent while the patient was on mechanical ventilator to prevent spontaneous movements during the procedure. Once the rocuronium was instilled, the bite block was then placed followed by introduction of the standard gastroscope, which was then introduced into the mouth with intubation of the esophagus, stomach, and the proximal small intestines with the findings listed below. The patient tolerated the procedure well with no immediate perioperative complications. Upon conclusion of the procedure, all equipment was removed from the patient except for a Dobhoff tube that was clipped to the lining of the small intestine within the 3rd to 4th portion of the duodenum. FINDINGS: Esophagus: Normal-appearing mucosa was seen in the proximal, mid, and distal esophagus. There was no evidence of erosions, ulcerations, mass lesions, or active/recent bleeding. Stomach: Multiple red spots were seen along the gastric body and greater curvature of the stomach, consistent with NG tube trauma. However, there were 2 areas of gastric mucosa, where 2 of these red spots had a small clot form as well as a 2-mm ulceration that was clean based without any high-risk stigmata of bleeding. Otherwise, the mucosa of the stomach was normal within the gastric cardia, fundus, antrum, and incisura. No intervention was taken on the clot and ulceration given the likelihood of it being NG tube trauma and no evidence of active bleeding. Duodenum: Normal-appearing mucosa was seen in both the duodenal bulb and 2nd portion, 3rd portion, and even to the 4th portion of the duodenum. There was no evidence of erosions, ulcerations, mass lesions, or active/recent bleeding. A Dobhoff tube was then advanced through the right naris and into the stomach, whereupon it was grasped using biopsy forceps and advanced into the 3rd to 4th portion of the duodenum. Once in adequate position, a hemoclip x1 was then used to clip the Dobhoff tube to the mucosa of the small intestine via a small silk loop that had been placed prior to introduction of the Dobhoff tube. The gastroscope was then carefully removed from the patient to prevent migration of the Dobhoff tube. IMPRESSION: 1. Multiple red spots and an area of clot/1- to 2-mm ulceration seen in the gastric body/greater curvature, consistent with nasogastric tube trauma. 2. Successful placement of a Dobhoff tube with hemoclip x1 to affix it to the lining of the 3rd/4th portion of the duodenum. RECOMMENDATIONS: 1. Can start tube feeds immediately given direct visualization of the Dobhoff tube within the small intestine. 2. Would refrain from replacing the NG-tube for residual calculation given the significant NG tube trauma seen today. 3. Continue antibiotics as you are doing given the elevated white blood cell count and severe pancreatitis. 4. Continue gentle IV fluid hydration until tube feeds are started. We will continue to follow. Please call with any questions. Job ID: [id number]
--- NOTE | 2020-01-23 14:13 | PDOC.HOSPP ---
- Subjective Encounter Date: 01/23/20 Encounter Time: 11:00 Subjective: THe patient is intubated. Attempted weaning from ventilator today. Had endoscopy done today which showed ulceration. T max 101.7 this morning. WBC up slightly - Objective Vital Signs & Weight: Vital Signs (12 hours) Temp Pulse Resp BP Pulse Ox 01/23/20 14:00 33 H 01/23/20 12:00 99.4 F 22 H 01/23/20 11:00 101.7 F H 01/23/20 10:53 131 H 119/85 01/23/20 10:52 127 H 19 100 01/23/20 10:00 29 H 01/23/20 08:00 98.4 F 24 H 99 01/23/20 07:18 117 H 108/74 01/23/20 07:16 115 H 13 100 01/23/20 06:00 23 H 01/23/20 04:00 99.6 F 21 H 01/23/20 03:04 109 H Weight Admit Weight 181 lb Weight 193 lb 12.581 oz Most Recent Monitor Data Heart Rate from ECG 128 NIBP 124/83 NIBP BP-Mean 96 Respiration from ECG 22 SpO2 100 I&O: 01/22/20 01/23/20 01/24/20 06:59 06:59 06:59 Intake Total 908.1 1949.8 785.4 Output Total 1770 3462 2024 Balance -861.9 -1512.2 -1239.6 Result Diagrams: 01/23/20 03:45 01/23/20 03:45 Additional Labs: Accuchecks 01/23/20 01/23/20 01/23/20 12:31 06:20 00:21 POC Glucose 114 H 101 96 01/22/20 18:11 POC Glucose 103 Hospitalist ROS - Review of Systems ROS unobtainable: due to endotracheal tube - Medication Medications: Active Medications Generic Name Dose Route Start Last Admin Trade Name Freq PRN Reason Stop Dose Admin Albuterol/Ipratropium 3 ml 01/18/20 18:30 01/23/20 10:52 Duoneb NEB 3 ml [id number] JOSETTE Administration Enoxaparin Sodium 40 mg 01/17/20 09:00 01/23/20 10:57 Lovenox SC 40 mg 0900 JOSETTE Administration Furosemide 40 mg 01/22/20 09:00 01/23/20 10:57 Lasix SLOW IVP 40 mg DAILY JOSETTE Administration Meropenem 2 gm/ Sodium 100 mls @ 200 mls/hr 01/18/20 16:00 01/23/20 11:24 Chloride IVPB 100 mls 0800,1600,2359 JOSETTE Administration Potassium Phosphate 9 mmol/ 103 mls @ 25.75 mls/hr 01/18/20 15:53 01/19/20 15 :07 Sodium Chloride IVPB 103 mls ASDIR PRN Administration Phosphate 1.0-1.8 Midazolam HCl 100 mg/ 100 mls @ 0 mls/hr 01/19/20 09:15 01/22/20 09:59 Miscellaneous Medication 1 IVPB 100 mls each/ Sodium Chloride INF JOSETTE Administration Protocol Titrate Thiamine HCl 100 mg/ Folic 51.08 mls @ 100.157 mls/hr 01/21/20 09:00 10:58 Acid 0.4 mg/ Sodium Chloride IVPB 51.08 mls DAILY JOSETTE Administration Dexmedetomidine HCl 400 mcg/ 100 mls @ 0 mls/hr 01/22/20 10:00 01/22/20 16:10 Sodium Chloride IVPB 100 mls INF JOSETTE Administration Protocol Per Protocol Vancomycin HCl 1.75 gm/ Sodium 500 mls @ 250 mls/hr 01/22/20 11:00 01/23/20 10:59 Chloride IVPB 500 mls 1100,2300 JOSETTE Administration Ibuprofen 400 mg 01/19/20 10:48 01/22/20 16:20 Motrin PER TUBE 400 mg Q6H PRN Administration TEMP > 101 Lorazepam 2 mg 01/18/20 15:54 01/20/20 19:52 Ativan SLOW IVP 02/17/20 15:54 2 mg Q1H PRN Administration Breakthrough agitation Miscellaneous Medication 1 pkt 01/18/20 15:53 01/20/20 19:52 Phos-Nak PO 1 pkt TIDPRN PRN Administration FOR PHOS LEVEL 1.0 - 1.8 Miscellaneous Medication 2 pkt 01/18/20 15:53 01/19/20 05:07 Phos-Nak PO 2 pkt TIDPRN PRN Administration FOR PHOS LEVEL 0.5 - 1.0 Morphine Sulfate 2 mg 01/18/20 15:54 01/21/20 10:37 Morphine SLOW IVP 02/17/20 15:54 2 mg Q1H PRN Administration BREAKTHROUGH PAIN/Agitation Pantoprazole Sodium 40 mg 01/19/20 09:00 01/23/20 10:57 Protonix IVP 40 mg DAILY JOSETTE Administration Propofol 1,000 mg 01/18/20 15:54 01/21/20 10:33 Diprivan IV 02/17/20 15:54 1,000 mg INF PRN Administration TO ACHIEVE GOAL RASS Protocol Rocuronium [place] 30 mg 01/23/20 10:15 01/23/20 10:59 Zemuron IVP 01/23/20 15:00 Not Given NOW JOSETTE Senna/Docusate Sodium 2 tab 01/16/20 21:05 01/20/20 19:52 Senokot S PO 2 tab BID PRN Administration Constipation Sodium Chloride 10 ml 01/19/20 21:00 01/23/20 10:58 Flush - Normal Saline IVF 10 ml Q12HR JOSETTE Administration - Exam General Appearance: NAD, awake alert Eye: PERRL, anicteric sclera ENT: normocephalic atraumatic, no oropharyngeal lesions Neck: no JVD Heart: RRR, no murmur, no gallops, no rubs Respiratory: CTAB, no wheezes, no rales, no ronchi Gastrointestinal: soft, non-tender, non-distended, normal bowel sounds Extremities: no cyanosis, no clubbing, no edema Skin: normal turgor, no lesions, no rashes Neurological: cranial nerve grossly intact, normal sensation to touch, no focal deficits, no new deficit Musculoskeletal: normal tone, normal strength, no muscle wasting Psychiatric: normal affect, normal behavior, A&O x 3 Hosp A/P - Plan Chest Xray 01/17: lung opacities may reflect pneumonia CT abdomen 01/15: high grade acute pancreatitis. Diffuse hepatic steatosis. Diaphragmatic and paraesophageal hernia CT abdomen 01/17: high grade pancreatitis with extensive peripancreatic inflammatory changes and fluid in the abdomen with nonencapsulated peripancreatic fluid collection extending along inferior aspect greater curvature of the stomach and inferiorly. Diffuse fatty liver. Increase in bilateral pleural effusions with small to moderate size bilateral pleural effusions and associated bibsilar areas of consolidation. Dilated loops of small bowel with fluid and gas likely from ileus Chest X ray 01/20: bilateral interstitial and parenchymal airspace opacity within perihilar and upper long zone on the right due to bilateral pneumonia and atypical pneumonia. Left pleural effusion Chest X ray 01/21: bilateral patchy infiltrates, possible pneumonia vs pleural effusion Endoscopy 01/22: 1-2 cm ulceration in the gastric body. Dobhoff tube placed in 3rd/4th portion of duodenum Chest X ray 01/22: improvement in airspace disease This is 54 year old male who presented with pancreatitis and was intubated due to severe withdrawal #Severe alcohol withdrawal #Acute metabolic encephalopathy requiring intubation #Acute pancreatitis #Ileus #Fatty liver - CT abdomen on admission showing high grade pancreatitis. Repeat CT abdomen 01/17 shows high grade pancreatitis with peripancreatic fluid collection. - Continue meropenem and vancomycin - tube feeds were held due to residuals. GI performed endoscopy 01/21 which showed ulceration in the gastric body. Dobhoff tube was placed -continue thiamine and folic acid - daily weaning trial #Acute hypoxic respiratory failure from pulmonary edema - continue IV lasix - repeat chest Xray tomorrow #Sepsis from Aspiration pneumonia - temp of 102, WBC up to 15 today. Continue IV meropenem and vancomycin (D1 01/21 ). Chest X ray showing possible bilateral infiltrates - blood culture and urine culture negative #Transaminitis - LFTS trending upward slightly. Will monitor #Hypophosphatemia - phos 1.9. Continue phos packet prn #Hypocalcemia - calcium supplementation prn #Hyponatremia - resolved Dispo: pending improvement from weaning of ventilator Code status: full code
[2020-01-23] MEDS: Morphine 2 MG/ML SYRINGE SLOW IVP PRN (15:29)
[2020-01-23] MEDS: Ibuprofen 100 MG/5 ML UDCUP PER TUBE PRN (15:39)
[2020-01-23 22:30] LABS: Vancomycin, Trough 10.2 ug/mL
[2020-01-23] MEDS: Vancomycin 1.5 GRAM/300 ML BAG 1.5 GM in Premix Bag 1 BAG IVPB SCH (23:02)
[2020-01-24] MEDS: Ibuprofen 100 MG/5 ML UDCUP PER TUBE PRN (00:02)
[2020-01-24] MEDS: Morphine 2 MG/ML SYRINGE SLOW IVP PRN (01:57)
[2020-01-24] MEDS: Lorazepam 2 MG/ML VIAL SLOW IVP PRN ×2 (02:06→10:46)
[2020-01-24] MEDS: Propofol 1,000 MG/100 ML VIAL IV PRN (02:19)
[2020-01-24 03:50] LABS: #Lymphocytes 0.7 thou/uL (1.20-3.40); #Monocytes 1.3 thou/uL (0.11-0.59); #Neutrophils 15.6 thou/uL (1.40-6.50); %Eosinophils 0.3 % (0.0-10.0); %Monocytes 7.4 % (0.0-10.0); %Neutrophils 88.3 % (42.0-75.0); Hemoglobin 7.3 g/dL (14.0-18.0); Mean Corpuscular Hemoglobin 33.1 pg (27.0-31.0); Mean Platelet Volume 8.1 fL (7.4-10.4); Platelet Count 282 thou/uL (130-400); RBC Distribution Width 13.3 % (11.5-14.5); White Blood Cell (WBC) Count 17.6 thou/uL (4.8-10.8)
[2020-01-24 04:10] LABS: ALT (SGPT) 79 U/L (8-55); AST (SGOT) 152 U/L (5-34); Albumin 2.1 g/dL (3.5-5.0); Alkaline Phosphatase 68 U/L (40-110); Anion Gap 12 mmol/L (10-20); BUN (Urea Nitrogen) 18 mg/dL (8.4-25.7); Bilirubin, Total 3.1 mg/dL (0.2-1.2); Calc. Creatinine Clearance 0 mL/min (70-130); Calcium 7.7 mg/dL (7.8-10.44); Carbon Dioxide 27 mmol/L (22-29); Chloride 104 mmol/L (98-107); Estimated GFR-MDRD Greater than 90; Globulin 3.4 g/dL (2.4-3.5); Glucose 110 mg/dL (70-105); Magnesium 2.3 mg/dL (1.6-2.6); Potassium 3.8 mmol/L (3.5-5.1); Protein, Total 5.5 g/dL (6.0-8.3); Sodium 139 mmol/L (136-145)
[2020-01-24 04:20] LABS: Phosphorus 2.3 mg/dL (2.3-4.7)
[2020-01-24] MEDS: Vancomycin 1.5 GRAM/300 ML BAG 1.5 GM in Premix Bag 1 BAG IVPB SCH ×2 (06:19→15:32)
[2020-01-24 06:46] LABS: Actual Bicarbonate (HCO3a) 22.8 mEq/L (22-28); Base Excess (BEa) -0.3 mEq/L (-2.0 to +3.0); CO2 Tension 30.9 mmHg (35.0-45.0); Calcium, Ionized 1.15 mmol/L (1.12-1.30); Carboxyhemoglobin (COHb) 1.4 gm% (0.0-3.0); Hemoglobin (Hb) 8.3 g/dL (14.0-18.0); O2 Tension (PaO2), arterial 71.1 mmHg (80.0-100.0); Potassium - ABG Lab 3.99 mmol/L (3.70-5.30); pH, Arterial 7.49 (7.35-7.45)
[2020-01-24 06:48] LABS: Puncture Site RBA
[2020-01-24 06:50] LABS: ALV-art Gradient 175.475 (0-20)
--- NOTE | 2020-01-24 07:51 | RAD ---
Chest one view HISTORY: Pneumonia. Follow-up. COMPARISON: 01/23/2020. FINDINGS: Cardiac silhouette is magnified by projection. Pulmonary vasculature remains engorged. Bilateral lower lobe infiltrates, left greater than right, and blunting of left lateral costophrenic angle are similar in appearance to the prior study. Mediastinum is now midline. Proximal sidehole of the nasogastric tube is at the level of the diaphrag m. Other lines and tubes are unchanged in position. No evidence of pneumothorax. IMPRESSION : Bilateral lower lobe infiltrates appear stable. Small left pleural effusion. Nasogastric tube should probably be advanced approximately 10 cm for better positioning.
[2020-01-24] MEDS: Meropenem 2 GM in Sodium Chloride 0.9% 100 ML IVPB SCH ×2 (08:15→15:31)
--- NOTE | 2020-01-24 09:20 | PRG ---
DATE OF SERVICE: 01/24/2020 TIME SPENT: 35 minutes of critical care time. SUBJECTIVE: The patient remains intubated on mechanical ventilation. He has had wide swings in his sedation status. He had to be put back on Diprivan last night because of tachypnea. OBJECTIVE: VITAL SIGNS: Temperature is 99.7, pulse 119, blood pressure 112/76. 24-hour intake 1485, output 3862. HEENT: Unremarkable. NECK: No JVD. LUNGS: Clear. CARDIAC: S1 and S2. Tachycardic. ABDOMEN: Soft. EXTREMITIES: No edema. LABORATORY DATA: White blood cell count 17.6, hematocrit 22.1, and platelet count 282. PH 7.49, pCO2 of 30, pO2 of 71 on SIMV rate of 8, tidal volume 500, PEEP 5, pressure support 10, FiO2 of 40%. Sodium 139, potassium 3.8, chloride 104, CO2 of 27, BUN 18, creatinine 0.5, and glucose 110. Chest x-ray shows infiltrative changes primarily on the left side. ASSESSMENT: 1. Acute respiratory failure, requiring mechanical ventilation. 2. Delirium tremens. 3. Alcoholic pancreatitis. 4. Alcoholic hepatitis. 5. Ileus with continued vomiting around his endotracheal tube. 6. Anemia. PLAN: 1. Dealing with his sedation has been a severe issue. I am going to ahead and put him on some Depakote and Geodon to see if that will help us to decrease the IV sedatives and hopefully, work towards extubation. 2. He is currently on some antibiotics for aspiration pneumonia coverage. 3. We will follow. Job ID: [id number]
[2020-01-24] MEDS: Enoxaparin Sodium 40 MG/0.4 ML SYRINGE SC SCH (09:27)
[2020-01-24] MEDS: SODIUM CHLORIDE 0.9% IVPB SCH (09:31)
[2020-01-24] MEDS: FOLIC ACID IVPB SCH (09:31)
[2020-01-24] MEDS: THIAMINE HCL IVPB SCH (09:31)
[2020-01-24] MEDS: Furosemide 40 MG/4 ML VIAL SLOW IVP SCH (09:52)
[2020-01-24] MEDS: Pantoprazole 40 MG VIAL IVP SCH (09:52)
[2020-01-24] MEDS: Ziprasidone 20 MG VIAL IM SCH ×2 (09:53→22:11)
[2020-01-24] MEDS: Valproate Sodium 250 mg/5 ml UD Cup PER TUBE SCH ×3 (09:53→22:27)
[2020-01-24] MEDS ORDERED: Acetaminophen 325 MG TAB PO PRN (14:49)
--- NOTE | 2020-01-24 15:07 | PDOC.HOSPP ---
- Subjective Encounter Date: 01/24/20 Encounter Time: 13:00 Subjective: The patient is still intubated. Attempted to wean off ventilator but got agitated again. HR up to 120. He did get ativan. Patient also vomited 500 cc of green bile. NG tube advanced 5 cm by nursing staff - Objective Vital Signs & Weight: Vital Signs (12 hours) Temp Pulse Resp BP Pulse Ox 01/24/20 14:12 127 H 32 H 100 01/24/20 14:08 131 H 110/68 01/24/20 14:00 32 H 01/24/20 12:00 102.5 F H 35 H 01/24/20 11:12 137 H 31 H 95 01/24/20 11:09 135 H 111/75 01/24/20 10:00 40 H 01/24/20 08:00 99.7 F H 31 H 96 01/24/20 06:36 112 H 114/83 01/24/20 06:35 97 01/24/20 06:00 36 H 01/24/20 04:00 98.4 F 30 H Weight Admit Weight 181 lb Weight 3.101 oz Most Recent Monitor Data Heart Rate from ECG 137 NIBP 111/69 NIBP BP-Mean 83 Respiration from ECG 37 SpO2 96 I&O: 01/23/20 01/24/20 01/25/20 06:59 06:59 06:59 Intake Total 1949.8 1485.0 230 Output Total 3462 3862 2430 Balance -1512.2 -2377.0 -2200 Result Diagrams: 01/24/20 03:40 01/24/20 03:30 Additional Labs: Accuchecks 01/24/20 01/24/20 01/23/20 06:22 00:18 17:09 POC Glucose 101 101 118 H Hospitalist ROS - Review of Systems ROS unobtainable: due to endotracheal tube - Medication Medications: Active Medications Generic Name Dose Route Start Last Admin Trade Name Freq PRN Reason Stop Dose Admin Albuterol/Ipratropium 3 ml 01/18/20 18:30 01/24/20 14:12 Duoneb NEB 3 ml [id number] JOSETTE Administration Enoxaparin Sodium 40 mg 01/17/20 09:00 01/24/20 09:27 Lovenox SC 40 mg 0900 JOSETTE Administration Furosemide 40 mg 01/22/20 09:00 01/24/20 09:52 Lasix SLOW IVP 40 mg DAILY JOSETTE Administration Meropenem 2 gm/ Sodium 100 mls @ 200 mls/hr 01/18/20 16:00 01/24/20 08:15 Chloride IVPB 100 mls 0800,1600,2359 JOSETTE Administration Potassium Phosphate 9 mmol/ 103 mls @ 25.75 mls/hr 01/18/20 15:53 01/19/20 15 :07 Sodium Chloride IVPB 103 mls ASDIR PRN Administration Phosphate 1.0-1.8 Midazolam HCl 100 mg/ 100 mls @ 0 mls/hr 01/19/20 09:15 01/22/20 09:59 Miscellaneous Medication 1 IVPB 100 mls each/ Sodium Chloride INF JOSETTE Administration Protocol Titrate Thiamine HCl 100 mg/ Folic 51.08 mls @ 100.157 mls/hr 01/21/20 09:00 09:31 Acid 0.4 mg/ Sodium Chloride IVPB 51.08 mls DAILY JOSETTE Administration Dexmedetomidine HCl 400 mcg/ 100 mls @ 0 mls/hr 01/22/20 10:00 01/24/20 07:50 Sodium Chloride IVPB 100 mls INF JOSETTE Administration Protocol Per Protocol Vancomycin HCl 1.5 gm/ Device 300 mls @ 200 mls/hr 01/23/20 23:00 01/24/20 06 :19 IVPB 300 mls 0700,1500,2300 JOSETTE Administration Ibuprofen 400 mg 01/19/20 10:48 01/24/20 00:02 Motrin PER TUBE 400 mg Q6H PRN Administration TEMP > 101 Lorazepam 2 mg 01/18/20 15:54 01/24/20 10:46 Ativan SLOW IVP 02/17/20 15:54 2 mg Q1H PRN Administration Breakthrough agitation Miscellaneous Medication 1 pkt 01/18/20 15:53 01/20/20 19:52 Phos-Nak PO 1 pkt TIDPRN PRN Administration FOR PHOS LEVEL 1.0 - 1.8 Miscellaneous Medication 2 pkt 01/18/20 15:53 01/19/20 05:07 Phos-Nak PO 2 pkt TIDPRN PRN Administration FOR PHOS LEVEL 0.5 - 1.0 Morphine Sulfate 2 mg 01/18/20 15:54 01/24/20 01:57 Morphine SLOW IVP 02/17/20 15:54 2 mg Q1H PRN Administration BREAKTHROUGH PAIN/Agitation Pantoprazole Sodium 40 mg 01/19/20 09:00 01/24/20 09:52 Protonix IVP 40 mg DAILY JOSETTE Administration Propofol 1,000 mg 01/18/20 15:54 01/24/20 02:19 Diprivan IV 02/17/20 15:54 1,000 mg INF PRN Administration TO ACHIEVE GOAL RASS Protocol Senna/Docusate Sodium 2 tab 01/16/20 21:05 01/20/20 19:52 Senokot S PO 2 tab BID PRN Administration Constipation Sodium Chloride 10 ml 01/19/20 21:00 01/24/20 09:57 Flush - Normal Saline IVF 10 ml Q12HR JOSETTE Administration Valproic Acid 500 mg 01/24/20 09:00 01/24/20 09:53 Depakene Liquid PER TUBE 500 mg TID JOSETTE Administration Ziprasidone 20 mg 01/24/20 09:00 01/24/20 09:53 Geodon IM 20 mg BID JOSETTE Administration - Exam General Appearance: NAD, awake alert Eye: PERRL, anicteric sclera ENT: normocephalic atraumatic, no oropharyngeal lesions Neck: no JVD Heart: RRR, no murmur, no gallops, no rubs Respiratory: CTAB, no wheezes, no rales, no ronchi Gastrointestinal: soft Gastrointestinal - other findings: distended, hypoactive bowel sounds Extremities: no cyanosis, no clubbing, 2+ LE edema Skin: normal turgor, no lesions, no rashes Neurological: cranial nerve grossly intact, normal sensation to touch Hosp A/P - Plan Chest Xray 01/17: lung opacities may reflect pneumonia CT abdomen 01/15: high grade acute pancreatitis. Diffuse hepatic steatosis. Diaphragmatic and paraesophageal hernia CT abdomen 01/17: high grade pancreatitis with extensive peripancreatic inflammatory changes and fluid in the abdomen with nonencapsulated peripancreatic fluid collection extending along inferior aspect greater curvature of the stomach and inferiorly. Diffuse fatty liver. Increase in bilateral pleural effusions with small to moderate size bilateral pleural effusions and associated bibsilar areas of consolidation. Dilated loops of small bowel with fluid and gas likely from ileus Chest X ray 01/20: bilateral interstitial and parenchymal airspace opacity within perihilar and upper long zone on the right due to bilateral pneumonia and atypical pneumonia. Left pleural effusion Chest X ray 01/21: bilateral patchy infiltrates, possible pneumonia vs pleural effusion Endoscopy 01/22: 1-2 cm ulceration in the gastric body. Dobhoff tube placed in 3rd/4th portion of duodenum Chest X ray 01/22: improvement in airspace disease Chest X ray 01/23: bilateral infiltrates. Small left pleural effusion This is 54 year old male who presented with pancreatitis and was intubated due to severe withdrawal #Severe alcohol withdrawal #Acute metabolic encephalopathy requiring intubation #Acute pancreatitis #Ileus #Fatty liver - CT abdomen on admission showing high grade pancreatitis. Repeat CT abdomen 01/17 shows high grade pancreatitis with peripancreatic fluid collection. - Continue meropenem and vancomycin - tube feeds on hold again due to vomiting. GI performed endoscopy 01/21 which showed ulceration in the gastric body. Dobhoff tube was placed 01/22 -continue thiamine and folic acid #Acute hypoxic respiratory failure from pulmonary edema and sepsis from aspiration pneumonia - continue IV lasix, vanc, meropenem - daily X rays #Sepsis from Aspiration pneumonia - temp of 102, WBC up to 17 today. On IV meropenem and vancomycin (D1 01/21). Chest X ray showing possible bilateral infiltrates - blood culture grew 1/2 MRSE. Will repeat blood cultures. URine culture normal - will obtain ID consult due to persistent fevers #Transaminitis - LFTS downtrending #Hypophosphatemia - phos 1.9. Continue phos packet prn #Hypocalcemia - calcium supplementation prn #Hyponatremia - resolved Dispo: pending improvement from weaning of ventilator Code status: full code
[2020-01-24] MEDS: Acetaminophen 650 MG Suppository PR PRN (15:33)
--- NOTE | 2020-01-24 15:54 | EKG ---
Test Reason : Blood Pressure : / mmHG Vent. Rate : 096 BPM Atrial Rate : 096 BPM P-R Int : 152 ms QRS Dur : 084 ms QT Int : 352 ms P-R-T Axes : 049 030 050 degrees QTc Int : 444 ms Normal sinus rhythm T wave abnormality, consider anterior ischemia Abnormal ECG Confirmed by JUAN KINGSLEY, SANGEETHA Pedraza ([id number]), legal editor GARY MARTINEZ ([id number]) on 01/24/2020 3:53:43 PM Referred By: Confirmed By:SANGEETHA MARTINEZ MD
--- NOTE | 2020-01-24 16:38 | RAD ---
SUPINE ABDOMEN: 01/24/20 INDICATIONS: NG tube placement. Correlation made to film earlier today at 1:58 p.m. FINDINGS/IMPRESSION: The Dobhoff feeding tube has been advanced and now appears to pass through the pyloric channel crossi ng the midline and now is located in the left mid abdomen probably near the ligament of Treitz. The NG tube is unchanged. Gas filled dilated loops of small bowel are again noted. POS: AGW
[2020-01-24] MEDS ORDERED: Valproate Sodium 500 MG in Sodium Chloride 0.9% 100 ML IVPB SCH (21:30)
--- NOTE | 2020-01-24 21:43 | PRG ---
DATE OF SERVICE: 01/24/2020 SUBJECTIVE: Mr. Haq is sedated on the vent. His Diprivan is weaned off. He is on Precedex. He had a Dobhoff tube placed endoscopically to the level of the ligament of Treitz yesterday. He started feeds; however, he started vomiting with those and he has developed abdominal distention today. PHYSICAL EXAMINATION: VITAL SIGNS: Temperature 100.9, maximum temperature today was 102.5; pulse 104; blood pressure 118/73. GENERAL: He is sedated on the vent. No acute distress. LUNGS: Clear to auscultation bilaterally. HEART: Tachycardic S1, S2. ABDOMEN: Distended. Bowel sounds are present, hypoactive. EXTREMITIES: No lower extremity edema. LABORATORY DATA: White blood cell count 17.6, hemoglobin 7.3, platelets 282, creatinine 0.54, bilirubin 3.1, AST 152, ALT 79. IMPRESSION: 1. Alcoholic pancreatitis, which is severe with acute kidney injury that has improved and respiratory failure. No pancreatic necrosis was identified by CT scan with contrast. 2. Alcoholic hepatitis. 3. Alcohol withdrawal. 4. Respiratory failure with sepsis and suspected aspiration pneumonia. RECOMMENDATIONS: 1. He is on broad-spectrum antimicrobials, including vancomycin and meropenem. 2. He remains on mechanical ventilation. 3. He is on Precedex. 4. We will continue to follow trend of his labs. Job ID: [id number]
--- NOTE | 2020-01-24 22:35 | CON ---
DATE OF CONSULTATION: 01/24/2020 REASON FOR CONSULTATION: Fever, pancreatitis. HISTORY OF PRESENT ILLNESS: A 54-year-old, history of alcoholism who has been admitted with a severe case of pancreatitis on January 15, initially presented with abdominal pain for 2 days before admission associated with vomiting. He did not have any documented fever before admission. No headaches. He did have some testicular pain, but no urinary symptoms otherwise. OBJECTIVE: VITAL SIGNS: Initial findings included BP 105/65, pulse 112, respirations 21, temperature 97.8, O2 saturations were 98. GENERAL: He was in moderate distress. ABDOMEN: The exam showed tender abdomen diffusely so with distention. LUNGS: Clear to auscultation and percussion. LABORATORY DATA: Initial findings also included white cell count 15,000, hemoglobin 18, MCV 96, platelets 179 with 31% bands. INR was 1.1 and pH was 7.3, pCO2 43, and pO2 70. Sodium 127, creatinine 2.03, calcium 6.9, AST 521, ALT 198, alkaline phosphatase 117. INITIAL IMAGING STUDIES: Included an abdomen pelvis CT, this was done on admission and was done without contrast that showed calcified lymph nodes infrahilar and diffuse hepatic steatosis and extensive stranding around the pancreatic head with inflammatory fluid throughout the anterior pararenal space extending into the omentum. Secondary inflammatory changes in the duodenum as well. The patient has been evaluated by Pulmonary, because of respiratory decompensation. He also had delirium tremens and it was not manageable with the medications, so he was transferred to the ICU for sedation. He was intubated, mostly combativeness was the reason for the sedation and intubation due to DTs. Dr. Larson has evaluated the patient and he continued ulcer prophylaxis. He was kept n.p.o. until he was intubated and TPN has been held. For the moment, meropenem was started on 01/17 , his temperature course has remained with temp elevation, which started on 01/17 and has been having intermittent temperature up to 102.7 since and the cultures have not been significant with only a contaminant noted in one set. Followup chest x- rays, the latest one shows bilateral lower lobe infiltrates, small pleural effusion. Dr. Batista has placed an NG tube beyond the pylorus to allow enteric feeding, because of increased residuals with NG tube feedings. Currently Mr. Haq is sedated. PAST MEDICAL HISTORY: Includes: 1. Alcoholism. 2. Bipolar disorder. 3. Pancreatitis. 4. Hypertension. 5. Depression. PAST SURGICAL HISTORY: 1. Ablation for atrial fibrillation. 2. Upper endoscopies. 3. ECT therapy. 4. Disk fusion. 5. Dieulafoy lesion with bleeding distal esophagus. FAMILY HISTORY: Noncontributory. SOCIAL HISTORY: Alcoholism, positive smoking, history of meth and cocaine use in the past. ALLERGIES: CODEINE, IODINE, NOT CLEAR WHAT TYPE OF ALLERGY TO PENICILLIN. MEDICATIONS: At the moment, he is receiving p.r.n. medications for: 1. Sedation. 2. Inhalers. 3. Fentanyl. 4. Insulin. 5. Meropenem. 6. Potassium. 7. Thiamine. 8. Vancomycin. PHYSICAL EXAMINATION: VITAL SIGNS: T-max 102.5 recently, pulse is 137, respirations 30, O2 saturation 94 with the current settings. He got a few tattoos in the appendicular structure skin, central line right subclavian and Roach catheter. I's and O's are negative for the past few days. HEENT: Constricted pupils. Sclerae white. Oral tracheal intubation. LUNGS: With basilar crackles. CARDIOVASCULAR: S1, S2. Regular rate without murmurs. ABDOMEN: Moderately distended. Bowel sounds are not audible at the moment. EXTREMITIES: There is trace edema in extremities. 1+ dorsalis pedis. He is hyporeflexic. LABORATORY DATA: The latest findings include sodium 139, creatinine 0.54, AST down to 152, ALT down to 79, alkaline phosphatase 68, bilirubin 3.1, albumin 2.1, white cell count is 15.3, hemoglobin 8.2, platelets 233 with 87% neutrophils. Urinalysis with no wbcs that is from 01/15. Urine culture, no growth at 48 hours from 2 days ago. Abdomen x-ray from 01/23, gas-filled dilated loops of small bowel noted. Chest x-ray from today with bilateral lower lobe infiltrates, small left pleural effusion, NG tube. ASSESSMENT: Alcoholism with pancreatitis. Other substance use in the past. Persistence of fever, pulmonary infiltrates. In general, fever is quite common in severe cases of pancreatitis and the etiology related usually to either pancreatitis per se and inflammatory changes associated with it or an extra pancreatic infection for example, cholangitis, urinary tract infection or pneumonia. Finally, pancreatic necrosis can become secondarily infected. Thus far we do not do not have any firm evidence to suggest bacterial or fungal infection. Cultures have been submitted. We may have to add antifungal therapy depending on progress. I believe, if blood cultures remain negative, we can discontinue vancomycin and maybe even meropenem. Repeat imaging study with contrast would be more effective in identifying the presence of necrosis. In general, empiric antimicrobial therapy is not recommended without sampling of the pancreatic bed or abscess, if this is identified on imaging studies. Thromboembolism is less likely. Superimposed bacterial pneumonia possible. Job ID: [id number] [facility]
[2020-01-24 23:06] LABS: Vancomycin, Trough 14.7 ug/mL
[2020-01-25] MEDS: Vancomycin 1.5 GRAM/300 ML BAG 1.5 GM in Premix Bag 1 BAG IVPB SCH ×4 (00:14→23:12)
[2020-01-25] MEDS: Meropenem 2 GM in Sodium Chloride 0.9% 100 ML IVPB SCH ×3 (01:57→16:15)
[2020-01-25 04:38] LABS: #Eosinphils 0.1 thou/uL (0.0-0.7); #Lymphocytes 0.8 thou/uL (1.20-3.40); #Monocytes 1.1 thou/uL (0.11-0.59); #Neutrophils 16.7 thou/uL (1.40-6.50); %Basophils 0.1 % (0.0-1.0); %Eosinophils 0.3 % (0.0-10.0); %Lymphocytes 4.2 % (21.0-51.0); %Monocytes 5.8 % (0.0-10.0); %Neutrophils 89.6 % (42.0-75.0); Hemoglobin 7.4 g/dL (14.0-18.0); Mean Corpuscular HGB CONC 31.8 g/dL (32.0-36.0); Mean Corpuscular Hemoglobin 32.1 pg (27.0-31.0); Mean Platelet Volume 8.1 fL (7.4-10.4); Platelet Count 354 thou/uL (130-400); RBC Distribution Width 13.6 % (11.5-14.5); White Blood Cell (WBC) Count 18.7 thou/uL (4.8-10.8)
[2020-01-25 05:00] LABS: ALT (SGPT) 83 U/L (8-55); AST (SGOT) 141 U/L (5-34); Albumin 2.2 g/dL (3.5-5.0); Alkaline Phosphatase 69 U/L (40-110); Anion Gap 12 mmol/L (10-20); BUN (Urea Nitrogen) 17 mg/dL (8.4-25.7); Bilirubin, Total 2.8 mg/dL (0.2-1.2); Calc. Creatinine Clearance 0 mL/min (70-130); Calcium 8.1 mg/dL (7.8-10.44); Carbon Dioxide 28 mmol/L (22-29); Chloride 104 mmol/L (98-107); Estimated GFR-MDRD Greater than 90; Globulin 3.5 g/dL (2.4-3.5); Glucose 86 mg/dL (70-105); Magnesium 2.3 mg/dL (1.6-2.6); Potassium 3.8 mmol/L (3.5-5.1); Protein, Total 5.7 g/dL (6.0-8.3); Sodium 140 mmol/L (136-145)
[2020-01-25 05:01] LABS: Phosphorus 1.8 mg/dL (2.3-4.7)
[2020-01-25] MEDS: Potassium Phosphate 9 MMOL in Sodium Chloride 0.9% 100 ML IVPB PRN (05:30)
[2020-01-25 07:02] LABS: Actual Bicarbonate (HCO3a) 27.3 mEq/L (22-28); Base Excess (BEa) 4.2 mEq/L (-2.0 to +3.0); CO2 Tension 34.2 mmHg (35.0-45.0); Calcium, Ionized 1.13 mmol/L (1.12-1.30); Carboxyhemoglobin (COHb) 2.8 gm% (0.0-3.0); O2 Tension (PaO2), arterial 98.4 mmHg (80.0-100.0); Potassium - ABG Lab 3.82 mmol/L (3.70-5.30); pH, Arterial 7.52 (7.35-7.45)
[2020-01-25 07:26] LABS: Puncture Site RBRACH
--- NOTE | 2020-01-25 07:57 | RAD ---
RADIOGRAPH CHEST 1 VIEW: DATE: 01/25/2020 TIME: 4:27 AM HISTORY: 54-year-old male with pneumonia COMPARISON: 01/24/2020 FINDINGS: No interval change in life support lines detected (portions inferior to the diaphragm not visualized well). Left pleural effusion and large airspace opacity involving left lower lobe. No pneumothorax. Right upper and mid lung zones relatively clear. No interval change overall. IMPRESSION: No interval change.
[2020-01-25] MEDS: Pantoprazole 40 MG VIAL IVP SCH (08:31)
[2020-01-25] MEDS: Furosemide 40 MG/4 ML VIAL SLOW IVP SCH (08:35)
[2020-01-25] MEDS: THIAMINE HCL IVPB SCH (08:36)
[2020-01-25] MEDS: SODIUM CHLORIDE 0.9% IVPB SCH (08:36)
[2020-01-25] MEDS: FOLIC ACID IVPB SCH (08:36)
[2020-01-25] MEDS: Valproate Sodium 500 MG in Sodium Chloride 0.9% 100 ML IVPB SCH ×3 (08:38→20:20)
[2020-01-25] MEDS: Enoxaparin Sodium 40 MG/0.4 ML SYRINGE SC SCH (08:40)
[2020-01-25] MEDS: Ziprasidone 20 MG VIAL IM SCH ×2 (08:50→20:20)
--- NOTE | 2020-01-25 09:20 | PRG ---
DATE OF SERVICE: 01/25/2020 SUBJECTIVE: Mr. Haq is better today. I got him to follow commands for me. He is only on low-dose Precedex . OBJECTIVE: VITAL SIGNS: His temperature is 97, pulse in the 90s to 100s, blood pressure 91/61, O2 saturation 99%. 24-hour intake 1470, output 4055. HEENT: Unremarkable. NECK: No JVD. LUNGS: Fairly clear anteriorly. CARDIAC: S1 and S2. Slightly tachycardic. ABDOMEN: Distended, but softer. EXTREMITIES: No edema. LABORATORY DATA: ABG; pH 7.52, pCO2 of 34, pO2 of 98. White blood cell count 18.7, hematocrit 23.2, and platelet count 354. Sodium 140, potassium 3.8, chloride 104, CO2 of 28, BUN 17, creatinine 0.5, glucose 86, phosphorus 1.8, AST 141, ALT 83. DIAGNOSTIC DATA: His x-ray shows some improvement. ASSESSMENT: 1. Acute respiratory failure requiring mechanical ventilation. 2. Delirium tremens which appear to be resolving. 3. Alcoholic pancreatitis. 4. Alcoholic hepatitis. 5. Ileus, which appears to be improved. PLAN: I think he is improved to the point where we can extubate him and see how he does. He may need to continue the Precedex drip for a while. We will leave his NG-tube and his Dobhoff tube in. He will continue on antibiotics through today and can probably be stopped tomorrow morning as he would have had 7 days. I am not sure the coag-negative staph coming out of the peripheral blood culture really means a lot. I would think it is probably a contaminant. We will follow. Job ID: [id number]
--- NOTE | 2020-01-25 16:15 | PDOC.HOSPP ---
- Subjective Encounter Date: 01/25/20 Encounter Time: 14:00 Subjective: The patient was extubated today. Per nursing he is following commands, however currently very groggy. Patient is able to squeeze fingers. He had mild temp to 100.6. He has good urine output with the lasix - Objective Vital Signs & Weight: Vital Signs (12 hours) Temp Pulse Resp Pulse Ox 01/25/20 14:31 128 H 38 H 97 01/25/20 12:00 100.4 F H 01/25/20 10:37 121 H 38 H 99 01/25/20 08:00 21 H 100 01/25/20 07:24 106 H 28 H 99 01/25/20 07:00 100.3 F H Weight Admit Weight 181 lb Weight 193 lb 12.581 oz Most Recent Monitor Data Heart Rate from ECG 121 NIBP 99/63 NIBP BP-Mean 75 Respiration from ECG 21 SpO2 96 I&O: 01/24/20 01/25/20 01/26/20 06:59 06:59 06:59 Intake Total 1485.0 1470 955 Output Total 3862 4055 2070 Balance -2377.0 -2585 -1115 Result Diagrams: 01/25/20 04:23 01/25/20 04:23 Additional Labs: Accuchecks 01/25/20 01/25/20 01/24/20 12:14 03:04 18:31 POC Glucose 84 92 89 01/24/20 14:56 POC Glucose 92 Hospitalist ROS - Review of Systems ROS unobtainable: due to mental status - Medication Medications: Active Medications Generic Name Dose Route Start Last Admin Trade Name Freq PRN Reason Stop Dose Admin Acetaminophen 650 mg 01/24/20 14:52 01/24/20 15:33 Tylenol [place] 650 mg Q6H PRN Administration FEVER > 101 Albuterol/Ipratropium 3 ml 01/18/20 18:30 01/25/20 14:31 Duoneb NEB 3 ml [id number] JOSETTE Administration Enoxaparin Sodium 40 mg 01/17/20 09:00 01/25/20 08:40 Lovenox SC 40 mg 0900 JOSETTE Administration Furosemide 40 mg 01/22/20 09:00 01/25/20 08:35 Lasix SLOW IVP 40 mg DAILY JOSETTE Administration Meropenem 2 gm/ Sodium 100 mls @ 200 mls/hr 01/18/20 16:00 01/25/20 10:30 Chloride IVPB 01/25/20 23:59 100 mls 0800,1600,2359 JOSETTE Administration Potassium Phosphate 9 mmol/ 103 mls @ 25.75 mls/hr 01/18/20 15:53 01/25/20 05 :30 Sodium Chloride IVPB 103 mls ASDIR PRN Administration Phosphate 1.0-1.8 Midazolam HCl 100 mg/ 100 mls @ 0 mls/hr 01/19/20 09:15 01/22/20 09:59 Miscellaneous Medication 1 IVPB 100 mls each/ Sodium Chloride INF JOSETTE Administration Protocol Titrate Thiamine HCl 100 mg/ Folic 51.08 mls @ 100.157 mls/hr 01/21/20 09:00 08:36 Acid 0.4 mg/ Sodium Chloride IVPB 51.08 mls DAILY JOSETTE Administration Dexmedetomidine HCl 400 mcg/ 100 mls @ 0 mls/hr 01/22/20 10:00 01/25/20 12:26 Sodium Chloride IVPB 100 mls INF JOSETTE Administration Protocol Per Protocol Vancomycin HCl 1.5 gm/ Device 300 mls @ 200 mls/hr 01/23/20 23:00 01/25/20 15 :02 IVPB 300 mls 0700,1500,2300 JOSETTE Administration Valproic Acid 500 mg/ Sodium 105 mls @ 105 mls/hr 01/25/20 09:00 01/25/20 15: 04 Chloride IVPB 105 mls TID JOSETTE Administration Ibuprofen 400 mg 01/19/20 10:48 01/24/20 00:02 Motrin PER TUBE 400 mg Q6H PRN Administration TEMP > 101 Lorazepam 2 mg 01/18/20 15:54 01/24/20 10:46 Ativan SLOW IVP 02/17/20 15:54 2 mg Q1H PRN Administration Breakthrough agitation Miscellaneous Medication 1 pkt 01/18/20 15:53 01/20/20 19:52 Phos-Nak PO 1 pkt TIDPRN PRN Administration FOR PHOS LEVEL 1.0 - 1.8 Miscellaneous Medication 2 pkt 01/18/20 15:53 01/19/20 05:07 Phos-Nak PO 2 pkt TIDPRN PRN Administration FOR PHOS LEVEL 0.5 - 1.0 Morphine Sulfate 2 mg 01/18/20 15:54 01/24/20 01:57 Morphine SLOW IVP 02/17/20 15:54 2 mg Q1H PRN Administration BREAKTHROUGH PAIN/Agitation Pantoprazole Sodium 40 mg 01/19/20 09:00 01/25/20 08:31 Protonix IVP 40 mg DAILY JOSETTE Administration Propofol 1,000 mg 01/18/20 15:54 01/24/20 02:19 Diprivan IV 02/17/20 15:54 1,000 mg INF PRN Administration TO ACHIEVE GOAL RASS Protocol Senna/Docusate Sodium 2 tab 01/16/20 21:05 01/20/20 19:52 Senokot S PO 2 tab BID PRN Administration Constipation Sodium Chloride 10 ml 01/19/20 21:00 01/25/20 08:50 Flush - Normal Saline IVF Not Given Q12HR JOSETTE Ziprasidone 20 mg 01/24/20 09:00 01/25/20 08:50 Geodon IM 20 mg BID JOSETTE Administration - Exam General Appearance: NAD General - other findings: lethargic Eye: PERRL, anicteric sclera ENT: normocephalic atraumatic, no oropharyngeal lesions ENT - other findings: NG tube in place with 50 output Neck: no JVD Heart: RRR, no murmur, no gallops, no rubs Respiratory: CTAB, no wheezes, no rales, no ronchi Gastrointestinal: soft Gastrointestinal - other findings: abdomen distended Extremities: no cyanosis, no clubbing, no edema Skin: normal turgor, no lesions, no rashes Neurological - other findings: able to squeeze fingers to command Musculoskeletal: normal tone, normal strength, no muscle wasting Psychiatric: lethargic Hosp A/P - Plan Chest Xray 01/17: lung opacities may reflect pneumonia CT abdomen 01/15: high grade acute pancreatitis. Diffuse hepatic steatosis. Diaphragmatic and paraesophageal hernia CT abdomen 01/17: high grade pancreatitis with extensive peripancreatic inflammatory changes and fluid in the abdomen with nonencapsulated peripancreatic fluid collection extending along inferior aspect greater curvature of the stomach and inferiorly. Diffuse fatty liver. Increase in bilateral pleural effusions with small to moderate size bilateral pleural effusions and associated bibsilar areas of consolidation. Dilated loops of small bowel with fluid and gas likely from ileus Chest X ray 01/20: bilateral interstitial and parenchymal airspace opacity within perihilar and upper long zone on the right due to bilateral pneumonia and atypical pneumonia. Left pleural effusion Chest X ray 01/21: bilateral patchy infiltrates, possible pneumonia vs pleural effusion Endoscopy 01/22: 1-2 cm ulceration in the gastric body. Dobhoff tube placed in 3rd/4th portion of duodenum Chest X ray 01/22: improvement in airspace disease Chest X ray 01/23: bilateral infiltrates. Small left pleural effusion Abd X ray: gas filled dilated loops of small bowel Chest X ray 01/24: left opacity and left pleural effusion This is 54 year old male who presented with pancreatitis and was intubated due to severe withdrawal #Severe alcohol withdrawal #Acute metabolic encephalopathy requiring intubation #Acute pancreatitis #Ileus #Fatty liver - CT abdomen on admission showing high grade pancreatitis. Repeat CT abdomen 01/17 shows high grade pancreatitis with peripancreatic fluid collection. -GI performed endoscopy 01/21 which showed ulceration in the gastric body. Dobhoff tube was placed 01/22. NG tube placed to low wall suction with 50 cc output - patient is being weaned off sedation #Acute hypoxic respiratory failure from pulmonary edema and sepsis from aspiration pneumonia - patient was extubated today 01/24 -continue IV lasix. Repeat chest Xray today shows left pleural effusion and left sided opacity - continue antibiotics, may be able to dc soon #Sepsis from Aspiration pneumonia vs pancreatitis - temp down to 102, WBC up to 18. On IV meropenem day 7 and vancomycin day 3. Chest X ray showing possible bilateral infiltrates initially but now just left sided pleural effusion and left sided opacity - still has some fevers, continue for now, could possibly be able to d/c vanc tomorrow since extubated. ID is following - consider repeat CT abdomen if persistent fevers - blood culture grew 1/2 MRSE. Repeat blood cultures normal. Urine culture normal #Transaminitis - LFTS downtrending #Hypophosphatemia - phos 1.9. Continue phos packet prn #Hypocalcemia - calcium supplementation prn #Hyponatremia - resolved Dispo: pending improvement from weaning of ventilator Code status: full code
--- NOTE | 2020-01-25 17:13 | PRG ---
DATE OF SERVICE: 01/25/2020 SUBJECTIVE: The patient has been extubated. He is able to understand my questions and will answer yes or no. He still has moderate abdominal pain and mild dyspnea. No other symptoms of significance reported at the moment. OBJECTIVE: VITAL SIGNS: He is still having temperature elevation, it was 102.5 yesterday at noon and now is 100.4, BP 99/63, heart rate 121, and O2 saturation 96% on nasal cannula O2 supplementation. SKIN: Subclavian line on the right side and indwelling Roach catheter. I's and O's are negative for the past many days, anywhere from 1500 to 2500. HEENT: Ocular movements are conjugate. Pupils are 2 mm and reactive. He has a Dobhoff tube. LUNGS: Symmetric air entry. Faint basilar crackles. HEART: S1 and S2. ABDOMEN: Distended abdomen, somewhat tight to palpation. Bowel sounds are diminished. He grimaces when the abdominal area is palpated. EXTREMITIES: Trace edema in the lower extremities. He is able to move all extremities. Perfusion is good. Cap refill is less than 3 seconds. NEUROLOGIC: Again, he is awake, but his ability to answer questions quite limited. He does follow commands, though with some insistence. LABORATORY DATA: White cell count was 5.1 and is up to 18.7; hemoglobin 7.4, he has quite a bit of decrease in hemoglobin since the ; platelets up to 354; and 89% neutrophils. Creatinine 0.55, sodium 140, potassium 3.8, phosphorus 1.8, calcium 8.1, AST is down to 141, ALT stable at 83, alkaline phosphatase normal, bilirubin is 2.86 which is a little bit better. Albumin 2.2. Two sets of blood cultures from the and no growth to date. Chest x-ray with no interval change with a left pleural effusion, airspace opacity involving left lower lobe, right side is relatively clear. MEDICATIONS: The patient currently on meropenem and vancomycin. ASSESSMENT AND DISCUSSION: 1. Alcoholism. 2. Acute pancreatitis. 3. Severe possible pancreatic necrosis. 4. Possible superimposed pancreatic bed infection. An alternate infectious process is possible, particularly the pneumonia, although the inflammatory process could be entirely due to the severity of pancreatitis. May need repeat imaging study of the pancreatic area with contrast if he continues to have persistence of inflammatory process with neutrophilia and fever. It does not look like the line is infected at the moment. Urinary tract is okay. Job ID: [id number]
--- NOTE | 2020-01-25 17:51 | PRG ---
DATE OF SERVICE: 01/25/2020 SUBJECTIVE: Mr. Haq was extubated. He appears to be breathing comfortably, but he is mentating slowly. He could tell me his first name, that is about it. OBJECTIVE: GENERAL: He is in no acute distress. He is not oriented. LUNGS: Clear to auscultation bilaterally. HEART: Tachycardic. S1 and S2. ABDOMEN: Distended with hypoactive bowel sounds. His NG tube is in place with bilious output. EXTREMITIES: No lower extremity edema. LABORATORY DATA: White blood cell count 18.7, hemoglobin 7.4, and platelets 354. Creatinine 0.55, bilirubin 2.8, AST 141, ALT 83, and albumin 2.2. IMPRESSION: 1. Severe alcoholic pancreatitis. Contrast CT from 01/17 did not show necrosis. He is being covered with broad-spectrum antibiotics. However, he does not have a clearly defined pancreatic source for his fever. However, the pancreatitis itself could be causing fever and elevated white count. The more likely explanation is the pneumonia. If he fails to improve over the next few days, then CT with contrast could be repeated to evaluate for pancreatic necrosis at risk for infection. 2. Alcoholic hepatitis. 3. Alcohol withdrawal. 4. Encephalopathy. RECOMMENDATIONS: 1. Continue supportive care. He has not tolerated tube feeds well with abdominal distention and increased output. He likely has an ileus secondary to the acute pancreatitis. 2. I will add an ammonia level with the morning labs currently. Job ID: [id number]
[2020-01-26] MEDS: Meropenem 2 GM in Sodium Chloride 0.9% 100 ML IVPB SCH (01:08)
[2020-01-26 04:45] LABS: #Lymphocytes 0.6 thou/uL (1.20-3.40); %Basophils 0.1 % (0.0-1.0); %Eosinophils 0.2 % (0.0-10.0); %Lymphocytes 4.1 % (21.0-51.0); %Monocytes 6.4 % (0.0-10.0); %Neutrophils 89.2 % (42.0-75.0); Hemoglobin 6.7 g/dL (14.0-18.0); Mean Corpuscular HGB CONC 31.8 g/dL (32.0-36.0); Mean Platelet Volume 8.1 fL (7.4-10.4); Platelet Count 412 thou/uL (130-400); RBC Distribution Width 13.6 % (11.5-14.5); White Blood Cell (WBC) Count 15.7 thou/uL (4.8-10.8)
[2020-01-26 05:00] LABS: ALT (SGPT) 89 U/L (8-55); AST (SGOT) 165 U/L (5-34); Albumin 2.3 g/dL (3.5-5.0); Alkaline Phosphatase 68 U/L (40-110); Anion Gap 14 mmol/L (10-20); BUN (Urea Nitrogen) 14 mg/dL (8.4-25.7); Bilirubin, Total 2.5 mg/dL (0.2-1.2); Calc. Creatinine Clearance 192 mL/min (70-130); Calcium 7.9 mg/dL (7.8-10.44); Carbon Dioxide 26 mmol/L (22-29); Chloride 106 mmol/L (98-107); Estimated GFR-MDRD Greater than 90; Globulin 3.3 g/dL (2.4-3.5); Glucose 78 mg/dL (70-105); Magnesium 2.2 mg/dL (1.6-2.6); Potassium 3.6 mmol/L (3.5-5.1); Protein, Total 5.6 g/dL (6.0-8.3); Sodium 142 mmol/L (136-145)
[2020-01-26 05:03] LABS: Phosphorus 1.8 mg/dL (2.3-4.7)
[2020-01-26] MEDS: Potassium Phosphate 9 MMOL in Sodium Chloride 0.9% 100 ML IVPB PRN (06:07)
[2020-01-26] MEDS: Vancomycin 1.5 GRAM/300 ML BAG 1.5 GM in Premix Bag 1 BAG IVPB SCH (06:11)
[2020-01-26] MEDS: Ziprasidone 20 MG VIAL IM SCH ×2 (08:02→22:18)
[2020-01-26] MEDS: Furosemide 40 MG/4 ML VIAL SLOW IVP SCH (08:05)
[2020-01-26] MEDS: Enoxaparin Sodium 40 MG/0.4 ML SYRINGE SC SCH (08:08)
[2020-01-26] MEDS: Pantoprazole 40 MG VIAL IVP SCH ×2 (08:09→22:18)
[2020-01-26] MEDS: Valproate Sodium 500 MG in Sodium Chloride 0.9% 100 ML IVPB SCH ×3 (08:11→22:17)
--- NOTE | 2020-01-26 08:26 | RAD ---
EXAM: CHEST ONE VIEW HISTORY: Pneumonia COMPARISON: 01/25/2020 FINDINGS: Right subclavian central venous catheter, nasogastric tube, and Dobbhoff feeding tubes remain in plac e and unchanged in position. The endotracheal tube appears to have been removed. Cardiac silhouette is magnified by projection. Large airspace opacity involving a large portion of the left lung is pres ent and does appear mildly increased from prior exam. Minimal patchy density is seen at the right lung base which may be related to volume loss. No other interval change. IMPRESSION: 1. Interval worsening of interstitial and airspace opacities in the left hemithorax which may be rela martina to worsening pneumonia. Probable small left pleural effusion. Continued follow-up to resolution is recommended. 2. Interval removal of the endotracheal tube; the remaining lines and tubes are stable in position.
[2020-01-26] MEDS: THIAMINE HCL IVPB SCH (09:10)
[2020-01-26] MEDS: SODIUM CHLORIDE 0.9% IVPB SCH (09:10)
[2020-01-26] MEDS: FOLIC ACID IVPB SCH (09:10)
[2020-01-26] MEDS ORDERED: Sodium Chloride 0.9% 500 ML IV SCH (12:45)
[2020-01-26] MEDS: Acetaminophen 650 MG Suppository PR PRN (12:55)
--- NOTE | 2020-01-26 14:47 | PRG ---
DATE OF SERVICE: 01/26/2020 HISTORY OF PRESENT ILLNESS: Mr. Haq is a 54-year-old gentleman with a longstanding history of alcoholism, who presents to the hospital with acute pancreatitis. He developed respiratory failure requiring mechanical ventilation and was extubated approximately 24 hours ago. He has had no evidence of DTs in the intervening 24 hours. He had blood cultures, which were remarkable for coag-negative staph, although this is likely a contaminant. PHYSICAL EXAMINATION: VITAL SIGNS: Blood pressure 105/70, heart rate is 80, pulse ox is 97% on supplemental nasal oxygen. GENERAL: He is a 54-year-old gentleman, who appears older than his stated age. He is awake, follows simple commands. He denies pain. HEENT: Shows no scleral icterus. He has no JVD. LUNGS: Show rhonchi, especially on the left. There is no wheezing. He is not having any impending respiratory distress. HEART: Regular rate and rhythm. ABDOMEN: Soft, distended without guarding or rebound. There is no palpable mass. I do not see any evidence of stigmata of chronic liver disease, but he has 1+ edema. LABORATORY DATA: White count 15,700, down from 18,700 yesterday; hemoglobin is 6.7, down from 9.7 on admission; hematocrit is 21. He has macrocytic indices and has thrombocytosis of 412,000. Chemistry panel today is remarkable for a creatinine of 0.6. His bilirubin is 2.5. Liver tests are mildly elevated including AST 165 and ALT of 89, both stable. Chest x-ray shows haziness in the left is suspicious for a mix of effusion and possible consolidation. IMPRESSION: 1. Pancreatitis, improving with normalization of lipase, which had been as high is 1575. 2. Status post respiratory failure, now extubated. He does still have some consolidation and/or effusion on the left. He does not appear to be significantly toxic. Unclear whether this is sympathetic due to his pancreatitis or a secondary and separate process. 3. History of alcohol abuse and delirium tremens, resolved. PLAN: We will continue current therapies. At this point, I would not do a thoracentesis, although if he has persistence of his leukocytosis, I would recommend that we do a CT scan for better delineation of the underlying lung pathology and based on that, thoracentesis or other intervention may be appropriate. Job ID: [id number]
--- NOTE | 2020-01-26 14:51 | PDOC.HOSPP ---
- Subjective Encounter Date: 01/26/20 Encounter Time: 11:15 Subjective: pt up in bed does not speak very much but is able to move all ext. - Objective Vital Signs & Weight: Vital Signs (12 hours) Temp Pulse Resp Pulse Ox 01/26/20 14:42 128 H 19 98 01/26/20 14:00 98.4 F 01/26/20 12:00 100.0 F H 01/26/20 11:08 123 H 37 H 100 01/26/20 08:00 99.0 F 95 01/26/20 07:14 124 H 35 H 97 01/26/20 04:00 98.5 F Weight Admit Weight 181 lb Weight 172 lb 13.478 oz Most Recent Monitor Data Heart Rate from ECG 120 NIBP 105/70 NIBP BP-Mean 81 Respiration from ECG 23 SpO2 97 I&O: 01/25/20 01/26/20 01/27/20 06:59 06:59 06:59 Intake Total 1470 1963.9 500 Output Total 4056 4276 9575 [facility] -2585 -2301.1 -1615 Result Diagrams: 01/26/20 04:15 01/26/20 04:15 Additional Labs: Accuchecks 01/26/20 01/25/20 01/25/20 04:23 22:21 18:40 POC Glucose 86 88 85 Hospitalist ROS - Review of Systems Other: unable to obtain - Medication Medications: Active Medications Generic Name Dose Route Start Last Admin Trade Name Freq PRN Reason Stop Dose Admin Acetaminophen 650 mg 01/24/20 14:52 01/26/20 12:55 Tylenol OR 650 mg Q6H PRN Administration FEVER > 101 Albuterol/Ipratropium 3 ml 01/18/20 18:30 01/26/20 14:42 Duoneb NEB 3 ml [id number] JOSETTE Administration Enoxaparin Sodium 40 mg 01/17/20 09:00 01/26/20 08:08 Lovenox SC 40 mg 0900 JOSETTE Administration Potassium Phosphate 9 mmol/ 103 mls @ 25.75 mls/hr 01/18/20 15:53 01/26/20 06 :07 Sodium Chloride IVPB 103 mls ASDIR PRN Administration Phosphate 1.0-1.8 Midazolam HCl 100 mg/ 100 mls @ 0 mls/hr 01/19/20 09:15 05//20 09:59 Miscellaneous Medication 1 IVPB 100 mls each/ Sodium Chloride INF JOSETTE Administration Protocol Titrate Thiamine HCl 100 mg/ Folic 51.08 mls @ 100.157 mls/hr 01/21/20 09:00 09:10 Acid 0.4 mg/ Sodium Chloride IVPB 51.08 mls DAILY JOSETTE Administration Dexmedetomidine HCl 400 mcg/ 100 mls @ 0 mls/hr 01/22/20 10:00 01/26/20 01:09 Sodium Chloride IVPB 100 mls INF JOSETTE Administration Protocol Per Protocol Valproic Acid 500 mg/ Sodium 105 mls @ 105 mls/hr 01/25/20 09:00 01/26/20 14: 47 Chloride IVPB 105 mls TID JOSETTE Administration Lorazepam 2 mg 01/18/20 15:54 01/24/20 10:46 Ativan SLOW IVP 02/17/20 15:54 2 mg Q1H PRN Administration Breakthrough agitation Miscellaneous Medication 1 pkt 01/18/20 15:53 01/20/20 19:52 Phos-Nak PO 1 pkt TIDPRN PRN Administration FOR PHOS LEVEL 1.0 - 1.8 Miscellaneous Medication 2 pkt 01/18/20 15:53 01/19/20 05:07 Phos-Nak PO 2 pkt TIDPRN PRN Administration FOR PHOS LEVEL 0.5 - 1.0 Morphine Sulfate 2 mg 01/18/20 15:54 01/24/20 01:57 Morphine SLOW IVP 02/17/20 15:54 2 mg Q1H PRN Administration BREAKTHROUGH PAIN/Agitation Pantoprazole Sodium 40 mg 01/19/20 09:00 01/26/20 08:09 Protonix IVP 40 mg DAILY JOSETTE Administration Propofol 1,000 mg 01/18/20 15:54 01/24/20 02:19 Diprivan IV 02/17/20 15:54 1,000 mg INF PRN Administration TO ACHIEVE GOAL RASS Protocol Senna/Docusate Sodium 2 tab 01/16/20 21:05 01/20/20 19:52 Senokot S PO 2 tab BID PRN Administration Constipation Sodium Chloride 10 ml 01/19/20 21:00 01/26/20 08:09 Flush - Normal Saline IVF 10 ml Q12HR JOSETTE Administration Ziprasidone 20 mg 01/24/20 09:00 01/26/20 08:02 John IM 20 mg BID JOSETTE Administration - Exam Neck: negative: supple, symmetric, no JVD, no thyromegaly, no lymphadenopathy, no carotid bruit, JVD Heart: negative: RRR, no murmur, no gallops, no rubs, normal peripheral pulses, irregular, diminshed peripheral pulses, murmur present, II/IV, III/IV Respiratory: negative: CTAB, no wheezes, no rales, no ronchi, normal chest expansion, no tachypnea, normal percussion, rales, rhonchi, tachypneic, wheezes Gastrointestinal: soft, normal bowel sounds Extremities: negative: no cyanosis, no clubbing, no edema, 1+ LE edema, 2+ LE edema, clubbing Hosp A/P - Plan #Severe alcohol withdrawal #Acute metabolic encephalopathy requiring intubation #Acute pancreatitis #Ileus #Fatty liver - CT abdomen on admission showing high grade pancreatitis. Repeat CT abdomen 01/17 shows high grade pancreatitis with peripancreatic fluid collection. -GI performed endoscopy 01/21 which showed ulceration in the gastric body. Dobhoff tube was placed 01/22. NG tube placed to low wall suction with 50 cc output - patient is being weaned off sedation #Acute hypoxic respiratory failure from pulmonary edema and sepsis from aspiration pneumonia - patient was extubated today 01/24 -continue IV lasix. Repeat chest Xray today shows left pleural effusion and left sided opacity - continue antibiotics, may be able to dc soon #Sepsis from Aspiration pneumonia vs pancreatitis - temp down to 102, WBC up to 18. On IV meropenem day 7 and vancomycin day 3. Chest X ray showing possible bilateral infiltrates initially but now just left sided pleural effusion and left sided opacity - still has some fevers, continue for now, could possibly be able to d/c vanc tomorrow since extubated. ID is following - consider repeat CT abdomen if persistent fevers - blood culture grew 1/2 MRSE. Repeat blood cultures normal. Urine culture normal 01/25 cxr LLL infiltrate, pt also has elevated wbc and is tachycardia which could be multifactoral but will change abx to clindamycin given his penicillin allergy. #Transaminitis - LFTS downtrending #Hypophosphatemia - phos 1.9. Continue phos packet prn #Hypocalcemia - calcium supplementation prn #Hyponatremia - resolved Anemia will transfuse one unit of blood. tachycardia sinus: will give a 500ml bolus will stop iv lasix for now. He is not at goal for his tube feeds. multifactoral reason. Dispo: pending improvement from weaning of ventilator Code status: full code
[2020-01-26] MEDS: Clindamycin/D5W 600 MG in Premix Bag 1 BAG IVPB SCH ×2 (14:53→22:17)
--- NOTE | 2020-01-26 17:46 | PRG ---
DATE OF SERVICE: 01/26/2020 SUBJECTIVE: Mr. Haq is oriented to his name today. He could tell the nurse earlier today his location and year. He continues to have significant output from his NG tube suction, which is bilious. He has not had no bowel movement today. OBJECTIVE: VITAL SIGNS: Temperature 98.4, blood pressure 106/82, pulse 90. LABORATORY DATA: White blood cell count 15.7, hemoglobin 6.7, platelets 412. Creatinine 0.56, bilirubin 2.5, AST 165, ALT 89, albumin 2.3. IMPRESSION: 1. Acute alcoholic pancreatitis. 2. Acute alcoholic hepatitis. 3. Alcohol withdrawal and encephalopathy. He is more oriented today, but still pretty out of it. 4. Ileus. He has an NG tube in place to suction and retrieving bilious material. He has not tolerated tube feeds through his Dobhoff tube as of yet. He still has no bowel sounds and his abdomen is a bit distended. RECOMMENDATIONS: If he has any further fevers or if his ileus fails to improve by tomorrow, then repeat CT scan of the abdomen and pelvis with IV contrast and oral contrast through the Dobhoff tube. Otherwise, we can try to restart feeds through the Dobhoff tube tomorrow. Job ID: [id number]
[2020-01-27 04:42] LABS: #Eosinphils 0.1 thou/uL (0.0-0.7); #Lymphocytes 0.7 thou/uL (1.20-3.40); #Monocytes 1.3 thou/uL (0.11-0.59); #Neutrophils 15.3 thou/uL (1.40-6.50); %Basophils 0.1 % (0.0-1.0); %Eosinophils 0.4 % (0.0-10.0); %Lymphocytes 4.3 % (21.0-51.0); %Monocytes 7.3 % (0.0-10.0); %Neutrophils 87.9 % (42.0-75.0); Hemoglobin 7.7 g/dL (14.0-18.0); Mean Corpuscular HGB CONC 32.4 g/dL (32.0-36.0); Mean Corpuscular Hemoglobin 32.1 pg (27.0-31.0); Mean Corpuscular Volume 99.2 fL (78.0-98.0); Mean Platelet Volume 7.7 fL (7.4-10.4); Platelet Count 470 thou/uL (130-400); RBC Distribution Width 13.9 % (11.5-14.5); Red Blood Cell (RBC) Count 2.41 mill/uL (4.70-6.10); White Blood Cell (WBC) Count 17.4 thou/uL (4.8-10.8)
[2020-01-27] MEDS: Clindamycin/D5W 600 MG in Premix Bag 1 BAG IVPB SCH ×2 (06:02→15:51)
[2020-01-27] MEDS: SODIUM CHLORIDE 0.9% IVPB SCH (08:18)
[2020-01-27] MEDS: FOLIC ACID IVPB SCH (08:18)
[2020-01-27] MEDS: THIAMINE HCL IVPB SCH (08:18)
[2020-01-27] MEDS: Ziprasidone 20 MG VIAL IM SCH ×2 (08:27→21:21)
[2020-01-27] MEDS: Pantoprazole 40 MG VIAL IVP SCH ×2 (08:27→21:57)
[2020-01-27] MEDS: Enoxaparin Sodium 40 MG/0.4 ML SYRINGE SC SCH (08:29)
[2020-01-27] MEDS: Valproate Sodium 500 MG in Sodium Chloride 0.9% 100 ML IVPB SCH ×3 (08:30→21:20)
--- NOTE | 2020-01-27 08:35 | RAD ---
EXAM: CHEST ONE VIEW HISTORY: Pneumonia. Follow-up evaluation. COMPARISON: 01/26/2020 FINDINGS: Endotracheal tube, nasogastric tube, and right-sided vascular catheter remain unchanged in position. Cardiac silhouette is magnified by projection. Left lateral costophrenic angle is excluded from view. There is evidence of a hazy opacity involving the left lower hemithorax likely due to layering pleural effusion. There are increased interstitial and alveolar opacities in the left perihilar region with mild increase in interstitial densities in a perihilar location on the right. No other in terval change. IMPRESSION: Bilateral interstitial opacities which may related to either infectious process or asymmetric pulmona ry edema. Left pleural effusion persists.
[2020-01-27] MEDS ORDERED: Lorazepam 2 MG/ML VIAL SLOW IVP SCH (09:45)
--- NOTE | 2020-01-27 09:58 | PRG ---
DATE OF SERVICE: 01/27/2020 SUBJECTIVE: Mr. Haq is slightly more oriented today. He is able to tell me the significance of several of his head tattoos. He has been visited by his family who said he is substantially better over the past 48 hours. He did not get started on feedings because of his previous high residuals. He tolerated transfusion 1 unit without difficulty. He is not getting anything orally nor continue with fluid resuscitation and is now mildly tachycardic. PHYSICAL EXAMINATION: VITAL SIGNS: Blood pressure 105/74, heart rate is 118, afebrile 99.7, saturation 97%, respiratory rate in the low 30s. GENERAL: He is a little more oriented today and thinks that he is in the doctor's office, but again is able to give the significance of several of his tattoos. He denies pain. HEENT: Oropharynx shows slightly tacky mucous membranes. He has no adenopathy. LUNGS: Show rhonchi with good saturation. HEART: Regular rate and rhythm with resting tachycardia. ABDOMEN: Distended, nontender. He has no edema. Moves all extremities spontaneously and to command. LABORATORY DATA: White count 17,400, hemoglobin 7.7 post transfusion. He denied have any chemistry today. IMPRESSION: 1. Pancreatitis with normalizing lipase, but still abdominal distention and ileus to feedings. 2. Respiratory failure now extubated. 3. Anemia post transfusion of 1 unit although his hemoglobin still in the mid 7. 4. Probable volume depletion. PLAN: He appears to be slowly recovering. I am going start maintenance fluids D5 NS at 75 an hour. A decision regarding initiation of feedings is deferred at this time. Hopefully, we can try to get him at least to the chair while he has family visitors who can monitor and reorient on an ongoing basis. I have not repeated cultures. Job ID: [id number]
[2020-01-27] MEDS: Dextrose 5 % And 0.9 % NaCl 1,000 ML IV SCH ×2 (10:11→21:20)
[2020-01-27] MEDS: Saccharomyces boulardii 250 MG CAP PO SCH (10:11)
[2020-01-27 10:28] LABS: Anion Gap 13 mmol/L (10-20); BUN (Urea Nitrogen) 15 mg/dL (8.4-25.7); Calc. Creatinine Clearance 155 mL/min (70-130); Calcium 7.6 mg/dL (7.8-10.44); Carbon Dioxide 26 mmol/L (22-29); Chloride 109 mmol/L (98-107); Estimated GFR-MDRD Greater than 90; Glucose 83 mg/dL (70-105); Potassium 3.1 mmol/L (3.5-5.1); Sodium 145 mmol/L (136-145)
[2020-01-27] MEDS: Potassium Chloride 40 MEQ in Premix Bag 1 BAG IVPB PRN (12:05)
--- NOTE | 2020-01-27 13:20 | PDOC.HOSPP ---
- Subjective Encounter Date: 01/27/20 Encounter Time: 10:00 Subjective: pt up in bed awake at bedside. - Objective Vital Signs & Weight: Vital Signs (12 hours) Temp Pulse Resp Pulse Ox 01/27/20 12:00 99.4 F 01/27/20 10:36 117 H 28 H 98 01/27/20 08:00 99.7 F H 94 L 01/27/20 07:42 126 H 30 H 97 01/27/20 04:00 97.7 F 01/27/20 02:49 120 H 28 H 98 Weight Admit Weight 181 lb Weight 156 lb 4.924 oz Most Recent Monitor Data Heart Rate from ECG 126 NIBP 104/71 NIBP BP-Mean 82 Respiration from ECG 37 SpO2 96 I&O: 01/26/20 01/27/20 01/28/20 06:59 06:59 06:59 Intake Total 1963.9 2377.6 346 Output Total 4265 3215 355 Balance -2301.1 -837.4 -9 Result Diagrams: 01/27/20 04:15 01/27/20 09:45 Additional Labs: Accuchecks 01/27/20 01/26/20 01/26/20 04:29 17:28 12:24 POC Glucose 85 88 79 Hospitalist ROS - Review of Systems Respiratory: denies: cough, dry, shortness of breath, hemoptysis, SOB with excertion, pleuritic pain, sputum, wheezing, other Cardiovascular: denies: chest pain, palpitations, orthopnea, paroxysmal noc. dyspnea, edema, light headedness, other Gastrointestinal: reports: abdominal pain - Medication Medications: Active Medications Generic Name Dose Route Start Last Admin Trade Name Freq PRN Reason Stop Dose Admin Acetaminophen 650 mg 01/24/20 14:52 01/26/20 12:55 Tylenol NV 650 mg Q6H PRN Administration FEVER > 101 Albuterol/Ipratropium 3 ml 01/18/20 18:30 01/27/20 10:36 Duoneb NEB 3 ml [id number] JOSETTE Administration Enoxaparin Sodium 40 mg 01/17/20 09:00 01/27/20 08:29 Lovenox SC 40 mg 0900 JOSETTE Administration Potassium Chloride 40 meq/ 100 mls @ 50 mls/hr 01/18/20 15:53 01/27/20 12:05 Device IVPB 100 mls ASDIR PRN Administration FOR SERUM K+ 2.5 - 3.5 Potassium Phosphate 9 mmol/ 103 mls @ 25.75 mls/hr 01/18/20 15:53 01/26/20 06 :07 Sodium Chloride IVPB 103 mls ASDIR PRN Administration Phosphate 1.0-1.8 Midazolam HCl 100 mg/ 100 mls @ 0 mls/hr 01/19/20 09:15 01/22/20 09:59 Miscellaneous Medication 1 IVPB 100 mls each/ Sodium Chloride INF JOSETTE Administration Protocol Titrate Thiamine HCl 100 mg/ Folic 51.08 mls @ 100.157 mls/hr 01/21/20 09:00 08:18 Acid 0.4 mg/ Sodium Chloride IVPB 51.08 mls DAILY JOSETTE Administration Dexmedetomidine HCl 400 mcg/ 100 mls @ 0 mls/hr 01/22/20 10:00 01/27/20 06:02 Sodium Chloride IVPB 100 mls INF JOSETTE Administration Protocol Per Protocol Valproic Acid 500 mg/ Sodium 105 mls @ 105 mls/hr 01/25/20 09:00 01/27/20 08: 30 Chloride IVPB 105 mls TID JOSETTE Administration Clindamycin Phosphate/Dextrose 50 mls @ 100 mls/hr 01/26/20 15:00 01/27/20 06 :02 600 mg/ Device IVPB 50 mls 0700,1500,2300 JOSETTE Administration Dextrose/Sodium Chloride 1,000 mls @ 75 mls/hr 01/27/20 10:15 01/27/20 10:11 D5 0.9% Ns IV 1,000 mls .[id number] JOSETTE Administration Miscellaneous Medication 1 pkt 01/18/20 15:53 01/20/20 19:52 Phos-Nak PO 1 pkt TIDPRN PRN Administration FOR PHOS LEVEL 1.0 - 1.8 Miscellaneous Medication 2 pkt 01/18/20 15:53 01/19/20 05:07 Phos-Nak PO 2 pkt TIDPRN PRN Administration FOR PHOS LEVEL 0.5 - 1.0 Pantoprazole Sodium 40 mg 01/26/20 21:00 01/27/20 08:27 Protonix IVP 40 mg BID JOSETTE Administration Saccharomyces Boulardii 250 mg 01/27/20 09:00 01/27/20 10:11 Florastor PO Not Given DAILY JOSETTE Senna/Docusate Sodium 2 tab 01/16/20 21:05 01/20/20 19:52 Senokot S PO 2 tab BID PRN Administration Constipation Sodium Chloride 10 ml 01/19/20 21:00 01/27/20 08:29 Flush - Normal Saline IVF 10 ml Q12HR JOSETTE Administration Ziprasidone 20 mg 01/24/20 09:00 01/27/20 08:27 Geodon IM 20 mg BID JOSETTE Administration - Exam Neck: negative: supple, symmetric, no JVD, no thyromegaly, no lymphadenopathy, no carotid bruit, JVD Heart: negative: RRR, no murmur, no gallops, no rubs, normal peripheral pulses, irregular, diminshed peripheral pulses, murmur present, II/IV, III/IV Respiratory: negative: CTAB, no wheezes, no rales, no ronchi, normal chest expansion, no tachypnea, normal percussion, rales, rhonchi, tachypneic, wheezes Gastrointestinal - other findings: mild distention, bs x2 present Hosp A/P - Plan #Severe alcohol withdrawal #Acute metabolic encephalopathy requiring intubation #Acute pancreatitis #Ileus #Fatty liver - CT abdomen on admission showing high grade pancreatitis. Repeat CT abdomen 01/17 shows high grade pancreatitis with peripancreatic fluid collection. -GI performed endoscopy 01/21 which showed ulceration in the gastric body. Dobhoff tube was placed 01/22. NG tube placed to low wall suction with 50 cc output - patient is being weaned off sedation 01/26 unable to start pt on feeding due to ileus, will talk to gi to see if we can get a CT abd/pel #Acute hypoxic respiratory failure from pulmonary edema and sepsis from aspiration pneumonia - patient was extubated today 01/24 -continue IV lasix. Repeat chest Xray today shows left pleural effusion and left sided opacity - continue antibiotics, may be able to dc soon #Sepsis from Aspiration pneumonia vs pancreatitis - temp down to 102, WBC up to 18. On IV meropenem day 7 and vancomycin day 3. Chest X ray showing possible bilateral infiltrates initially but now just left sided pleural effusion and left sided opacity - still has some fevers, continue for now, could possibly be able to d/c vanc tomorrow since extubated. ID is following - consider repeat CT abdomen if persistent fevers - blood culture grew 1/2 MRSE. Repeat blood cultures normal. Urine culture normal 01/25 cxr LLL infiltrate, pt also has elevated wbc and is tachycardia which could be multifactoral but will change abx to clindamycin given his penicillin allergy. #Transaminitis - LFTS downtrending #Hypophosphatemia - phos 1.9. Continue phos packet prn #Hypocalcemia - calcium supplementation prn #Hyponatremia - resolved Anemia will transfuse one unit of blood. tachycardia sinus: will give a 500ml bolus will stop iv lasix for now. He is not at goal for his tube feeds. multifactoral reason. gentle hydration stated. alcoholic hepatitis: will continue to follow lfts Dispo: pending improvement from weaning of ventilator Code status: full code 01/26 updated
[2020-01-27] MEDS: Acetaminophen 650 MG Suppository PR PRN (14:11)
--- NOTE | 2020-01-27 14:34 | PRG ---
DATE OF SERVICE: 01/27/2020 SUBJECTIVE: Mr. Haq is awake. He is more oriented, able to tell me his name and place and year. He is still slow in general and not interactive otherwise. OBJECTIVE: LUNGS: Clear to auscultation bilaterally. HEART: Regular rate and rhythm. ABDOMEN: Mildly distended with hypoactive bowel sounds, but he has no abdominal pain. Soft. No recent bowel movement. EXTREMITIES: No lower extremity edema. He still has bilious return from his NG tube, but it has been in the 100 to 150 range over a 12-hour shift. LABORATORY DATA: White blood cell count 17.4, hemoglobin 7.7, platelets 470, and creatinine 0.56. IMPRESSION: 1. Severe acute alcoholic pancreatitis. 2. Alcoholic hepatitis. 3. Alcohol withdrawal, improved. 4. Encephalopathy, improving. However, he is still slow and not interactive. RECOMMENDATIONS: 1. He does not have any abdominal pain. I will try restarting his tube feeds today. 2. I will hold off CT scan now as he is moving his legs quite a bit. I think he would not sit or lie still well, and he has an underlying iodine contrast allergy reported with his throat closing and also he had a contrasted CT on 01/17 that did not show necrosis. If he fails to tolerate his tube feeds however with this trial, then we should premedicate with prednisone and obtain a CT scan tomorrow. 3. I will add metoclopramide. Job ID: [id number]
[2020-01-27] MEDS: Metoclopramide HCl 10 MG/2 ML VIAL IVP SCH (17:52)
[2020-01-28] MEDS: Clindamycin/D5W 600 MG in Premix Bag 1 BAG IVPB SCH ×3 (00:40→14:36)
[2020-01-28] MEDS: Metoclopramide HCl 10 MG/2 ML VIAL IVP SCH ×4 (00:41→18:26)
[2020-01-28 05:17] LABS: #Eosinphils 0.1 thou/uL (0.0-0.7); #Lymphocytes 0.9 thou/uL (1.20-3.40); #Neutrophils 12.2 thou/uL (1.40-6.50); %Eosinophils 0.5 % (0.0-10.0); %Lymphocytes 6.3 % (21.0-51.0); %Monocytes 6.8 % (0.0-10.0); %Neutrophils 86.5 % (42.0-75.0); Hemoglobin 7.4 g/dL (14.0-18.0); Mean Corpuscular HGB CONC 30.7 g/dL (32.0-36.0); Mean Corpuscular Hemoglobin 30.8 pg (27.0-31.0); Platelet Count 501 thou/uL (130-400); Red Blood Cell (RBC) Count 2.39 mill/uL (4.70-6.10); White Blood Cell (WBC) Count 14.1 thou/uL (4.8-10.8)
[2020-01-28 05:31] LABS: ALT (SGPT) 95 U/L (8-55); AST (SGOT) 115 U/L (5-34); Albumin 2.4 g/dL (3.5-5.0); Alkaline Phosphatase 71 U/L (40-110); Anion Gap 8 mmol/L (10-20); BUN (Urea Nitrogen) 11 mg/dL (8.4-25.7); Bilirubin, Total 2.2 mg/dL (0.2-1.2); Calc. Creatinine Clearance 142 mL/min (70-130); Calcium 7.5 mg/dL (7.8-10.44); Carbon Dioxide 30 mmol/L (22-29); Chloride 112 mmol/L (98-107); Estimated GFR-MDRD Greater than 90; Globulin 3.4 g/dL (2.4-3.5); Glucose 120 mg/dL (70-105); Phosphorus 1.4 mg/dL (2.3-4.7); Potassium 3.2 mmol/L (3.5-5.1); Protein, Total 5.8 g/dL (6.0-8.3); Sodium 147 mmol/L (136-145)
[2020-01-28] MEDS: Potassium Phosphate 9 MMOL in Sodium Chloride 0.9% 100 ML IVPB PRN (07:28)
--- NOTE | 2020-01-28 08:18 | RAD ---
Chest one view HISTORY: Pneumonia. Follow-up. COMPARISON: 01/27/2020. FINDINGS: Cardiac silhouette is partially obscured by ill-defined bilateral lobe parenchymal opacity. Pulmonary vasculature remains engorged. Mediastinum midline. Lines and tubes appear unchanged in position. Ill-defined patchy areas of parenchymal opacity within the right upper lobe and each lower lobe are a gain demonstrated. Hazy opacity at the left lateral lung base has the appearance of pleural fluid. rural health consultant leads overlie the chest. IMPRESSION : Pulmonary vascular congestion, bilateral parenchymal infiltrates, and other findings are stable.
--- NOTE | 2020-01-28 08:52 | PRG ---
DATE OF SERVICE: 01/28/2020 A 35 minutes of critical care time. SUBJECTIVE: The patient remains in the ICU. He has been extubated. He will answer some questions, but he is definitely not talkative. OBJECTIVE: VITAL SIGNS: Temperature is 99.4, pulse 119, blood pressure 105/70, and O2 saturation 97%. Intake 2881 and output 1525. HEENT: Unremarkable. NECK: No adenopathy or JVD. LUNGS: Clear anteriorly. CARDIAC: S1 and S2. Tachycardic. ABDOMEN: Distended and tympanic. EXTREMITIES: No edema. LABORATORY DATA: White blood cell count 14, hematocrit 24, and platelet count 501. Sodium 147, potassium 3.2, chloride 112, CO2 of 30, BUN 11, creatinine 0.6, and glucose 120. Chest x-ray demonstrates a left-sided infiltrate, which is unchanged. ASSESSMENT: 1. Pancreatitis and alcoholic hepatitis, slowly improving. 2. Abdominal distention with ileus. 3. Status post respiratory failure requiring mechanical ventilation. 4. Anemia. 5. Intravascular volume depletion with elevated sodium. PLAN: 1. Right now, the patient continues on clindamycin for antibiotic coverage. I am not completely sure what we are covering with that. 2. He is on Geodon and Depakote for help with his DTs as well as Precedex. I think I will go ahead and stop the Geodon. 3. Continue ICU care for the time being. 4. Continue free water supplementation with D5, but switched to D5W instead of D5 normal saline. Job ID: [id number]
[2020-01-28] MEDS: Dextrose 5% in Water 1,000 ML IV SCH (09:39)
[2020-01-28] MEDS: THIAMINE HCL IVPB SCH (09:40)
[2020-01-28] MEDS: SODIUM CHLORIDE 0.9% IVPB SCH (09:40)
[2020-01-28] MEDS: Saccharomyces boulardii 250 MG CAP PO SCH (09:40)
[2020-01-28] MEDS: Pantoprazole 40 MG VIAL IVP SCH ×2 (09:40→21:05)
[2020-01-28] MEDS: FOLIC ACID IVPB SCH (09:40)
[2020-01-28] MEDS: Enoxaparin Sodium 40 MG/0.4 ML SYRINGE SC SCH (09:40)
[2020-01-28] MEDS: Valproate Sodium 500 MG in Sodium Chloride 0.9% 100 ML IVPB SCH ×3 (09:40→21:05)
[2020-01-28] MEDS ORDERED: Albumin 25% 25 GM/100 ML BOT IVPB SCH (12:04)
[2020-01-28] MEDS: Acetaminophen 650 MG/20.3 ML UDCUP PO PRN (12:33)
--- NOTE | 2020-01-28 12:44 | RAD ---
Radiograph abdomen one view: DATE: 01/28/2020 HISTORY: 54-year-old male with abdominal distention. COMPARISON: 01/24/2020 again demonstrated is the Dobbhoff feeding tube traversing the entire length of the stomach , traveling through the entire duodenum, with distal tip in the vicinity of the ligament of Treitz, in the left lower quadrant. No interval change in the air-filled dilated multiple small bowel loops i n the mid and lower abdomen. There is currently very little gas in the stomach. Esophagogastric tube remains with distal tip alongside the Dobbhoff tube, at the gastric fundus. IMPRESSION: 1. Multiple dilated small bowel loops, similar to 01/24/2020. 2. Dobbhoff feeding tube distal tip at duodenal jejunal junction. 3. Esophagogastric tube in gastric fundus.
--- NOTE | 2020-01-28 14:28 | PRG ---
DATE OF SERVICE: 01/28/2020 SUBJECTIVE: Mr. Haq did not tolerate his tube feeds well. He had increased abdominal distention with feeds and increased respiratory rate. He is not very interactive, but he is oriented x3. OBJECTIVE: VITAL SIGNS: Temperature 99.2, pulse 122, blood pressure 115/67. GENERAL: He is in no acute distress. Awake, oriented x3, but otherwise says very little unless directly asked question. He is tachypneic. LUNGS: Clear to auscultation bilaterally. HEART: Tachycardic. S1 and S2. ABDOMEN: Distended without bowel sounds. EXTREMITIES: No lower extremity edema. LABORATORY DATA: White blood cell count 14.1, hemoglobin 7.4, platelets 501. INR 1.1. Creatinine 0.61. Bilirubin 2.2, AST 115, ALT 95, alkaline phosphatase 71, albumin 2.4. IMPRESSION: 1. Acute alcoholic pancreatitis. CT scan with IV contrast from 01/18/2020 did not show pancreatic necrosis. 2. Alcoholic hepatitis. 3. Alcohol withdrawal, improved. 4. Encephalopathy, appears to be improving. 5. Ileus. He has a Dobhoff tube in place beyond the ligament of Treitz and an NG tube in the stomach to suction. We tried restarting his tube feeds to the Dobhoff tube, but he just developed abdominal distention, decreased bowel sounds. We will plan to evaluate this further with CT. He has a history of iodine contrast allergy, and he will be premedicated for that. RECOMMENDATIONS: CT scan of the abdomen and pelvis with contrast to the Dobhoff tube and IV contrast. Job ID: [id number]
--- NOTE | 2020-01-28 16:21 | PDOC.HOSPP ---
- Subjective Encounter Date: 01/28/20 Encounter Time: 10:15 Subjective: pt up in chair appears tachypneic - Objective Vital Signs & Weight: Vital Signs (12 hours) Temp Pulse Resp Pulse Ox 01/28/20 14:39 104 H 27 H 99 01/28/20 12:00 100.8 F H 01/28/20 11:29 130 H 31 H 98 01/28/20 08:03 98 01/28/20 08:00 99.2 F 99 01/28/20 07:58 125 H 23 H 99 Weight Admit Weight 181 lb Weight 174 lb 13.225 oz Most Recent Monitor Data Heart Rate from ECG 109 NIBP 96/59 NIBP BP-Mean 71 Respiration from ECG 36 SpO2 99 I&O: 01/27/20 01/28/20 01/29/20 06:59 06:59 06:59 Intake Total 2377.6 2881 50 Output Total 3215 1525 390 Balance -837.4 1356 -340 Result Diagrams: 01/28/20 04:18 01/28/20 04:18 Additional Labs: Accuchecks 01/27/20 01/26/20 17:16 22:31 POC Glucose 126 H 90 Hospitalist ROS - Review of Systems Other: unable to obtain - Medication Medications: Active Medications Generic Name Dose Route Start Last Admin Trade Name Freq PRN Reason Stop Dose Admin Acetaminophen 650 mg 01/24/20 14:52 01/27/20 14:11 Tylenol NC 650 mg Q6H PRN Administration FEVER > 101 Acetaminophen 650 mg 01/28/20 12:30 01/28/20 12:33 Tylenol Elixir PO 650 mg Q6H PRN Administration FEVER > 101 F Albuterol/Ipratropium 3 ml 01/18/20 18:30 01/28/20 14:39 Duoneb NEB 3 ml [id number] JOSETTE Administration Enoxaparin Sodium 40 mg 01/17/20 09:00 01/28/20 09:40 Lovenox SC 40 mg 0900 JOSETTE Administration Potassium Chloride 40 meq/ 100 mls @ 50 mls/hr 01/18/20 15:53 01/27/20 12:05 Device IVPB 100 mls ASDIR PRN Administration FOR SERUM K+ 2.5 - 3.5 Potassium Phosphate 9 mmol/ 103 mls @ 25.75 mls/hr 01/18/20 15:53 01/28/20 07 :28 Sodium Chloride IVPB 103 mls ASDIR PRN Administration Phosphate 1.0-1.8 Midazolam HCl 100 mg/ 100 mls @ 0 mls/hr 01/19/20 09:15 01/22/20 09:59 Miscellaneous Medication 1 IVPB 100 mls each/ Sodium Chloride INF JOSETTE Administration Protocol Titrate Thiamine HCl 100 mg/ Folic 51.08 mls @ 100.157 mls/hr 01/21/20 09:00 09:40 Acid 0.4 mg/ Sodium Chloride IVPB 51.08 mls DAILY JOSETTE Administration Dexmedetomidine HCl 400 mcg/ 100 mls @ 0 mls/hr 01/22/20 10:00 01/28/20 09:40 Sodium Chloride IVPB 100 mls INF JOSETTE Administration Protocol Per Protocol Valproic Acid 500 mg/ Sodium 105 mls @ 105 mls/hr 01/25/20 09:00 01/28/20 14: 36 Chloride IVPB 105 mls TID JOSETTE Administration Clindamycin Phosphate/Dextrose 50 mls @ 100 mls/hr 01/26/20 15:00 01/28/20 14 :36 600 mg/ Device IVPB 50 mls 0700,1500,2300 JOSETTE Administration Dextrose/Water 1,000 mls @ 75 mls/hr 01/28/20 08:15 01/28/20 09:39 D5w IV 1,000 mls .[id number] JOSETTE Administration Metoclopramide HCl 10 mg 01/27/20 18:00 01/28/20 12:19 Reglan IVP 10 mg Q6HR JOSETTE Administration Miscellaneous Medication 1 pkt 01/18/20 15:53 01/20/20 19:52 Phos-Nak PO 1 pkt TIDPRN PRN Administration FOR PHOS LEVEL 1.0 - 1.8 Miscellaneous Medication 2 pkt 01/18/20 15:53 01/19/20 05:07 Phos-Nak PO 2 pkt TIDPRN PRN Administration FOR PHOS LEVEL 0.5 - 1.0 Pantoprazole Sodium 40 mg 01/26/20 21:00 01/28/20 09:40 Protonix IVP 40 mg BID JOSETTE Administration Saccharomyces Boulardii 250 mg 01/27/20 09:00 01/28/20 09:40 Florastor PO 250 mg DAILY JOSETTE Administration Senna/Docusate Sodium 2 tab 01/16/20 21:05 01/20/20 19:52 Senokot S PO 2 tab BID PRN Administration Constipation Sodium Chloride 10 ml 01/19/20 21:00 01/28/20 09:40 Flush - Normal Saline IVF 10 ml Q12HR JOSETTE Administration - Exam Neck: negative: supple, symmetric, no JVD, no thyromegaly, no lymphadenopathy, no carotid bruit, JVD Heart: negative: RRR, no murmur, no gallops, no rubs, normal peripheral pulses, irregular, diminshed peripheral pulses, murmur present, II/IV, III/IV Respiratory: negative: CTAB, no wheezes, no rales, no ronchi, normal chest expansion, no tachypnea, normal percussion, rales, rhonchi, tachypneic, wheezes Hosp A/P - Plan #Severe alcohol withdrawal #Acute metabolic encephalopathy requiring intubation #Acute pancreatitis #Ileus #Fatty liver - CT abdomen on admission showing high grade pancreatitis. Repeat CT abdomen 01/17 shows high grade pancreatitis with peripancreatic fluid collection. -GI performed endoscopy 01/21 which showed ulceration in the gastric body. Dobhoff tube was placed 01/22. NG tube placed to low wall suction with 50 cc output - patient is being weaned off sedation 01/26 unable to start pt on feeding due to ileus, will talk to gi to see if we can get a CT abd/pel 01/27 spoke with gi will get ctabd/pel pt's abd is distended will also get kub since he will need to undergo prep before ct. #Acute hypoxic respiratory failure from pulmonary edema and sepsis from aspiration pneumonia - patient was extubated today 01/24 -continue IV lasix. Repeat chest Xray today shows left pleural effusion and left sided opacity - continue antibiotics, may be able to dc soon #Sepsis from Aspiration pneumonia vs pancreatitis - temp down to 102, WBC up to 18. On IV meropenem day 7 and vancomycin day 3. Chest X ray showing possible bilateral infiltrates initially but now just left sided pleural effusion and left sided opacity - still has some fevers, continue for now, could possibly be able to d/c vanc tomorrow since extubated. ID is following - consider repeat CT abdomen if persistent fevers - blood culture grew 1/2 MRSE. Repeat blood cultures normal. Urine culture normal 01/25 cxr LLL infiltrate, pt also has elevated wbc and is tachycardia which could be multifactoral but will change abx to clindamycin given his penicillin allergy. #Transaminitis - LFTS downtrending #Hypophosphatemia - phos 1.9. Continue phos packet prn #Hypocalcemia - calcium supplementation prn #Hyponatremia - resolved Anemia will transfuse one unit of blood. tachycardia sinus: will give a 500ml bolus will stop iv lasix for now. He is not at goal for his tube feeds. multifactoral reason. gentle hydration stated. alcoholic hepatitis: will continue to follow lfts Dispo: pending improvement from weaning of ventilator Code status: full code 01/26 updated 01/27 pt's daughter updated
[2020-01-28] MEDS: predniSONE 50 MG TAB PO SCH (21:05)
[2020-01-29] MEDS: Dextrose 5% in Water 1,000 ML IV SCH ×3 (00:20→23:09)
[2020-01-29] MEDS: Clindamycin/D5W 600 MG in Premix Bag 1 BAG IVPB SCH ×2 (00:20→07:12)
[2020-01-29] MEDS: Metoclopramide HCl 10 MG/2 ML VIAL IVP SCH ×5 (00:21→23:05)
[2020-01-29] MEDS: predniSONE 50 MG TAB PO SCH ×2 (02:40→07:46)
[2020-01-29 04:17] LABS: #Lymphocytes 0.5 thou/uL (1.20-3.40); #Monocytes 0.5 thou/uL (0.11-0.59); %Eosinophils 0.4 % (0.0-10.0); %Lymphocytes 4.4 % (21.0-51.0); %Monocytes 4.1 % (0.0-10.0); %Neutrophils 91.1 % (42.0-75.0); Mean Corpuscular HGB CONC 31.6 g/dL (32.0-36.0); Mean Corpuscular Hemoglobin 31.9 pg (27.0-31.0); Mean Platelet Volume 8.2 fL (7.4-10.4); Platelet Count 468 thou/uL (130-400); RBC Distribution Width 13.9 % (11.5-14.5)
[2020-01-29 04:39] LABS: Phosphorus 2.1 mg/dL (2.3-4.7)
--- NOTE | 2020-01-29 07:47 | RAD ---
Chest one view HISTORY: Pneumonia. Follow-up. COMPARISON: 01/28/2020. FINDINGS: Cardiac silhouette is magnified by projection. Pulmonary vasculature remains engorged. Left hemidiaphragm is less well-defined. Density throughout the left lung has increased. Right perihilar and upper lobe parenchymal opacities are unchanged. Patient is rotated rightward. Lines and tubes appear unchanged in position. IMPRESSION : Interval increase in left pleural fluid and diffuse left lung infiltrate. Infiltrate within the right lung is stable.
[2020-01-29] MEDS ORDERED: diphenhydrAMINE 50 MG CAP PO SCH (08:00)
[2020-01-29] MEDS ORDERED: Lorazepam 2 MG/ML VIAL SLOW IVP SCH (08:45)
--- NOTE | 2020-01-29 09:09 | PRG ---
DATE OF SERVICE: 01/29/2020 SUBJECTIVE: He is more talkative. He is repeatedly asking for water. Says that his sodium level is off. Denies that his drinking has led to any problems. He is scheduled for a CT of the abdomen later today. He is getting thiamine supplementation appropriately. OBJECTIVE: VITAL SIGNS: Temperature is 99.4, pulse 136, blood pressure 136/79, and O2 saturation 93%. He is on a Precedex drip. Total intake for 24 hours 2209 and output 1900. Weight 150 pounds. HEENT: Unremarkable. NECK: No adenopathy or JVD. LUNGS: Clear anteriorly. CARDIAC: S1 and S2. Regular. ABDOMEN: Soft. EXTREMITIES: No edema. IMAGING DATA: Chest x-ray shows what appears to be some layering effusion on the left. LABORATORY DATA: Sodium 147, potassium 3.2, chloride 112, CO2 of 30, BUN 11, creatinine 0.6, glucose 120, calcium 7.5, phosphorus 2.1, magnesium 2.3, and procalcitonin 0.57. White blood cell count 12, hematocrit 22.0, and platelet count 468. ASSESSMENT: 1. Status post respiratory failure requiring mechanical ventilation, precipitated by delirium tremens. 2. Pancreatitis. 3. Alcoholic hepatitis. 4. Anemia. 5. Mild intravascular volume depletion. PLAN: 1. I will go ahead and stop his Depakote. We will continue thiamine supplementation. Continue D5W at 75 mL/h for free water. 2. Further disposition per GI. Job ID: [id number]
[2020-01-29] MEDS: Saccharomyces boulardii 250 MG CAP PO SCH (09:32)
[2020-01-29] MEDS: Enoxaparin Sodium 40 MG/0.4 ML SYRINGE SC SCH (09:32)
[2020-01-29] MEDS: Pantoprazole 40 MG VIAL IVP SCH ×2 (09:33→20:18)
--- NOTE | 2020-01-29 09:49 | CT ---
EXAM: CT Abdomen Pelvis W WO con PROVIDED CLINICAL HISTORY: Abdominal distention, alcoholic pancreatitis. COMPARISON: 01/18/2020 FINDINGS: Small right and moderate size left pleural effusions are present. Associated consolidation at each ba se is noted probably attributable to volume loss. Minimal groundglass densities are also seen in the right middle lobe and lingula which also may be attributable to volume loss similar although, pne umonitis is not entirely excluded. Calcified left hilar lymph nodes are again seen. Dobbhoff feeding tube is noted in place with the tip near the level of ligament of Treitz. Nasogastri c tube is noted in place with tip in the body of the stomach. Extensive inflammatory stranding and fluid is again seen in a peripancreatic location which has incre ased. The fluid in the abdomen has increased from the prior study with findings likely attributable to developing fluid collections probably along the region of the body the stomach and anterior to the pancreas as well as in the right aspect of the abdomen and right paracolic gutter. Low-attenuation area is seen within the region of the neck and proximal body of the pancreas which is likely related to edema within the pancreas as opposed to absence of enhancement of the pancreas. No pseudoaneurysm is seen involving the adjacent arterial vessels. The liver, spleen, bilateral adrenal glands, and bilateral generalized general CT appearance. Too sma ll to characterize hypodense lesions are again seen in each kidney. Urinary bladder is decompressed with Roach catheter in place. Postoperative changes and degenerative changes lumbar spine are again seen. There are mildly prominen t loops of small bowel, but the small bowel distention has improved compared to the prior exam. IMPRESSION: 1. High-grade pancreatitis with extensive peripancreatic inflammatory changes and interval increase i n inflammatory changes and fluid compared to prior exam. There are more defined fluid collections developing within the abdomen adjacent to the stomach and in the anterior abdomen and right paracolic gutter which are likely related to developing pseudocyst formation. 2. Small right and moderate left pleural effusions with associated bibasilar areas of consolidation a nd groundglass densities likely related to volume loss. However, pneumonitis at either lung base cannot be excluded. 3. Dobbhoff feeding tube and nasogastric tubes noted in place. 4. Mildly dilated loops of small bowel may related to ileus. This has improved from prior exam.
[2020-01-29 09:54] LABS: ALT (SGPT) 89 U/L (8-55); AST (SGOT) 111 U/L (5-34); Albumin 2.6 g/dL (3.5-5.0); Alkaline Phosphatase 71 U/L (40-110); Anion Gap 12 mmol/L (10-20); BUN (Urea Nitrogen) 14 mg/dL (8.4-25.7); Bilirubin, Total 1.9 mg/dL (0.2-1.2); Calc. Creatinine Clearance 139 mL/min (70-130); Calcium 7.6 mg/dL (7.8-10.44); Carbon Dioxide 27 mmol/L (22-29); Chloride 110 mmol/L (98-107); Estimated GFR-MDRD Greater than 90; Globulin 3.5 g/dL (2.4-3.5); Glucose 126 mg/dL (70-105); Potassium 3.5 mmol/L (3.5-5.1); Protein, Total 6.1 g/dL (6.0-8.3); Sodium 145 mmol/L (136-145)
[2020-01-29] MEDS: SODIUM CHLORIDE 0.9% IVPB SCH (10:13)
[2020-01-29] MEDS: THIAMINE HCL IVPB SCH (10:13)
[2020-01-29] MEDS: FOLIC ACID IVPB SCH (10:13)
--- NOTE | 2020-01-29 14:21 | PDOC.HOSPP ---
- Subjective Encounter Date: 01/29/20 Encounter Time: 11:15 Subjective: pt up in bed more awake but very confused,. - Objective Vital Signs & Weight: Vital Signs (12 hours) Temp Pulse Resp Pulse Ox 01/29/20 12:00 98.9 F 01/29/20 11:48 106 H 16 99 01/29/20 08:00 99.3 F 01/29/20 07:49 99 01/29/20 07:48 108 H 22 H 99 01/29/20 07:21 92 L 01/29/20 06:00 99.4 F 01/29/20 03:15 106 H 24 H 99 01/29/20 03:00 98.8 F Weight Admit Weight 181 lb Weight 150 lb 2.157 oz Most Recent Monitor Data Heart Rate from ECG 101 NIBP 98/62 NIBP BP-Mean 74 Respiration from ECG 24 SpO2 96 I&O: 01/28/20 01/29/20 01/30/20 06:59 06:59 06:59 Intake Total 2881 2209 650 Output Total 1525 1900 1350 Balance 1356 309 -700 Result Diagrams: 01/29/20 02:50 01/29/20 02:50 Additional Labs: Accuchecks 01/29/20 01/28/20 11:46 17:57 POC Glucose 167 H 108 Hospitalist ROS - Review of Systems Respiratory: denies: cough, dry, shortness of breath, hemoptysis, SOB with excertion, pleuritic pain, sputum, wheezing, other Cardiovascular: denies: chest pain, palpitations, orthopnea, paroxysmal noc. dyspnea, edema, light headedness, other Gastrointestinal: reports: abdominal pain. denies: nausea, vomiting, diarrhea, constipation, melena, hematochezia, other - Medication Medications: Active Medications Generic Name Dose Route Start Last Admin Trade Name Freq PRN Reason Stop Dose Admin Acetaminophen 650 mg 01/24/20 14:52 01/27/20 14:11 Tylenol [place] 650 mg Q6H PRN Administration FEVER > 101 Acetaminophen 650 mg 01/28/20 12:30 01/28/20 12:33 Tylenol Elixir PO 650 mg Q6H PRN Administration FEVER > 101 F Albuterol/Ipratropium 3 ml 01/18/20 18:30 01/29/20 11:48 Duoneb NEB 3 ml [id number] JOSETTE Administration Enoxaparin Sodium 40 mg 01/17/20 09:00 01/29/20 09:32 Lovenox SC 40 mg 0900 JOSETTE Administration Potassium Chloride 40 meq/ 100 mls @ 50 mls/hr 01/18/20 15:53 01/27/20 12:05 Device IVPB 100 mls ASDIR PRN Administration FOR SERUM K+ 2.5 - 3.5 Potassium Phosphate 9 mmol/ 103 mls @ 25.75 mls/hr 01/18/20 15:53 01/28/20 07 :28 Sodium Chloride IVPB 103 mls ASDIR PRN Administration Phosphate 1.0-1.8 Thiamine HCl 100 mg/ Folic 51.08 mls @ 100.157 mls/hr 01/21/20 09:00 10:13 Acid 0.4 mg/ Sodium Chloride IVPB 51.08 mls DAILY JOSETTE Administration Dexmedetomidine HCl 400 mcg/ 100 mls @ 0 mls/hr 01/22/20 10:00 01/29/20 13:23 Sodium Chloride IVPB 100 mls INF JOSETTE Administration Protocol Per Protocol Clindamycin Phosphate/Dextrose 50 mls @ 100 mls/hr 01/26/20 15:00 01/29/20 07 :12 600 mg/ Device IVPB 50 mls 0700,1500,2300 JOSETTE Administration Dextrose/Water 1,000 mls @ 75 mls/hr 01/28/20 08:15 01/29/20 11:43 D5w IV 1,000 mls .[id number] JOSETTE Administration Metoclopramide HCl 10 mg 01/27/20 18:00 01/29/20 11:43 Reglan IVP 10 mg Q6HR JOSETTE Administration Miscellaneous Medication 1 pkt 01/18/20 15:53 01/20/20 19:52 Phos-Nak PO 1 pkt TIDPRN PRN Administration FOR PHOS LEVEL 1.0 - 1.8 Miscellaneous Medication 2 pkt 01/18/20 15:53 01/19/20 05:07 Phos-Nak PO 2 pkt TIDPRN PRN Administration FOR PHOS LEVEL 0.5 - 1.0 Pantoprazole Sodium 40 mg 01/26/20 21:00 01/29/20 09:33 Protonix IVP 40 mg BID JOSETTE Administration Saccharomyces Boulardii 250 mg 01/27/20 09:00 01/29/20 09:32 Florastor PO 250 mg DAILY JOSETTE Administration Senna/Docusate Sodium 2 tab 01/16/20 21:05 01/20/20 19:52 Senokot S PO 2 tab BID PRN Administration Constipation Sodium Chloride 10 ml 01/19/20 21:00 01/29/20 09:33 Flush - Normal Saline IVF 10 ml Q12HR JOSETTE Administration - Exam Neck: negative: supple, symmetric, no JVD, no thyromegaly, no lymphadenopathy, no carotid bruit, JVD Heart: negative: RRR, no murmur, no gallops, no rubs, normal peripheral pulses, irregular, diminshed peripheral pulses, murmur present, II/IV, III/IV Respiratory: rales Gastrointestinal: soft, normal bowel sounds Gastrointestinal - other findings: mild distention mild pain on palpation of the epigastric area. Hosp A/P - Plan #Severe alcohol withdrawal #Acute metabolic encephalopathy requiring intubation #Acute pancreatitis #Ileus #Fatty liver - CT abdomen on admission showing high grade pancreatitis. Repeat CT abdomen 01/17 shows high grade pancreatitis with peripancreatic fluid collection. -GI performed endoscopy 01/21 which showed ulceration in the gastric body. Dobhoff tube was placed 01/22. NG tube placed to low wall suction with 50 cc output - patient is being weaned off sedation 01/26 unable to start pt on feeding due to ileus, will talk to gi to see if we can get a CT abd/pel 01/27 spoke with gi will get ctabd/pel pt's abd is distended will also get kub since he will need to undergo prep before ct. 01/[address] scan indicated improving ileus. Not sure if pt is having flatus. will start tube feeds and tpn. Discussed this with gi. will order PT. May stop abx and see how pt does since ct indicated large effusion L>R. severe pancreatitis no necrosis noted. #Acute hypoxic respiratory failure from pulmonary edema and sepsis from aspiration pneumonia - patient was extubated today 01/24 -continue IV lasix. Repeat chest Xray today shows left pleural effusion and left sided opacity - continue antibiotics, may be able to dc soon #Sepsis from Aspiration pneumonia vs pancreatitis - temp down to 102, WBC up to 18. On IV meropenem day 7 and vancomycin day 3. Chest X ray showing possible bilateral infiltrates initially but now just left sided pleural effusion and left sided opacity - still has some fevers, continue for now, could possibly be able to d/c vanc tomorrow since extubated. ID is following - consider repeat CT abdomen if persistent fevers - blood culture grew 1/2 MRSE. Repeat blood cultures normal. Urine culture normal 01/25 cxr LLL infiltrate, pt also has elevated wbc and is tachycardia which could be multifactoral but will change abx to clindamycin given his penicillin allergy. #Transaminitis - LFTS downtrending #Hypophosphatemia - phos 1.9. Continue phos packet prn #Hypocalcemia - calcium supplementation prn #Hyponatremia - resolved Anemia will transfuse one unit of blood. tachycardia sinus: will give a 500ml bolus will stop iv lasix for now. He is not at goal for his tube feeds. multifactoral reason. gentle hydration stated. alcoholic hepatitis: will continue to follow lfts Dispo: pending improvement from weaning of ventilator Code status: full code 01/26 updated 01/27 pt's daughter updated
--- NOTE | 2020-01-29 14:32 | PRG ---
DATE OF SERVICE: 01/29/2020 SUBJECTIVE: Hospital day #13. Mr. Haq was extubated. Notes he is having some abdominal bloating, wants to drink water. MEDICATIONS: 1. PRN Tylenol. 2. DuoNeb. 3. Clindamycin. 4. Dexmedetomidine. 5. Lovenox. 6. Insulin sliding scale. 7. Magnesium sulfate. 8. PRN Reglan 10 q.6. 9. Saccharomyces boulardii. 10. Thiamine. 11. Folic acid. 12. Valproate was discontinued. PHYSICAL EXAMINATION: VITAL SIGNS: Pulse is 109 to 113, blood pressure 131/83, saturation 95% on room air. Yesterday, in's and out's 2209 and 1900, gastric drainage 250, Roach 1650. GENERAL: He is a little bit confused. LUNGS: Clear. HEART: Regular rate and rhythm without clicks, rubs or murmurs. ABDOMEN: Soft and nontender. Bowel sounds are quiescent. EXTREMITIES: No clubbing, cyanosis, or edema. DIAGNOSTIC STUDIES: Chest x-ray today with increased left pleural fluid. CAT scan reveals some consolidation of lungs in bilateral bases. Dobhoff is noted in the duodenum. NG tube is noted in the stomach. There are still extensive inflammatory changes with increased peripancreatic fluid. No pseudoaneurysm was seen. No overt necrosis is seen. Small-bowel distention is improved compared to previous studies. On my review of the films, I see no overt signs of pancreatic necrosis, although there is quite a bit of peripancreatic fluid. Microbiology, blood cultures negative at 48 hours from the 14th. RECOMMENDATIONS: 1. Antibiotics per Pulmonary, Infectious Disease. He has been afebrile, it may be reasonable to consider weaning off some antibiotics. The low-grade temperature was probably related to his inflammation. We will talk with Dr. Alvarado of Critical Care about that. 2. He is not really tolerating tube feeds, that can be restarted today after CT scan was performed. He may be started on some low-dose TPN. Dr. Alvarado had some concerns about that previously in terms of fluid balance, and again I will talk to him about that as well today. 3. The patient is a little bit odd on his commentary and opinions, stating that he needs water because his salt levels were off, that in fact is not the case. He is receiving thiamine and folate. We will make sure he continues to receive those. Job ID: [id number]
--- NOTE | 2020-01-29 17:50 | PRG ---
DATE OF SERVICE: 01/29/2020 SUBJECTIVE: Mr. Haq is awake. He is comfortable, chronically ill appearing, is oriented to time, self, and knows he is in the hospital, could not tell me the date. The abdominal pain is less. He has NG tube to suction intermittently, and Dobhoff there in proper location. OBJECTIVE: VITAL SIGNS: His last T-max was 100.8 yesterday at 12 and then 99.4 at 6 a.m. today, his BP 97/65, heart rate 109, respiratory rate 21 to 29, and O2 saturation 98. HEENT: Ocular movements conjugate. Oral cavity is dry. LUNGS: Bilateral lung sounds. HEART: S1 and S2. Regular rate. ABDOMEN: Quite a bit distended, somewhat taut, not tender. Roach catheter in place. EXTREMITIES: He is able to move extremities. LABORATORY DATA: White cell count 12,000, hemoglobin 7, and platelets 468 with 91% neutrophils. Sodium 145, creatinine 0.6, bilirubin 1.9, AST 111, ALT 89, and albumin has improved to 2.6. Repeat imaging of the abdomen demonstrated high-grade pancreatitis, extensive peripancreatic inflammatory changes, increased compared with prior exam, more defined fluid collections developing within the abdomen adjacent to the stomach, anterior abdomen, likely pseudocyst formation, lung atelectases versus early pneumonitis. Mildly dilated loops of small bowel. Chest x-ray with the bibasilar infiltrates, some pleural fluid on the left side. ASSESSMENT AND DISCUSSION: Alcoholism, acute pancreatitis, severe inflammation, likely necrosis and pseudocyst developing. Improvement is noted in the inflammatory process. The patient is currently on broad-spectrum coverage with meropenem to be continued. Job ID: [id number]
[2020-01-29] MEDS: Acetaminophen 650 MG/20.3 ML UDCUP PO PRN (23:38)
[2020-01-30] MEDS: Metoclopramide HCl 10 MG/2 ML VIAL IVP SCH ×4 (05:26→23:22)
[2020-01-30 05:33] LABS: #Eosinphils 0.1 thou/uL (0.0-0.7); #Lymphocytes 0.9 thou/uL (1.20-3.40); #Monocytes 0.9 thou/uL (0.11-0.59); #Neutrophils 8.9 thou/uL (1.40-6.50); %Basophils 0.1 % (0.0-1.0); %Eosinophils 0.5 % (0.0-10.0); %Lymphocytes 8.2 % (21.0-51.0); %Neutrophils 83.2 % (42.0-75.0); Mean Corpuscular HGB CONC 32.1 g/dL (32.0-36.0); Mean Corpuscular Hemoglobin 32.1 pg (27.0-31.0); Mean Corpuscular Volume 99.8 fL (78.0-98.0); Mean Platelet Volume 7.7 fL (7.4-10.4); Platelet Count 469 thou/uL (130-400); Red Blood Cell (RBC) Count 2.17 mill/uL (4.70-6.10); White Blood Cell (WBC) Count 10.7 thou/uL (4.8-10.8)
[2020-01-30 05:54] LABS: ALT (SGPT) 94 U/L (8-55); AST (SGOT) 109 U/L (5-34); Albumin 2.3 g/dL (3.5-5.0); Alkaline Phosphatase 68 U/L (40-110); Anion Gap 10 mmol/L (10-20); BUN (Urea Nitrogen) 17 mg/dL (8.4-25.7); Bilirubin, Total 1.4 mg/dL (0.2-1.2); Calc. Creatinine Clearance 149 mL/min (70-130); Calcium 7.3 mg/dL (7.8-10.44); Carbon Dioxide 27 mmol/L (22-29); Chloride 107 mmol/L (98-107); Estimated GFR-MDRD Greater than 90; Globulin 2.9 g/dL (2.4-3.5); Glucose 113 mg/dL (70-105); Lipase 78 U/L (8-78); Phosphorus 2.4 mg/dL (2.3-4.7); Protein, Total 5.2 g/dL (6.0-8.3); Sodium 141 mmol/L (136-145)
[2020-01-30 05:56] LABS: Potassium 2.7 mmol/L (3.5-5.1)
[2020-01-30] MEDS: Potassium Chloride 40 MEQ in Premix Bag 1 BAG IVPB PRN ×2 (06:04→11:33)
--- NOTE | 2020-01-30 07:55 | RAD ---
SINGLE VIEW OF THE CHEST: COMPARISON: 01/29/2020. HISTORY: Pneumonia. FINDINGS: A single view of the chest shows a normal-size cardiomediastinal silhouette. The lines and tubes are unchanged in position. Opacity is again seen in the left hilar region. IMPRESSION: Stable exam. POS: EAA
--- NOTE | 2020-01-30 08:37 | PRG ---
DATE OF SERVICE: 01/30/2020 SUBJECTIVE: Mr. Haq is awake, alert, and very conversant today. OBJECTIVE: VITAL SIGNS: Temperature 99.0, pulse 92, and blood pressure 98/65. A 24-hour intake 3696 and output 3450. HEENT: Clear except for the NG tube. An OG tube in place. NECK: No adenopathy or JVD. CHEST: Clear. CARDIAC: S1 and S2. Regular. ABDOMEN: Soft. EXTREMITIES: No edema. LABORATORY DATA: Sodium 141, potassium 2.7, chloride 107, CO2 of 27, BUN 17, creatinine 0.5, glucose 113, AST 109, and ALT 94. White blood cell count 10.7, hematocrit 21.6, and platelet count 469. ASSESSMENT: 1. Alcohol withdrawal - vastly improved. 2. Status post acute respiratory failure requiring mechanical ventilation. 3. Pancreatitis. 4. Alcohol hepatitis. 5. Anemia. 6. Hypokalemia. PLAN: 1. I want to go ahead and stop the Precedex drip today and see how he does. 2. Discussed with Dr. Larson yesterday. We talked about trying clear liquids today and see how he does. Nurse had some concern about the patient's bipolar medications from home. I am somewhat worried about those re-exacerbating his pancreatitis, so we will continue to hold that for the time being. If the patient does well with the Precedex, need to probably transferred to the [facility] later today. Job ID: [id number]
[2020-01-30] MEDS: Saccharomyces boulardii 250 MG CAP PO SCH (08:51)
[2020-01-30] MEDS: Pantoprazole 40 MG VIAL IVP SCH ×2 (08:51→20:47)
[2020-01-30] MEDS: Enoxaparin Sodium 40 MG/0.4 ML SYRINGE SC SCH (08:51)
[2020-01-30] MEDS: Acetaminophen 650 MG/20.3 ML UDCUP PO PRN (08:51)
[2020-01-30] MEDS: FOLIC ACID IVPB SCH (09:11)
[2020-01-30] MEDS: SODIUM CHLORIDE 0.9% IVPB SCH (09:11)
[2020-01-30] MEDS: THIAMINE HCL IVPB SCH (09:11)
[2020-01-30 11:12] LABS: Potassium 3.1 mmol/L (3.5-5.1)
[2020-01-30] MEDS ORDERED: Lorazepam 2 MG/ML VIAL SLOW IVP SCH (14:15)
--- NOTE | 2020-01-30 14:20 | PDOC.HOSPP ---
- Subjective Encounter Date: 01/30/20 Encounter Time: 10:30 Subjective: pt up in bed no complains - Objective Vital Signs & Weight: Vital Signs (12 hours) Temp Pulse Pulse Resp BP BP Pulse Ox 01/30/20 12:00 99.1 F 01/30/20 11:04 113/70 104/73 01/30/20 10:59 114 H 20 100 01/30/20 09:44 109 H 116/67 01/30/20 08:00 98.1 F 01/30/20 07:51 97 18 100 01/30/20 07:47 100 01/30/20 03:02 98 22 H 100 01/30/20 03:00 99.0 F Pulse Ox 01/30/20 12:00 01/30/20 11:04 01/30/20 10:59 01/30/20 09:44 100 01/30/20 08:00 01/30/20 07:51 01/30/20 07:47 01/30/20 03:02 01/30/20 03:00 Weight Admit Weight 181 lb Weight 151 lb 0.266 oz Most Recent Monitor Data Heart Rate from ECG 112 NIBP 113/79 NIBP BP-Mean 90 Respiration from ECG 24 SpO2 96 I&O: 01/29/20 01/30/20 01/31/20 06:59 06:59 06:59 Intake Total 2209 3696.5 280 Output Total 1900 3450 735 Balance 309 246.5 -455 Result Diagrams: 01/30/20 05:12 01/30/20 10:45 Additional Labs: Accuchecks 01/30/20 01/30/20 01/29/20 12:07 05:22 23:10 POC Glucose 100 116 H 129 H 01/29/20 17:36 POC Glucose 164 H Hospitalist ROS - Review of Systems Cardiovascular: denies: chest pain, palpitations, orthopnea, paroxysmal noc. dyspnea, edema, light headedness, other Gastrointestinal: denies: nausea, vomiting, abdominal pain, diarrhea, constipation, melena, hematochezia, other Genitourinary: denies: dysuria, frequency, incontinence, hematuria, retention, other - Medication Medications: Active Medications Generic Name Dose Route Start Last Admin Trade Name Freq PRN Reason Stop Dose Admin Acetaminophen 650 mg 01/24/20 14:52 01/27/20 14:11 Tylenol AR 650 mg Q6H PRN Administration FEVER > 101 Acetaminophen 650 mg 01/28/20 12:30 01/30/20 08:51 Tylenol Elixir PO 650 mg Q6H PRN Administration FEVER > 101 F Albuterol/Ipratropium 3 ml 01/18/20 18:30 01/30/20 10:59 Duoneb NEB 3 ml [id number] JOSETTE Administration Enoxaparin Sodium 40 mg 01/17/20 09:00 01/30/20 08:51 Lovenox SC 40 mg 0900 JOSETTE Administration Potassium Chloride 40 meq/ 100 mls @ 50 mls/hr 01/18/20 15:53 01/30/20 11:33 Device IVPB 100 mls ASDIR PRN Administration FOR SERUM K+ 2.5 - 3.5 Potassium Phosphate 9 mmol/ 103 mls @ 25.75 mls/hr 01/18/20 15:53 01/28/20 07 :28 Sodium Chloride IVPB 103 mls ASDIR PRN Administration Phosphate 1.0-1.8 Thiamine HCl 100 mg/ Folic 51.08 mls @ 100.157 mls/hr 01/21/20 09:00 09:11 Acid 0.4 mg/ Sodium Chloride IVPB 51.08 mls DAILY JOSETTE Administration Dextrose/Water 1,000 mls @ 75 mls/hr 01/28/20 08:15 01/29/20 23:09 D5w IV 1,000 mls .[id number] JOSETTE Administration Lorazepam 1 mg 01/30/20 14:15 01/30/20 14:15 Ativan SLOW IVP 01/30/20 16:15 1 mg NOW JOSETTE Administration Metoclopramide HCl 10 mg 01/27/20 18:00 01/30/20 12:12 Reglan IVP 10 mg Q6HR JOSETTE Administration Miscellaneous Medication 1 pkt 01/18/20 15:53 01/20/20 19:52 Phos-Nak PO 1 pkt TIDPRN PRN Administration FOR PHOS LEVEL 1.0 - 1.8 Miscellaneous Medication 2 pkt 01/18/20 15:53 01/19/20 05:07 Phos-Nak PO 2 pkt TIDPRN PRN Administration FOR PHOS LEVEL 0.5 - 1.0 Pantoprazole Sodium 40 mg 01/26/20 21:00 01/30/20 08:51 Protonix IVP 40 mg BID JOSETTE Administration Saccharomyces Boulardii 250 mg 01/27/20 09:00 01/30/20 08:51 Florastor PO 250 mg DAILY JOSETTE Administration Senna/Docusate Sodium 2 tab 01/16/20 21:05 01/20/20 19:52 Senokot S PO 2 tab BID PRN Administration Constipation Sodium Chloride 10 ml 01/19/20 21:00 01/30/20 08:52 Flush - Normal Saline IVF 10 ml Q12HR JOSETTE Administration - Exam Heart: negative: RRR, no murmur, no gallops, no rubs, normal peripheral pulses, irregular, diminshed peripheral pulses, murmur present, II/IV, III/IV Respiratory: negative: CTAB, no wheezes, no rales, no ronchi, normal chest expansion, no tachypnea, normal percussion, rales, rhonchi, tachypneic, wheezes Gastrointestinal: soft, normal bowel sounds Gastrointestinal - other findings: mild distention Extremities: negative: no cyanosis, no clubbing, no edema, 1+ LE edema, 2+ LE edema, clubbing Hosp A/P - Plan #Severe alcohol withdrawal #Acute metabolic encephalopathy requiring intubation #Acute pancreatitis #Ileus #Fatty liver - CT abdomen on admission showing high grade pancreatitis. Repeat CT abdomen 01/17 shows high grade pancreatitis with peripancreatic fluid collection. -GI performed endoscopy 01/21 which showed ulceration in the gastric body. Dobhoff tube was placed 01/22. NG tube placed to low wall suction with 50 cc output - patient is being weaned off sedation 01/26 unable to start pt on feeding due to ileus, will talk to gi to see if we can get a CT abd/pel 01/27 spoke with gi will get ctabd/pel pt's abd is distended will also get kub since he will need to undergo prep before ct. 01/[address] scan indicated improving ileus. Not sure if pt is having flatus. will start tube feeds and tpn. Discussed this with gi. will order PT. May stop abx and see how pt does since ct indicated large effusion L>R. severe pancreatitis no necrosis noted. 01/29 pt doing well, tachycardia improved, pt is tolerating feeds with low residual. will continue to titrate his tube feeds. pt had a small bm, he has flatus. #Acute hypoxic respiratory failure from pulmonary edema and sepsis from aspiration pneumonia - patient was extubated today 01/24 -continue IV lasix. Repeat chest Xray today shows left pleural effusion and left sided opacity - continue antibiotics, may be able to dc soon #Sepsis from Aspiration pneumonia vs pancreatitis - temp down to 102, WBC up to 18. On IV meropenem day 7 and vancomycin day 3. Chest X ray showing possible bilateral infiltrates initially but now just left sided pleural effusion and left sided opacity - still has some fevers, continue for now, could possibly be able to d/c vanc tomorrow since extubated. ID is following - consider repeat CT abdomen if persistent fevers - blood culture grew 1/2 MRSE. Repeat blood cultures normal. Urine culture normal 01/25 cxr LLL infiltrate, pt also has elevated wbc and is tachycardia which could be multifactoral but will change abx to clindamycin given his penicillin allergy. #Transaminitis - LFTS downtrending #Hypophosphatemia - phos 1.9. Continue phos packet prn #Hypocalcemia - calcium supplementation prn #Hyponatremia - resolved Anemia will transfuse one unit of blood. tachycardia sinus: will give a 500ml bolus will stop iv lasix for now. He is not at goal for his tube feeds. multifactoral reason. gentle hydration stated. alcoholic hepatitis: will continue to follow lfts Dispo: pending improvement from weaning of ventilator Code status: full code 01/26 updated 01/27 pt's daughter updated
--- NOTE | 2020-01-30 15:08 | PRG ---
DATE OF SERVICE: 01/30/2020 REASON FOR CONSULTATION: Severe alcoholic pancreatitis. SUBJECTIVE: The patient was recently extubated, and per nursing staff and per chart review, the patient did continue to exhibit some confusion/disorientation up until this morning. However, today, the patient was able to respond appropriately to questioning and sensorium is intact at this time. Currently, he denies any nausea, vomiting, fevers, chills, hematemesis, melena, or hematochezia. He does continue to have some mild abdominal pain, centered around the periumbilical and midepigastric regions, but otherwise states that he is doing much better. Per nursing staff, he has been able to tolerate his tube feeds much better with minimal residuals via the Dobhoff tube that has been placed around the ligament of Treitz. Current plan per ICU staff was to clamp the NG tube and re-evaluate its necessity. OBJECTIVE: VITAL SIGNS: Temperature 99.1, pulse 112, blood pressure 113/79, respiratory rate 24, saturating 96% on room air. GENERAL: The patient was lying in bed, in no acute distress. Alert and oriented x4. CARDIOVASCULAR: Tachycardic rate, but regular rhythm. 3/6 systolic murmur, best heard at the right upper sternal border. RESPIRATORY: Poor inspiratory effort, but clear to auscultation bilaterally in the upper lung keene. Diminished breath sounds auscultated in the lower lung keene. ABDOMEN: Normoactive bowel sounds, soft, mild to moderate abdominal distention. Tenderness to palpation in the midepigastric, right upper quadrant, and right lower quadrant. EXTREMITIES: No cyanosis, clubbing, or edema. LABORATORY DATA: CBC with a white blood cell count of 10.7, hemoglobin 7, hematocrit 21.6, platelets 469. Chemistry with a sodium of 141, potassium 2.7, chloride 107, CO2 of 27, BUN 17, creatinine 0.56, glucose 113, AST 109, ALT 94, alkaline phosphatase 68, total bilirubin 1.4, albumin 2.3. IMAGING DATA: CT of the abdomen and pelvis was obtained on January 29, 2020, which showed small right and moderate left-sided pleural effusions were present as well as associated consolidation in each base, attributable to volume loss. The Dobhoff tube was seen extending into the duodenum, near the level of the ligament of Treitz. An NG tube was also seen with the tip of it in the body of the stomach. Extensive inflammatory stranding and fluid was seen in the peripancreatic region, which has increased when compared to prior exam. Low attenuation area was seen within the region of the neck and proximal body of the pancreas, likely related to edema. There was no mention of areas of necrosis within the pancreas, but there were multiple areas of fluid collections as well as possible evolving pseudocyst formation that may obstruct the view. ASSESSMENT AND PLAN: 1. Severe acute alcoholic pancreatitis. The patient presented with severe pancreatitis that is now evolving into significant peripancreatic fat stranding/inflammatory change along with the formation of multiple fluid collections, which seem to be related more to pseudocyst formation rather than necrosis. However, the patient does continue to have mildly elevated temperatures concerning for the presence of infected pancreas and was ultimately placed on antibiotics to support this. However, the patient is currently doing much better with improving pain despite the CT scan showing worsening of these fluid collections. 2. Malnutrition. With the scientology of acute severe pancreatitis, the patient has been relatively unable to tolerate nutritional support with attempts of tube feeds in the past resulting in significant residuals, most likely related to either small bowel or colonic ileus. However, with improvement in the patient's clinical status, over the last few days, he has been able to tolerate tube feeds at approximately 20 mL/h with minimal residuals with this rate being put through the Dobhoff tube, which is at the level of the ligament of Treitz. I agree with the ICU Team with clamping the NG tube, and if no significant residuals are noted within 4 to 6 hours after clamping the NG tube, then I would recommend discontinuation of the NG tube in favor of advancing the tube feeds via the Dobhoff tube. TPN supplementation is not necessarily indicated at this time. 3. Electrolyte abnormalities. Defer to primary team for repletion of electrolytes. 4. Transaminitis. The patient is presenting with increased AST, ALT, and total bilirubin at this time, which is more likely related to the severe acute pancreatitis and the inflammatory change around the pancreas itself affecting the liver. We will continue to monitor with serial LFTs. We will continue to monitor. Please call with any questions. Job ID: [id number]
[2020-01-30] MEDS: Dextrose 5% in Water 1,000 ML IV SCH (20:02)
[2020-01-31] MEDS: Acetaminophen 650 MG/20.3 ML UDCUP PO PRN ×3 (01:05→20:32)
[2020-01-31] MEDS: Dextrose 5% in Water 1,000 ML IV SCH ×2 (03:59→18:13)
[2020-01-31 05:19] LABS: #Eosinphils 0.1 thou/uL (0.0-0.7); #Monocytes 0.7 thou/uL (0.11-0.59); %Basophils 0.2 % (0.0-1.0); %Eosinophils 0.7 % (0.0-10.0); %Monocytes 6.6 % (0.0-10.0); %Neutrophils 83.6 % (42.0-75.0); Hemoglobin 6.7 g/dL (14.0-18.0); Mean Corpuscular HGB CONC 32.1 g/dL (32.0-36.0); Mean Corpuscular Hemoglobin 31.6 pg (27.0-31.0); Mean Corpuscular Volume 98.6 fL (78.0-98.0); Mean Platelet Volume 7.3 fL (7.4-10.4); Platelet Count 450 thou/uL (130-400); RBC Distribution Width 14.1 % (11.5-14.5); Red Blood Cell (RBC) Count 2.12 mill/uL (4.70-6.10); White Blood Cell (WBC) Count 10.7 thou/uL (4.8-10.8)
[2020-01-31] MEDS: Metoclopramide HCl 10 MG/2 ML VIAL IVP SCH ×3 (05:19→18:14)
[2020-01-31 05:36] LABS: Phosphorus 2.1 mg/dL (2.3-4.7)
[2020-01-31] MEDS: Pantoprazole 40 MG VIAL IVP SCH ×2 (08:27→20:32)
[2020-01-31] MEDS: Saccharomyces boulardii 250 MG CAP PO SCH (08:27)
[2020-01-31] MEDS: Enoxaparin Sodium 40 MG/0.4 ML SYRINGE SC SCH (08:27)
[2020-01-31] MEDS: Lorazepam 1 MG TAB PO SCH ×3 (08:27→20:32)
--- NOTE | 2020-01-31 08:43 | PRG ---
DATE OF SERVICE: 01/31/2020 SUBJECTIVE: We ran in some problems yesterday when the patient was off the Precedex. He became extremely agitated, almost going through alcohol withdrawal type symptoms again. This morning, he complains of leg discomfort from the SCDs. OBJECTIVE: VITAL SIGNS: Temperature 99.5, pulse 98, blood pressure 95/63, and O2 saturation 100%. A 24-hour intake 2388 and output 1685. HEENT: Unremarkable. NECK: No JVD. LUNGS: Clear. CARDIAC: S1 and S2. Regular. ABDOMEN: Protuberant, soft, and nontender. EXTREMITIES: No edema. LABORATORY DATA: His white blood cells 10.7, hemoglobin 6.7, hematocrit 20.8, and platelet count 450. Chemistry does not appear to be reported at this time. ASSESSMENT: 1. Alcohol withdrawal. 2. Pancreatitis. 3. Alcoholic hepatitis. PLAN: 1. We will try him on clear liquids today see if he can tolerate. If he does, then we may consider discontinuation of his NG tube and Dobbhoff tube. 2. I am going to put him on scheduled Ativan to see if that helps with his alcohol withdrawal symptoms. We plan to give this orally. 3. If he can show improvement on the Ativan, we will consider discontinuation of the Precedex drip. Job ID: [id number]
--- NOTE | 2020-01-31 08:55 | PRG ---
DATE OF SERVICE: 01/31/2020 SUBJECTIVE: Mr. Haq is awake and oriented. His only complaint this morning is some back and neck discomfort which is positional. He is not complaining of any current shortness of breath or abdominal pain. He has been passing flatus and brown stool per the patient and nursing staff. He has not had any nausea. The tube feeds have been continuing at 20 mL/h. The NG tube has been clamped. He has been afebrile. OBJECTIVE: VITAL SIGNS: Temperature 99.5, pulse 98, blood pressure 95/63, and 100% oxygen saturation on 4 L nasal cannula. GENERAL: Awake and alert, in no acute distress. HEART: Regular rate and rhythm. LUNGS: Bibasilar crackles, but no wheezing. No respiratory distress. ABDOMEN: Moderately distended, but tympanitic to percussion. Bowel sounds are hypoactive, but present. Soft. Some mild tenderness to palpation in the upper abdomen, but no guarding or rebound tenderness. EXTREMITIES: No peripheral edema. LABORATORY STUDIES: WBC down to 10.7, hemoglobin 6.7, platelets 450. INR 1.1, glucose 175. BMP from yesterday showed sodium 141, potassium 3.1, BUN 17, creatinine 0.56, total bilirubin 1.4, alkaline phosphatase 68, AST 109, ALT 94. ASSESSMENT/PLAN: 1. Severe alcoholic pancreatitis. The patient has severe inflammatory changes and multiple developing fluid collections per most recent CT imaging; however, the inflammatory process has clearly improved over the past few days. He remains on meropenem. Continue with supportive care. Avoid alcohol going forward. 2. Ileus, appears to be resolving. 3. Malnutrition. The patient has currently been getting tube feeds through the Dobhoff, which has passed to the level of the ligament of Treitz, at 20 mL/h. He has been tolerating tube feeds the past couple of days. Further advance tube feeds to goal. I think the patient can start having ice chips and sips of water today. If he does well, could try advancing to clear liquids this evening or tomorrow per mouth. 4. Elevated liver function tests. I agree it is likely secondary to alcohol effect, versus reactive to a peripancreatic inflammation. LFTs have been stable. Recheck tomorrow. Job ID: [id number]
[2020-01-31] MEDS: SODIUM CHLORIDE 0.9% IVPB SCH (09:43)
[2020-01-31] MEDS: FOLIC ACID IVPB SCH (09:43)
[2020-01-31] MEDS: THIAMINE HCL IVPB SCH (09:43)
[2020-01-31] MEDS ORDERED: Lorazepam 1 MG TAB PO SCH (12:00)
--- NOTE | 2020-01-31 15:33 | PDOC.HOSPP ---
- Subjective Encounter Date: 01/31/20 Encounter Time: 10:45 Subjective: pt up in bed more awake. - Objective Vital Signs & Weight: Vital Signs (12 hours) Temp Pulse Resp Pulse Ox 01/31/20 13:57 112 H 20 96 01/31/20 12:00 98.2 F 01/31/20 11:08 100 23 H 97 01/31/20 08:00 100 01/31/20 07:00 98.4 F Weight Admit Weight 181 lb Weight 150 lb 12.739 oz Most Recent Monitor Data Heart Rate from ECG 117 NIBP 113/86 NIBP BP-Mean 95 Respiration from ECG 26 SpO2 98 I&O: 01/30/20 01/31/20 02/01/20 06:59 06:59 06:59 Intake Total 3696.5 2388 Output Total 3450 1685 295 Balance 246.5 703 -295 Result Diagrams: 01/31/20 05:05 01/30/20 10:45 Additional Labs: Accuchecks 01/31/20 01/31/20 01/30/20 12:20 05:16 23:28 POC Glucose 95 175 H 105 01/30/20 20:06 POC Glucose 106 Hospitalist ROS - Review of Systems Respiratory: denies: cough, dry, shortness of breath, hemoptysis, SOB with excertion, pleuritic pain, sputum, wheezing, other Cardiovascular: denies: chest pain, palpitations, orthopnea, paroxysmal noc. dyspnea, edema, light headedness, other Gastrointestinal: denies: nausea, vomiting, abdominal pain, diarrhea, constipation, melena, hematochezia, other - Medication Medications: Active Medications Generic Name Dose Route Start Last Admin Trade Name Freq PRN Reason Stop Dose Admin Acetaminophen 650 mg 01/24/20 14:52 01/27/20 14:11 Tylenol DE 650 mg Q6H PRN Administration FEVER > 101 Acetaminophen 650 mg 01/28/20 12:30 01/31/20 08:30 Tylenol Elixir PO 650 mg Q6H PRN Administration FEVER > 101 F Albuterol/Ipratropium 3 ml 01/18/20 18:30 01/31/20 13:57 Duoneb NEB 3 ml [id number] JOSETTE Administration Enoxaparin Sodium 40 mg 01/17/20 09:00 01/31/20 08:27 Lovenox SC 40 mg 0900 JOSETTE Administration Potassium Chloride 40 meq/ 100 mls @ 50 mls/hr 01/18/20 15:53 01/30/20 11:33 Device IVPB 100 mls ASDIR PRN Administration FOR SERUM K+ 2.5 - 3.5 Potassium Phosphate 9 mmol/ 103 mls @ 25.75 mls/hr 01/18/20 15:53 01/28/20 07 :28 Sodium Chloride IVPB 103 mls ASDIR PRN Administration Phosphate 1.0-1.8 Thiamine HCl 100 mg/ Folic 51.08 mls @ 100.157 mls/hr 01/21/20 09:00 09:43 Acid 0.4 mg/ Sodium Chloride IVPB 51.08 mls DAILY JOSETTE Administration Dextrose/Water 1,000 mls @ 75 mls/hr 01/28/20 08:15 01/31/20 03:59 D5w IV Not Given .[id number] JOSETTE Dexmedetomidine HCl 400 mcg/ 100 mls @ 0 mls/hr 01/30/20 15:45 01/31/20 08:44 Sodium Chloride IVPB 100 mls INF JOSETTE Administration Protocol Per Protocol Insulin Human Lispro 0 units 01/16/20 21:18 01/31/20 05:19 Humalog SC 2 unit .MILD SLIDING SCALE PRN Administration Mild Correctional Scale Lorazepam 2 mg 01/31/20 09:00 01/31/20 14:47 Ativan PO 2 mg Q6H JOSETTE Administration Metoclopramide HCl 10 mg 01/27/20 18:00 01/31/20 13:39 Reglan IVP Not Given Q6HR JOSETTE Miscellaneous Medication 1 pkt 01/18/20 15:53 01/20/20 19:52 Phos-Nak PO 1 pkt TIDPRN PRN Administration FOR PHOS LEVEL 1.0 - 1.8 Miscellaneous Medication 2 pkt 01/18/20 15:53 01/19/20 05:07 Phos-Nak PO 2 pkt TIDPRN PRN Administration FOR PHOS LEVEL 0.5 - 1.0 Pantoprazole Sodium 40 mg 01/26/20 21:00 01/31/20 08:27 Protonix IVP 40 mg BID JOSETTE Administration Saccharomyces Boulardii 250 mg 01/27/20 09:00 01/31/20 08:27 Florastor PO 250 mg DAILY JOSETTE Administration Senna/Docusate Sodium 2 tab 01/16/20 21:05 01/20/20 19:52 Senokot S PO 2 tab BID PRN Administration Constipation Sodium Chloride 10 ml 01/19/20 21:00 01/31/20 08:28 Flush - Normal Saline IVF 10 ml Q12HR JOSETTE Administration - Exam Neck: negative: supple, symmetric, no JVD, no thyromegaly, no lymphadenopathy, no carotid bruit, JVD Heart: negative: RRR, no murmur, no gallops, no rubs, normal peripheral pulses, irregular, diminshed peripheral pulses, murmur present, II/IV, III/IV Respiratory: negative: CTAB, no wheezes, no rales, no ronchi, normal chest expansion, no tachypnea, normal percussion, rales, rhonchi, tachypneic, wheezes Gastrointestinal: soft Gastrointestinal - other findings: mild distention, bowel sound present x2 Hosp A/P - Plan #Severe alcohol withdrawal #Acute metabolic encephalopathy requiring intubation #Acute pancreatitis #Ileus #Fatty liver - CT abdomen on admission showing high grade pancreatitis. Repeat CT abdomen 01/17 shows high grade pancreatitis with peripancreatic fluid collection. -GI performed endoscopy 01/21 which showed ulceration in the gastric body. Dobhoff tube was placed 01/22. NG tube placed to low wall suction with 50 cc output - patient is being weaned off sedation 01/26 unable to start pt on feeding due to ileus, will talk to gi to see if we can get a CT abd/pel 01/27 spoke with gi will get ctabd/pel pt's abd is distended will also get kub since he will need to undergo prep before ct. 01/[address] scan indicated improving ileus. Not sure if pt is having flatus. will start tube feeds and tpn. Discussed this with gi. will order PT. May stop abx and see how pt does since ct indicated large effusion L>R. severe pancreatitis no necrosis noted. 01/29 pt doing well, tachycardia improved, pt is tolerating feeds with low residual. will continue to titrate his tube feeds. pt had a small bm, he has flatus. 01/30 pt had a bm yesterday. Abdomen still has mild distention. will increase tube feedings to goal of 60ml/hr. #Acute hypoxic respiratory failure from pulmonary edema and sepsis from aspiration pneumonia - patient was extubated today 01/24 -continue IV lasix. Repeat chest Xray today shows left pleural effusion and left sided opacity - continue antibiotics, may be able to dc soon #Sepsis from Aspiration pneumonia vs pancreatitis - temp down to 102, WBC up to 18. On IV meropenem day 7 and vancomycin day 3. Chest X ray showing possible bilateral infiltrates initially but now just left sided pleural effusion and left sided opacity - still has some fevers, continue for now, could possibly be able to d/c vanc tomorrow since extubated. ID is following - consider repeat CT abdomen if persistent fevers - blood culture grew 1/2 MRSE. Repeat blood cultures normal. Urine culture normal 01/25 cxr LLL infiltrate, pt also has elevated wbc and is tachycardia which could be multifactoral but will change abx to clindamycin given his penicillin allergy. #Transaminitis - LFTS downtrending #Hypophosphatemia - phos 1.9. Continue phos packet prn #Hypocalcemia - calcium supplementation prn #Hyponatremia - resolved Anemia will transfuse one unit of blood. tachycardia sinus: will give a 500ml bolus will stop iv lasix for now. He is not at goal for his tube feeds. multifactoral reason. gentle hydration stated. alcoholic hepatitis: will continue to follow lfts Dispo: pending improvement from weaning of ventilator Code status: full code 01/26 updated 01/27 pt's daughter updated
[2020-01-31] MEDS ORDERED: Mirtazapine 15 MG TAB PO SCH (23:15)
[2020-01-31] MEDS ORDERED: OLANZapine 5 MG TAB PO SCH (23:15)
[2020-02-01] MEDS: Metoclopramide HCl 10 MG/2 ML VIAL IVP SCH ×4 (00:48→18:09)
[2020-02-01] MEDS: Lorazepam 1 MG TAB PO SCH (02:50)
[2020-02-01] MEDS ORDERED: Labetalol HCl 100 MG/20 ML VIAL SLOW IVP SCH (05:00)
[2020-02-01 05:51] LABS: #Basophils 0.1 thou/uL (0.0-0.2); #Eosinphils 0.1 thou/uL (0.0-0.7); #Lymphocytes 1.4 thou/uL (1.20-3.40); #Monocytes 1.4 thou/uL (0.11-0.59); %Basophils 0.3 % (0.0-1.0); %Eosinophils 0.6 % (0.0-10.0); %Lymphocytes 6.9 % (21.0-51.0); %Monocytes 7.1 % (0.0-10.0); %Neutrophils 85.2 % (42.0-75.0); Hemoglobin 6.6 g/dL (14.0-18.0); Mean Corpuscular HGB CONC 30.3 g/dL (32.0-36.0); Mean Corpuscular Hemoglobin 30.2 pg (27.0-31.0); Mean Corpuscular Volume 99.4 fL (78.0-98.0); Mean Platelet Volume 7.9 fL (7.4-10.4); Platelet Count 789 thou/uL (130-400); Red Blood Cell (RBC) Count 2.19 mill/uL (4.70-6.10); White Blood Cell (WBC) Count 19.9 thou/uL (4.8-10.8)
[2020-02-01 06:30] LABS: ALT (SGPT) 86 U/L (8-55); AST (SGOT) 74 U/L (5-34); Albumin 2.6 g/dL (3.5-5.0); Alkaline Phosphatase 89 U/L (40-110); Anion Gap 9 mmol/L (10-20); BUN (Urea Nitrogen) 9 mg/dL (8.4-25.7); Bilirubin, Total 1.8 mg/dL (0.2-1.2); Calc. Creatinine Clearance 137 mL/min (70-130); Calcium 7.6 mg/dL (7.8-10.44); Carbon Dioxide 26 mmol/L (22-29); Chloride 102 mmol/L (98-107); Estimated GFR-MDRD Greater than 90; Globulin 3.3 g/dL (2.4-3.5); Glucose 95 mg/dL (70-105); Potassium 3.3 mmol/L (3.5-5.1); Protein, Total 5.9 g/dL (6.0-8.3); Sodium 134 mmol/L (136-145)
[2020-02-01] MEDS: Dextrose 5% in Water 1,000 ML IV SCH ×2 (06:42→19:41)
--- NOTE | 2020-02-01 08:26 | PRG ---
DATE OF SERVICE: 02/01/2020 TIME SPENT: 35 minutes of critical care time. SUBJECTIVE: The patient remains in the CCU. He looks much worse today from a mental status standpoint. He apparently threw up this morning. He had been off the Precedex most of the day yesterday. It looks like he was started on Remeron and Zyprexa last night. The Zyprexa that I had wanted to hold is because of the association with pancreatitis. PHYSICAL EXAMINATION: GENERAL: At the current time, I find him disoriented. His pulse is in the 120s; temperature 100.7 and is high as 101.2, blood pressure 145/111. HEENT: Unremarkable. NECK: No JVD. LUNGS: Clear anteriorly. CARDIAC: Tachycardic. ABDOMEN: Soft. EXTREMITIES: No edema. LABORATORY DATA: Sodium 134, potassium 3.3, chloride 102, CO2 of 26, BUN 9, creatinine 0.6, glucose 95, phosphorus 2.0, total bilirubin 1.8. White blood cell count 19.9, hematocrit 21.8, and platelet count 789. ASSESSMENT: Clinical picture suggests that either he is still suffering from effects of the alcohol withdrawal or he is becoming septic. PLAN: We will go ahead and re-culture the patient, empirically start antibiotics and give him a unit of blood since he is becoming profoundly anemic. I will put him back on the Precedex and stop the Ativan. Also, stop the Zyprexa. Keep in ICU. Job ID: [id number]
[2020-02-01] MEDS: Pantoprazole 40 MG VIAL IVP SCH ×2 (09:37→21:39)
[2020-02-01] MEDS: Vancomycin HCl 1.25 GM in Sodium Chloride 0.9% 250 ML 250 ML IVPB SCH ×2 (11:14→21:40)
[2020-02-01] MEDS: Saccharomyces boulardii 250 MG CAP PO SCH (11:58)
[2020-02-01] MEDS: FOLIC ACID IVPB SCH (12:50)
[2020-02-01] MEDS: THIAMINE HCL IVPB SCH (12:50)
[2020-02-01] MEDS: SODIUM CHLORIDE 0.9% IVPB SCH (12:50)
--- NOTE | 2020-02-01 13:33 | RAD ---
EXAM: CHEST ONE VIEW HISTORY: Elevated white blood cell count COMPARISON: 01/30/2020 FINDINGS: Dobbhoff feeding tube is been removed. Nasogastric tube and right sided vascular catheter remain in p lace. Previously seen left perihilar interstitial and alveolar opacities are again seen and are minimally improved. The interstitial and patchy parenchymal density in the right upper lung zone also appears mildly improved. There is slight blunting of the left lateral costophrenic angle suggesting tiny left pleural effusion. Cardiac silhouette is magnified by projection. Postoperative c hanges lower cervical spine are again seen. No other interval change IMPRESSION: 1. Interstitial and patchy densities right upper lung zone with left perihilar interstitial and alveo lar opacities which have mildly improved. Findings may be related to improving bilateral pneumonia. Continued follow-up to complete resolution is recommended. 2. Tiny left pleural effusion. 3. Interval removal of the Dobbhoff feeding tube. The right-sided vascular catheter and nasogastric t ube are unchanged in position.
[2020-02-01] MEDS: Potassium Chloride 40 MEQ in Premix Bag 1 BAG IVPB PRN (13:40)
[2020-02-01] MEDS: Enoxaparin Sodium 40 MG/0.4 ML SYRINGE SC SCH (14:58)
--- NOTE | 2020-02-01 15:27 | SPC ---
Ultrasound guided left upper extremity PICC placement HISTORY: Leukocytosis. Patient needs long-term IV access. FINDINGS: Informed consent obtained prior to the procedure. An appropriate access site was determined with ultrasound guidance. The area was then meticulously pr epped and draped in usual sterile fashion. Skin overlying the left brachial vein anesthetized with 1% buffered lidocaine. Utilizing direct sonog raphic guidance, vascular access is obtained via the left right vein, and an 0.018in guidewire was advanced to the distal SVC. Intravascular length is calculated at 40 cm, and the PICC is cut accordin gly. Needle is removed and replaced with a peel-away sheath. The PICC was advanced over the wire. Wire and peel-away sheath were removed. The tip of the catheter overlies the distal SVC. The catheter was accessed and aspirated/flushed easily. FINDINGS: Technically successful placement of a 40 centimeter single lumen 5 Indonesian left upper extremity PICC l constantino. IMPRESSION: Successful ultrasound guided placement of a left upper extremity PICC.
--- NOTE | 2020-02-01 15:41 | PDOC.HOSPP ---
- Subjective Encounter Date: 02/01/20 Encounter Time: 09:45 Subjective: pt had emesis yesterday. Feeding have been stopped. - Objective Vital Signs & Weight: Vital Signs (12 hours) Temp Pulse Resp BP Pulse Ox 02/01/20 15:35 135 H 24 H 98 02/01/20 11:29 97 02/01/20 11:27 132 H 24 H 97 02/01/20 08:00 99 02/01/20 07:59 125 H 25 H 97 02/01/20 07:00 98.9 F 02/01/20 05:00 100.7 F H 02/01/20 04:56 158 H 135/88 Weight Admit Weight 181 lb Weight 150 lb 12.739 oz Most Recent Monitor Data Heart Rate from ECG 146 NIBP 138/86 NIBP BP-Mean 103 Respiration from ECG 20 SpO2 96 I&O: 01/31/20 02/01/20 02/02/20 06:59 06:59 06:59 Intake Total 2388 2937.7 350 Output Total 1685 1200 645 Balance 703 1737.7 -295 Result Diagrams: 02/01/20 05:10 02/01/20 05:10 Additional Labs: Accuchecks 02/01/20 02/01/20 01/31/20 11:58 05:20 23:58 POC Glucose 97 105 104 01/31/20 18:14 POC Glucose 94 Hospitalist ROS - Review of Systems Other: unable to obtain - Medication Medications: Active Medications Generic Name Dose Route Start Last Admin Trade Name Freq PRN Reason Stop Dose Admin Acetaminophen 650 mg 01/24/20 14:52 01/27/20 14:11 Tylenol CO 650 mg Q6H PRN Administration FEVER > 101 Acetaminophen 650 mg 01/28/20 12:30 01/31/20 20:32 Tylenol Elixir PO 650 mg Q6H PRN Administration FEVER > 101 F Albuterol/Ipratropium 3 ml 01/18/20 18:30 02/01/20 15:35 Duoneb NEB 3 ml [id number] JOSETTE Administration Enoxaparin Sodium 40 mg 01/17/20 09:00 02/01/20 14:58 Lovenox SC 40 mg 0900 JOSETTE Administration Potassium Chloride 40 meq/ 100 mls @ 50 mls/hr 01/18/20 15:53 02/01/20 13:40 Device IVPB 100 mls ASDIR PRN Administration FOR SERUM K+ 2.5 - 3.5 Potassium Phosphate 9 mmol/ 103 mls @ 25.75 mls/hr 01/18/20 15:53 01/28/20 07 :28 Sodium Chloride IVPB 103 mls ASDIR PRN Administration Phosphate 1.0-1.8 Thiamine HCl 100 mg/ Folic 51.08 mls @ 100.157 mls/hr 01/21/20 09:00 12:50 Acid 0.4 mg/ Sodium Chloride IVPB 51.08 mls DAILY JOSETTE Administration Dextrose/Water 1,000 mls @ 75 mls/hr 01/28/20 08:15 02/01/20 06:42 D5w IV 1,000 mls .[id number] JOSETTE Administration Dexmedetomidine HCl 400 mcg/ 100 mls @ 0 mls/hr 01/30/20 15:45 02/01/20 13:40 Sodium Chloride IVPB 100 mls INF JOSETTE Administration Protocol Per Protocol Levofloxacin 750 mg/ Device 150 mls @ 100 mls/hr 02/01/20 09:00 02/01/20 09: 38 IVPB 150 mls Q24HR JOSETTE Administration Vancomycin HCl 1.25 gm/ Sodium 250 mls @ 166.667 mls/hr 02/01/20 10:00 11:14 Chloride IVPB 250 mls 1000,2200 JOSETTE Administration Insulin Human Lispro 0 units 01/16/20 21:18 01/31/20 05:19 Humalog SC 2 unit .MILD SLIDING SCALE PRN Administration Mild Correctional Scale Metoclopramide HCl 10 mg 01/27/20 18:00 02/01/20 14:53 Reglan IVP 10 mg Q6HR JOSETTE Administration Miscellaneous Medication 1 pkt 01/18/20 15:53 01/20/20 19:52 Phos-Nak PO 1 pkt TIDPRN PRN Administration FOR PHOS LEVEL 1.0 - 1.8 Miscellaneous Medication 2 pkt 01/18/20 15:53 01/19/20 05:07 Phos-Nak PO 2 pkt TIDPRN PRN Administration FOR PHOS LEVEL 0.5 - 1.0 Pantoprazole Sodium 40 mg 01/26/20 21:00 02/01/20 09:37 Protonix IVP 40 mg BID JOSETTE Administration Saccharomyces Daviandii 250 mg 01/27/20 09:00 02/01/20 11:58 Florastor PO Not Given DAILY JOSETTE Senna/Docusate Sodium 2 tab 01/16/20 21:05 01/20/20 19:52 Senokot S PO 2 tab BID PRN Administration Constipation Sodium Chloride 10 ml 01/19/20 21:00 02/01/20 09:41 Flush - Normal Saline IVF 10 ml Q12HR JOSETTE Administration - Exam Neck: negative: supple, symmetric, no JVD, no thyromegaly, no lymphadenopathy, no carotid bruit, JVD Heart: no murmur Heart - other findings: tachycardia Respiratory: negative: CTAB, no wheezes, no rales, no ronchi, normal chest expansion, no tachypnea, normal percussion, rales, rhonchi, tachypneic, wheezes Gastrointestinal: negative: soft, non-tender, non-distended, normal bowel sounds , no palpable masses, no hepatomegaly, no splenomegaly, no bruit, no guarding, no rigidity, tender to palpation, distended, diminished bowl sounds, voluntary guarding Hosp A/P - Plan #Severe alcohol withdrawal #Acute metabolic encephalopathy requiring intubation #Acute pancreatitis #Ileus #Fatty liver - CT abdomen on admission showing high grade pancreatitis. Repeat CT abdomen 01/17 shows high grade pancreatitis with peripancreatic fluid collection. -GI performed endoscopy 01/21 which showed ulceration in the gastric body. Dobhoff tube was placed 01/22. NG tube placed to low wall suction with 50 cc output - patient is being weaned off sedation 01/26 unable to start pt on feeding due to ileus, will talk to gi to see if we can get a CT abd/pel 01/27 spoke with gi will get ctabd/pel pt's abd is distended will also get kub since he will need to undergo prep before ct. 01/[address] scan indicated improving ileus. Not sure if pt is having flatus. will start tube feeds and tpn. Discussed this with gi. will order PT. May stop abx and see how pt does since ct indicated large effusion L>R. severe pancreatitis no necrosis noted. 01/29 pt doing well, tachycardia improved, pt is tolerating feeds with low residual. will continue to titrate his tube feeds. pt had a small bm, he has flatus. 01/30 pt had a bm yesterday. Abdomen still has mild distention. will increase tube feedings to goal of 60ml/hr. 01/31 feeding held, he has a elevated wbc. abx added. will monitor. He continues to be tachycardiac. precedex started. #Acute hypoxic respiratory failure from pulmonary edema and sepsis from aspiration pneumonia - patient was extubated today 01/24 -continue IV lasix. Repeat chest Xray today shows left pleural effusion and left sided opacity - continue antibiotics, may be able to dc soon #Sepsis from Aspiration pneumonia vs pancreatitis - temp down to 102, WBC up to 18. On IV meropenem day 7 and vancomycin day 3. Chest X ray showing possible bilateral infiltrates initially but now just left sided pleural effusion and left sided opacity - still has some fevers, continue for now, could possibly be able to d/c vanc tomorrow since extubated. ID is following - consider repeat CT abdomen if persistent fevers - blood culture grew 1/2 MRSE. Repeat blood cultures normal. Urine culture normal 01/25 cxr LLL infiltrate, pt also has elevated wbc and is tachycardia which could be multifactoral but will change abx to clindamycin given his penicillin allergy. #Transaminitis - LFTS downtrending #Hypophosphatemia - phos 1.9. Continue phos packet prn #Hypocalcemia - calcium supplementation prn #Hyponatremia - resolved Anemia will transfuse one unit of blood. tachycardia sinus: will give a 500ml bolus will stop iv lasix for now. He is not at goal for his tube feeds. multifactoral reason. gentle hydration stated. alcoholic hepatitis: will continue to follow lfts Dispo: pending improvement from weaning of ventilator Code status: full code 01/26 updated 01/27 pt's daughter updated 01/31 updated
--- NOTE | 2020-02-01 16:37 | PRG ---
DATE OF SERVICE: 02/01/2020 SUBJECTIVE: Mr. Haq has not done well over the past day. He yanked out his Dobhoff tube as well as his Roach catheter last night. Roach catheter was replaced. Feedings were switched over to his nasogastric tube, but unfortunately he had emesis last night and these had to be stopped. He has had 600 mL of nasogastric tube output over the course of today. Abdomen remains distended, but he did have a bowel movement. In addition, he has had a spike in his leukocytosis and his platelet count and has gotten more tachycardic. He has been re-cultured and antibiotics adjusted, currently getting vancomycin and levofloxacin. Through this, he actually is not complaining of any abdominal discomfort or any nausea currently. Nasogastric tube is to suction. OBJECTIVE: VITAL SIGNS: Pulse 135, blood pressure 138/86, 98% oxygen saturation on room air, temperature spiked to 101.2 last night, currently 98.9. GENERAL: Ill-appearing, in no acute distress, sedated somewhat, but able to answer questions appropriately. HEART: Regular, tachycardia. LUNGS: Clear to auscultation bilaterally. ABDOMEN: Distended, tympanitic to percussion. Bowel sounds hypoactive, but present. EXTREMITIES: No peripheral edema. LABORATORY STUDIES: WBC is up to 19.9, hemoglobin 6.6, platelets 789. Sodium 134, potassium 3.3, BUN 9, creatinine 0.61, total bilirubin 1.8, alkaline phosphatase 89, AST 74, ALT 86. Repeat blood and urine cultures taken this morning, pending. IMAGING STUDIES: Chest x-ray from this morning showed bilateral interstitial and patchy densities, which have mildly improved from prior exam and a tiny left pleural effusion. The patient now has left-sided PICC in place. ASSESSMENT AND PLAN: 1. Severe alcoholic pancreatitis. The patient has severe inflammatory changes and multiple developing fluid collections per most recent CT imaging. Inflammatory process had been improving, but unfortunately we are seeing spike and leukocytosis and platelet count as well as worsening tachycardia today. He is on broad-spectrum antibiotics currently with vancomycin and levofloxacin. 2. Ileus. This appeared to be improving for several days, but unfortunately he pulled out his Dobhoff feeding tube. A nasogastric tube output has picked up. Hold the tube feeds for now, monitor nasogastric tube output and stool output. Hopefully, we will be able to start back tube feeds in the next day or two. 3. Elevated LFTs, stable. Job ID: [id number]
[2020-02-01] MEDS: Acetaminophen 650 MG/20.3 ML UDCUP PO PRN (19:35)
[2020-02-01] MEDS ORDERED: OLANZapine 5 MG TAB PO SCH (21:00)
[2020-02-01] MEDS: Mirtazapine 15 MG TAB PO SCH (21:39)
[2020-02-02] MEDS: Metoclopramide HCl 10 MG/2 ML VIAL IVP SCH ×4 (00:35→18:01)
[2020-02-02] MEDS: Acetaminophen 650 MG/20.3 ML UDCUP PO PRN ×4 (03:35→22:13)
[2020-02-02 04:48] LABS: ALT (SGPT) 54 U/L (8-55); AST (SGOT) 44 U/L (5-34); Albumin 2.2 g/dL (3.5-5.0); Alkaline Phosphatase 63 U/L (40-110); Anion Gap 10 mmol/L (10-20); BUN (Urea Nitrogen) 6 mg/dL (8.4-25.7); Bilirubin, Total 1.4 mg/dL (0.2-1.2); Calc. Creatinine Clearance 139 mL/min (70-130); Calcium 7.4 mg/dL (7.8-10.44); Carbon Dioxide 25 mmol/L (22-29); Chloride 106 mmol/L (98-107); Estimated GFR-MDRD Greater than 90; Glucose 97 mg/dL (70-105); Phosphorus 3.4 mg/dL (2.3-4.7); Protein, Total 5.2 g/dL (6.0-8.3); Sodium 138 mmol/L (136-145)
[2020-02-02 05:32] LABS: Band 18 % (5-11); Lymphocytes 7 % (21-51); MDiff Complete? YES; Mean Corpuscular HGB CONC 33.3 g/dL (32.0-36.0); Mean Corpuscular Hemoglobin 32.6 pg (27.0-31.0); Mean Corpuscular Volume 97.9 fL (78.0-98.0); Mean Platelet Volume 7.9 fL (7.4-10.4); Monocytes 8 % (0-10); Neutrophil 67 % (42-75); Platelet Count 536 thou/uL (130-400); RBC Distribution Width 15.2 % (11.5-14.5); Red Blood Cell (RBC) Count 1.21 mill/uL (4.70-6.10); White Blood Cell (WBC) Count 12.8 thou/uL (4.8-10.8)
[2020-02-02] MEDS: Potassium Chloride 40 MEQ in Premix Bag 1 BAG IVPB PRN (06:47)
[2020-02-02] MEDS: Saccharomyces boulardii 250 MG CAP PO SCH (08:35)
[2020-02-02] MEDS: Pantoprazole 40 MG VIAL IVP SCH ×2 (08:35→20:39)
[2020-02-02] MEDS: Enoxaparin Sodium 40 MG/0.4 ML SYRINGE SC SCH (08:35)
[2020-02-02] MEDS: Dextrose 5% in Water 1,000 ML IV SCH (08:42)
[2020-02-02] MEDS: SODIUM CHLORIDE 0.9% IVPB SCH (09:23)
[2020-02-02] MEDS: THIAMINE HCL IVPB SCH (09:23)
[2020-02-02] MEDS: FOLIC ACID IVPB SCH (09:23)
[2020-02-02] MEDS: Vancomycin HCl 1.25 GM in Sodium Chloride 0.9% 250 ML 250 ML IVPB SCH ×2 (11:31→23:19)
[2020-02-02] MEDS: Ondansetron PF 4 MG/2 ML Vial IVP PRN ×2 (12:40→19:46)
--- NOTE | 2020-02-02 13:16 | PRG ---
DATE OF SERVICE: 02/02/2020 SUBJECTIVE: Hernesto Haq is talking to his . OBJECTIVE: GENERAL: He is in no distress. VITAL SIGNS: He is afebrile. Heart rate is 100, blood pressure is 101/61. LUNGS: Clear. HEART: Regular rhythm. ABDOMEN: Soft. Precedex was turned off, but he is much more calm with Precedex on, so it was restarted. LABORATORY DATA: Hemoglobin at 3:30 was 4 g, but followup hemoglobin 7 g. this was a lab error. He has been transferred to the intermediate care unit today, appears to be stable, answered all of his family's questions. Job ID: [id number]
--- NOTE | 2020-02-02 14:00 | PRG ---
DATE OF SERVICE: 02/02/2020 SUBJECTIVE: Mr. Haq had resolution of his fever, currently on vancomycin and Levaquin. He feels more mentally clear, however, today he is complaining of an increase in abdominal pain significant from yesterday. This is generalized throughout the abdomen. He also has been more nauseated. He attempted some clear liquids earlier today, but became acutely nauseated and has had to be suctioned out. He has been hemodynamically stable. OBJECTIVE: VITAL SIGNS: Temperature 98.3, pulse 103, blood pressure 104/62, 98% oxygen saturation on room air. GENERAL: Lying in bed, in mild distress from abdominal discomfort and nausea. He is alert and oriented today. HEART: Regular. Borderline tachycardia. LUNGS: Clear to auscultation bilaterally. ABDOMEN: Distended, tympanitic to percussion. Diffuse tenderness to palpation, but no guarding or rebound tenderness. EXTREMITIES: No peripheral edema. LABORATORY STUDIES: Hemoglobin 7.0, WBC 12.8, platelets 536. Sodium 138, potassium 3.0, BUN 6, creatinine 0.60, glucose 97, calcium 7.4, phosphorus 3.4, magnesium 1.8, total bilirubin 1.4, alkaline phosphatase 63, AST 44, ALT 54, albumin 2.2. ASSESSMENT AND PLAN: 1. Severe alcoholic pancreatitis. The patient has severe inflammatory changes and multiple developing fluid collections per most recent CT imaging on 01/29/2020. The patient has had a waxing and waning course, but some improvement in inflammatory process since yesterday after restarting vancomycin and levofloxacin. 2. Ileus. This appeared to be improving for several days, but unfortunately he pulled out his Dobbhoff feeding tube and is not really tolerating oral intake over the past couple of days. 3. Abdominal pain. This had been significantly improving, but has now worsened today. 4. Elevated LFTs, stable. At this time, given the significantly worsening abdominal pain and distention with nausea, I would like to repeat CT imaging of the abdomen, rule out enlarging pseudocyst that might be taking up more space, or rule out any evidence of worsening pancreatic necrosis. Tube feeds have been held, nasogastric tube to intermittent suction. Job ID: [id number]
[2020-02-02] MEDS ORDERED: Ketorolac Tromethamine 30 MG/ML VIAL IVP SCH (14:45)
--- NOTE | 2020-02-02 15:18 | PDOC.HOSPP ---
- Subjective Encounter Date: 02/02/20 Encounter Time: 11:00 Subjective: Patient reported that he tried drinking clear liquids today and had severe pain in his stomach. He states he has not had a bowel movement in over a week. Patient reports drinking 30 beers a day prior to admission. He states he will quit on discharge because he doesn't want to lose his and his kids - Objective Vital Signs & Weight: Vital Signs (12 hours) Temp Pulse Pulse Pulse Resp BP BP 02/02/20 14:41 102 H 20 02/02/20 12:00 98.3 F 02/02/20 11:20 117 H 108 H 123/67 97/67 02/02/20 10:59 100 20 02/02/20 08:00 98.2 F 02/02/20 07:04 02/02/20 07:02 92 16 02/02/20 03:59 98.5 F Pulse Ox Pulse Ox Pulse Ox 02/02/20 14:41 98 02/02/20 12:00 02/02/20 11:20 98 97 02/02/20 10:59 97 02/02/20 08:00 96 02/02/20 07:04 97 02/02/20 07:02 97 02/02/20 03:59 Weight Admit Weight 181 lb Weight 150 lb 12.739 oz Most Recent Monitor Data Heart Rate from ECG 102 NIBP 111/60 NIBP BP-Mean 77 Respiration from ECG 16 SpO2 94 I&O: 02/01/20 02/02/20 02/03/20 06:59 06:59 06:59 Intake Total 2937.7 2508.2 320 Output Total 1200 3865 1495 Balance 1737.7 -1356.8 -1175 Result Diagrams: 02/02/20 05:42 02/02/20 03:48 Additional Labs: Accuchecks 02/02/20 02/02/20 02/02/20 10:01 04:03 00:25 POC Glucose 97 101 89 02/01/20 18:28 POC Glucose 75 Hospitalist ROS - Review of Systems Constitutional: denies: fever, chills - Medication Medications: Active Medications Generic Name Dose Route Start Last Admin Trade Name Freq PRN Reason Stop Dose Admin Acetaminophen 650 mg 01/24/20 14:52 01/27/20 14:11 Tylenol [place] 650 mg Q6H PRN Administration FEVER > 101 Acetaminophen 650 mg 01/28/20 12:30 02/02/20 14:55 Tylenol Elixir PO 650 mg Q6H PRN Administration FEVER > 101 F Albuterol/Ipratropium 3 ml 01/18/20 18:30 02/02/20 14:41 Duoneb NEB 3 ml [id number] JOSETTE Administration Enoxaparin Sodium 40 mg 01/17/20 09:00 02/02/20 08:35 Lovenox SC 40 mg 0900 JOSETTE Administration Potassium Chloride 40 meq/ 100 mls @ 50 mls/hr 01/18/20 15:53 02/02/20 06:47 Device IVPB 100 mls ASDIR PRN Administration FOR SERUM K+ 2.5 - 3.5 Potassium Phosphate 9 mmol/ 103 mls @ 25.75 mls/hr 01/18/20 15:53 01/28/20 07 :28 Sodium Chloride IVPB 103 mls ASDIR PRN Administration Phosphate 1.0-1.8 Thiamine HCl 100 mg/ Folic 51.08 mls @ 100.157 mls/hr 01/21/20 09:00 09:23 Acid 0.4 mg/ Sodium Chloride IVPB 51.08 mls DAILY JOSETTE Administration Dextrose/Water 1,000 mls @ 75 mls/hr 01/28/20 08:15 02/02/20 08:42 D5w IV 1,000 mls .[id number] JOSETTE Administration Dexmedetomidine HCl 400 mcg/ 100 mls @ 0 mls/hr 01/30/20 15:45 02/02/20 10:26 Sodium Chloride IVPB 100 mls INF JOSETTE Administration Protocol Per Protocol Levofloxacin 750 mg/ Device 150 mls @ 100 mls/hr 02/01/20 09:00 02/02/20 08: 42 IVPB 150 mls Q24HR JOSETTE Administration Vancomycin HCl 1.25 gm/ Sodium 250 mls @ 166.667 mls/hr 02/01/20 10:00 11:31 Chloride IVPB 250 mls 1000,2200 JOSETTE Administration Insulin Human Lispro 0 units 01/16/20 21:18 01/31/20 05:19 Humalog SC 2 unit .MILD SLIDING SCALE PRN Administration Mild Correctional Scale Ketorolac Tromethamine 15 mg 02/02/20 14:45 02/02/20 14:55 Toradol IVP 02/02/20 16:45 15 mg NOW JOSETTE Administration Metoclopramide HCl 10 mg 01/27/20 18:00 02/02/20 12:39 Reglan IVP 10 mg Q6HR JOSETTE Administration Mirtazapine 15 mg 02/01/20 21:00 02/01/20 21:39 Remeron PO 15 mg HS JOSETTE Administration Miscellaneous Medication 1 pkt 01/18/20 15:53 01/20/20 19:52 Phos-Nak PO 1 pkt TIDPRN PRN Administration FOR PHOS LEVEL 1.0 - 1.8 Miscellaneous Medication 2 pkt 01/18/20 15:53 01/19/20 05:07 Phos-Nak PO 2 pkt TIDPRN PRN Administration FOR PHOS LEVEL 0.5 - 1.0 Ondansetron HCl 4 mg 02/02/20 12:11 02/02/20 12:40 Zofran IVP 4 mg Q6H PRN Administration Nausea/Vomiting Pantoprazole Sodium 40 mg 01/26/20 21:00 02/02/20 08:35 Protonix IVP 40 mg BID JOSETTE Administration Saccharomyces Boulardii 250 mg 01/27/20 09:00 02/02/20 08:35 Florastor PO Not Given DAILY JOSETTE Senna/Docusate Sodium 2 tab 01/16/20 21:05 01/20/20 19:52 Senokot S PO 2 tab BID PRN Administration Constipation Sodium Chloride 10 ml 01/19/20 21:00 02/02/20 08:35 Flush - Normal Saline IVF 10 ml Q12HR JOSETTE Administration - Exam General Appearance: NAD, awake alert Eye: PERRL, anicteric sclera ENT: normocephalic atraumatic, no oropharyngeal lesions Neck: supple, no JVD Heart: RRR, no murmur, no gallops, no rubs Respiratory: CTAB, no wheezes, no rales, no ronchi Gastrointestinal: soft Gastrointestinal - other findings: abdomen distended. LUQ and LLQ tenderness. Diffuse mild tenderness Extremities: no cyanosis, no clubbing, no edema Hosp A/P - Plan Chest Xray 01/17: lung opacities may reflect pneumonia CT abdomen 5/6: high grade acute pancreatitis. Diffuse hepatic steatosis. Diaphragmatic and paraesophageal hernia CT abdomen 01/17: high grade pancreatitis with extensive peripancreatic inflammatory changes and fluid in the abdomen with nonencapsulated peripancreatic fluid collection extending along inferior aspect greater curvature of the stomach and inferiorly. Diffuse fatty liver. Increase in bilateral pleural effusions with small to moderate size bilateral pleural effusions and associated bibsilar areas of consolidation. Dilated loops of small bowel with fluid and gas likely from ileus Chest X ray 01/20: bilateral interstitial and parenchymal airspace opacity within perihilar and upper long zone on the right due to bilateral pneumonia and atypical pneumonia. Left pleural effusion Chest X ray 01/21: bilateral patchy infiltrates, possible pneumonia vs pleural effusion Endoscopy 01/22: 1-2 cm ulceration in the gastric body. Dobhoff tube placed in 3rd/4th portion of duodenum Chest X ray 01/22: improvement in airspace disease Chest X ray 01/23: bilateral infiltrates. Small left pleural effusion Abd X ray: gas filled dilated loops of small bowel Chest X ray 01/24: left opacity and left pleural effusion CT abdomen 01/27: right and moderate left pleural effusions. High grade pancreatitis with extensive peripancreatic inflammatory changes and increase in inflammatory changes and fluid. Developing pseudocyst formation Chest X ray 01/31: mild left pleural effusion. Improving bilaterla opacities This is 54 year old male who presented with pancreatitis and was intubated due to severe withdrawal #Acute pancreatitis with pancreatic pseudocyst #Ileus #Fatty liver - CT abdomen on admission showing high grade pancreatitis. CT abdomen 01/17 shows high grade pancreatitis with peripancreatic fluid collection. CT abdomen 01/28 showed developing pseudocyst formation - patient was unable to tolerate oral intake. GI is repeating CT abdomen - per surgery, no intervention done until 6 weeks - continue vanc and levaquin #Sepsis from aspiration pneumonia vs pancreatitis - chest X ray shows improving bilateral pneumonia vs edema. Afebrile today - on vancomycin and levaquin, continue for now - blood culture grew 1/2 MRSE. Repeat blood cultures normal. Urine culture normal #Hypokalemia - potassium 3.0, s/p replacement with 40 meq #Hypocalcemia - calcium supplementation prn #Gastric ulcer - noted on endoscopy 01/21 when patient was unable to tolerate po. Dobhoff tube removed - NG tube still in place - continue IV protonix #Acute hypoxic respiratory failure - resolved #Pulmonary edema -currently on room air. Repeat chest X ray 02/01 shows improving bilateral infiltrates. He is off lasix currently - will continue to hold lasix, do not see significant edema on exam #Severe alcohol withdrawal - stable, continue thiamine and folic acid - extubated 01/24 #Transaminitis secondary to alcoholism - LFTS downtrending Dispo: pending improvement in oral intake Code status: full code
--- NOTE | 2020-02-02 16:34 | RAD ---
ABDOMEN ONE VIEW: 02/02/20 HISTORY: Ileus. COMPARISON: Radiograph 01/11/20. FINDINGS: Enteric tube is in place with tip at the gastric fundus. There continues to be distended loops of lar ge and small bowel. Evaluation for free air is limited without upright exam. Spinal fusion hardware at L5-S1. IMPRESSION: Findings of continued ileus. POS: HOME
[2020-02-02] MEDS: predniSONE 50 MG TAB PO SCH (20:32)
[2020-02-02] MEDS: Mirtazapine 15 MG TAB PO SCH (20:32)
[2020-02-02 21:26] LABS: Vancomycin, Trough 11.3 ug/mL
[2020-02-02] MEDS: Vancomycin 1 GM in Premix Bag 1 BAG IVPB SCH (23:14)
[2020-02-02] MEDS ORDERED: Fentanyl 100 MCG/2 ML VIAL SLOW IVP PRN (23:41)
[2020-02-03] MEDS: Metoclopramide HCl 10 MG/2 ML VIAL IVP SCH ×2 (00:17→05:59)
[2020-02-03] MEDS: predniSONE 50 MG TAB PO SCH ×2 (02:10→08:16)
[2020-02-03] MEDS: Dextrose 5% in Water 1,000 ML IV SCH ×3 (03:34→21:22)
[2020-02-03 04:52] LABS: ALT (SGPT) 62 U/L (8-55); AST (SGOT) 56 U/L (5-34); Albumin 2.5 g/dL (3.5-5.0); Alkaline Phosphatase 74 U/L (40-110); Anion Gap 11 mmol/L (10-20); BUN (Urea Nitrogen) 4 mg/dL (8.4-25.7); Bilirubin, Total 1.1 mg/dL (0.2-1.2); Calc. Creatinine Clearance 135 mL/min (70-130); Calcium 7.6 mg/dL (7.8-10.44); Carbon Dioxide 24 mmol/L (22-29); Chloride 106 mmol/L (98-107); Estimated GFR-MDRD Greater than 90; Globulin 3.6 g/dL (2.4-3.5); Glucose 129 mg/dL (70-105); Phosphorus 3.1 mg/dL (2.3-4.7); Potassium 3.3 mmol/L (3.5-5.1); Protein, Total 6.1 g/dL (6.0-8.3); Sodium 138 mmol/L (136-145)
[2020-02-03 04:58] LABS: #Eosinphils 0.1 thou/uL (0.0-0.7); #Lymphocytes 0.4 thou/uL (1.20-3.40); #Monocytes 0.3 thou/uL (0.11-0.59); #Neutrophils 7.8 thou/uL (1.40-6.50); %Eosinophils 0.6 % (0.0-10.0); %Lymphocytes 4.5 % (21.0-51.0); %Monocytes 3.6 % (0.0-10.0); %Neutrophils 91.3 % (42.0-75.0); Hemoglobin 8.1 g/dL (14.0-18.0); Mean Corpuscular HGB CONC 32.2 g/dL (32.0-36.0); Mean Corpuscular Hemoglobin 31.6 pg (27.0-31.0); Mean Platelet Volume 7.6 fL (7.4-10.4); Platelet Count 616 thou/uL (130-400); RBC Distribution Width 14.9 % (11.5-14.5); Red Blood Cell (RBC) Count 2.56 mill/uL (4.70-6.10); White Blood Cell (WBC) Count 8.5 thou/uL (4.8-10.8)
[2020-02-03] MEDS: Vancomycin 1 GM in Premix Bag 1 BAG IVPB SCH ×3 (05:59→21:52)
[2020-02-03] MEDS ORDERED: Morphine 2 MG/ML SYRINGE SLOW IVP SCH (06:00)
[2020-02-03] MEDS ORDERED: diphenhydrAMINE 50 MG CAP PO SCH (08:00)
[2020-02-03] MEDS: Ondansetron PF 4 MG/2 ML Vial IVP PRN ×2 (08:22→17:50)
--- NOTE | 2020-02-03 09:47 | CT ---
CT abdomen and pelvis with IV and oral contrast HISTORY: Worsening abdominal pain. Pancreatitis. COMPARISON: 01/29/2020. FINDINGS: Bilateral pleural fluid and bibasilar atelectasis are similar in appearance to the previous exam. Nasogastric tube is in place. Severe inflammatory change and fluid is again shown to surround the pancreas. While much is similar t o the previous exam, fluid extending to the right paracolic gutter has increased slightly. No free air. The lobular fluid collection adjacent to the lateral margin of the greater curvature of the stom ach is unchanged in appearance, measuring 6.8 cm length by 7.3 cm x 6.1 cm oblique with. Tiny cysts of the kidneys are stable. Roach catheter in place. Postoperative and degenerative changes lumbar spine. Distention of the small bowel with fluid and contrast extends to the level of the mid abdomen were th ere is circumferential wall thickening of a small bowel loop immediately anterior to the aortic bifurcation. Bowel beyond this point is less distended, although significant air remains within the d istal small bowel and colon. IMPRESSION : Low-grade mid to distal small bowel obstruction at an area of probable inflammation and circumferenti al bowel wall thickening. Free fluid in the right abdomen has increased slightly. CT findings of severe pancreatitis and left u pper quadrant pseudocyst formation are otherwise stable.
[2020-02-03] MEDS: Enoxaparin Sodium 40 MG/0.4 ML SYRINGE SC SCH (10:05)
[2020-02-03] MEDS: Pantoprazole 40 MG VIAL IVP SCH ×2 (10:06→21:13)
[2020-02-03] MEDS: Saccharomyces boulardii 250 MG CAP PO SCH (10:06)
[2020-02-03] MEDS ORDERED: Morphine 4 MG/ML VIAL SLOW IVP SCH (11:30)
--- NOTE | 2020-02-03 11:31 | PDOC.HOSPP ---
- Subjective Encounter Date: 02/03/20 Encounter Time: 11:29 Subjective: The patient reports severe abd pain. He did not get sleep last night. He had no relief with toradol. He states that he had 2 mg morphine overnight that brought his pain down from a 10 to a 4. However it doesn't last that long, only ten minutes. He reports 4 mg dose lasted him six hours Advised caution with narcotics due to SBO noted on CT scan. He is passing some gas. He had one bowel movement last night. He seems to tolerate clears per patient without much abd pain - Objective Vital Signs & Weight: Vital Signs (12 hours) Temp Pulse Resp Pulse Ox 02/03/20 11:15 97.2 F L 02/03/20 07:04 99.5 F 99 02/03/20 07:02 117 H 17 99 02/03/20 03:59 98.1 F 02/03/20 03:26 98 02/02/20 23:30 98.1 F Weight Admit Weight 181 lb Weight 168 lb 14.4 oz Most Recent Monitor Data Heart Rate from ECG 121 NIBP 129/83 NIBP BP-Mean 98 Respiration from ECG 18 SpO2 96 I&O: 02/02/20 02/03/20 02/04/20 06:59 06:59 06:59 Intake Total 2508.2 2053 Output Total 3865 2900 Balance -1356.8 -847 Result Diagrams: 02/03/20 03:34 02/03/20 03:34 Additional Labs: Accuchecks 02/03/20 02/03/20 02/02/20 04:55 00:10 21:06 POC Glucose 137 H 116 H 96 02/02/20 16:18 POC Glucose 90 Hospitalist ROS - Review of Systems Constitutional: denies: fever, chills - Medication Medications: Active Medications Generic Name Dose Route Start Last Admin Trade Name Freq PRN Reason Stop Dose Admin Acetaminophen 650 mg 01/24/20 14:52 01/27/20 14:11 Tylenol SD 650 mg Q6H PRN Administration FEVER > 101 Acetaminophen 650 mg 01/28/20 12:30 02/02/20 22:13 Tylenol Elixir PO 650 mg Q6H PRN Administration FEVER > 101 F Enoxaparin Sodium 40 mg 01/17/20 09:00 02/03/20 10:05 Lovenox SC 40 mg 0900 JOSETTE Administration Potassium Chloride 40 meq/ 100 mls @ 50 mls/hr 01/18/20 15:53 02/02/20 06:47 Device IVPB 100 mls ASDIR PRN Administration FOR SERUM K+ 2.5 - 3.5 Potassium Phosphate 9 mmol/ 103 mls @ 25.75 mls/hr 01/18/20 15:53 01/28/20 07 :28 Sodium Chloride IVPB 103 mls ASDIR PRN Administration Phosphate 1.0-1.8 Thiamine HCl 100 mg/ Folic 51.08 mls @ 100.157 mls/hr 01/21/20 09:00 09:23 Acid 0.4 mg/ Sodium Chloride IVPB 51.08 mls DAILY JOSETTE Administration Dextrose/Water 1,000 mls @ 75 mls/hr 01/28/20 08:15 02/03/20 03:34 D5w IV 1,000 mls .[id number] JOSETTE Administration Levofloxacin 750 mg/ Device 150 mls @ 100 mls/hr 02/01/20 09:00 02/03/20 10: 05 IVPB 150 mls Q24HR JOSETTE Administration Vancomycin HCl 1 gm/ Device 200 mls @ 200 mls/hr 02/02/20 22:00 02/03/20 05: 59 IVPB 200 mls Q8HR JOSETTE Administration Insulin Human Lispro 0 units 01/16/20 21:18 01/31/20 05:19 Humalog SC 2 unit .MILD SLIDING SCALE PRN Administration Mild Correctional Scale Mirtazapine 15 mg 02/01/20 21:00 02/02/20 20:32 Remeron PO 15 mg HS JOSETTE Administration Miscellaneous Medication 1 pkt 01/18/20 15:53 01/20/20 19:52 Phos-Nak PO 1 pkt TIDPRN PRN Administration FOR PHOS LEVEL 1.0 - 1.8 Miscellaneous Medication 2 pkt 01/18/20 15:53 01/19/20 05:07 Phos-Nak PO 2 pkt TIDPRN PRN Administration FOR PHOS LEVEL 0.5 - 1.0 Ondansetron HCl 4 mg 02/02/20 12:11 02/03/20 08:22 Zofran IVP 4 mg Q6H PRN Administration Nausea/Vomiting Pantoprazole Sodium 40 mg 01/26/20 21:00 02/03/20 10:06 Protonix IVP 40 mg BID JOSETTE Administration Potassium Chloride 40 meq 01/18/20 15:53 02/03/20 06:18 K-Dur PO 40 meq ASDIR PRN Administration FOR SERUM K+ 2.5 - 3.5 Saccharomyces Boulardii 250 mg 01/27/20 09:00 02/03/20 10:06 Florastor PO 250 mg DAILY JOSETTE Administration Senna/Docusate Sodium 2 tab 01/16/20 21:05 01/20/20 19:52 Senokot S PO 2 tab BID PRN Administration Constipation Sodium Chloride 10 ml 01/19/20 21:00 02/02/20 20:45 Flush - Normal Saline IVF 10 ml Q12HR JOSETTE Administration - Exam General Appearance: NAD, awake alert Eye: PERRL, anicteric sclera ENT: normocephalic atraumatic, no oropharyngeal lesions Neck: no JVD Heart: RRR, no murmur, no gallops, no rubs Respiratory: CTAB, no wheezes, no rales, no ronchi Gastrointestinal: diminished bowl sounds Gastrointestinal - other findings: abd distended. Diffuse mild tenderness to light palpation Extremities: no cyanosis, no clubbing, no edema Hosp A/P - Plan Chest Xray 01/17: lung opacities may reflect pneumonia CT abdomen 01/15: high grade acute pancreatitis. Diffuse hepatic steatosis. Diaphragmatic and paraesophageal hernia CT abdomen 01/17: high grade pancreatitis with extensive peripancreatic inflammatory changes and fluid in the abdomen with nonencapsulated peripancreatic fluid collection extending along inferior aspect greater curvature of the stomach and inferiorly. Diffuse fatty liver. Increase in bilateral pleural effusions with small to moderate size bilateral pleural effusions and associated bibsilar areas of consolidation. Dilated loops of small bowel with fluid and gas likely from ileus Chest X ray 01/20: bilateral interstitial and parenchymal airspace opacity within perihilar and upper long zone on the right due to bilateral pneumonia and atypical pneumonia. Left pleural effusion Chest X ray 01/21: bilateral patchy infiltrates, possible pneumonia vs pleural effusion Endoscopy 01/22: 1-2 cm ulceration in the gastric body. Dobhoff tube placed in 3rd/4th portion of duodenum Chest X ray 01/22: improvement in airspace disease Chest X ray 01/23: bilateral infiltrates. Small left pleural effusion Abd X ray: gas filled dilated loops of small bowel Chest X ray 01/24: left opacity and left pleural effusion CT abdomen 01/27: right and moderate left pleural effusions. High grade pancreatitis with extensive peripancreatic inflammatory changes and increase in inflammatory changes and fluid. Developing pseudocyst formation Chest X ray 01/31: mild left pleural effusion. Improving bilaterla opacities CT abdomen 02/02: low grade mid to distal SBO at an area of probable inflammation and circumferential bowel wall t hickening. Severe pancreatitis with LUQ pseudocyst formation This is 54 year old male who presented with pancreatitis and was intubated due to severe withdrawal #Acute pancreatitis with pancreatic pseudocyst #Ileus #Fatty liver - CT abdomen on admission showing high grade pancreatitis. CT abdomen 01/17 shows high grade pancreatitis with peripancreatic fluid collection. CT abdomen 01/27 showed developing pseudocyst formation - CT abdomen 02/02 showing mid to distal SBO with LUQ pseudocyst. NG tube currently in place, patient tolerating clears. GI is following. - continue laxatives daily - will place surgical consult for SBO. No intervention for pseudocyst currently - continue vancomycin and levaquin #Sepsis from aspiration pneumonia vs pancreatitis - chest X ray 01/31 shows improving bilateral pneumonia vs edema. Remains afebrile - continue vancomycin and levaquin - blood culture grew 1/2 MRSE. Repeat blood cultures normal. Urine culture normal #Hypokalemia - potassium 3.3, s/p replacement with 40 meq #Gastric ulcer - noted on endoscopy 01/21 when patient was unable to tolerate po. Dobhoff tube removed - NG tube still in place - continue IV protonix #Hypocalcemia - calcium supplementation prn #Acute hypoxic respiratory failure from pulmonary edema - resolved, currently on room air #Severe alcohol withdrawal - stable, continue thiamine and folic acid - extubated 01/24 #Transaminitis secondary to alcoholism - LFTS trended up slightly today, will monitor Dispo: pending improvement in oral intake Code status: full code
[2020-02-03] MEDS: SODIUM CHLORIDE 0.9% IVPB SCH (11:56)
[2020-02-03] MEDS: THIAMINE HCL IVPB SCH (11:56)
[2020-02-03] MEDS: FOLIC ACID IVPB SCH (11:56)
--- NOTE | 2020-02-03 13:07 | PRG ---
DATE OF SERVICE: SUBJECTIVE: Hernesto Haq continues to complain of abdominal discomfort. OBJECTIVE: VITAL SIGNS: He is afebrile. Blood pressure 116/80, heart rate 112, and respiratory rates in the 20s. LUNGS: Clear. HEART: Regular rhythm. ABDOMEN: Distended. He has diffuse mild tenderness. LABORATORY DATA: White count 8.5, hemoglobin 8.1, and platelets 616. Sodium 138, potassium 3.3, chloride 106, bicarb 24, BUN 4, and creatinine 0.6. IMPRESSION: 1. Alcoholic pancreatitis. 2. Ileus. Another CT was ordered today of his abdomen and pelvis. This was interpreted as a low-grade distal small bowel obstruction, free fluid in the right abdomen, findings of severe pancreatitis and pseudocyst. We will continue to follow. He is having no respiratory issues at this time. Job ID: [id number]
--- NOTE | 2020-02-03 13:36 | PRG ---
DATE OF SERVICE: 02/03/2020 SUBJECTIVE: Mr. Haq has continued to have nausea and vomiting. He can tolerate only a very tiny amount of clear liquids. He had a repeat CT of the abdomen and pelvis this morning and this demonstrated a low-grade mid to distal small-bowel obstruction and an area of probable inflammation with circumferential bowel wall thickening, continued findings of severe pancreatitis and some increase in amount of fluid in the right pericolic gutter, lobular fluid collection adjacent to the lateral margin of the greater curvature of the stomach measures 7.3 x 6.8 x 6.1 cm. Severe inflammatory change persists around the pancreas. OBJECTIVE: VITAL SIGNS: Temperature 97.2, blood pressure 116/80, heart rate 112, 98% oxygen saturation on room air. GENERAL: No acute distress. Nasogastric tube in place. HEART: Regular, tachycardia. LUNGS: Clear to auscultation bilaterally. ABDOMEN: Distended, tympanitic to percussion. EXTREMITIES: No peripheral edema. LABORATORY STUDIES: Hemoglobin 8.1, WBC 8.5, platelets 616. Sodium 138, potassium 3.3, BUN 4, creatinine 0.62, glucose 142, total bilirubin 1.1, alkaline phosphatase 74, AST 56, ALT 62, albumin 2.5. ASSESSMENT/PLAN: 1. Severe alcoholic pancreatitis with multiple developing fluid collections per repeat CT imaging this morning. 2. Ileus, this had improved for a couple of days, but the past 3 days abdominal distention and nausea have worsened. 3. Low-grade mechanical small-bowel obstruction. This was noted on CT from earlier this morning, appears to be secondary to inflammatory changes in the mid to distal small bowel. Surgical consult has been placed. I doubt he will be a good candidate for surgery for this. 4. Elevated LFTs, stable. I spoke with Dr. Combs this morning, the patient needs some form of nutritional supplementation, and unfortunately with persistent ileus and now developing mechanical bowel obstruction, enteral feeds are not feasible. I think we need to get him started on TPN. Job ID: [id number]
[2020-02-03] MEDS: Morphine 2 MG/ML SYRINGE SLOW IVP PRN ×3 (15:17→21:53)
--- NOTE | 2020-02-03 16:51 | CON ---
DATE OF CONSULTATION: 02/03/2020 REQUESTING PHYSICIAN: Dr. Combs. ATTENDING SURGEON: Dr. Contreras. REASON FOR CONSULTATION: Possible small-bowel obstruction. HISTORY OF PRESENT ILLNESS: This is a 54-year-old gentleman who presented to the hospital on 01/16/2020 with abdominal pain. The patient has a history of recurrent pancreatitis. The patient reports over the last 3 months, he drinks a 30 pack of beer or a half gallon of whisky daily. The patient continues to have some nausea and vomiting. An NG tube is currently in place. The patient reports that he did have a loose bowel movement last night and is passing gas. He denies any bloody stool. The patient has had a persistent ileus and has been on TPN. His ileus had improved for a couple of days, but his abdominal pain and distention and nausea worsened. The patient did get an abdominal CT with oral contrast earlier today , which demonstrated a low-grade mid to distal small-bowel obstruction in and area of probable inflammation with circumferential bowel wall thickening. ROS: Negative unless indicated in the HPI. MEDICATIONS: PAST MEDICAL HISTORY: Atrial fibrillation, Bipolar, Hypertension, Pancreatitis. SURGICAL HISTORY: Hernia repair, Ablation, Spinal SOCIAL: Daily drinker, previous drug abuse, smoker. ALLERGIES: Penicillin, Codeine, Iodine PHYSICAL EXAMINATION: VITAL SIGNS: Temperature 97.6, pulse 107, blood pressure 117/82, respirations 20, SpO2 of 95% on 1 L nasal cannula. GENERAL: Middle-aged male, in no acute distress, sitting up in hospital bed with NG tube in place. HEENT: Head is atraumatic and normocephalic. Mucous membranes moist. RESPIRATORY: Bilateral breath sounds clear. No wheezing, rales, or rhonchi. No respiratory distress. HEART: Regular rate, tachycardic. ABDOMEN: Distended, soft, active bowel sounds, tympanic to percussion. No peritoneal signs. EXTREMITIES: No focal deficits. Moves all extremities. No significant edema. LABORATORY DATA: WBC 8.5, RBC 2.56, hemoglobin 8.1, hematocrit 25.1, platelets 616. Sodium 138, potassium 3.3, chloride 106, BUN 4, creatinine 0.62, estimated GFR greater than 90, glucose 129, calcium 7.6, phosphorus 3.1, magnesium 1.8, total bilirubin 1.1, AST 56, ALT 62, alkaline phos 74, albumin 2.5. DIAGNOSTICS: Abdomen and pelvis CT, impression, low-grade mid distal small- bowel obstruction at an area of probable inflammation and circumferential bowel wall thickening. Free fluid in the right abdomen has increased slightly. CT findings of severe pancreatitis and left upper quadrant pseudocyst formation or otherwise stable. IMPRESSION: Severe alcohol pancreatitis, rule out small-bowel obstruction. PLAN: Continue NG tube. Recommend n.p.o. We will get a small-bowel follow- through in the morning since he has a abdominal CT with oral contrast this morning. Increase activity and out of bed. The plan was discussed with Dr. Contreras, who agrees. Thank you for the consult. Job ID: [id number] [facility]evin
[2020-02-03] MEDS: Mirtazapine 15 MG TAB PO SCH (21:13)
[2020-02-03 21:39] LABS: Vancomycin, Trough 14.9 ug/mL
[2020-02-04] MEDS: Morphine 2 MG/ML SYRINGE SLOW IVP PRN ×6 (00:59→21:02)
--- NOTE | 2020-02-04 03:57 | PRG ---
DATE OF SERVICE: 02/03/2020 SUBJECTIVE: The patient was seen this evening during rounds. He was sitting up in bed with no signs of acute distress. Nursing reported no acute events. NG tube in place with dark green bilious output. It is working appropriately. OBJECTIVE: VITAL SIGNS: Temperature 98.6, pulse 107, respirations 33, oxygen saturation 95% on room air, blood pressure 116/73. ASSESSMENT: Small bowel obstruction. PLAN: The patient to receive a small bowel follow-through in the morning. Continue n.p.o. and IV fluids. Continue NG tube to suction for now. Dr. Contreras will re-evaluate the patient after small bowel follow-through is completed. Job ID: [id number]
[2020-02-04] MEDS: Vancomycin 1 GM in Premix Bag 1 BAG IVPB SCH (05:35)
[2020-02-04 06:13] LABS: #Lymphocytes 1.2 thou/uL (1.20-3.40); #Monocytes 1.1 thou/uL (0.11-0.59); #Neutrophils 7.2 thou/uL (1.40-6.50); %Basophils 0.4 % (0.0-1.0); %Eosinophils 0.4 % (0.0-10.0); %Lymphocytes 12.1 % (21.0-51.0); %Monocytes 11.7 % (0.0-10.0); %Neutrophils 75.4 % (42.0-75.0); Hemoglobin 9.5 g/dL (14.0-18.0); Mean Corpuscular HGB CONC 31.6 g/dL (32.0-36.0); Mean Corpuscular Hemoglobin 30.8 pg (27.0-31.0); Mean Corpuscular Volume 97.5 fL (78.0-98.0); Mean Platelet Volume 6.9 fL (7.4-10.4); Platelet Count 649 thou/uL (130-400); RBC Distribution Width 14.5 % (11.5-14.5); Red Blood Cell (RBC) Count 3.08 mill/uL (4.70-6.10); White Blood Cell (WBC) Count 9.6 thou/uL (4.8-10.8)
[2020-02-04 06:40] LABS: ALT (SGPT) 58 U/L (8-55); AST (SGOT) 53 U/L (5-34); Albumin 2.5 g/dL (3.5-5.0); Alkaline Phosphatase 73 U/L (40-110); Anion Gap 10 mmol/L (10-20); BUN (Urea Nitrogen) Less than 4 mg/dL (8.4-25.7); Calc. Creatinine Clearance 149 mL/min (70-130); Calcium 7.9 mg/dL (7.8-10.44); Carbon Dioxide 28 mmol/L (22-29); Chloride 106 mmol/L (98-107); Estimated GFR-MDRD Greater than 90; Globulin 3.3 g/dL (2.4-3.5); Glucose 90 mg/dL (70-105); Phosphorus 3.4 mg/dL (2.3-4.7); Potassium 3.1 mmol/L (3.5-5.1); Protein, Total 5.8 g/dL (6.0-8.3); Sodium 141 mmol/L (136-145)
[2020-02-04] MEDS ORDERED: Potassium Chloride 20 MEQ TAB PO SCH (09:45)
[2020-02-04] MEDS: Enoxaparin Sodium 40 MG/0.4 ML SYRINGE SC SCH (09:55)
[2020-02-04] MEDS: Pantoprazole 40 MG VIAL IVP SCH ×2 (09:55→21:03)
[2020-02-04] MEDS: FOLIC ACID IVPB SCH (09:56)
[2020-02-04] MEDS: THIAMINE HCL IVPB SCH (09:56)
[2020-02-04] MEDS: SODIUM CHLORIDE 0.9% IVPB SCH (09:56)
[2020-02-04] MEDS: Saccharomyces boulardii 250 MG CAP PO SCH (10:16)
[2020-02-04] MEDS: Potassium Chloride 40 MEQ in Premix Bag 1 BAG IVPB PRN (10:17)
--- NOTE | 2020-02-04 12:11 | PRG ---
DATE OF SERVICE: 02/04/2020 SUBJECTIVE: The patient is doing well. He is pleasant. He has no acute complaints other than inability to eat secondary to obstructive bowel. OBJECTIVE: VITAL SIGNS: Temperature 97.6, pulse 97, blood pressure 132/82, and O2 saturation 97% on room air. HEENT: Unremarkable. NECK: No JVD. CHEST: Clear anteriorly. CARDIAC: S1 and S2, regular. ABDOMEN: Slightly distended. EXTREMITIES: No edema. ASSESSMENT: 1. Small-bowel obstruction. 2. Pancreatitis. 3. Alcoholic hepatitis. 4. Status post respiratory failure requiring mechanical ventilation. PLAN: Supportive care per GI. The patient continues on antibiotics for sepsis. Fortunately, nothing has grown out in terms of repeat cultures; therefore, I will go ahead and stop the Levaquin and vancomycin and observe. Job ID: [id number]
--- NOTE | 2020-02-04 12:13 | RAD ---
ABDOMEN 2 VIEWS: HISTORY: Possible small bowel obstruction. COMPARISON: 02/03/2020. FINDINGS: NG tube in place. Oral contrast given for prior CT is noted to have advanced into the colon. There are some dilated small bowel loops favored to be ileus rather than obstruction. Evidence for bilater al pleural effusions. IMPRESSION: Abnormally dilated small bowel loops, evidence for ileus given that the oral contrast given at yester day's CT scan has completely advanced into the colon. Bilateral pleural effusions. No free intraper itoneal air. Continue short-term followup. POS: [facility]
--- NOTE | 2020-02-04 13:14 | PRG ---
DATE OF SERVICE: 02/04/2020 SUBJECTIVE: Mr. Haq is feeling okay. No acute events overnight. Nasogastric tube is still set to suction, put out 1 L documented yesterday. Small bowel follow-through seems more suggestive of ileus than mechanical obstruction. Appreciate surgery evaluation. Dietitian has been reconsulted for TPN recommendations. PHYSICAL EXAMINATION: VITAL SIGNS: Temperature 97.1, blood pressure 113/64, heart rate 84, oxygen saturation 93% on room air. GENERAL: No acute distress. HEART: Regular rate and rhythm. LUNGS: Clear to auscultation bilaterally. ABDOMEN: Distended, tympanitic to percussion throughout. Mildly tender to palpation, but no guarding or rebound tenderness. EXTREMITIES: No peripheral edema. LABORATORY STUDIES: WBC 9.6, hemoglobin 9.5, and platelets 649. Sodium 141, potassium 3.1, BUN less than 4, creatinine 0.61, total bilirubin 1.0, alkaline phosphatase 73, AST 53, ALT 58, and albumin 2.5. IMAGING STUDIES: Small bowel follow-through demonstrates abnormally-dilated small bowel loops, but oral contrast had completely advanced into the colon, more consistent with ileus. ASSESSMENT AND PLAN: 1. Severe alcoholic pancreatitis with multiple developing fluid collections. 2. Ileus, this had improved for several days, but the past 4 days has worsened again. Nasogastric tube is still to low-intermittent suction, feeling well with this. From a nutritional standpoint, recommend we go ahead and start on TPN today given the prolonged nature of his ileus. Nasogastric tube output is dropping, trial clamping the tube before cautiously restarting clear liquids. 3. Elevated LFTs, stable. 4. Stable, mild transaminase elevation. Job ID: [id number]
[2020-02-04] MEDS: Dextrose 5% in Water 1,000 ML IV SCH ×2 (14:12→14:30)
--- NOTE | 2020-02-04 15:31 | PRG ---
DATE OF SERVICE: 02/04/2020 SUBJECTIVE: The patient is currently in the IM. He is a patient, whom we are seeing in consultation for possible small bowel obstruction. The patient is really admitted for severe alcohol pancreatitis. The patient underwent CT evaluation yesterday, which was suspicious for possible small bowel obstruction. This morning, it was noted the patient continues to pass gas and has had bowel movements. Repeat plain radiograph of his abdomen showed that the contrast continue to move into his colon making ileus more likely. The patient's NG output has continued to decrease. The patient also denies any nausea or vomiting and is actually asking for liquids. OBJECTIVE: VITAL SIGNS: Heart rate 99, blood pressure 122/83, respirations 16, and oxygen saturation 100% on room air. The patient is afebrile. GENERAL: The patient is resting comfortably in bed. He is awake, in no signs is distress. LUNGS: Clear to auscultation bilaterally. HEART: Regular rate and rhythm. ABDOMEN: Slightly distended less than yesterday. Bowel sounds are hypoactive. EXTREMITIES: Neurovascularly intact x4. LABORATORY FINDINGS: White blood cell count 9.6, hemoglobin 9.5, hematocrit 30.0, and platelets 649. Sodium 141, potassium 3.1, chloride 106, CO2 of 28 BUN less than 4, creatinine 0.61, glucose 90, AST 53, ALT 58, total bilirubin 1.0, and alkaline phosphatase 73. RADIOGRAPHIC FINDINGS: Two views of the abdomen show dilated small bowel loops, evidence for ileus given that the oral contrast given yesterday CT has completely advanced into the colon. ASSESSMENT: 1. Ileus likely due to immobility and deconditioning. 2. History of pancreatitis, alcoholic hepatitis, and respiratory failure requiring mechanical ventilation. PLAN: Plan will be to NG tube and allow ice chips and small sips of water and reassess. Continue encouraging out of bed and ambulation. Repeat abdominal series in the morning. The evaluation and examination were done with Dr. Contreras this morning during rounds. Job ID: [id number]
--- NOTE | 2020-02-04 17:32 | PDOC.HOSPP ---
- Subjective Encounter Date: 02/04/20 Encounter Time: 09:30 Subjective: The patient reports no abd pain with jello. He had BM today. He is passing gas. No other complaints. He was started on TPN today - Objective Vital Signs & Weight: Vital Signs (12 hours) Temp Pulse Pulse BP BP Pulse Ox Pulse Ox 02/04/20 15:00 98.0 F 02/04/20 13:18 100 98 137/82 134/80 98 02/04/20 11:28 97.1 F L 02/04/20 08:00 96 02/04/20 07:29 97.6 F Weight Admit Weight 181 lb Weight 163 lb 6.4 oz Most Recent Monitor Data Heart Rate from ECG 94 NIBP 130/73 NIBP BP-Mean 92 Respiration from ECG 19 SpO2 100 I&O: 02/03/20 02/04/20 02/05/20 06:59 06:59 06:59 Intake Total 2053 740 Output Total 2900 4150 Balance -847 -2290 Result Diagrams: 02/04/20 05:53 02/04/20 05:53 Additional Labs: Accuchecks 02/04/20 02/04/20 02/03/20 12:58 05:08 23:30 POC Glucose 93 104 105 02/03/20 18:05 POC Glucose 124 H Hospitalist ROS - Review of Systems Constitutional: denies: fever, chills - Medication Medications: Active Medications Generic Name Dose Route Start Last Admin Trade Name Freq PRN Reason Stop Dose Admin Acetaminophen 650 mg 01/24/20 14:52 01/27/20 14:11 Tylenol NJ 650 mg Q6H PRN Administration FEVER > 101 Acetaminophen 650 mg 01/28/20 12:30 02/02/20 22:13 Tylenol Elixir PO 650 mg Q6H PRN Administration FEVER > 101 F Enoxaparin Sodium 40 mg 01/17/20 09:00 02/04/20 09:55 Lovenox SC 40 mg 0900 JOSETTE Administration Potassium Chloride 40 meq/ 100 mls @ 50 mls/hr 01/18/20 15:53 02/04/20 10:17 Device IVPB 100 mls ASDIR PRN Administration FOR SERUM K+ 2.5 - 3.5 Potassium Phosphate 9 mmol/ 103 mls @ 25.75 mls/hr 01/18/20 15:53 01/28/20 07 :28 Sodium Chloride IVPB 103 mls ASDIR PRN Administration Phosphate 1.0-1.8 Thiamine HCl 100 mg/ Folic 51.08 mls @ 100.157 mls/hr 01/21/20 09:00 09:56 Acid 0.4 mg/ Sodium Chloride IVPB 51.08 mls DAILY JOSETTE Administration Dextrose/Water 1,000 mls @ 75 mls/hr 01/28/20 08:15 02/04/20 14:30 D5w IV 1,000 mls .[id number] JOSETTE Administration Insulin Human Lispro 0 units 01/16/20 21:18 01/31/20 05:19 Humalog SC 2 unit .MILD SLIDING SCALE PRN Administration Mild Correctional Scale Mirtazapine 15 mg 02/01/20 21:00 02/03/20 21:13 Remeron PO 15 mg HS JOSETTE Administration Miscellaneous Medication 1 pkt 01/18/20 15:53 01/20/20 19:52 Phos-Nak PO 1 pkt TIDPRN PRN Administration FOR PHOS LEVEL 1.0 - 1.8 Miscellaneous Medication 2 pkt 01/18/20 15:53 01/19/20 05:07 Phos-Nak PO 2 pkt TIDPRN PRN Administration FOR PHOS LEVEL 0.5 - 1.0 Morphine Sulfate 2 mg 02/03/20 11:29 02/04/20 16:22 Morphine SLOW IVP 2 mg Q3H PRN Administration Fever>101/(Mi/Mod/Sev) Pain Ondansetron HCl 4 mg 02/02/20 12:11 02/03/20 17:50 Zofran IVP 4 mg Q6H PRN Administration Nausea/Vomiting Pantoprazole Sodium 40 mg 01/26/20 21:00 02/04/20 09:55 Protonix IVP 40 mg BID JOSETTE Administration Potassium Chloride 40 meq 01/18/20 15:53 02/03/20 06:18 K-Dur PO 40 meq ASDIR PRN Administration FOR SERUM K+ 2.5 - 3.5 Saccharomyces Boulardii 250 mg 01/27/20 09:00 02/04/20 10:16 Florastor PO Not Given DAILY JOSETTE Senna/Docusate Sodium 2 tab 01/16/20 21:05 01/20/20 19:52 Senokot S PO 2 tab BID PRN Administration Constipation Sodium Chloride 10 ml 01/19/20 21:00 02/04/20 09:56 Flush - Normal Saline IVF 10 ml Q12HR JOSETTE Administration - Exam General Appearance: NAD, awake alert Eye: PERRL, anicteric sclera ENT: normocephalic atraumatic, no oropharyngeal lesions Neck: no JVD Heart: RRR, no murmur, no gallops, no rubs Respiratory: CTAB, no wheezes, no rales, no ronchi Gastrointestinal: soft Gastrointestinal - other findings: abdomen appears less distended, some bowel sounds Extremities: no cyanosis, no clubbing, no edema Skin: normal turgor, no lesions, no rashes Hosp A/P - Plan Chest Xray 01/17: lung opacities may reflect pneumonia CT abdomen 01/15: high grade acute pancreatitis. Diffuse hepatic steatosis. Diaphragmatic and paraesophageal hernia CT abdomen 01/17: high grade pancreatitis with extensive peripancreatic inflammatory changes and fluid in the abdomen with nonencapsulated peripancreatic fluid collection extending along inferior aspect greater curvature of the stomach and inferiorly. Diffuse fatty liver. Increase in bilateral pleural effusions with small to moderate size bilateral pleural effusions and associated bibsilar areas of consolidation. Dilated loops of small bowel with fluid and gas likely from ileus Chest X ray 01/20: bilateral interstitial and parenchymal airspace opacity within perihilar and upper long zone on the right due to bilateral pneumonia and atypical pneumonia. Left pleural effusion Chest X ray 01/21: bilateral patchy infiltrates, possible pneumonia vs pleural effusion Endoscopy 01/22: 1-2 cm ulceration in the gastric body. Dobhoff tube placed in 3rd/4th portion of duodenum Chest X ray 01/22: improvement in airspace disease Chest X ray 01/23: bilateral infiltrates. Small left pleural effusion Abd X ray: gas filled dilated loops of small bowel Chest X ray 01/24: left opacity and left pleural effusion CT abdomen 01/27: right and moderate left pleural effusions. High grade pancreatitis with extensive peripancreatic inflammatory changes and increase in inflammatory changes and fluid. Developing pseudocyst formation Chest X ray 01/31: mild left pleural effusion. Improving bilaterla opacities CT abdomen 02/02: low grade mid to distal SBO at an area of probable inflammation and circumferential bowel wall t hickening. Severe pancreatitis with LUQ pseudocyst formation This is 54 year old male who presented with pancreatitis and was intubated due to severe withdrawal #Acute pancreatitis with pancreatic pseudocyst #Ileus #Fatty liver - CT abdomen on admission showing high grade pancreatitis. CT abdomen 01/17 shows high grade pancreatitis with peripancreatic fluid collection. Repeat on showed developing pseudocyst and repeat on 02/02 showed mid to distal SBO - surgery consulted, small bowel follow through done, contrast passed into colon - has NG tube, trial of clamping per GI and surgery - TPN was started today - continue vanc and levaquin #Sepsis from aspiration pneumonia vs pancreatitis - chest X ray 01/31 shows improving bilateral pneumonia vs edema. Remains afebrile - continue vancomycin and levaquin - blood culture grew 1/2 MRSE. Repeat blood cultures normal on 02/02. Urine culture normal #Hypokalemia - potassium 3.3, s/p replacement with 40 meq #Gastric ulcer - noted on endoscopy 01/21 when patient was unable to tolerate po. Dobhoff tube removed - NG tube still in place - continue IV protonix #Hypocalcemia - calcium supplementation prn #Acute hypoxic respiratory failure from pulmonary edema - resolved, currently on room air #Severe alcohol withdrawal - stable, continue thiamine and folic acid - extubated 01/24 #Transaminitis secondary to alcoholism - LFTS trended up slightly today, will monitor Dispo: started on TPN today Code status: full code
[2020-02-04] MEDS: Mirtazapine 15 MG TAB PO SCH (21:02)
[2020-02-04] MEDS: Ondansetron PF 4 MG/2 ML Vial IVP PRN (21:50)
[2020-02-04] MEDS ORDERED: Sodium Acetate 2 mEq/ml 40 MEQ, Sodium Chloride 30 MEQ, Potassium Chloride 20 MEQ, Pota... IV SCH (22:00)
[2020-02-04] MEDS: Sodium Acetate 2 mEq/ml 40 MEQ, Sodium Chloride 30 MEQ, Potassium Chloride 20 MEQ, Pota... IV SCH (22:39)
[2020-02-05] MEDS: Morphine 2 MG/ML SYRINGE SLOW IVP PRN ×8 (00:29→22:53)
--- NOTE | 2020-02-05 03:29 | PRG ---
DATE OF SERVICE: 02/04/2020 SUBJECTIVE: The patient was seen this evening during rounds. He is resting in bed comfortably with no signs of acute distress. NG tube was clamped. There was only minimal output already in the NG tube in the canister. OBJECTIVE: VITAL SIGNS: Temperature 98.2, pulse 91, respirations 16, oxygen saturation 96%, blood pressure 125/67. ASSESSMENT: 1. Small bowel obstruction, resolved. 2. Severe alcoholic pancreatitis. 3. Ileus, resolved. PLAN: Continue current diet. Continue serial abdominal exams and NG tube clamp trial. Dr. Contreras in Trauma Team to re-evaluate in the morning. Job ID: [id number]
[2020-02-05] MEDS: Dextrose 5% in Water 1,000 ML IV SCH (03:30)
[2020-02-05 04:27] LABS: ALT (SGPT) 54 U/L (8-55); AST (SGOT) 49 U/L (5-34); Albumin 2.4 g/dL (3.5-5.0); Alkaline Phosphatase 71 U/L (40-110); Anion Gap 9 mmol/L (10-20); BUN (Urea Nitrogen) 4 mg/dL (8.4-25.7); Bilirubin, Total 0.8 mg/dL (0.2-1.2); Calc. Creatinine Clearance 140 mL/min (70-130); Calcium 7.6 mg/dL (7.8-10.44); Carbon Dioxide 29 mmol/L (22-29); Chloride 103 mmol/L (98-107); Estimated GFR-MDRD Greater than 90; Globulin 3.2 g/dL (2.4-3.5); Glucose 139 mg/dL (70-105); Phosphorus 3.6 mg/dL (2.3-4.7); Potassium 3.3 mmol/L (3.5-5.1); Protein, Total 5.6 g/dL (6.0-8.3); Sodium 138 mmol/L (136-145)
[2020-02-05] MEDS: Ondansetron PF 4 MG/2 ML Vial IVP PRN (06:41)
--- NOTE | 2020-02-05 09:05 | PRG ---
DATE OF SERVICE: 02/05/2020 SUBJECTIVE: The patient is doing well, very alert, oriented, currently on TPN. actually tolerating some liquids. OBJECTIVE: VITAL SIGNS: Temperature 98.4, pulse 93, blood pressure 112/67. HEENT: Unremarkable. NECK: No adenopathy or JVD. LUNGS: Clear anteriorly. CARDIAC: S1, S2. Regular. ABDOMEN: Protuberant. EXTREMITIES: No edema. LABORATORY DATA: Sodium 138, potassium 3.3, chloride 103, CO2 of 29, BUN 4, creatinine 0.6, and glucose 139. ASSESSMENT: The patient is very much improved from both his pancreatitis and his small bowel obstruction. PLAN: 1. Discontinue Roach. 2. Transfer to medical floor. 3. Continue TPN until able to tolerate diet better. 4. physical therapy. Job ID: [id number]
[2020-02-05] MEDS: Senokot S 8.6-50 MG TAB PO PRN (09:59)
[2020-02-05] MEDS: SODIUM CHLORIDE 0.9% IVPB SCH (09:59)
[2020-02-05] MEDS: THIAMINE HCL IVPB SCH (09:59)
[2020-02-05] MEDS: FOLIC ACID IVPB SCH (09:59)
[2020-02-05] MEDS: Enoxaparin Sodium 40 MG/0.4 ML SYRINGE SC SCH (10:00)
[2020-02-05] MEDS: Saccharomyces boulardii 250 MG CAP PO SCH (10:00)
[2020-02-05] MEDS: Pantoprazole 40 MG VIAL IVP SCH ×2 (10:01→19:45)
--- NOTE | 2020-02-05 10:55 | CON ---
DATE OF CONSULTATION: 02/05/2020 SUBJECTIVE: Mr. Haq has no issue overnight. His abdominal pain is mild and controlled. He has nausea, but tolerated liquids this morning without any emesis. There is no new issue overnight. TPN started yesterday. He did have a soft loose bowel movement this morning. PHYSICAL EXAMINATION: VITAL SIGNS: Temperature is 98.4, blood pressure 112/67, pulse of 93. GENERAL: He is alert, conversant, in no distress. HEENT: Exam shows anicteric sclerae. Oropharynx is moist and clear. CV: Shows normal S1 and S2. Regular rate and rhythm. CHEST: Shows breath sounds, clear to auscultation. ABDOMEN: Protuberant, but no significant tympany. He does have a very faint, but active bowel sounds. No elicit tenderness. EXTREMITIES: Exam shows no edema. LABORATORY DATA: WBCs 9.6, hemoglobin 9.5, hematocrit 30, platelet count of 649. Electrolytes within normal range, creatinine 0.63. Accu-Chek has been ranging between 128 to 152 on TPN. Bilirubin 0.8, AST 49, ALT 54, alkaline phosphatase 71. ASSESSMENT: 1. Severe alcoholic pancreatitis with still significant inflammatory changes on CT 2 days ago with evolving left upper quadrant cirrhosis. No evidence of infection. 2. Ileus, clinically resolving slowly. The patient still has distended abdomen with some bowel sound and thus far tolerating clear liquids that is started today. The patient is on TPN for nutritional support. 3. History of LFT elevation, likely reactive. Enzymes are normalizing. 4. Encephalopathy/alcohol withdrawal, resolved. RECOMMENDATIONS: 1. Continue clear liquids today, slowly advance tomorrow as tolerated. 2. Continue TPN in the meantime for nutritional support. 3. Leukocytosis is resolving, and the patient is afebrile, no clinical signs of infection. Can stop Levaquin/vancomycin for now. 4. We will follow. Job ID: [id number] [facility]
--- NOTE | 2020-02-05 14:07 | RAD ---
ABDOMEN 1 VIEW: HISTORY: Possible small bowel obstruction. COMPARISON: 02/04/2020. FINDINGS: Again noted are some persistently dilated small bowel loops. There is noted to be some dilute contra st in the right colon. IMPRESSION: Persistent abnormally dilated loops of small bowel. POS: [facility]
[2020-02-05] MEDS: Mirtazapine 15 MG TAB PO SCH (19:45)
[2020-02-05] MEDS: Sodium Acetate 2 mEq/ml 40 MEQ, Sodium Chloride 30 MEQ, Potassium Chloride 20 MEQ, Pota... IV SCH (22:54)
[2020-02-06] MEDS: Morphine 2 MG/ML SYRINGE SLOW IVP PRN ×6 (03:49→22:22)
[2020-02-06] MEDS: Pantoprazole 40 MG VIAL IVP SCH ×2 (08:04→20:19)
[2020-02-06] MEDS: Enoxaparin Sodium 40 MG/0.4 ML SYRINGE SC SCH (08:04)
[2020-02-06] MEDS: FOLIC ACID IVPB SCH (08:05)
[2020-02-06] MEDS: THIAMINE HCL IVPB SCH (08:05)
[2020-02-06] MEDS: SODIUM CHLORIDE 0.9% IVPB SCH (08:05)
[2020-02-06] MEDS: Saccharomyces boulardii 250 MG CAP PO SCH (08:05)
[2020-02-06] MEDS: Senokot S 8.6-50 MG TAB PO PRN (08:08)
--- NOTE | 2020-02-06 08:42 | PRG ---
DATE OF SERVICE: 02/05/2020 SUBJECTIVE: The patient remains in the IMCU. He is a patient we are seeing in consultation for suspected small-bowel obstruction. The patient had multiple radiographs that were consistent with an ileus, which appears to be resolving as the patient denies nausea or vomiting and he has had 3 bowel movements since we originally were consulted. Yesterday, his NG tube was clamped and he tolerated that. He was started on a clear liquid diet which overnight he had no issues. PHYSICAL EXAMINATION: VITAL SIGNS: Temperature is 98.4, heart rate 104, respirations 20, and oxygen saturations 98% on room air, blood pressure 119/84. GENERAL: The patient is resting comfortably in bed. He is awake, alert, conversant. He was being seen by Dr. Partida at the same time as us. ABDOMEN: Slightly distended, as it was yesterday. He had no peritoneal signs. He had hypoactive bowel sounds. LABORATORY FINDINGS: Sodium 138, potassium 3.3, chloride 103, CO2 of 29, BUN 4, creatinine 0.63, glucose 139, magnesium 1.9, phosphorus 3.6, total bilirubin 0.8, AST 49, ALT 54, alkaline phosphatase 71. There are no radiographs to review this morning. ASSESSMENT/PLAN: 1. Suspected small-bowel obstruction, resolved. Likely ileus, resolving. 2. Severe alcoholic pancreatitis. PLAN: Plan will be to continue advancing diet as tolerated. The patient will continue TPN per the primary team. There are no acute surgical indications at this time. We will sign off at this time. This was discussed with Dr. Partida at bedside and he was in agreement with this. He will re-consult as needed. Job ID: [id number]
[2020-02-06 08:50] LABS: ALT (SGPT) 57 U/L (8-55); AST (SGOT) 51 U/L (5-34); Albumin 2.8 g/dL (3.5-5.0); Alkaline Phosphatase 79 U/L (40-110); Anion Gap 8 mmol/L (10-20); BUN (Urea Nitrogen) 10 mg/dL (8.4-25.7); Bilirubin, Total 0.9 mg/dL (0.2-1.2); Calc. Creatinine Clearance 136 mL/min (70-130); Calcium 8.2 mg/dL (7.8-10.44); Carbon Dioxide 31 mmol/L (22-29); Chloride 103 mmol/L (98-107); Estimated GFR-MDRD Greater than 90; Globulin 3.8 g/dL (2.4-3.5); Glucose 131 mg/dL (70-105); Phosphorus 3.3 mg/dL (2.3-4.7); Potassium 3.9 mmol/L (3.5-5.1); Protein, Total 6.6 g/dL (6.0-8.3); Sodium 138 mmol/L (136-145)
--- NOTE | 2020-02-06 10:59 | PDOC.HOSPP ---
- Subjective Encounter Date: 02/05/20 Encounter Time: 10:00 Subjective: ' LATE ENTRY NOTE 02/04 Patient is doing well. He had two bowel movements. No pain with clear liquid and wants to advance diet to go home soon - Objective Vital Signs & Weight: Vital Signs (12 hours) Temp Pulse Resp BP BP Pulse Ox 02/06/20 08:00 98.2 F 99 16 142/81 H 96 02/06/20 03:44 98.1 F 100 18 129/77 97 Weight Admit Weight 181 lb Weight 159 lb 7 oz Most Recent Monitor Data Heart Rate from ECG 106 NIBP 142/82 NIBP BP-Mean 102 Respiration from ECG 22 SpO2 100 I&O: 02/05/20 02/06/20 02/07/20 06:59 06:59 06:59 Intake Total 3923 1651 240 Output Total 4250 1750 Balance -327 -99 240 Result Diagrams: 02/04/20 05:53 02/06/20 08:14 Additional Labs: Accuchecks 02/06/20 02/05/20 02/05/20 04:47 19:47 17:22 POC Glucose 134 H 147 H 135 H 02/05/20 12:29 POC Glucose 150 H Hospitalist ROS - Review of Systems Constitutional: denies: fever, chills - Medication Medications: Active Medications Generic Name Dose Route Start Last Admin Trade Name Freq PRN Reason Stop Dose Admin Acetaminophen 650 mg 01/24/20 14:52 01/27/20 14:11 Tylenol DC 650 mg Q6H PRN Administration FEVER > 101 Acetaminophen 650 mg 01/28/20 12:30 02/02/20 22:13 Tylenol Elixir PO 650 mg Q6H PRN Administration FEVER > 101 F Enoxaparin Sodium 40 mg 01/17/20 09:00 02/06/20 08:04 Lovenox SC 40 mg 0900 JOSETTE Administration Potassium Chloride 40 meq/ 100 mls @ 50 mls/hr 01/18/20 15:53 02/04/20 10:17 Device IVPB 100 mls ASDIR PRN Administration FOR SERUM K+ 2.5 - 3.5 Potassium Phosphate 9 mmol/ 103 mls @ 25.75 mls/hr 01/18/20 15:53 01/28/20 07 :28 Sodium Chloride IVPB 103 mls ASDIR PRN Administration Phosphate 1.0-1.8 Thiamine HCl 100 mg/ Folic 51.08 mls @ 100.157 mls/hr 01/21/20 09:00 08:05 Acid 0.4 mg/ Sodium Chloride IVPB 51.08 mls DAILY JOSETTE Administration Sodium Acetate 40 meq/ Sodium 1,832.7021 mls @ 76.363 mls/hr 02/04/20 22:00 02/05/20 22:54 Chloride 30 meq/ Potassium IV 02/06/20 21:59 1,832.7021 mls Chloride 20 meq/ Potassium 2200 JOSETTE Administration Phosphate 30 mmol/ Calcium Gluconate 10 meq/ Magnesium Sulfate 10 meq/ Multivitamins 10 ml/ Chromium/Copper/ Manganese/Seleni/Zn 1 ml/ Dextrose/Water/ Amino Acids/ Sterile Water Insulin Human Lispro 0 units 01/16/20 21:18 01/31/20 05:19 Humalog SC 2 unit .MILD SLIDING SCALE PRN Administration Mild Correctional Scale Mirtazapine 15 mg 02/01/20 21:00 02/05/20 19:45 Remeron PO 15 mg HS JOSETTE Administration Miscellaneous Medication 1 pkt 01/18/20 15:53 01/20/20 19:52 Phos-Nak PO 1 pkt TIDPRN PRN Administration FOR PHOS LEVEL 1.0 - 1.8 Miscellaneous Medication 2 pkt 01/18/20 15:53 01/19/20 05:07 Phos-Nak PO 2 pkt TIDPRN PRN Administration FOR PHOS LEVEL 0.5 - 1.0 Morphine Sulfate 2 mg 02/03/20 11:29 02/06/20 08:07 Morphine SLOW IVP 2 mg Q3H PRN Administration Fever>101/(Mi/Mod/Sev) Pain Ondansetron HCl 4 mg 02/02/20 12:11 02/05/20 06:41 Zofran IVP 4 mg Q6H PRN Administration Nausea/Vomiting Pantoprazole Sodium 40 mg 01/26/20 21:00 02/06/20 08:04 Protonix IVP 40 mg BID JOSETTE Administration Potassium Chloride 40 meq 01/18/20 15:53 02/03/20 06:18 K-Dur PO 40 meq ASDIR PRN Administration FOR SERUM K+ 2.5 - 3.5 Potassium Chloride 40 meq 01/18/20 15:53 02/05/20 06:36 Klor-Con PER TUBE 40 meq ASDIR PRN Administration FOR SERUM K+ 2.5-3.5 Saccharomyces Boulardii 250 mg 01/27/20 09:00 02/06/20 08:05 Florastor PO 250 mg DAILY JOSETTE Administration Senna/Docusate Sodium 2 tab 01/16/20 21:05 02/05/20 09:59 Senokot S PO 2 tab BID PRN Administration Constipation Sodium Chloride 10 ml 01/19/20 21:00 02/06/20 08:10 Flush - Normal Saline IVF 10 ml Q12HR JOSETTE Administration - Exam General Appearance: NAD, awake alert Eye: PERRL, anicteric sclera ENT: normocephalic atraumatic, no oropharyngeal lesions Neck: no JVD Heart: RRR, no murmur, no gallops, no rubs Respiratory: CTAB, no wheezes, no rales, no ronchi Gastrointestinal: soft Gastrointestinal - other findings: mild distension, good bowel sounds Extremities: no cyanosis, no clubbing, no edema Skin: normal turgor, no lesions, no rashes Hosp A/P - Plan Chest Xray 01/17: lung opacities may reflect pneumonia CT abdomen 01/15: high grade acute pancreatitis. Diffuse hepatic steatosis. Diaphragmatic and paraesophageal hernia CT abdomen 01/17: high grade pancreatitis with extensive peripancreatic inflammatory changes and fluid in the abdomen with nonencapsulated peripancreatic fluid collection extending along inferior aspect greater curvature of the stomach and inferiorly. Diffuse fatty liver. Increase in bilateral pleural effusions with small to moderate size bilateral pleural effusions and associated bibsilar areas of consolidation. Dilated loops of small bowel with fluid and gas likely from ileus Chest X ray 01/20: bilateral interstitial and parenchymal airspace opacity within perihilar and upper long zone on the right due to bilateral pneumonia and atypical pneumonia. Left pleural effusion Chest X ray 01/21: bilateral patchy infiltrates, possible pneumonia vs pleural effusion Endoscopy 01/22: 1-2 cm ulceration in the gastric body. Dobhoff tube placed in 3rd/4th portion of duodenum Chest X ray 01/22: improvement in airspace disease Chest X ray 01/23: bilateral infiltrates. Small left pleural effusion Abd X ray: gas filled dilated loops of small bowel Chest X ray 01/24: left opacity and left pleural effusion CT abdomen 01/27: right and moderate left pleural effusions. High grade pancreatitis with extensive peripancreatic inflammatory changes and increase in inflammatory changes and fluid. Developing pseudocyst formation Chest X ray 01/31: mild left pleural effusion. Improving bilaterla opacities CT abdomen 02/02: low grade mid to distal SBO at an area of probable inflammation and circumferential bowel wall t hickening. Severe pancreatitis with LUQ pseudocyst formation This is 54 year old male who presented with pancreatitis and was intubated due to severe withdrawal #Acute pancreatitis with pancreatic pseudocyst #Ileus #Fatty liver - CT abdomen on admission showing high grade pancreatitis. CT abdomen 01/17 shows high grade pancreatitis with peripancreatic fluid collection. Repeat on showed developing pseudocyst and repeat on 02/02 showed mid to distal SBO -off antibiotics now - advance diet to full liquid #Sepsis from aspiration pneumonia vs pancreatitis - chest X ray 01/31 shows improving bilateral pneumonia vs edema. Remains afebrile -received vanc and levaquin. Antibiotics discontinued - blood culture grew 1/2 MRSE. Repeat blood cultures normal on 02/02. Urine culture normal #Hypokalemia - potassium 3.3, s/p replacement with 40 meq #Gastric ulcer - noted on endoscopy 01/21 when patient was unable to tolerate po. Dobhoff tube removed - NG tube still in place - continue IV protonix #Acute hypoxic respiratory failure from pulmonary edema - resolved, currently on room air #Severe alcohol withdrawal - stable, continue thiamine and folic acid - extubated 01/24 #Transaminitis secondary to alcoholism -downtrending Dispo: started on TPN today Code status: full code
--- NOTE | 2020-02-06 11:03 | PDOC.HOSPP ---
- Subjective Encounter Date: 02/06/20 Encounter Time: 10:00 Subjective: The patient reported liquid stool last night with full liquid which included vegetable broth with some carrots. He had liquid stool this am. He has mild abd pain relieved with morphine. No nausea or vomiting. He is passing gas. He would like to try soft diet - Objective Vital Signs & Weight: Vital Signs (12 hours) Temp Pulse Resp BP BP Pulse Ox 02/06/20 08:00 98.2 F 99 16 142/81 H 96 02/06/20 03:44 98.1 F 100 18 129/77 97 Weight Admit Weight 181 lb Weight 159 lb 7 oz Most Recent Monitor Data Heart Rate from ECG 106 NIBP 142/82 NIBP BP-Mean 102 Respiration from ECG 22 SpO2 100 I&O: 02/05/20 02/06/20 02/07/20 06:59 06:59 06:59 Intake Total 3923 1651 240 Output Total 4250 1750 Balance -327 -99 240 Result Diagrams: 02/04/20 05:53 02/06/20 08:14 Additional Labs: Accuchecks 02/06/20 02/05/20 02/05/20 04:47 19:47 17:22 POC Glucose 134 H 147 H 135 H 02/05/20 12:29 POC Glucose 150 H Hospitalist ROS - Review of Systems Constitutional: denies: fever, chills - Medication Medications: Active Medications Generic Name Dose Route Start Last Admin Trade Name Freq PRN Reason Stop Dose Admin Acetaminophen 650 mg 01/24/20 14:52 01/27/20 14:11 Tylenol VT 650 mg Q6H PRN Administration FEVER > 101 Acetaminophen 650 mg 01/28/20 12:30 02/02/20 22:13 Tylenol Elixir PO 650 mg Q6H PRN Administration FEVER > 101 F Enoxaparin Sodium 40 mg 01/17/20 09:00 02/06/20 08:04 Lovenox SC 40 mg 0900 JOSETTE Administration Potassium Chloride 40 meq/ 100 mls @ 50 mls/hr 01/18/20 15:53 02/04/20 10:17 Device IVPB 100 mls ASDIR PRN Administration FOR SERUM K+ 2.5 - 3.5 Potassium Phosphate 9 mmol/ 103 mls @ 25.75 mls/hr 01/18/20 15:53 01/28/20 07 :28 Sodium Chloride IVPB 103 mls ASDIR PRN Administration Phosphate 1.0-1.8 Thiamine HCl 100 mg/ Folic 51.08 mls @ 100.157 mls/hr 01/21/20 09:00 08:05 Acid 0.4 mg/ Sodium Chloride IVPB 51.08 mls DAILY JOSETTE Administration Sodium Acetate 40 meq/ Sodium 1,832.7021 mls @ 76.363 mls/hr 02/04/20 22:00 02/05/20 22:54 Chloride 30 meq/ Potassium IV 02/06/20 21:59 1,832.7021 mls Chloride 20 meq/ Potassium 2200 JOSETTE Administration Phosphate 30 mmol/ Calcium Gluconate 10 meq/ Magnesium Sulfate 10 meq/ Multivitamins 10 ml/ Chromium/Copper/ Manganese/Seleni/Zn 1 ml/ Dextrose/Water/ Amino Acids/ Sterile Water Insulin Human Lispro 0 units 01/16/20 21:18 01/31/20 05:19 Humalog SC 2 unit .MILD SLIDING SCALE PRN Administration Mild Correctional Scale Mirtazapine 15 mg 02/01/20 21:00 02/05/20 19:45 Remeron PO 15 mg HS JOSETTE Administration Miscellaneous Medication 1 pkt 01/18/20 15:53 01/20/20 19:52 Phos-Nak PO 1 pkt TIDPRN PRN Administration FOR PHOS LEVEL 1.0 - 1.8 Miscellaneous Medication 2 pkt 01/18/20 15:53 01/19/20 05:07 Phos-Nak PO 2 pkt TIDPRN PRN Administration FOR PHOS LEVEL 0.5 - 1.0 Morphine Sulfate 2 mg 02/03/20 11:29 02/06/20 08:07 Morphine SLOW IVP 2 mg Q3H PRN Administration Fever>101/(Mi/Mod/Sev) Pain Ondansetron HCl 4 mg 02/02/20 12:11 02/05/20 06:41 Zofran IVP 4 mg Q6H PRN Administration Nausea/Vomiting Pantoprazole Sodium 40 mg 01/26/20 21:00 02/06/20 08:04 Protonix IVP 40 mg BID JOSETTE Administration Potassium Chloride 40 meq 01/18/20 15:53 02/03/20 06:18 K-Dur PO 40 meq ASDIR PRN Administration FOR SERUM K+ 2.5 - 3.5 Potassium Chloride 40 meq 01/18/20 15:53 02/05/20 06:36 Klor-Con PER TUBE 40 meq ASDIR PRN Administration FOR SERUM K+ 2.5-3.5 Saccharomyces Boulardii 250 mg 01/27/20 09:00 02/06/20 08:05 Florastor PO 250 mg DAILY JOSETTE Administration Senna/Docusate Sodium 2 tab 01/16/20 21:05 02/05/20 09:59 Senokot S PO 2 tab BID PRN Administration Constipation Sodium Chloride 10 ml 01/19/20 21:00 02/06/20 08:10 Flush - Normal Saline IVF 10 ml Q12HR JOSETTE Administration - Exam General Appearance: NAD, awake alert Eye: PERRL, anicteric sclera ENT: normocephalic atraumatic, no oropharyngeal lesions Neck: no JVD Heart: RRR, no murmur, no gallops, no rubs Respiratory: CTAB, no wheezes, no rales, no ronchi Gastrointestinal: soft, no guarding, diminished bowl sounds Gastrointestinal - other findings: mildly distended, nontender Extremities: no cyanosis, no clubbing, no edema Skin: normal turgor, no lesions, no rashes Neurological: cranial nerve grossly intact, normal sensation to touch, no focal deficits, no new deficit Musculoskeletal: normal tone, normal strength, no muscle wasting Psychiatric: normal affect, normal behavior, A&O x 3 Hosp A/P - Plan Chest Xray 01/17: lung opacities may reflect pneumonia CT abdomen 01/15: high grade acute pancreatitis. Diffuse hepatic steatosis. Diaphragmatic and paraesophageal hernia CT abdomen 01/17: high grade pancreatitis with extensive peripancreatic inflammatory changes and fluid in the abdomen with nonencapsulated peripancreatic fluid collection extending along inferior aspect greater curvature of the stomach and inferiorly. Diffuse fatty liver. Increase in bilateral pleural effusions with small to moderate size bilateral pleural effusions and associated bibsilar areas of consolidation. Dilated loops of small bowel with fluid and gas likely from ileus Chest X ray 01/20: bilateral interstitial and parenchymal airspace opacity within perihilar and upper long zone on the right due to bilateral pneumonia and atypical pneumonia. Left pleural effusion Chest X ray 01/21: bilateral patchy infiltrates, possible pneumonia vs pleural effusion Endoscopy 01/22: 1-2 cm ulceration in the gastric body. Dobhoff tube placed in 3rd/4th portion of duodenum Chest X ray 01/22: improvement in airspace disease Chest X ray 01/23: bilateral infiltrates. Small left pleural effusion Abd X ray: gas filled dilated loops of small bowel Chest X ray 01/24: left opacity and left pleural effusion CT abdomen 01/27: right and moderate left pleural effusions. High grade pancreatitis with extensive peripancreatic inflammatory changes and increase in inflammatory changes and fluid. Developing pseudocyst formation Chest X ray 01/31: mild left pleural effusion. Improving bilaterla opacities CT abdomen 02/02: low grade mid to distal SBO at an area of probable inflammation and circumferential bowel wall t hickening. Severe pancreatitis with LUQ pseudocyst formation This is 54 year old male who presented with pancreatitis and was intubated due to severe withdrawal #Acute pancreatitis with pancreatic pseudocyst #Ileus #Fatty liver - CT abdomen on admission showing high grade pancreatitis. CT abdomen 01/17 shows high grade pancreatitis with peripancreatic fluid collection. Repeat on showed developing pseudocyst and repeat on 02/02 showed mid to distal SBO -off antibiotics now - abd Xray 02/04 showed persistently dilated small bowel loops - advance diet to mechanical soft #Sepsis from aspiration pneumonia vs pancreatitis - chest X ray 01/31 shows improving bilateral pneumonia vs edema. Remains afebrile -received vanc and levaquin. Antibiotics discontinued - blood culture grew 1/2 MRSE. Repeat blood cultures normal on 02/02. Urine culture normal #Hypokalemia - potassium 3.3, s/p replacement with 40 meq #Gastric ulcer - noted on endoscopy 01/21 when patient was unable to tolerate po. Dobhoff tube removed - NG tube still in place - continue IV protonix #Acute hypoxic respiratory failure from pulmonary edema - resolved, currently on room air #Severe alcohol withdrawal - stable, continue thiamine and folic acid - extubated 01/24 #Transaminitis secondary to alcoholism -downtrending Dispo: started on TPN today Code status: full code
[2020-02-06] MEDS ORDERED: Potassium Chloride 20 MEQ TAB PO SCH (11:15)
[2020-02-06 14:45] VITALS: BMI 25.7
[2020-02-06] MEDS: Ondansetron PF 4 MG/2 ML Vial IVP PRN ×2 (15:31→20:34)
--- NOTE | 2020-02-06 15:43 | PRG ---
DATE OF SERVICE: 02/06/2020 SUBJECTIVE: Mr. Haq is back in the floor. He is eating, still with mild to moderate pain in the right flank area. Otherwise, no headaches. No respiratory symptoms. No chest pain. No dyspnea. OBJECTIVE: VITAL SIGNS: Temperature normal for quite a few days. Other vital signs are normal. GENERAL: Appears much better. NG is out. LUNGS: Clear. HEART: S1 and S2. Regular rate. ABDOMEN: With mild to moderate tenderness in right flank area. No distention or ascites. LABORATORY DATA: White cell count is at 9.6, hemoglobin 9.5, platelets 649, 75% neutrophils. Sodium 138, creatinine 0.65, AST 51, ALT 57, and albumin 2.8. ASSESSMENT AND DISCUSSION: Alcoholism, necrotizing pancreatitis, pseudocyst development with improvement in inflammatory process. The patient is off antimicrobial therapy and having normal oral intake, but with full liquid diet. Job ID: [id number]
[2020-02-06] MEDS: Mirtazapine 15 MG TAB PO SCH (20:20)
--- NOTE | 2020-02-06 20:46 | PRG ---
DATE OF SERVICE: 02/06/2020 SUBJECTIVE: Mr. Edgar has been up ambulating in the halls today. He tolerated a mechanical soft regular diet. No nausea or vomiting. OBJECTIVE: VITAL SIGNS: Temperature 98.1, pulse 104, blood pressure 125/86. GENERAL: He is in no acute distress. Alert and oriented x3. LUNGS: Clear to auscultation bilaterally. HEART: Regular rate and rhythm without murmur. ABDOMEN: Soft, mildly distended, without tenderness. Bowel sounds are present. EXTREMITIES: No lower extremity edema. LABORATORY DATA: Creatinine 0.65. IMPRESSION: Severe alcoholic pancreatitis with peripancreatic fluid collection. He is clinically improving. He is tolerating a diet now. RECOMMENDATIONS: 1. Antibiotics have been discontinued and he continues to do well. 2. Stop TPN after this bag is complete. 3. If he is able to continue to tolerate a solid diet, then hopefully he will be going home soon. Job ID: [id number]
[2020-02-06] MEDS ORDERED: SODIUM CHLORIDE IV SCH ×2 (22:00)
[2020-02-06] MEDS ORDERED: SODIUM ACETATE IV SCH ×2 (22:00)
[2020-02-06] MEDS ORDERED: POTASSIUM CHLORIDE IV SCH ×2 (22:00)
[2020-02-06] MEDS ORDERED: [UNRECOGNIZED DRUG - OTHER] IV SCH ×2 (22:00)
[2020-02-07] MEDS: Morphine 2 MG/ML SYRINGE SLOW IVP PRN ×5 (01:57→16:17)
[2020-02-07 05:54] LABS: ALT (SGPT) 64 U/L (8-55); AST (SGOT) 55 U/L (5-34); Albumin 2.9 g/dL (3.5-5.0); Alkaline Phosphatase 78 U/L (40-110); Anion Gap 9 mmol/L (10-20); BUN (Urea Nitrogen) 9 mg/dL (8.4-25.7); Bilirubin, Total 0.9 mg/dL (0.2-1.2); Calc. Creatinine Clearance 138 mL/min (70-130); Calcium 8.4 mg/dL (7.8-10.44); Carbon Dioxide 30 mmol/L (22-29); Chloride 102 mmol/L (98-107); Estimated GFR-MDRD Greater than 90; Globulin 3.8 g/dL (2.4-3.5); Glucose 123 mg/dL (70-105); Phosphorus 3.5 mg/dL (2.3-4.7); Potassium 4.3 mmol/L (3.5-5.1); Protein, Total 6.7 g/dL (6.0-8.3); Sodium 137 mmol/L (136-145)
[2020-02-07] MEDS: Enoxaparin Sodium 40 MG/0.4 ML SYRINGE SC SCH (08:29)
[2020-02-07] MEDS: Pantoprazole 40 MG VIAL IVP SCH (08:29)
[2020-02-07] MEDS: Saccharomyces boulardii 250 MG CAP PO SCH (08:29)
[2020-02-07] MEDS: SODIUM CHLORIDE 0.9% IVPB SCH (08:31)
[2020-02-07] MEDS: FOLIC ACID IVPB SCH (08:31)
[2020-02-07] MEDS: THIAMINE HCL IVPB SCH (08:31)
[2020-02-07] MEDS ORDERED: Fleet Enema 133 ML BOT PR PRN (10:54)
[2020-02-07] MEDS ORDERED: Polyethylene Glycol 3350 17 GM Packet PO SCH (11:00)
[2020-02-07 18:37] VITALS: BP 127/89; TEMP 98.5
--- NOTE | 2020-02-07 20:23 | DIS ---
DATE OF ADMISSION: 01/16/2020 DATE OF DISCHARGE: 02/07/2020 DISCHARGE DIAGNOSES: 1. Acute pancreatitis with pancreatic pseudocyst. 2. Ileus/Small Bowel obstruction 3. Fatty liver. 4. Sepsis secondary to aspiration pneumonia versus pancreatitis. 5. Hypokalemia. 6. Gastric ulcer. 7. Acute hypoxic respiratory failure secondary to pulmonary edema. 8. Transaminitis. 9. Severe alcohol withdrawal. CONSULTATIONS: 1. David Alvarado MD with critical care 2. Adama Larson MD with gastroenterology 3. Dennis Hampton MD with infectious disease 4. Abdirahman Contreras MD with general surgery PROCEDURES: 1. Right subclavian central line 01/17 - s/p removal 2. Upper endoscopy 01/22 BRIEF HISTORY OF PRESENT ILLNESS: This is a 54-year-old male, with a past medical history of alcoholism, who drinks over 30 beers a day, who presented to the emergency room with abdominal pain, nausea, and vomiting. Patient was found to have a white count of 15.5 and a lipase of 1575. His liver enzymes showed an AST of 521, ALT of 198, and alk phos of 117. He had a CT scan of his abdomen done on admission, which showed high-grade acute pancreatitis. He was admitted for further workup. HOSPITAL COURSE: Acute pancreatitis with pancreatic pseudocyst/ileus/fatty liver/severe alcohol withdrawal/transaminitis: Patient was initially started on IV fluids and was monitored on the floor for alcohol withdrawal. However, while the patient was on the floor, he developed severe agitation, which was unable to be controlled by oral medicines. He was transferred to the ICU and required intubation on the . While the patient was intubated, he was resuscitated with IV fluids and developed diffuse anasarca, which required diuretics. He did require tube feeds while in the hospital and at one point, did not tolerate his tube feeds and underwent an upper endoscopy on 01/22 which showed a gastric ulcer. He was started on IV Protonix. Patient had also developed an ileus with dilated loops of bowel. He did require TPN for a few days. Ileus persisted on discharged but he was having bowel movements and tolerating a regular diet. He will be discharged without any narcotics. He was prescribed MiraLAX for constipation, was advised to follow up with his primary care doctor in a week. Consider getting abdominal x-ray if he has recurrent nausea or vomiting. His LFTs did downtrend with an AST of 55 and ALT of 64 on the day of discharge. He does have a fatty liver and was advised to quit drinking alcohol, which the patient states that he will do. He was discharged with thiamine and folic acid supplements. He should follow up with his GI doctor, Dr. Larson, in a week. He was also advised to consider repeat imaging of his abdomen and if his pancreatic pseudocyst persists, then he may need drainage of this. Acute hypoxic respiratory failure secondary to pulmonary edema/aspiration pneumonia Sepsis secondary to aspiration pneumonia: The patient spiked daily fevers of up to 102 while intubated.. He then developed an aspiration pneumonia on the and left lower lobe infiltrate. He was started on IV meropenem. Vancomycin was added on 01/21 due to persistent fevers. Infectious Disease was consulted, who felt that his fevers were likely secondary to pancreatitis. He did have multiple sets of blood cultures drawn on the , the , the , and the , which showed no significant infection in the blood. Antibiotic was switched to clindamycin due to worsening fever and tachycardia, then switched again to vancomycin and levaquin on 01/31 when he developed new fever and bilateral opacities on 01/31. Vanc and levaquin were eventually discontinued on 02/03. Patient was eventually extubated on 01/24. He was weaned down to room air on discharge. Hypokalemia/hypocalcemia: Patient's potassium was frequently 3.3 while in the hospital. His calcium levels were low as well. These were replenished periodically and his potassium was 4.3, and calcium was 8.4 on the day of discharge. Gastric ulcer: Patient had an endoscopy on 01/21, which showed a small gastric ulcer. He was discharged with Protonix. He will follow up with his GI doctor in a week. DISCHARGE PHYSICAL EXAMINATION: VITAL SIGNS: Temperature 98.5, heart rate 100, respiratory rate 18, O2 saturation 99% on room air, and blood pressure 125/67. GENERAL: Patient is alert, awake, and oriented x3. CVS: Regular rate and rhythm, with no murmurs, rubs, or gallops. LUNGS: Clear to auscultation bilaterally. ABDOMEN: Slightly diminished bowel sounds, slightly distended, however, nontender. It is soft. EXTREMITIES: No edema. PERTINENT LABORATORY DATA: CBC 02/03: White count 9.6, hemoglobin 9.5, hematocrit 30.0, and platelet count 649. BMP 02/06: Sodium 137, potassium 4.3, carbon dioxide 30, BUN 9, creatinine 0.64 , and glucose 123. Hemoglobin A1c: 4.7. Calcium: 8.4. Phosphorus: 3.5. Magnesium: 2.1. LFTs on 02/06: AST 55, ALT 64, and alk phos 78. Lipase 01/29: 78. Folate: 27.10. Vitamin B12: 1317 Procalcitonin: 0.57. UA 01/15: Shows turbid urine, 50 protein, 10 ketones, trace blood, and 2 urobilinogen. Blood cultures 01/11: Shows 1 to 2 coag-negative staph. Urine culture 01/21: Shows no growth. Blood culture 01/23: Shows no growth. Blood culture 02/02: Shows no growth. PERTINENT IMAGING: CT abdomen and pelvis 01/15 shows relatively high-grade acute pancreatitis. Diffuse hepatic steatosis. Small fat and fluid containing posterior diaphragmatic and paraesophageal hernia. CT abdomen and pelvis 02/02: Shows distention of the small bowel with fluid and contrast extending to the level of the mid abdomen where there is circumferential wall thickening of the small bowel loop immediately anterior to the aortic bifurcation. Bowel beyond this point is less distended, although significant air remains within the distal small bowel and colon. Free-fluid in the right abdomen has increased slightly. Low-grade [id number] small-bowel obstruction and an area of probable inflammation and circumferential bowel wall thickening. Findings of severe pancreatitis and left upper quadrant pseudocyst are otherwise stable. Abdominal x-ray 02/04: Persistently abnormally dilated loops of small bowel. DISCHARGE CONDITION: Stable. ACTIVITY: As tolerated. DIET: Regular, low-fat diet. DISCHARGE INSTRUCTIONS: Patient should follow up with his PCP in a week. He should follow up with Dr. Larosn in a week and consider repeat imaging of his pancreas. He should stop taking his diltiazem for AFib since his blood pressure is on the lower side. DISCHARGE MEDICATIONS: 1. Folic acid 1 mg p.o. daily. 2. Thiamine 100 mg p.o. daily. 3. MiraLAX 17 g p.o. daily. 4. Protonix 40 mg p.o. daily. 5. Mirtazapine 15 mg p.o. at bedtime. Job ID: [id number] [id number]
[2020-02-07] MEDS ORDERED: [UNRECOGNIZED DRUG - OTHER] IV SCH (22:00)
[2020-02-07] MEDS ORDERED: SODIUM CHLORIDE IV SCH (22:00)
[2020-02-07] MEDS ORDERED: POTASSIUM PHOSPHATE IV SCH (22:00)
[2020-02-07] MEDS ORDERED: POTASSIUM CHLORIDE IV SCH (22:00)
[2020-02-08] MEDS ORDERED: Polyethylene Glycol 3350 17 GM Packet PO SCH (09:00)
== END 2020-02-07 18:34 | disposition home or self-care (01) | DRG 438 ==
LOC: ERS 17:30 → T4-A 20:28 → CCU 01-18 14:12 → IMCU/EMU 02-02 21:47 → T4-B 02-05 14:27
PROVIDERS: ADMIT Internal Medicine; ATTEND Internal Medicine
PROC: 5A1955Z Respiratory Ventilation, Greater than 96 Consecutive Hours (ICD-10-PCS; principal; 2020-01-18)
PROC: 0BH17EZ Insertion of Endotracheal Airway into Trachea, Via Natural or Artificial Opening (ICD-10-PCS; 2020-01-18)
PROC: 02HV33Z Insertion of Infusion Device into Superior Vena Cava, Percutaneous Approach (ICD-10-PCS; 2020-01-18)
PROC: 3E0336Z Introduction of Nutritional Substance into Peripheral Vein, Percutaneous Approach (ICD-10-PCS; 2020-01-23)
PROC: 0DH98UZ Insertion of Feeding Device into Duodenum, Via Natural or Artificial Opening Endoscopic (ICD-10-PCS; 2020-01-23)
PROC: 30233N1 Transfusion of Nonautologous Red Blood Cells into Peripheral Vein, Percutaneous Approach (ICD-10-PCS; 2020-01-26)
PROC: 02HV33Z Insertion of Infusion Device into Superior Vena Cava, Percutaneous Approach (ICD-10-PCS; 2020-02-01)
PROC: B548ZZA Ultrasonography of Superior Vena Cava, Guidance (ICD-10-PCS; 2020-02-01)
DX: K85.90 Acute pancreatitis without necrosis or infection, unspecified (principal); A41.9 Sepsis, unspecified organism; J69.0 Pneumonitis due to inhalation of food and vomit; J96.01 Acute respiratory failure with hypoxia; G93.41 Metabolic encephalopathy; K56.609 Unspecified intestinal obstruction, unspecified as to partial versus complete obstruction; F10.239 Alcohol dependence with withdrawal, unspecified; K56.7 Ileus, unspecified; E87.1 Hypo-osmolality and hyponatremia; N17.9 Acute kidney failure, unspecified; E87.2 Acidosis; E44.0 Moderate protein-calorie malnutrition; K85.20 Alcohol induced acute pancreatitis without necrosis or infection; E87.6 Hypokalemia; K76.0 Fatty (change of) liver, not elsewhere classified; R74.0 Nonspecific elevation of levels of transaminase and lactic acid dehydrogenase [LDH]; E83.51 Hypocalcemia; E86.1 Hypovolemia; I48.91 Unspecified atrial fibrillation; F31.9 Bipolar disorder, unspecified; I10 Essential (primary) hypertension; F17.210 Nicotine dependence, cigarettes, uncomplicated; K70.10 Alcoholic hepatitis without ascites; R73.9 Hyperglycemia, unspecified; K21.9 Gastro-esophageal reflux disease without esophagitis; E83.39 Other disorders of phosphorus metabolism; D64.9 Anemia, unspecified; F14.10 Cocaine abuse, uncomplicated; D69.6 Thrombocytopenia, unspecified; Z79.01 Long term (current) use of anticoagulants; Z90.49 Acquired absence of other specified parts of digestive tract; Z68.24 Body mass index [BMI] 24.0-24.9, adult
CPT/HCPCS: 36415; 36416; 36430; 36569; 71045; 74018; 74019; 74170; 74176; 74177; 74178; 80048; 80053; 80076; 80202; 81003; 81015; 82140; 82607; 82746; 82805; 83036; 83605; 83690; 83735; 84100; 84145; 85025; 85610; 85730; 86850; 86900; 86901; 87040; 87086; 87149; 93005; 94002; 94003; 94640; 96361; 96374; 96375; 96376; A4217; C1751; C9113; J1650; J1885; J1940; J1956; J2060; J2185; J2250; J2270; J2405; J2704; J2765; J3010; J3370; J3411; J3475; J3480; J3486; J3490; J7030; J7042; J7050; J7070; J7512; J7620; P9016; P9047; Q0163; Q9967

== ENCOUNTER 2020-05-21 13:44 | Outpatient (CLI) | payer MEDICARE, MEDICAID ==
--- NOTE | 2020-05-21 15:36 | MRI ---
MR abdomen with and without IV contrast INDICATION: History of alcohol-induced pancreatitis with epigastric pain TECHNIQUE: Multiplanar, multisequence MR images were obtained of the abdomen with and without IV cont rast. Contrast: 16 cc MultiHance. COMPARISON: CT abdomen pelvis with contrast dated February 03, 2020 FINDINGS: Liver: Normal signal intensity without focal hepatic lesion. Gallbladder: Contracted Pancreas: There is a prominent pancreatic and peripancreatic mixed signal intensity fluid collection consistent with a large pseudocyst that predominantly involves the body of the pancreas but extends into the left anterior pararenal space and into the region of the gastrosplenic ligament. There is al so extension into the central mesenteric root. The collection measures 22 x 9.5 cm were previously measured 22 x 10.9 cm. There is peripheral enhancement of the fluid collection. Adrenal glands: Normal. Kidneys: There is an 11 mm cyst involving the superior pole left kidney. Right kidney is normal-appea ring. Spleen: Normal appearing Spleen size: 12.2 cm. Lymphadenopathy or free fluid: None Vasculature: Appropriate flow voids are demonstrated. Bowel: Visualized bowel appears within normal limits. Osseous structures: No signal abnormality evident. IMPRESSION: 1. Stable large pancreatic and peripancreatic pseudocyst 2. Left renal cyst.
== END 2020-05-21 13:45 | disposition home or self-care (01) ==
LOC: BICMRI 13:44
PROVIDERS: ATTEND Internal Medicine Gastroenterology
DX: K85.20 Alcohol induced acute pancreatitis without necrosis or infection (principal); K86.3 Pseudocyst of pancreas; R19.7 Diarrhea, unspecified; N28.1 Cyst of kidney, acquired
CPT/HCPCS: 74183

== ENCOUNTER 2020-10-08 19:42 | Inpatient (IN) | payer MEDICARE, MEDICAID ==
[2020-10-08 20:10] LABS: #Basophils 0.1 thou/uL (0.0-0.2); #Eosinphils 0.1 thou/uL (0.0-0.7); #Lymphocytes 1.9 thou/uL (1.20-3.40); #Monocytes 0.7 thou/uL (0.11-0.59); #Neutrophils 8.7 thou/uL (1.40-6.50); %Basophils 0.5 % (0.0-1.0); %Eosinophils 0.6 % (0.0-10.0); %Lymphocytes 16.9 % (21.0-51.0); %Monocytes 6.2 % (0.0-10.0); %Neutrophils 75.8 % (42.0-75.0); Hemoglobin 14.6 g/dL (14.0-18.0); Mean Corpuscular HGB CONC 35.4 g/dL (32.0-36.0); Mean Corpuscular Hemoglobin 33.7 pg (27.0-31.0); Mean Corpuscular Volume 95.3 fL (78.0-98.0); Mean Platelet Volume 6.7 fL (7.4-10.4); Platelet Count 219 thou/uL (130-400); RBC Distribution Width 13.8 % (11.5-14.5); Red Blood Cell (RBC) Count 4.33 mill/uL (4.70-6.10); White Blood Cell (WBC) Count 11.4 thou/uL (4.8-10.8)
[2020-10-08] MEDS ORDERED: Ketorolac Tromethamine 30 MG/ML VIAL ONE (20:12)
[2020-10-08 20:33] LABS: ALT (SGPT) 42 U/L (8-55); AST (SGOT) 80 U/L (5-34); Alkaline Phosphatase 84 U/L (40-110); Anion Gap 17 mmol/L (10-20); BUN (Urea Nitrogen) 8 mg/dL (8.4-25.7); Bilirubin, Total 0.7 mg/dL (0.2-1.2); CK (CPK) 153 U/L (30-200); Calc. Creatinine Clearance 0 mL/min (70-130); Calcium 8.8 mg/dL (7.8-10.44); Carbon Dioxide 25 mmol/L (22-29); Chloride 99 mmol/L (98-107); Globulin 2.9 g/dL (2.4-3.5); Glucose 102 mg/dL (70-105); Potassium 3.7 mmol/L (3.5-5.1); Protein, Total 6.9 g/dL (6.0-8.3); Sodium 137 mmol/L (136-145)
[2020-10-08 20:47] LABS: Lipase 1294 U/L (8-78)
[2020-10-08] MEDS ORDERED: Ondansetron PF 4 MG/2 ML Vial ONE (21:17)
[2020-10-08] MEDS ORDERED: Morphine 4 MG/ML VIAL ONE (21:17)
[2020-10-08] MEDS ORDERED: Ondansetron PF 4 MG/2 ML Vial IVP PRN ×2 (22:45→23:47)
[2020-10-08] MEDS ORDERED: Acetaminophen 325 MG TAB PO PRN ×2 (22:45→23:48)
[2020-10-08] MEDS ORDERED: Ondansetron ODT 4 MG TAB SL PRN (22:45)
[2020-10-08] MEDS ORDERED: Lactated Ringer's 1,000 ML IV SCH (22:45)
[2020-10-08 23:33] VITALS: BMI 29.2
[2020-10-08] MEDS ORDERED: Electrolyte Replacement Protocol FS PRN (23:45)
[2020-10-08] MEDS ORDERED: Electrolyte Replacement Protocol 1 EACH FS SCH (23:45)
[2020-10-08] MEDS ORDERED: cloNIDine 0.1 MG TAB PO PRN (23:46)
[2020-10-08] MEDS ORDERED: Guaifenesin DM 100-10/5 ML UDCUP PO PRN (23:46)
[2020-10-08] MEDS ORDERED: Promethazine HCl 12.5 MG in Sodium Chloride 0.9% 50 ML IVPB PRN (23:47)
[2020-10-08] MEDS ORDERED: hydrALAZINE 20 MG/ML VIAL SLOW IVP PRN (23:47)
[2020-10-09] MEDS: Morphine 4 MG/ML VIAL SLOW IVP PRN ×8 (00:06→21:43)
[2020-10-09] MEDS: Lactated Ringer's 1,000 ML IV SCH ×5 (00:06→21:42)
[2020-10-09] MEDS ORDERED: Pantoprazole 40 MG VIAL IVP SCH (03:15)
[2020-10-09] MEDS: Nicotine 14 MG PATCH TD SCH (04:39)
[2020-10-09 05:33] LABS: SARS-CoV-2 PCR by NAA Not Detected (NotDetected)
[2020-10-09] MEDS: predniSONE 20 MG TAB PO SCH ×3 (05:44→17:19)
[2020-10-09 06:29] LABS: #Lymphocytes 0.9 thou/uL (1.20-3.40); %Basophils 0.1 % (0.0-1.0); %Eosinophils 0.1 % (0.0-10.0); %Lymphocytes 6.5 % (21.0-51.0); %Monocytes 7.4 % (0.0-10.0); %Neutrophils 85.9 % (42.0-75.0); Hemoglobin 15.1 g/dL (14.0-18.0); Mean Corpuscular HGB CONC 34.5 g/dL (32.0-36.0); Mean Corpuscular Hemoglobin 33.2 pg (27.0-31.0); Mean Corpuscular Volume 96.2 fL (78.0-98.0); Mean Platelet Volume 7.5 fL (7.4-10.4); Platelet Count 164 thou/uL (130-400); RBC Distribution Width 13.7 % (11.5-14.5); Red Blood Cell (RBC) Count 4.54 mill/uL (4.70-6.10); White Blood Cell (WBC) Count 13.9 thou/uL (4.8-10.8)
[2020-10-09 06:55] LABS: ALT (SGPT) 31 U/L (8-55); AST (SGOT) 53 U/L (5-34); Albumin 3.4 g/dL (3.5-5.0); Alkaline Phosphatase 82 U/L (40-110); Anion Gap 13 mmol/L (10-20); BUN (Urea Nitrogen) 8 mg/dL (8.4-25.7); Bilirubin, Direct 0.5 mg/dL (0.1-0.3); Bilirubin, Total 1.2 mg/dL (0.2-1.2); Calc. Creatinine Clearance 120 mL/min (70-130); Calcium 8.3 mg/dL (7.8-10.44); Carbon Dioxide 22 mmol/L (22-29); Chloride 102 mmol/L (98-107); Glucose 94 mg/dL (70-105); Magnesium 1.5 mg/dL (1.6-2.6); Potassium 4.1 mmol/L (3.5-5.1); Protein, Total 6.2 g/dL (6.0-8.3); Sodium 133 mmol/L (136-145)
[2020-10-09] MEDS ORDERED: FLU VACC QS2020-21(6MOS UP)/PF 60 MCG/0.5 ML SYRINGE IM ONE (09:00)
[2020-10-09] MEDS: Famotidine 20 MG TAB PO SCH ×2 (09:30→20:10)
[2020-10-09] MEDS: Pantoprazole 40 MG VIAL IVP SCH (09:31)
[2020-10-09] MEDS ORDERED: Magnesium 2 GM/50 ML 2 GM in Premix Bag 1 BAG IVPB SCH (10:00)
[2020-10-09] MEDS ORDERED: Iopamidol-370 76% 500 ML 1 ML ONE (13:22)
[2020-10-09] MEDS ORDERED: diphenhydrAMINE 25 MG CAP PO SCH (17:00)
[2020-10-09] MEDS: Enoxaparin Sodium 40 MG/0.4 ML SYRINGE SC SCH (20:10)
[2020-10-10] MEDS: Morphine 4 MG/ML VIAL SLOW IVP PRN ×4 (00:29→09:33)
[2020-10-10] MEDS: Lactated Ringer's 1,000 ML IV SCH ×4 (03:24→19:55)
[2020-10-10] MEDS: Nicotine 14 MG PATCH TD SCH (03:24)
[2020-10-10 06:06] LABS: Anion Gap 9 mmol/L (10-20); BUN (Urea Nitrogen) 7 mg/dL (8.4-25.7); Calc. Creatinine Clearance 144 mL/min (70-130); Calcium 8.4 mg/dL (7.8-10.44); Carbon Dioxide 28 mmol/L (22-29); Chloride 100 mmol/L (98-107); Glucose 130 mg/dL (70-105); Magnesium 2.1 mg/dL (1.6-2.6); Potassium 4.4 mmol/L (3.5-5.1); Sodium 133 mmol/L (136-145)
[2020-10-10 06:40] LABS: #Basophils 0.2 thou/uL (0.0-0.2); #Lymphocytes 0.2 thou/uL (1.20-3.40); #Monocytes 0.6 thou/uL (0.11-0.59); #Neutrophils 12.4 thou/uL (1.40-6.50); %Basophils 1.4 % (0.0-1.0); %Eosinophils 0.2 % (0.0-10.0); %Lymphocytes 1.7 % (21.0-51.0); %Monocytes 4.6 % (0.0-10.0); %Neutrophils 92.1 % (42.0-75.0); Hemoglobin 12.3 g/dL (14.0-18.0); Mean Corpuscular HGB CONC 33.8 g/dL (32.0-36.0); Mean Corpuscular Hemoglobin 33.7 pg (27.0-31.0); Mean Corpuscular Volume 99.7 fL (78.0-98.0); Mean Platelet Volume 7.4 fL (7.4-10.4); Platelet Count 103 thou/uL (130-400); Platelet Morphology Comment Appears Decreased; RBC Distribution Width 14.1 % (11.5-14.5); Red Blood Cell (RBC) Count 3.66 mill/uL (4.70-6.10); White Blood Cell (WBC) Count 13.4 thou/uL (4.8-10.8)
[2020-10-10] MEDS: Pantoprazole 40 MG VIAL IVP SCH (09:33)
[2020-10-10] MEDS: Famotidine 20 MG TAB PO SCH ×2 (09:33→20:30)
[2020-10-10] MEDS: Ketorolac Tromethamine 30 MG/ML VIAL IVP PRN ×3 (11:56→23:43)
[2020-10-10] MEDS: Morphine 2 MG/ML VIAL SLOW IVP PRN (15:29)
[2020-10-10] MEDS: Enoxaparin Sodium 40 MG/0.4 ML SYRINGE SC SCH (20:30)
[2020-10-10] MEDS ORDERED: Morphine 2 MG/ML VIAL SLOW IVP SCH (21:00)
[2020-10-10 21:22] LABS: Lactic Acid 1.9 mmol/L (0.5-2.2)
[2020-10-10 21:26] LABS: ALT (SGPT) 17 U/L (8-55); AST (SGOT) 28 U/L (5-34); Albumin 3.1 g/dL (3.5-5.0); Alkaline Phosphatase 56 U/L (40-110); Anion Gap 12 mmol/L (10-20); BUN (Urea Nitrogen) 9 mg/dL (8.4-25.7); Bilirubin, Total 0.9 mg/dL (0.2-1.2); Calc. Creatinine Clearance 121 mL/min (70-130); Calcium 8.2 mg/dL (7.8-10.44); Carbon Dioxide 27 mmol/L (22-29); Chloride 98 mmol/L (98-107); Glucose 119 mg/dL (70-105); Lipase 319 U/L (8-78); Potassium 3.7 mmol/L (3.5-5.1); Protein, Total 6.1 g/dL (6.0-8.3); Sodium 133 mmol/L (136-145)
[2020-10-10] MEDS ORDERED: Methocarbamol 500 MG TAB PO SCH (21:30)
[2020-10-10] MEDS ORDERED: OLANZapine ODT 5 MG TAB PO SCH (21:30)
[2020-10-10] MEDS: Gabapentin 300 MG CAP PO SCH (21:39)
[2020-10-10] MEDS: Atorvastatin Calcium 40 MG TAB PO SCH ×2 (21:40→21:41)
[2020-10-11] MEDS: Morphine 2 MG/ML VIAL SLOW IVP PRN ×2 (00:32→08:32)
[2020-10-11] MEDS: Nicotine 14 MG PATCH TD SCH (03:46)
[2020-10-11] MEDS: Ketorolac Tromethamine 30 MG/ML VIAL IVP PRN (05:45)
[2020-10-11] MEDS: Lactated Ringer's 1,000 ML IV SCH (05:45)
[2020-10-11 05:53] LABS: #Monocytes 0.8 thou/uL (0.11-0.59); #Neutrophils 6.1 thou/uL (1.40-6.50); %Basophils 0.2 % (0.0-1.0); %Eosinophils 0.2 % (0.0-10.0); %Lymphocytes 12.8 % (21.0-51.0); %Monocytes 10.1 % (0.0-10.0); %Neutrophils 76.7 % (42.0-75.0); Hemoglobin 11.3 g/dL (14.0-18.0); Mean Corpuscular HGB CONC 33.3 g/dL (32.0-36.0); Mean Corpuscular Hemoglobin 33.1 pg (27.0-31.0); Mean Corpuscular Volume 99.5 fL (78.0-98.0); Mean Platelet Volume 7.5 fL (7.4-10.4); Platelet Count 94 thou/uL (130-400); RBC Distribution Width 14.1 % (11.5-14.5); Red Blood Cell (RBC) Count 3.41 mill/uL (4.70-6.10)
[2020-10-11 06:01] LABS: Anion Gap 11 mmol/L (10-20); BUN (Urea Nitrogen) 8 mg/dL (8.4-25.7); Calc. Creatinine Clearance 122 mL/min (70-130); Calcium 8.2 mg/dL (7.8-10.44); Carbon Dioxide 28 mmol/L (22-29); Chloride 100 mmol/L (98-107); Glucose 88 mg/dL (70-105); Magnesium 1.9 mg/dL (1.6-2.6); Potassium 3.7 mmol/L (3.5-5.1); Sodium 135 mmol/L (136-145)
[2020-10-11] MEDS: Famotidine 20 MG TAB PO SCH (08:30)
[2020-10-11] MEDS: Gabapentin 300 MG CAP PO SCH (08:30)
[2020-10-11] MEDS: Pantoprazole 40 MG VIAL IVP SCH (08:30)
[2020-10-11] MEDS ORDERED: Methocarbamol 500 MG TAB PO SCH (09:00)
[2020-10-11 11:00] VITALS: BP 137/92; TEMP 98.4
[2020-10-11] MEDS ORDERED: Magnesium 2 GM/50 ML 2 GM in Premix Bag 1 BAG IVPB SCH (11:45)
[2020-10-11] MEDS ORDERED: OLANZapine ODT 5 MG TAB PO SCH (21:00)
== END 2020-10-11 11:45 | disposition home or self-care (01) | DRG 439 ==
LOC: ERS 19:42 → SJJU 21:21
PROVIDERS: ADMIT Internal Medicine; ATTEND Internal Medicine
DX: K85.20 Alcohol induced acute pancreatitis without necrosis or infection (principal); F10.180 Alcohol abuse with alcohol-induced anxiety disorder; Z20.822 Contact with and (suspected) exposure to COVID-19; I48.91 Unspecified atrial fibrillation; K21.9 Gastro-esophageal reflux disease without esophagitis; E78.5 Hyperlipidemia, unspecified; F20.9 Schizophrenia, unspecified; D72.829 Elevated white blood cell count, unspecified; F17.210 Nicotine dependence, cigarettes, uncomplicated; F14.10 Cocaine abuse, uncomplicated; Z88.5 Allergy status to narcotic agent; Z88.0 Allergy status to penicillin; Z79.899 Other long term (current) drug therapy; Z98.1 Arthrodesis status; D64.9 Anemia, unspecified
CPT/HCPCS: 36415; 71045; 74177; 80048; 80053; 80076; 82550; 83605; 83690; 83735; 84484; 85025; 87635; 93005; 96374; 96375; C9113; J1650; J1885; J2270; J2405; J2550; J3475; J7512; Q0163; Q9967; U0003; U0005

== ENCOUNTER 2020-10-14 12:05 | Emergency (ER) | payer MEDICARE, MEDICAID ==
[2020-10-14] MEDS ORDERED: Morphine 4 MG/ML VIAL ONE (12:18)
[2020-10-14 12:54] LABS: Hemoglobin 10.4 g/dL (14.0-18.0); Mean Corpuscular HGB CONC 33.6 g/dL (32.0-36.0); Mean Corpuscular Hemoglobin 34.2 pg (27.0-31.0); Mean Platelet Volume 7.1 fL (7.4-10.4); Platelet Count 120 thou/uL (130-400); RBC Distribution Width 14.2 % (11.5-14.5); Red Blood Cell (RBC) Count 3.05 mill/uL (4.70-6.10); White Blood Cell (WBC) Count 5.7 thou/uL (4.8-10.8)
[2020-10-14 12:55] LABS: Bilirubin Negative (Negative); Blood, Urine Negative (Negative); Glucose, Urine (Dipstick) Negative (Negative); Ketone, Urine Negative (Negative); Leukocyte Negative (Negative); Nitrite Negative (Negative); Protein, Urine (Dipstick) Negative (Neg-Trace); Urobilinogen 0.2 mg/dL (Less than 2)
[2020-10-14 12:56] LABS: Clarity Clear (Clear)
[2020-10-14 13:11] LABS: Band 10 % (5-11); Eosinophils 1 % (0-10); Lymphocytes 12 % (21-51); MDiff Complete? YES; Monocytes 17 % (0-10); Neutrophil 58 % (42-75); Platelet Morphology Comment Appears Decreased; Polychromasia SLIGHT = 2-3 cells (100X) (0-2/hpf); Reactive Lymphocytes 1 % (0-10)
[2020-10-14 13:19] LABS: ALT (SGPT) 30 U/L (8-55); AST (SGOT) 51 U/L (5-34); Albumin 3.1 g/dL (3.5-5.0); Alkaline Phosphatase 151 U/L (40-110); Anion Gap 11 mmol/L (10-20); BUN (Urea Nitrogen) 5 mg/dL (8.4-25.7); Bilirubin, Total 0.9 mg/dL (0.2-1.2); Calc. Creatinine Clearance 0 mL/min (70-130); Calcium 8.5 mg/dL (7.8-10.44); Carbon Dioxide 22 mmol/L (22-29); Chloride 106 mmol/L (98-107); Globulin 3.4 g/dL (2.4-3.5); Glucose 119 mg/dL (70-105); Lipase 82 U/L (8-78); Potassium 3.3 mmol/L (3.5-5.1); Protein, Total 6.5 g/dL (6.0-8.3); Sodium 136 mmol/L (136-145)
[2020-10-14] MEDS ORDERED: Potassium Chloride 20 MEQ TAB ONE (13:52)
--- NOTE | 2020-10-18 16:48 | EKG ---
Test Reason : Blood Pressure : / mmHG Vent. Rate : 096 BPM Atrial Rate : 096 BPM P-R Int : 146 ms QRS Dur : 088 ms QT Int : 338 ms P-R-T Axes : 045 002 015 degrees QTc Int : 427 ms Normal sinus rhythm Nonspecific T wave abnormality Abnormal ECG Confirmed by JUAN KINGLSEY, SANGEETHA Pedraza ([id number]), assistant editor STEPHANIE BASHIR ([id number]) on 10/18/2020 4:47:42 PM Referred By: Confirmed By:SANGEETHA MARTINEZ MD
== END 2020-10-14 14:05 | disposition home or self-care (01) ==
LOC: ERS 12:05
DX: E87.6 Hypokalemia (principal); R10.9 Unspecified abdominal pain; I10 Essential (primary) hypertension; E78.5 Hyperlipidemia, unspecified; F17.200 Nicotine dependence, unspecified, uncomplicated; Z79.899 Other long term (current) drug therapy
CPT/HCPCS: 80053; 81003; 83690; 85025; 93005; 93010; 96374; J2270

== ENCOUNTER 2021-01-28 16:13 | Emergency (ER) | payer MEDICARE, MEDICAID ==
[~2021-01-28 16:13] MED LIST changes: -Heparin 1,000 UNITS/ML VIAL ONE; +Iopamidol 370 76% 100 ML VIAL ONE
[2021-01-28] MEDS ORDERED: Ondansetron PF 4 MG/2 ML Vial ONE (16:59)
[2021-01-28] MEDS ORDERED: Fentanyl 100 MCG/2 ML VIAL ONE ×2 (16:59→18:56)
[2021-01-28 17:02] LABS: #Lymphocytes 1.2 thou/uL (1.20-3.40); #Monocytes 0.5 thou/uL (0.11-0.59); #Neutrophils 5.5 thou/uL (1.40-6.50); %Basophils 0.5 % (0.0-1.0); %Eosinophils 0.4 % (0.0-10.0); %Lymphocytes 16.5 % (21.0-51.0); %Monocytes 6.9 % (0.0-10.0); %Neutrophils 75.7 % (42.0-75.0); Hemoglobin 13.6 g/dL (14.0-18.0); Mean Corpuscular HGB CONC 34.5 g/dL (32.0-36.0); Mean Corpuscular Hemoglobin 30.8 pg (27.0-31.0); Mean Corpuscular Volume 89.3 fL (78.0-98.0); Mean Platelet Volume 7.8 fL (7.4-10.4); Platelet Count 161 thou/uL (130-400); RBC Distribution Width 14.6 % (11.5-14.5); Red Blood Cell (RBC) Count 4.41 mill/uL (4.70-6.10); White Blood Cell (WBC) Count 7.3 thou/uL (4.8-10.8)
[2021-01-28 17:06] LABS: Bilirubin Negative (Negative); Blood, Urine Negative (Negative); Clarity Clear (Clear); Glucose, Urine (Dipstick) Normal (Negative); Ketone, Urine Negative (Negative); Leukocyte Negative Leu/uL (Negative); Nitrite Negative (Negative); Protein, Urine (Dipstick) Negative (Neg-Trace); Specific Gravity, Urine 1.002 (1.002-1.036); Urobilinogen Normal mg/dL (Less than 2); pH, Urine 6.5 (5.0-9.0)
[2021-01-28 17:35] LABS: ALT (SGPT) 19 U/L (8-55); AST (SGOT) 19 U/L (5-34); Albumin 4.3 g/dL (3.5-5.0); Alkaline Phosphatase 102 U/L (40-110); Anion Gap 10 mmol/L (10-20); BUN (Urea Nitrogen) 6 mg/dL (8.4-25.7); Bilirubin, Total 0.4 mg/dL (0.2-1.2); Calc. Creatinine Clearance 0 mL/min (70-130); Carbon Dioxide 29 mmol/L (22-29); Chloride 107 mmol/L (98-107); Globulin 3.7 g/dL (2.4-3.5); Glucose 90 mg/dL (70-105); Potassium 4.2 mmol/L (3.5-5.1); Sodium 142 mmol/L (136-145)
[2021-01-28] MEDS ORDERED: diphenhydrAMINE 50 MG/ML VIAL ONE (18:44)
[2021-01-28] MEDS ORDERED: Famotidine/PF 20 mg/2ml Vial ONE (18:44)
[2021-01-28] MEDS ORDERED: methylPREDNISolone Sod Succ 40 MG VIAL ONE (18:44)
== END 2021-01-28 21:40 | disposition home or self-care (01) ==
LOC: ERS 16:13
DX: I82.890 Acute embolism and thrombosis of other specified veins (principal); R10.9 Unspecified abdominal pain; I48.91 Unspecified atrial fibrillation; I10 Essential (primary) hypertension; E78.5 Hyperlipidemia, unspecified; F17.200 Nicotine dependence, unspecified, uncomplicated; Z79.899 Other long term (current) drug therapy
CPT/HCPCS: 36415; 74176; 74177; 80053; 81003; 85025; 87086; 96374; 96375; 96376; J1200; J2405; J2920; J3010; Q9967; S0028

== ENCOUNTER 2021-05-21 14:55 | Outpatient (CLI) | payer MEDICARE, MEDICAID | END 2021-05-21 14:56 | disposition home or self-care (01) | LOC: BICULT 14:55 | PROVIDERS: ATTEND Nurse Practitioner Family | DX: R89.9 Unspecified abnormal finding in specimens from other organs, systems and tissues (principal) | CPT/HCPCS: 76536 ==

== ENCOUNTER 2021-07-02 14:05 | Outpatient (CLI) | payer MEDICARE, MEDICAID | END 2021-07-02 14:06 | disposition home or self-care (01) | LOC: CT 14:05 | PROVIDERS: ATTEND Internal Medicine Gastroenterology | DX: I82.890 Acute embolism and thrombosis of other specified veins (principal); K86.1 Other chronic pancreatitis; K86.3 Pseudocyst of pancreas; K86.89 Other specified diseases of pancreas; I86.8 Varicose veins of other specified sites; Z96.89 Presence of other specified functional implants | CPT/HCPCS: 74177 ==

== ENCOUNTER 2022-03-02 08:57 | Outpatient (CLI) | payer MEDICARE, MEDICAID | END 2022-03-02 08:58 | disposition home or self-care (01) | LOC: CT 08:57 | PROVIDERS: ATTEND Physician Assistant Medical | DX: K86.1 Other chronic pancreatitis (principal); R10.13 Epigastric pain; K86.3 Pseudocyst of pancreas; I82.90 Acute embolism and thrombosis of unspecified vein | CPT/HCPCS: 74177 ==

== ENCOUNTER 2022-12-09 14:44 | Outpatient (CLI) | payer MEDICARE, MEDICAID | END 2022-12-09 14:45 | disposition home or self-care (01) | LOC: BICMAMMO 14:44 | PROVIDERS: ATTEND Internal Medicine Gastroenterology | DX: Z13.820 Encounter for screening for osteoporosis (principal); K86.1 Other chronic pancreatitis; M85.851 Other specified disorders of bone density and structure, right thigh; M85.852 Other specified disorders of bone density and structure, left thigh | CPT/HCPCS: 77080 ==

== ENCOUNTER 2025-05-27 17:38 | Emergency (ER) | payer MEDICAID, MEDICARE ==
[2025-05-27 18:28] LABS: Bacteria/HPF None Seen HPF (None Seen); CAUTI Indications for Culture Acute Hematuria; Glucose, Urine (Dipstick) Normal (Negative); Leukocyte Negative Leu/uL (Negative); Protein, Urine (Dipstick) 20 mg/dL (Neg-Trace); RBC/HPF 0-3 HPF (0-3); Specific Gravity, Urine 1.012 (1.002-1.036); WBC/HPF 0-3 HPF (0-3)
[2025-05-27 18:31] LABS: Urine Culture Reflex No No
[2025-05-27] MEDS ORDERED: Ketorolac Tromethamine 30 MG (1 mL) VIAL ONE (20:23)
[2025-05-27] MEDS ORDERED: Ondansetron PF 4 MG/2 ML Vial ONE ×2 (20:23→22:40)
[2025-05-27 20:34] LABS: #Basophils Less than 0.03 10x3/uL (0.0-0.2); #Eosinophils 0.11 10x3/uL (0.0-0.7); #Monocytes 0.55 10x3/uL (0.11-0.59); #Neutrophils 6.22 10x3/uL (1.40-6.50); %Basophils 0.2 % (0.0-1.0); %Eosinophils 1.4 % (0.0-10.0); %Lymphocytes 13.9 % (21.0-51.0); %Monocytes 6.8 % (0.0-10.0); %Neutrophils 77.1 % (42.0-75.0); Hematocrit 33.0 % (42.0-52.0); Hemoglobin 10.6 g/dL (14.0-18.0); Mean Corpuscular Hemoglobin 27.0 pg (27.0-31.0); Mean Corpuscular Volume 84.0 fL (78.0-98.0); Platelet Count 107 10x3/uL (130-400); Red Blood Cell (RBC) Count 3.93 mill/uL (4.70-6.10); White Blood Cell (WBC) Count 8.07 10x3/uL (4.8-10.8)
[2025-05-27 20:43] LABS: ALT (SGPT) 111 U/L (Less than 45); AST (SGOT) 172 U/L (11-34); Albumin 2.8 g/dL (3.1-4.5); Alkaline Phosphatase 532 U/L (40-110); Anion Gap 14 mmol/L (10-20); BUN (Urea Nitrogen) 7 mg/dL (8.4-25.7); Bilirubin, Total 3.4 mg/dL (0.3-1.2); Calc. Creatinine Clearance 0 mL/min (70-130); Calcium 8.9 mg/dL (7.8-10.44); Carbon Dioxide 24 mmol/L (22-29); Chloride 104 mmol/L (98-107); Globulin 3.7 g/dL (2.4-3.5); Glucose 154 mg/dL (70-105); Lipase 14 U/L (8-78); Potassium 3.1 mmol/L (3.5-5.1); Sodium 139 mmol/L (136-145)
[2025-05-27 21:10] LABS: Magnesium 1.8 mg/dL (1.6-2.6)
[2025-05-27] MEDS ORDERED: Potassium Bicarbonate/Cit Ac 20 MEQ TAB ONE (22:40)
[2025-05-27] MEDS ORDERED: Lidocaine Viscous Sol 2% 15 ml UD Cup ONE (22:41)
[2025-05-27] MEDS ORDERED: Mag-Al 1200 mg/1200 mg/30 ML UDCUP ONE (22:41)
== END 2025-05-28 00:38 | disposition home or self-care (01) ==
LOC: ERS 17:38
DX: R10.32 Left lower quadrant pain (principal); K86.1 Other chronic pancreatitis; R11.2 Nausea with vomiting, unspecified; D64.9 Anemia, unspecified; I48.91 Unspecified atrial fibrillation; I10 Essential (primary) hypertension; F17.200 Nicotine dependence, unspecified, uncomplicated
CPT/HCPCS: 71045; 74176; 76705; 80053; 81001; 83690; 83735; 83880; 84484; 85025; 93005; J1885; J2405; J3010; 36415; Q0169

== ENCOUNTER 2025-05-30 14:28 | Inpatient (IN) | payer MEDICARE ==
[2025-05-30 15:23] LABS: Bacteria/HPF None Seen HPF (None Seen); CAUTI Indications for Culture Pelvic or flank pain; Glucose, Urine (Dipstick) Normal (Negative); Leukocyte Negative Leu/uL (Negative); Protein, Urine (Dipstick) Negative (Neg-Trace); RBC/HPF 0-3 HPF (0-3); Specific Gravity, Urine 1.003 (1.002-1.036); WBC/HPF None Seen HPF (0-3)
[2025-05-30 15:32] LABS: Urine Culture Reflex No No
[2025-05-30 15:32] LABS: #Basophils 0.03 10x3/uL (0.0-0.2); #Eosinophils 0.08 10x3/uL (0.0-0.7); #Monocytes 0.56 10x3/uL (0.11-0.59); #Neutrophils 5.19 10x3/uL (1.40-6.50); %Basophils 0.4 % (0.0-1.0); %Eosinophils 1.1 % (0.0-10.0); %Lymphocytes 18.1 % (21.0-51.0); %Monocytes 7.6 % (0.0-10.0); %Neutrophils 70.5 % (42.0-75.0); Hematocrit 35.4 % (42.0-52.0); Hemoglobin 11.4 g/dL (14.0-18.0); Mean Corpuscular Hemoglobin 26.7 pg (27.0-31.0); Mean Corpuscular Volume 82.9 fL (78.0-98.0); Platelet Count 206 10x3/uL (130-400); Red Blood Cell (RBC) Count 4.27 mill/uL (4.70-6.10); White Blood Cell (WBC) Count 7.36 10x3/uL (4.8-10.8)
[2025-05-30] MEDS ORDERED: Ondansetron PF 4 MG/2 ML Vial ONE (15:46)
[2025-05-30 15:50] LABS: ALT (SGPT) 241 U/L (Less than 45); AST (SGOT) 332 U/L (11-34); Albumin 2.8 g/dL (3.1-4.5); Alkaline Phosphatase 868 U/L (40-110); Anion Gap 15 mmol/L (10-20); BUN (Urea Nitrogen) 8 mg/dL (8.4-25.7); Bilirubin, Total 4.2 mg/dL (0.3-1.2); Calc. Creatinine Clearance 0 mL/min (70-130); Calcium 9.2 mg/dL (7.8-10.44); Carbon Dioxide 23 mmol/L (22-29); Chloride 105 mmol/L (98-107); Globulin 4.5 g/dL (2.4-3.5); Glucose 133 mg/dL (70-105); Lipase 14 U/L (8-78); Potassium 3.5 mmol/L (3.5-5.1); Sodium 139 mmol/L (136-145)
[2025-05-30 17:25] LABS: INR-International Normal Ratio 1.2; PTT 37.1 sec (22.9-36.1); Prothrombin Time 15.7 sec (12.0-14.7)
[2025-05-30] MEDS ORDERED: Ondansetron PF 4 MG/2 ML Vial IVP PRN (17:40)
[2025-05-30 18:31] LABS: Hep A IgM AB NONREACTIVE (NonReactive); Hep A IgM S/CO 0.24 S/CO (0-0.79); Hep B Core IgM Index 0.15 S/CO (0-0.79); Hep B Surf Ag NONREACTIVE S/CO (NonReactive); Hep C IgG Ab NONREACTIVE S/CO (NonReactive); Hep C Index 0.28 S/CO (0-0.79)
[2025-05-31 02:00] VITALS: BMI 28.3
[2025-05-31 03:48] LABS: Influenza A by NAA Not Detected (NotDetected); Influenza B by NAA Not Detected (NotDetected); SARS-CoV-2 NAA Rapid Test Not Detected (NotDetected)
[2025-05-31 06:24] LABS: #Basophils 0.03 10x3/uL (0.0-0.2); #Eosinophils 0.12 10x3/uL (0.0-0.7); #Monocytes 0.67 10x3/uL (0.11-0.59); #Neutrophils 5.03 10x3/uL (1.40-6.50); %Basophils 0.4 % (0.0-1.0); %Eosinophils 1.6 % (0.0-10.0); %Lymphocytes 20.0 % (21.0-51.0); %Monocytes 9.0 % (0.0-10.0); %Neutrophils 67.5 % (42.0-75.0); Hematocrit 32.5 % (42.0-52.0); Hemoglobin 10.4 g/dL (14.0-18.0); Mean Corpuscular Hemoglobin 26.5 pg (27.0-31.0); Mean Corpuscular Volume 82.9 fL (78.0-98.0); Platelet Count 169 10x3/uL (130-400); Red Blood Cell (RBC) Count 3.92 mill/uL (4.70-6.10); White Blood Cell (WBC) Count 7.45 10x3/uL (4.8-10.8)
[2025-05-31 06:38] LABS: ALT (SGPT) 239 U/L (Less than 45); AST (SGOT) 349 U/L (11-34); Albumin 2.5 g/dL (3.1-4.5); Alkaline Phosphatase 843 U/L (40-110); Anion Gap 14 mmol/L (10-20); BUN (Urea Nitrogen) 7 mg/dL (8.4-25.7); Bilirubin, Total 3.1 mg/dL (0.3-1.2); Calc. Creatinine Clearance 117 mL/min (70-130); Calcium 8.6 mg/dL (7.8-10.44); Carbon Dioxide 22 mmol/L (22-29); Chloride 104 mmol/L (98-107); Globulin 4.1 g/dL (2.4-3.5); Glucose 87 mg/dL (70-105); Potassium 3.6 mmol/L (3.5-5.1); Sodium 136 mmol/L (136-145)
[2025-05-31] MEDS: OLANZapine 5 MG TAB PO SCH (10:32)
[2025-05-31] MEDS: Pantoprazole 40 MG DR.TAB PO SCH (10:32)
[2025-05-31] MEDS: OLANZapine 2.5 MG TAB PO SCH (10:33)
[2025-05-31] MEDS: Ketorolac Tromethamine 30 MG (1 mL) VIAL IVP PRN (16:08)
[2025-05-31 19:30] VITALS: BP 146/89; TEMP 97.6
== END 2025-05-31 21:55 | disposition short-term general hospital (02) | DRG 443 ==
LOC: ERS 14:28 → ERHOLD 17:17 → T4-A 18:34
PROVIDERS: ADMIT Internal Medicine; ATTEND Internal Medicine
DX: E80.6 Other disorders of bilirubin metabolism (principal); R74.01 Elevation of levels of liver transaminase levels; F31.9 Bipolar disorder, unspecified; K21.9 Gastro-esophageal reflux disease without esophagitis; I10 Essential (primary) hypertension; E78.5 Hyperlipidemia, unspecified; Z98.890 Other specified postprocedural states; Z88.0 Allergy status to penicillin; Z88.8 Allergy status to other drugs, medicaments and biological substances; Z91.018 Allergy to other foods; Z91.048 Other nonmedicinal substance allergy status; I48.0 Paroxysmal atrial fibrillation
CPT/HCPCS: 36415; 71045; 74176; 74181; 76705; 80053; 80074; 81001; 82150; 83690; 83735; 83880; 84484; 85025; 85610; 85730; 87636; 93005; 96374; 96375; J1885; Q0169